=== PATIENT | female | born 1985 | race Caucasian/White ===

== ENCOUNTER 2018-01-05 14:43 | Emergency (ER) | payer MEDICAID, SELFPAY ==
[2018-01-05] VITALS (9 sets, daily range): BP systolic 106–142; BP diastolic 69–113; PULSE 79–106; RESP 16–21; TEMP 36.3; O2SAT 96–97; BMI 36.0
--- NOTE | 2018-01-05 15:02 | ED.RN ---
PT STATES IF YOU PUT AN IV IN ME I'M GOING TO RIP IT OUT. JUST LET ME . DOESN'T A SUICIDE NOTE MEAN ANYTHING TO ANYONE. WHEN ASSISTING TO REMOVE THE PT NECKLACE PT REACHED UP AND PULLED OFF HER NECKLACE OFF BREAKING THE NECKLACE
--- NOTE | 2018-01-05 15:10 | ED.RN ---
PT WRAPPED SPO2 MONITOR CORD AROUND NECK, STATES I'M GOING TO KILL MYSELF HOWEVER I CAN. PT CURSING AND SCREAMING OBSCENITIES AT POLICE AND STAFF.
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
[2018-01-05 15:22] LABS: Absolute Lymphocyte Count 3.69 X10^3/ul (0.83-4.51); Basophil# 0.05 X10^3/uL; Basophil% 0.5 % (0-1); Eosinophil# 0.11 X10^3/uL; Hematocrit 44.8 % (37-47); Hemoglobin 14.9 g/dl (12.0-15.0); Lymphocyte # 3.69 X10^3/ul (4.0); Lymphocyte % 34.2 % (19-41); Mean Corp Hgb Conc 33.3 g/gl (32-36); Mean Corpuscular Hgb 30.1 pg (27.0-32.0); Mean Corpuscular Volume 90.5 fL (81-99); Mean Platelet Vol. 10.6 fl (6.2-12.0); Monocyte# 0.91 X10^3/uL; Monocyte% 8.4 % (0-10); Neutrophil # 6.01 X10^3/uL (2.7-7.7); Neutrophil % 55.6 % (47-70); Platelet Count 279 K/mm3 (150-450); RBC Distribution Width CV 12.8 % (11.6-14.6); RBC Distribution Width SD 41.9 fl (35.1-43.9); Red Blood Count 4.95 M/mm3 (4.2-5.4); White Blood Count 10.8 K/mm3 (4.4-11.0)
[2018-01-05 15:24] LABS: Anion Gap 12 (5-15); BUN 9 mg/dL (7-18); BUN/Creat Ratio 12.1 RATIO (10-20); Chloride 105 mmol/L (98-107); Creatinine, Serum 0.74 mg/dL (0.55-1.02); EST Glomerular Filtration Rate 95 mL/min (>60); Est Glom Filt Rate - Afr Amer 115 mL/min (>60); Estimated Creatinine Clearance 84.72 ml/min; Glucose 116 mg/dL (74-106); Sodium Level 143 mmol/L (136-145)
[2018-01-05 15:27] LABS: POSITIVE COUNT NO; POSITIVE DIFFERENTIAL NO; POSITIVE MORPHOLOGY NO
[2018-01-05 15:29] LABS: Pregnancy, Serum, hCG Quali. NEGATIVE Negative (0-9 Nonpreg)
[2018-01-05] MEDS: Ziprasidone IM 20 MG/ML VIAL IM (15:38)
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
[2018-01-05 16:00] LABS: Alcohol, Blood (Medical)-Serum < 3.0 mg/dL
[2018-01-05 16:40] LABS: Amphetamine Urine VISTA POSITIVE (<1000 ng/mL); Barbiturate Urine VISTA NEGATIVE (< 200 ng/mL); Benzodiazepine Urine VISTA POSITIVE (< 200 ng/mL); Cocaine Urine VISTA NEGATIVE (< 300 ng/mL); Ecstacy Urine VISTA POSITIVE (< 500 ng/mL); Methadone Urine VISTA NEGATIVE (< 300 ng/mL); PCP Urine VISTA NEGATIVE (< 25 ng/mL); THC Urine VISTA POSITIVE (< 50 ng/mL); Vista UDS pH Range 5
--- NOTE | 2018-01-05 16:46 | ED.RN ---
THIS NURSE SPOKE WITH FROM [facility]. IF PT IS MEDICALLY CLEARED AND DOES NOT NEED TO BE HOSPITALIZED AT A PSYCHIATRIC FACILITY, THE CONTINUITY EDITOR DEPARTMENT WILL COME BACK TO ARREST THE PT.
--- NOTE | 2018-01-05 17:26 | ED.RN ---
CRISIS AWARE PT NEEDS EVAL, WILL RETURN WHEN PT LESS MEDICATED, PT NOT COOPERATIVE WITH EVAL AT THIS TIME.
--- NOTE | 2018-01-05 18:18 | CT_ITS ---
STUDY: CT BRAIN WITHOUT CONTRAST REASON FOR EXAM: Female, 32 years old. Trauma RADIATION DOSAGE (If Supplied By Facility): CTDIvol = ( 44.99 ) mGy, DLP = ( 745.49 ) mGycm TECHNIQUE: Transaxial CT imaging of the brain was performed without administration of intravenous contrast material. Individualized dose optimization techniques were used for this CT. COMPARISON: None. FINDINGS: Normal soft tissue structures. Normal calvarium. Normal size ventricles and extra-axial spaces for the patient's age. Normal white matter tracts of the cerebral hemispheres. Normal basal ganglia and thalami. Normal brainstem. Normal cerebellum. There is no intracranial hemorrhage. There are no findings of an acute ischemic infarction. Normal visualized paranasal sinuses. CT/Brain/Head without Contrast IMPRESSION: Normal unenhanced CT scan of the brain. Electronically Signed: Fidel Matamoros MD at 19:45 EST , Service support ,
--- NOTE | 2018-01-05 18:21 | ED.VISSUMM ---
- ER Visit Summary Date of Service: 01/05/18 Chief Complaint: [] Suicidal and homicidal ideation History of Present Illness: The patient is a 32 F [] Physical Examination: [] Test Results: [] CT head: Labs: CBC, BMP within normal limits. Urine tox is positive for methamphetamines, benzodiazepines, marijuana. EtOH negative. EKG: NSR, rate 75. No ectopy. Emergency Department Course and Treatment: [] Patient required immediate physical restraints as she was physically aggressive towards staff. She was placed in four-point leather restraints. She continued to be verbally abusive and aggressive in bed. She was provided 20 mg IM Geodon as a chemical restraint. She was on a threat monitoring analyst throughout her ED course. She did have her forehead laceration sutured. Area was cleaned and anesthetized with saline and Shur-Clens. As the patient was chemically sedated she did not require lidocaine. #3 6.0 nylon sutures were placed approximating the wound nicely. Patient was instructed to have sutures removed in 5 days. This was also explicitly stated in the discharge instructions. Psychiatric liaison was contacted for further evaluation and disposition to a psychiatric facility. She is medically cleared at this time. Treatment Plan: [] Transfer to a psychiatric facility. Disposition: [] Transfer to psychiatric facility. Impression: [] Suicidal ideation Homicidal ideation 2 cm forehead laceration Laceration repair by ED physician This note was generated with [employer] dictation software. It may contain incorrect words, spelling, and punctuation that were not noted in review of the chart prior to signing ED Disposition - Plan for ED Patient: Chief Complaint: Suicidal Referrals: García Mata DO [Primary Care Provider] -
--- NOTE | 2018-01-05 18:25 | ED.DCSUM_ITS ---
- ER Visit Summary Date of Service: 01/05/18 Chief Complaint: [] Suicidal and homicidal ideation History of Present Illness: The patient is a 32 F [] Physical Examination: [] Test Results: [] CT head: Labs: CBC, BMP within normal limits. Urine tox is positive for methamphetamines , benzodiazepines, marijuana. EtOH negative. EKG: NSR, rate 75. No ectopy. Emergency Department Course and Treatment: [] Patient required immediate physical restraints as she was physically aggressive towards staff. She was placed in four-point leather restraints. She continued to be verbally abusive and aggressive in bed. She was provided 20 mg IM Geodon as a chemical restraint. She was on a potline monitor throughout her ED course. She did have her forehead laceration sutured. Area was cleaned and anesthetized with saline and Shur-Clens. As the patient was chemically sedated she did not require lidocaine. #3 6.0 nylon sutures were placed approximating the wound nicely. Patient was instructed to have sutures removed in 5 days. This was also explicitly stated in the discharge instructions. Psychiatric liaison was contacted for further evaluation and disposition to a psychiatric facility. She is medically cleared at this time. Treatment Plan: [] Transfer to a psychiatric facility. Disposition: [] Transfer to psychiatric facility. Impression: [] Suicidal ideation Homicidal ideation 2 cm forehead laceration Laceration repair by ED physician This note was generated with [employer] dictation software. It may contain incorrect words, spelling, and punctuation that were not noted in review of the chart prior to signing ED Disposition - Plan for ED Patient: Chief Complaint: Suicidal Referrals: García Mata DO [Primary Care Provider] -
--- NOTE | 2018-01-05 22:20 | EKG12_ITS ---
Test Reason : PHYSCH Blood Pressure : / mmHG Vent. Rate : 075 BPM Atrial Rate : 075 BPM P-R Int : 156 ms QRS Dur : 080 ms QT Int : 406 ms P-R-T Axes : 038 052 031 degrees QTc Int : 453 ms Normal sinus rhythm Normal ECG Confirmed by TIMOTEO HAYWARD MD ([id number]), staff editor JOHN GURROLA ([id number]) on 01/11/2018 2:45:25 PM Referred By: NAINA Confirmed By:TIMOTEO HAYWARD MD
[2018-01-05 22:29] LABS: Bacteria 0 SEEN /hpf (None Seen); Mucous, Urine 0 SEEN /hpf (<or=2+); Red Blood Cells-Urine 0 SEEN /hpf (0-5); White Blood Cells 0 SEEN /hpf (0-5)
[2018-01-05 22:35] LABS: Color, Urine Yellow (Yellow); Glucose, Dipstick Normal (Normal); Ketone-Dipstick 5 mg/dl (Negative); Leukocyte Esterase-Dipstick 25 /ul (Negative); Nitrite-Dipstick Negative (Negative); Occult Blood-Urine Negative /ul (Negative); Protein-Dipstick 30 mg/dl (Negative); Specific Gravity, Urine 1.025 (1.002-1.030); Urine Bilirubin Dipstick 1 mg/dL (Negative); Urine Clarity Cloudy (Clear); Urine Urobilinogen 1 mg/dl (Normal)
[2018-01-05 22:45] LABS: Squamous Epithelial Cells - UA 0-5 SEEN /hpf (5-10)
[2018-01-05 22:46] LABS: Amorphous Sediment 4+
[2018-01-05 22:48] LABS: AST(SGOT) 32 U/L (15-37); Alanine Aminotransfer ALT/SGPT 63 U/L (13-56); Albumin, Serum 3.9 g/dL (3.2-5.0); Alkaline Phosphatase 74 U/L (45-117); Bilirubin, Direct 0.12 mg/dL (0.00-0.30); Globulin 3.7 g/dL (2.2-4.2); Protein, Total 7.6 g/dL (6.4-8.2)
[2018-01-06] VITALS (14 sets, daily range): BP systolic 111–158; BP diastolic 60–94; PULSE 72–90; RESP 14–22; O2SAT 97–100
[2018-01-06] MEDS: clonazePAM 0.5 MG Tablet PO (00:10)
--- NOTE | 2018-01-06 00:40 | ED.RN ---
BOYFRIEND AT BEDSIDE. BOYFRIEND INFORMED THAT IF ANY ARGUING STARTED OR PT BECAME UPSET THAT HE WOULD HAVE TO LEAVE.
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
[2018-01-06] MEDS: Acetaminophen 325 MG Tablet 650 MG PO (02:39)
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
--- NOTE | 2018-01-06 07:18 | ED.RN ---
MILAGRO WITH CRISIS; SPOKE WITH EMMANUEL AT [facility]; THE PTS CHART IS STILL UNDER REVIEW WITH SEVERAL OTHERS; [facility] WILL TOUCH BASE WITH US WHEN THEY HAVE ANY UPDATED INFORMATION; IT WILL BE A WHILE
--- NOTE | 2018-01-06 07:45 | ED.RN ---
PT VERY POLITE AND COOPERATIVE AT THIS TIME. BOYFRIEND AT THE BEDSIDE. PT APOLOGIZED FOR HER ACTIONS YESTERDAY
--- NOTE | 2018-01-06 08:07 | ED.RN ---
PHARMACY CONTACTED FOR MEDICATIONS
[2018-01-06] MEDS: carBAMazepine 200 MG Tablet PO (08:15)
[2018-01-06] MEDS: clonazePAM 1 MG Tablet PO ×2 (08:16→21:40)
[2018-01-06] MEDS: Pantoprazole Sodium 20 MG Tablet PO (08:16)
--- NOTE | 2018-01-06 08:58 | ED.RN ---
PT REQUESTING TO SMOKE. THIS NURSE IS NOT COMFORTABLE WITH PT LEAVING THE DEPARTMENT. BRANCH ACCOUNT EXECUTIVE IS NOT SAFE WITH THE PT LEAVING THE DEPARTMENT. PT INFORMED OF THE SAME. THIS NURSE OFFERED THE PT A NICOTINE PATCH. PT STATES I DON'T KNOW JUST DECIDE FOR ME. I'M STUCK HERE I CAN'T GO ANYWHERE. PT TEARFUL. PT STATES I JUST FOUND OUT I'M LOSING MY KIDS. THIS NURSE AND PT MET AGREEMENT TO LET KLONOPIN TAKE EFFECT A LITTLE LONGER AND RE-EVALUATE
[2018-01-06] MEDS: Ziprasidone IM 20 MG/ML VIAL IM (10:09)
--- NOTE | 2018-01-06 12:54 | ED.RN ---
LEFT MESSAGE WITH [facility] TO HAVE CRISIS CALL US
--- NOTE | 2018-01-06 15:43 | ED.RN ---
CALLED [facility]; REQUESTED TO HAVE CRISIS CALL US WITH AN UPDATE; TAYLOR IS [facility]ILDR[facility]'S TUT[facility] NURSERY FOR CRISIS
--- NOTE | 2018-01-06 15:52 | ED.RN ---
PER TAYLOR WITH CRISIS HE HAS ATTEMPTED SEVERAL TIMES TO CONTACT [facility]
--- NOTE | 2018-01-06 16:12 | NURSING ---
JAMAL VAZQUEZ WITH CRISIS DOCTOR AT [facility] IS REVIEWING PTS CHART AT THIS TIME
--- NOTE | 2018-01-06 16:52 | ED.RN ---
PT SENDING THE FOLLOWING PERSONAL BELONGINGS WITH MOTHER AND BOYFRIEND: RED SWEATSHIRT JACKET PURPLE SHIRT STRIPPED LOW CUT SOCKS BLACK SWEATS SILVER COLORED RING AND NECKLACE PURPLE UNDERWARE DUCKWORTH SPORTS BRA WHITE TENNIS SHOES BLACK WALLET OMEPRAZOLE 20 MG PILL BOTTLE, 18 PILLS TOTAL/INTACT CARBAMAXEPINE ER 200 MG PILL BOTTLE, 15 PILLS IN ONE BOTTLE, AND 14 PILLS IN OTHER BOTTLE PAROXETINE 20 MG PILL BOTTLE, 10 PILLS TOTAL/INTACT CLONAZEPAM 0.5 MG PILL BOTTLE, 5 PILLS TOTAL/INTACT ANTIDIARRHEAL MEDICATION X2 TABS, PACKAGING INTACT PT UPSET AT STAFF THAT SHE IS UNABLE TO GO OUTSIDE AND SMOKE. EXPLAINED TO PT THAT [facility] IS A NON SMOKING CAMPUS AND THAT WE COULD PROVIDE A NICOTINE PATCH IN LIEU OF SMOKING. PT ESCALATING STATING THAT SOMEONE EARLIER TOLD ME I COULD GO SMOKE. MOM AND BOYFRIEND AT BEDSIDE, ASSISTING IN ATTEMPTING TO CALM PT. PT CALMING AT THIS TIME.
--- NOTE | 2018-01-06 17:20 | ED.RN ---
PT REQUESTS TO SMOKE. THIS RN INFORMS THE PATIENT THAT THIS IS A NON SMOKING FACILITY. HRO OFFICER INFORMED OF PT REQUEST REINFORCES THAT IT IS AGAINST POLICY. PT VISIBLY UPSET STATING, THE OTHER NURSE SAID I COULD SMOKE. THIS RN APOLOGIZED FOR CONFUSION REGUARDING SMOKING, AND OFFERS TO GET PT A NICOTINE PATCH. PT STATES, I GUESS I WILL TAKE ONE, BUT IF IT MAKES ME SICK YOU ARE GOING TO HAVE TO CLEAN IT UP, AND MY SHIT STINKS. DR. MARCANO INFORMED OF PT REQUEST. NICOTINE PATCH PLACED ON LEFT SHOULDER WHERE PT INDICATED SHE WANTED IT PLACED. PT INFORMED THAT HER MEAL WAS PRESENT, BUT IS REFUSING TO EAT IT AT THIS TIME. THIS RN LABELED MEAL AND PLACED IT IN THE ER REFRIGERATOR. PT INFORMED THAT IT WOULD BE AVAILABLE TO HER IF SHE WANTED. PT VISIBLY UPSET. THIS RN ATTEMPTS TO COMFORT PT, APOLOGIZING FOR ANY CONFUSION. PT STATES, NO ONE HAS EVEN OFFERED TO CHANGE MY DRESSING. THIS RN ASKS PT PERMISSION TO CHANGE IT AND PT REFUSING AT THIS TIME. PT EDUCATED THAT THIS RN IS WILLING IF THE PT CHANGES HER MIND AND WOULD LIKE HER DRESSING CHANGED. PT REQUEST TO BE LEFT ALONE AND HAVE DOOR CLOSED. DOOR CLOSED AT PT REQUEST. CAMERA ON PT BOYFRIEND AT BEDSIDE.
--- NOTE | 2018-01-06 18:27 | ED.RN ---
PT CONTINUES TO REFUSE DINNER. PT REPORTS SHE DOES NOT WANT ANYTHING AT THIS TIME. PT IRRITATED BUT COOPERATIVE. PT REPORTS NICOTINE PATCH IS MAKING HER DIZZY, BUT DENIES WANTING INTERVENTION. PATCH STILL INTACT ON LEFT SHOULDER. PT BOYFRIEND AT BEDSIDE. PT IRRITABLE BUT COOPERATIVE.
--- NOTE | 2018-01-06 20:14 | NURSING ---
CALLED [facility] AND THEY SAID THE PHYSICIAN IS STILL REVIEWING THE CHART EVEN AFTER 2 HOURS
--- NOTE | 2018-01-06 21:45 | ED.RN ---
GAVE PT CAMILLE AND SHE STATED THAT SHE WAS VERY PARANOID AND WANTED TO SEE THE MEDICATION PRIOR TO TAKING IT.GAVE THE PT THE MED IN IT'S PACKAGING AND THEN SHE TOOK IT.PT STATED SHE DOES NOT TRUST ANYONE EXCEPT THIS NURSE.PT EARLIER HAD SAID THAT SHE HAS NOT VOIDED SINCE YESTERDAY,BUT THEN STATED SHE HAD GONE TO THE BATHROOM BECAUSE HER ABDOMEN HURT AND SHE WENT.PT DECLINED ANY MEDICATION FOR HER ABDOMINAL PAIN OR HER HEAD ACHE.SHE STATED THAT SHE WAS AFRAID TO FALL ASLEEP IN FEAR SOMEONE WOULD DO SOMETHING TO HER.RE-ASSURANCE GIVEN THAT SHE IS SAFE AND CAN SLEEP.
--- NOTE | 2018-01-06 22:30 | NURSING ---
BEEN CALLING [facility] EVERY 15 MINUTES SINCE 2129, HAVE LEFT VOICEMAIL AND STILL HAVE NO RESPONSE TO IF SHE IS ACCEPTED OR NOT.
--- NOTE | 2018-01-06 23:27 | NURSING ---
[facility] ALEX[facility]RE AND THEY SAID PATIENT MIGHT BE BETTER IN REHAB. ASKED THEM TO CALL CRISIS TO DISCUSS OPTIONS.
--- NOTE | 2018-01-06 23:45 | ED.RN ---
PT C/O NOT BEING ABLE TO VOID AND THAT NO BODY IS CHANGING HER DRSG ON FORE HEAD.ENCOURAGED PT TO TRY TO VOID.PT ARGUEMENTIVE AND THREATENING TO DIOR THE HOSPITAL. MADE AWARE.PT DID GO TO THE BATHROOM,BUT STATES SHE DID NOT GO.
[2018-01-07] VITALS (21 sets, daily range): BP systolic 124–156; BP diastolic 70–89; PULSE 75–118; RESP 14–20; O2SAT 97–99
--- NOTE | 2018-01-07 | ED.RN ---
MD DID SPEAK TO THE PT AND PT WAS BLADDER SCANNED FOR 115CC.MD AWARE OF AMOUNT SCANNED IN BLADDER.PT ASKING HER SHEETS CHANGED,SHEETS CHANGED.PT'S EX- AT BEDSIDE.
--- NOTE | 2018-01-07 00:01 | ED.RN ---
[facility] REACHED AFTER MULTIPLE ATTEMPTS, [facility] ASKS IF PATIENT IS STILL SUICIDAL/HOMICIDAL TO WHICH PATIENT DENIES. [facility] DECLINES PATIENT STATING THAT BECAUSE SHE IS NO LONGER SUICIDAL/HOMICIDAL SHE NEEDS DRUG REHAB AND NOT INPATIENT PSYCHIATRIC STABILIZATION. CRISIS MADE AWARE AND STATES SOMEONE WILL BE BACK TO EVALUATE HER IN THE MORNING.
[2018-01-07 00:08] LABS: Absolute Lymphocyte Count 4.12 X10^3/ul (0.83-4.51); Absolute Neutrophil Count 3.6 X10^3/uL (2.0-7.7); Basophil# 0.05 X10^3/uL; Basophil% 0.6 % (0-1); Eosinophil# 0.22 X10^3/uL; Eosinophils% 2.5 % (0-5); Hematocrit 42.9 % (37-47); Hemoglobin 14.7 g/dl (12.0-15.0); Lymphocyte # 4.12 X10^3/ul (4.0); Lymphocyte % 47.5 % (19-41); Mean Corp Hgb Conc 34.3 g/gl (32-36); Mean Corpuscular Hgb 30.4 pg (27.0-32.0); Mean Corpuscular Volume 88.8 fL (81-99); Mean Platelet Vol. 10.2 fl (6.2-12.0); Monocyte# 0.63 X10^3/uL; Monocyte% 7.3 % (0-10); Neutrophil # 3.64 X10^3/uL (2.7-7.7); Platelet Count 260 K/mm3 (150-450); RBC Distribution Width CV 12.8 % (11.6-14.6); RBC Distribution Width SD 41.7 fl (35.1-43.9); Red Blood Count 4.83 M/mm3 (4.2-5.4); White Blood Count 8.7 K/mm3 (4.4-11.0)
[2018-01-07 00:09] LABS: POSITIVE COUNT NO; POSITIVE DIFFERENTIAL NO; POSITIVE MORPHOLOGY NO
--- NOTE | 2018-01-07 00:14 | ED.RN ---
PT'S LACERATION OPEN TO AIR,NO SIGNS OF INFECTION.
[2018-01-07 00:17] LABS: Anion Gap 10 (5-15); BUN 7 mg/dL (7-18); BUN/Creat Ratio 10.7 RATIO (10-20); Calcium,Total 8.2 mg/dL (8.5-10.1); Chloride 104 mmol/L (98-107); Creatinine, Serum 0.66 mg/dL (0.55-1.02); EST Glomerular Filtration Rate 110 mL/min (>60); Est Glom Filt Rate - Afr Amer 133 mL/min (>60); Estimated Creatinine Clearance 94.99 ml/min; Glucose 90 mg/dL (74-106); Potassium 3.3 mmol/L (3.5-5.1); Sodium Level 140 mmol/L (136-145)
--- NOTE | 2018-01-07 00:30 | ED.RN ---
MD AWARE LABS ARE BACK AND STATED HE WOULD BE IN TO SEE THE PT AND GO OVER THE RESULTS.
--- NOTE | 2018-01-07 02:23 | ED.RN ---
PT ASKING FOR SOMETHING TO SLEEP, AWARE.
--- NOTE | 2018-01-07 02:24 | ED.RN ---
PT UP TO THE BATHROOM.
--- NOTE | 2018-01-07 02:35 | ED.RN ---
PT REFUSED THE AMBIEN,'I AM BIPOLAR AND I AM AFRAID OF THE SIDE EFFECTS,AND IF I FALL ASLEEP AND WAKE UP MANIAC,I'M ALREADY IN ENOUGH TROUBLE.EMPATHY GIVEN, AWARE.
--- NOTE | 2018-01-07 05:17 | ED.RN ---
PT VERBALIZED THAT SHE TRIED TO SEND HER EX-,BUT HE WOULD NOT GO HOME, BECAUSE HE IS HERE TO MAKE SURE I STAY SAFE.PT VOICED THAT SHE WAS NOT GOING TO SLEEP EVEN AFTER ADVISING HER SHE IS SAFE.OFFERRED PT SNACKS AND SHE DECLINED.
--- NOTE | 2018-01-07 05:33 | ED.RN ---
dr acuna checked on pt to see if she wanted something to help her sleep. pt has been awake all night. pt than came out talking on her phone and said tell my nurse thanks to that dr i am suicidal again. She went walking into the bathroom and slammed the door shut. Pt came out of the bathroom still talking on her phone and looked at Dr. Acuna and said thanks dr now i'm suicidal again. Thanks for not caring if I sleep or not Dr. Acuna asked her if she wanted something to sleep or not. she said No not now. pt also said that nurse was supposed to check up on her and never has. Xochilt RN was just in the room about 15-[address] Acuna going in. Dr. Acuna had ordered pt ambien to sleep which she refused.
--- NOTE | 2018-01-07 06:18 | ED.RN ---
Addendum entered by Esme Clark 01/07/18 06:25: PT'S MOTHER STATED SHE WAS ON THE PHONE WITH HER AND THAT THE PT HAD WANTED HER TO CALL SO THAT SHE CAN GET A SHOT.ALSO THE MOTHER WANTS TO MAKE SURE COUNSELOR IS PLACING HER. Original Note: PT'S MOTHER CALLED AND THE MOTHER STATED,SHE'LL TAKE THE SHOT THAT YOU GUYS OFFERRED HER.MADE PT'S MOTHER AWARE THAT NO SHOT WAS OFFERRED TO HER AND AWARE THAT CRISIS WILL BE IN TO EVALUATE PT.PT'S MOTHER STATED THAT SHE LIVES WITH THE PT AND SHE KNOWS HER THAT SHE IS NOT TRUTHFUL.
--- NOTE | 2018-01-07 06:27 | ED.RN ---
boyfriend came out to talk to dr acuna. asked about sleeping shot. dr acuna said that he offered her meds to sleep and pt refused. boyfriend was told that we will not tolerate her being manipulative. she is trying to get family and boyfriend upset and is trying to pit nurse against nurse.
--- NOTE | 2018-01-07 06:58 | ED.RN ---
0649 PT'S EX- CAME OUT AND INFORMED DR TODD THAT SHE WILL TAKE SOMETHING FOR SLEEP,VISTARIL WAS GIVEN.PT DID BEGIN TO C/O ABOUT THE VISTARIL,BUT THE EX- INTERVENED AND SHE TOLD HIM FINE I WILL JUST SHUT UP AND WAIT FOR MY RIDE.DON'T YOU SPEAK TO ME.I WILL JUST TAKE ANY PILL THEY GIVE ME.
--- NOTE | 2018-01-07 07:10 | ED.RN ---
OFFERED PT ICE FOR HER BOTTLED, PT REFUSED. PT EX IS AT BEDSIDE.
--- NOTE | 2018-01-07 07:46 | ED.RN ---
PT REFUSED BREAKFAST. OFFERED HER SOME CRACKERS, STATED SHE IS UNABLE TO EAT.
--- NOTE | 2018-01-07 07:47 | ED.RN ---
OFFERED THE PT EX THE BREAKFAST TRAY THAT THE PT REFUSED, HE REFUSED FOOD WELL.
--- NOTE | 2018-01-07 08:41 | ED.RN ---
PT RESTING IN BED, EX IN BED WITH PT.
[2018-01-07] MEDS: Acetaminophen 500 MG Tablet 1000 MG PO (09:14)
[2018-01-07] MEDS: carBAMazepine 200 MG Tablet PO (09:15)
[2018-01-07] MEDS: clonazePAM 1 MG Tablet PO ×2 (09:15→21:49)
[2018-01-07] MEDS: Pantoprazole Sodium 20 MG Tablet PO (09:16)
--- NOTE | 2018-01-07 09:17 | ED.RN ---
BROUGHT PT CUP OF ICE WATER IN FOR PT. OFFERED PT A SNACK TO HAVE WITH HER MEDICATIONS BUT SHE REFUSED. LOOKED AT WOUND ON FOREHEAD AND APPLIED NEW DRESSING.
--- NOTE | 2018-01-07 09:22 | ED.RN ---
PT CONTINUES TO COMPLAIN ABOUT STAFF AND HOW SHE HAS BEEN MISTREATED. STATES THAT KNOW ONE HAS OFFERED TO CHANGE HER BANDAGE. ANYTIME SHE ASKED FOR SOMETHING STATES THAT SHE IS YELLED AT.
--- NOTE | 2018-01-07 09:32 | ED.RN ---
GAVE MOUTH WASH SWABS.
--- NOTE | 2018-01-07 10:25 | ED.RN ---
SPOKE WITH AUTUMN AT CRISIS, NO BEDS AT [facility]. AUTUMN WANTS TO KNOW IF SHE GO TO [facility] THEN TO [facility]. AUTUMN FROM CRISIS SAYS NO NEED TO RE-EVALUATE. SHOULD BE A BED TOMORROW AT [facility].
--- NOTE | 2018-01-07 10:35 | NURSING ---
AUTUMN , CRISIS, CALLED AND TALKED TO RN
--- NOTE | 2018-01-07 10:40 | ED.RN ---
SPOKE WITH [facility] DEPUTY NANCE WHO THEN GAVE ME TO SERGEANT NANCE. EXPLAINED TO SERGEANT NANCE THAT SHE IS MEDICALLY CLEARED AND THAT WE ARE WAITING ON BEDS AT [facility], THAT AUTUMN AT CRISIS WOULD LIKE HER IN SNF UNTIL A BED OPENS UP. SERGEANT NANCE STATED HE IS LOOKING INTO IT AND WILL CALL BACK.
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
--- NOTE | 2018-01-07 14:15 | NURSING ---
CALLED CRISIS, TALKED TO AUTUMN. PATIENT WILL PROBABLY NOT GET A BED AT [facility] UNTIL TOMORROW.
[2018-01-07] MEDS: Ibuprofen 600 MG Tablet PO (14:46)
--- NOTE | 2018-01-07 16:32 | NURSING ---
POT ANNEALER IN ROOM
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
[2018-01-08] VITALS (9 sets, daily range): BP systolic 110–131; BP diastolic 59–86; PULSE 73–110; RESP 14–18; O2SAT 95–98
[2018-01-08] MEDS: Ziprasidone IM 20 MG/ML VIAL IM (00:25)
--- NOTE | 2018-01-08 01:00 | ED.RN ---
PATIENT WAS REQUESTING MEDICATION TO HER HELP HER SLEEP. PATIENT REQUESTING THE SHOT SHE RECEIVED THE OTHER DAY. PATIENT WAS GIVEN GEODON. PATIENT WAS GIVEN IM GEODON PER PATENT'S REQUEST. PATIENT DENIES ANY NEEDS OR COMPLAINTS AT THIS TIME
--- NOTE | 2018-01-08 07:18 | NURSING ---
ANDREA CALLED. ASKED IF PATIENT WAS STILL HERE WAITING A BED. REPLIED YES, THEY SAID SHE SHOULD HAVE A BED TODAY
[2018-01-08] MEDS: Pantoprazole Sodium 20 MG Tablet PO (09:17)
[2018-01-08] MEDS: clonazePAM 1 MG Tablet PO (09:17)
--- NOTE | 2018-01-08 09:57 | NURSING ---
ANDREA ON LINE WITH RN
--- NOTE | 2018-01-08 10:52 | ED.RN ---
TWO BAGS OF CLOTHES LEFT WITH PT INCLUDING PURSE, CELLPHONE AND HEAT TREAT SUPERVISOR.
== END 2018-01-08 10:52 | disposition home or self-care (01) ==
PROVIDERS: Emergency Medicine; Emergency Provider Emergency Medicine; Family Provider Preventive Medicine Occupational Medicine; PCP Preventive Medicine Occupational Medicine
DX: R45.851 Suicidal ideations (principal); R45.850 Homicidal ideations; S01.81XA Laceration without foreign body of other part of head, initial encounter; F31.9 Bipolar disorder, unspecified; E66.9 Obesity, unspecified; Z79.899 Other long term (current) drug therapy; X83.8XXA Intentional self-harm by other specified means, initial encounter; Y92.230 Patient room in hospital as the place of occurrence of the external cause
CPT/HCPCS: 12011; 36415; 70450; 80048; 80076; 80307; 80320; 81001; 84132; 84703; 85025; 93005; 96372; 99285; G0480; J3486

== ENCOUNTER 2018-01-15 19:47 | Emergency (ER) | payer MEDICAID, SELFPAY ==
[2018-01-15 19:48] VITALS: BP 159/110; PULSE 126; RESP 16; TEMP 36.9; O2SAT 99; BMI 31.8
--- NOTE | 2018-01-15 20:02 | ED.VISSUMM ---
- ER Visit Summary Date of Service: 01/15/18 Chief Complaint: Suture removal History of Present Illness: The patient is a 32 F presenting for suture removal. Patient had sutures placed on 01/05. She denies any complications with wound healing. Physical Examination: Well-healing wounds in the central portion of the patient's forehead without any evidence of infection or drainage. Mild amount of scab in the central area. Test Results: None indicated Emergency Department Course and Treatment: Wound was prepped with Betadine, and then forceps and scissors were used to remove 3 sutures fully intact. Patient tolerated this well. Disposition: Discharge Impression: 1. Visit for suture removal 2. Suture removal by ED physician This note was generated with MedRunner dictation software. It may contain incorrect words, spelling, and punctuation that were not noted in review of the chart prior to signing ED Disposition - Plan for ED Patient: Disposition: Home or Assisted Living Chief Complaint: Suture Remv Diagnosis: Visit for suture removal Instructions: ED Wound Check Sutr Remove No Infec Referrals: García Mata DO [Primary Care Provider] - As Needed
[2018-01-15 20:12] VITALS: BP 121/90; PULSE 101; RESP 17; O2SAT 96
== END 2018-01-15 20:16 | disposition home or self-care (01) ==
LOC: ED 20:14
PROVIDERS: Emergency Provider Emergency Medicine; Family Provider Preventive Medicine Occupational Medicine; PCP Preventive Medicine Occupational Medicine
DX: Z48.02 Encounter for removal of sutures (principal); Z79.899 Other long term (current) drug therapy
CPT/HCPCS: 99282

== ENCOUNTER 2018-12-18 07:15 | Emergency (ER) | payer MEDICAID, SELFPAY ==
[2018-12-18 07:16] VITALS: BP 123/74; PULSE 87; RESP 15; TEMP 36.3; O2SAT 100; BMI 38.2
--- NOTE | 2018-12-18 07:32 | EKG12_ITS ---
Test Reason : CP Blood Pressure : / mmHG Vent. Rate : 085 BPM Atrial Rate : 085 BPM P-R Int : 134 ms QRS Dur : 076 ms QT Int : 378 ms P-R-T Axes : 050 060 050 degrees QTc Int : 449 ms Normal sinus rhythm Normal ECG Confirmed by YESY HUDSON, TIMOTEO ([id number]), editorial specialist JOHN GURROLA ([id number]) on 12/24/2018 11:02:25 AM Referred By: HUYEN Confirmed By:TIMOTEO HAYWARD MD
--- NOTE | 2018-12-18 07:32 | RAD_ITS ---
STUDY: X-RAY CHEST REASON FOR EXAM: Female, 32 years old. Sudden onset of chest pain TECHNIQUE: Single AP portable view of the chest. COMPARISON: 03/17/2015 FINDINGS: The lungs are clear and expanded. There is no demonstrated pleural abnormality. Normal size heart. Normal mediastinum and jj. Normal visualized pulmonary arteries. Normal visualized aortic arch and descending thoracic aorta. Normal visualized thoracic spine. Normal visualized ribs, clavicles, and shoulders. There is no demonstrated abnormality of the visualized soft tissue structures of the upper abdomen. RAD/Chest 1 View (Portable) IMPRESSION: Normal x-ray examination of the chest. Electronically Signed: Daniel Bloom DO at 7:56 EST Tel , Service support ,
[2018-12-18 07:41] VITALS: O2SAT 100
--- NOTE | 2018-12-18 07:45 | ED.VISSUMM ---
- ER Visit Summary Date of Service: 12/18/18 Chief Complaint: Chest pain History of Present Illness: The patient is a 32 F presenting for evaluation secondary to chest pain. Patient has a underlying history of intermittent methamphetamine use. Patient reports that she relapsed this weekend. She typically snorts. Patient states that she was doing well throughout the course of this week, but then today she was woken from sleep at about 6:30 in the morning with a generalized heaviness in her chest. It is associated with some shortness of breath and worsening with exertion. Seems to have gotten better with taking aspirin and ibuprofen. Patient denies that she has had prior similar episodes in the past. She did report that she ate a corn dog last night that she feels may have contributed to this, but she states that this does feel somewhat different than her typical heartburn. Patient has a underlying history of smoking and premature family history of heart disease. She denies any PE risk factors. Review of systems otherwise negative. Physical Examination: Vital signs are within normal limits, patient is afebrile. General: Patient is well-nourished well-developed and in no acute distress. Head: Normocephalic, atraumatic Eyes: Pupils equal round and reactive bilaterally, extra occular motion intact bialterally ENT: Moist mucous membranes Neck: Supple, no lymphadenopathy, no JVD, no meningismus CVS: Heart regular rate and rhythm, no murmurs, rubs or gallops, radial pulses 2+ bilaterally Resp: Respirations nondistressed, lung sounds clear bilaterally Abdomen: Soft, nontender, nondistended, no palpable masses, normal bowel sounds Back: Nontender Extremities: Nontender, atraumatic, active full range of motion, no peripheral edema Skin: warm, no rashes, no petechia Neuro: Alert and oriented x 4, CN 2-12 intact, no lateralizing neurological defecits Psyc: Normal affect Test Results: EKG demonstrates sinus rhythm of [address] segments normal T waves normal intervals no evidence of acute ischemia or arrhythmia. CBC, chemistry, troponin all found to be unremarkable except for a mild leukocytosis. Chest x-ray was found to be negative per radiology. Emergency Department Course and Treatment: Patient presented secondary to chest pain. Workup was negative as noted above. Patient's heart score is 2. I had a discussion and shared decision-making with the patient about keeping her for a 3-hour rule out versus discharge home with outpatient follow-up. She did opt for outpatient follow-up and discharge. Patient is PE RC negative, I do not believe that there is any indication for workup for pulmonary embolism. Patient was discharged in stable condition. Disposition: DC Impression: 1. Chest Pain This note was generated with [employer] dictation software. It may contain incorrect words, spelling, and punctuation that were not noted in review of the chart prior to signing ED Disposition - Plan for ED Patient: Disposition: Home or Assisted Living Diagnosis: Chest pain Instructions: ED Chest Pain NonCardiac Referrals: García Mata DO [Primary Care Provider] - As Needed
[2018-12-18 07:50] LABS: Absolute Lymphocyte Count 2.26 X10^3/ul (0.83-4.51); Absolute Neutrophil Count 9.5 X10^3/uL (2.0-7.7); Basophil# 0.06 X10^3/uL; Basophil% 0.5 % (0-1); Eosinophil# 0.34 X10^3/uL; Eosinophils% 2.7 % (0-5); Hematocrit 44.2 % (37-47); Hemoglobin 14.4 g/dl (12.0-15.0); Lymphocyte # 2.26 X10^3/ul (4.0); Lymphocyte % 17.6 % (19-41); Mean Corp Hgb Conc 32.6 g/gl (32-36); Mean Corpuscular Hgb 29.9 pg (27.0-32.0); Mean Corpuscular Volume 91.7 fL (81-99); Mean Platelet Vol. 10.1 fl (6.2-12.0); Monocyte# 0.65 X10^3/uL; Monocyte% 5.1 % (0-10); Neutrophil # 9.48 X10^3/uL (2.7-7.7); Neutrophil % 73.9 % (47-70); Platelet Count 328 K/mm3 (150-450); RBC Distribution Width CV 12.8 % (11.6-14.6); RBC Distribution Width SD 42.9 fl (35.1-43.9); Red Blood Count 4.82 M/mm3 (4.2-5.4); White Blood Count 12.8 K/mm3 (4.4-11.0)
[2018-12-18] MEDS: Aspirin 81 MG TAB.CHEW 162 MG PO (07:54)
[2018-12-18 07:56] LABS: POSITIVE COUNT NO; POSITIVE DIFFERENTIAL NO; POSITIVE MORPHOLOGY NO
[2018-12-18 08:01] LABS: Anion Gap 12 (5-15); BUN 8 mg/dL (7-18); Calcium,Total 8.5 mg/dL (8.5-10.1); Chloride 106 mmol/L (98-107); EST Glomerular Filtration Rate 87 mL/min (>60); Est Glom Filt Rate - Afr Amer 105 mL/min (>60); Estimated Creatinine Clearance 81.97 ml/min; Glucose 122 mg/dL (74-106); Potassium 3.6 mmol/L (3.5-5.1); Sodium Level 142 mmol/L (136-145)
[2018-12-18 08:32] VITALS: BP 107/76; PULSE 81; RESP 16; RESP 18; O2SAT 99
== END 2018-12-18 08:35 | disposition home or self-care (01) ==
PROVIDERS: Emergency Provider Emergency Medicine; Family Provider Preventive Medicine Occupational Medicine; PCP Preventive Medicine Occupational Medicine
DX: R07.9 Chest pain, unspecified (principal); Z72.0 Tobacco use
CPT/HCPCS: 71045; 80048; 84484; 85025; 93005; 99285; A4216

== ENCOUNTER 2019-08-06 08:54 | Emergency (ER) | payer MEDICAID, SELFPAY ==
[2019-08-06 08:55] VITALS: BP 137/72; PULSE 84; RESP 18; TEMP 36.6; O2SAT 97; BMI 36.8
--- NOTE | 2019-08-06 09:19 | ED.DCSUM_ITS ---
- ER Visit Summary Date of Service: 08/06/19 Chief Complaint: Sore throat History of Present Illness: The patient is a 33 F who presents with a sore throat that began yesterday. Patient describes her pain as burning and scratching. Patient states it feels like strep throat. Patient states her pain is worse with swallowing. Patient states her pain improves with eating or drinking something cold. Patient states she did have an episode of vomiting after coughing. Patient denies any sputum production. Patient denies any fevers or chills. Patient does admit to a nonproductive cough. Physical Examination: Vital signs are stable. Patient is afebrile. Patient is in no acute distress. Oral mucosa is pink and moist. There is some postnasal drainage and mild erythema of the oropharynx. There are no exudates noted. Tympanic membranes are clear bilaterally. Neck is supple. Trachea is midline. Is no JVD or lymphadenopathy. Heart was regular rate and rhythm. Lungs are clear and equal bilaterally. Abdomen is soft and nontender. Cranial nerves II through XII are intact. There are no focal motor or sensory deficits noted. Test Results: Rapid strep test was obtained and was negative. Emergency Department Course and Treatment: Patient was advised of her strep results. Patient was advised that this most likely viral pharyngitis. Patient was instructed to drink plenty of fluids. Patient was instructed to take Tylenol or ibuprofen as needed for any aches or fevers. Patient was instructed to follow-up with her primary care physician in 5 to 7 days. Patient understood and was agreeable with the plan. All questions were answered. Disposition: Discharge home Impression: Viral pharyngitis This note was generated with [employer] dictation software. It may contain incorrect words, spelling, and punctuation that were not noted in review of the chart prior to signing ED Disposition - Plan for ED Patient: Disposition: Home or Assisted Living Diagnosis: Viral pharyngitis Instructions: PHARYNGITIS, Viral Referrals: García Mata DO [Primary Care Provider] - 5-7 Days
[2019-08-06 11:02] VITALS: BP 110/77; PULSE 77; RESP 16; O2SAT 100
== END 2019-08-06 11:06 | disposition home or self-care (01) ==
PROVIDERS: Emergency Provider Emergency Medicine; Family Provider Preventive Medicine Occupational Medicine; PCP Preventive Medicine Occupational Medicine
DX: J02.8 Acute pharyngitis due to other specified organisms (principal); B97.89 Other viral agents as the cause of diseases classified elsewhere; Z72.0 Tobacco use
CPT/HCPCS: 87880; 99282

== ENCOUNTER 2019-12-24 00:27 | Emergency (ER) | payer MEDICAID, SELFPAY ==
[2019-12-24 00:28] VITALS: BP 138/85; PULSE 100; RESP 18; TEMP 37.1; O2SAT 99; BMI 33.2
--- NOTE | 2019-12-24 01:13 | ED.RN ---
PT ARRIVES TO ED VIA POLICE AFTER GETTING INTO AN ALTERCATION WITH HER MOTHER. PT REPORTS THAT SHE THREATENED TO HARM HER MOTHER AND HERSELF BECAUSE SHE IS UNABLE TO SEE HER KIDS AT THIS TIME. REPORTS THAT HER MOTHER HAS BEEN SELLING HER DRUGS, AND LYING TO KEEP HER KIDS AWAY FROM HER. PT AGITATED BUT COOPERATIVE AT TIME. REPORTS UPCOMING APPT WITH THE [facility]ING [facility] ON SUNDAY. PT STATES, YES, IN THE HEAT OF THE MOMENT I SAID IT WAS EASIER NOT TO BE ALIVE, AND THAT I WANTED TO SEE MY MOTHER . IT WAS MY BIRTHDAY, AND ALL I WANTED WAS TO SEE OR HEAR FROM MY KIDS. I REGRET SAYING THOSE THINGS, I AM NOT HOMICIDAL OR SUICIDAL. THIS RN OFFERS EMOTIONAL SUPPORT TO PT. SITS NEXT TO PT AND TALKS FOR AWHILE. PT INFORMED OF BEING PINK SLIPPED. REPORTS UNDERSTANDING OF THE PINK SLIP PROCESS.
--- NOTE | 2019-12-24 01:24 | ED.RN ---
s/o at bedside. he is the only person pt wants to know that she is here.
--- NOTE | 2019-12-24 01:50 | ED.RN ---
PT ATTEMPTED URINE SPECIMEN, UNABLE TO URINATE AT THIS TIME. PT HAS GATORADE AND IS DRINKING. DR. GARCIA AT BEDSIDE.
[2019-12-24 01:53] LABS: Absolute Neutrophil Count 6.2 X10^3/uL (2.0-7.7); Basophil# 0.06 X10^3/uL; Basophil% 0.5 % (0-1); Eosinophil# 0.71 X10^3/uL; Hematocrit 47.2 % (37-47); Hemoglobin 15.8 g/dL (12.0-15.0); Lymphocyte % 36.9 % (19-41); Mean Corp Hgb Conc 33.5 g/dL (32-36); Mean Corpuscular Hgb 30.2 pg (27.0-32.0); Mean Corpuscular Volume 90.1 fL (81-99); Mean Platelet Vol. 9.9 fl (6.2-12.0); Monocyte# 0.53 X10^3/uL; Monocyte% 4.4 % (0-10); NRBC Flagged by Analyzer 0 % (0-5); Neutrophil % 51.9 % (47-70); Platelet Count 328 K/mm3 (150-450); RBC Distribution Width CV 12.3 % (11.6-14.6); RBC Distribution Width SD 40.7 fl (35.1-43.9); Red Blood Count 5.24 M/mm3 (4.2-5.4); White Blood Count 11.9 K/mm3 (4.4-11.0)
--- NOTE | 2019-12-24 02:12 | ED.RN ---
CHART MINUS LABS GIVEN TO CRISIS
[2019-12-24 02:15] VITALS: RESP 18
[2019-12-24 02:16] LABS: Anion Gap 6 (5-15); BUN 7 mg/dL (7-18); BUN/Creat Ratio 8.7 RATIO (10-20); Calcium,Total 9.6 mg/dL (8.5-10.1); Chloride 107 mmol/L (98-107); EST Glomerular Filtration Rate 86 mL/min (>60); Est Glom Filt Rate - Afr Amer 104 mL/min (>60); Estimated Creatinine Clearance 80.42 ml/min; Glucose 82 mg/dL (74-106); Potassium 3.3 mmol/L (3.5-5.1); Sodium Level 139 mmol/L (136-145)
[2019-12-24 02:19] LABS: Internal QC Validated? YES +Cl - CLEAR BKGD; Pregnancy, Serum, hCG Quali. NEGATIVE Negative
[2019-12-24 02:20] LABS: Alcohol, Blood (Medical)-Serum < 3.0 mg/dL
[2019-12-24 03:18] VITALS: RESP 20
[2019-12-24 04:04] VITALS: RESP 16
--- NOTE | 2019-12-24 04:04 | ED.RN ---
PT tried to provide urine sample for the 4th time. PT is asking for straight cath for urine sample. This RN asked Etelvina from counseling center if she needed a urine sample. Etelvina reported that PT will be going home and is very truthful with her street drug use and no urine is needed.
--- NOTE | 2019-12-24 04:18 | ED.DCSUM_ITS ---
History of Present Illness Chief Complaint: Mental Health Informant: Patient Onset: Today Context: Sudden Onset Conflict: Family Worsened by: Situational factors, - - Drug abuse Associated Symptoms: Depressed, Suicidal Thoughts, Agitated, Angry, Threatening - Towards mother. Negative for: Visual Hallucinations, Auditory Hallucinations Specific plan (suicidal thought): No specific plan Narrative: Patient is a 34-year-old female with history of depression, anxiety and PTSD presenting for psychiatric evaluation. Patient was in a argument with her mother and became very upset. Patient states that while she was very upset she said things along the lines of how living is not worth it and how she wanted to choke the life out of you in reference to her mother. Patient states she did not mean and she was just very upset. She states that her mother has custody of her children and holds it over her. Patient has an appointment on , the day after tomorrow, to be evaluated at [facility] to restart her psychiatric medications. She is currently in counseling with crisis. Patient states she follows up regularly. She does admit to polysubstance abuse. She denies any current intoxication. She denies any physical complaints at this time. She does not live with her mother. Past Medical History - Allergies and Home Meds Allergies/Adverse Reactions: Allergies No Known Allergies Allergy (Verified 08/06/19 08:57) Primary Care Physician: [facility] [Primary Care Provider] - Past Medical History: - - TSD, anxiety, depression, polysubstance drug abuse Lives: Spouse/ Significant Other Smoking Status: Current every day smoker Review of Systems General: Denies: Chills, Fever, Sweats Eyes: Denies: Visual changes - bilaterally, Diplopia ENT: Denies: Rhinorrhea, Sore throat Cardiovascular: Denies: Chest pain, Palpitations Respiratory: Denies: Dyspnea, Cough, Dyspnea on exertion Gastrointestinal: Denies: Abdominal pain, Nausea, Vomiting, Diarrhea, Melena, Hematochezia Genitourinary: Denies: Dysuria, Hematuria, Frequency Musculoskeletal: Denies: Back pain, Extremity Pain Skin: Denies: Rash, Wounds Neurological: Denies: Headache, Weakness, Numbness Psych: Reports: Depression, Anxiety, Suicidal ideations. Denies: Suicidal thoughts Physical Exam Vital Signs/Narrative: Vital Signs Temp Pulse Resp BP Pulse Ox 12/24/19 04:04 16 12/24/19 03:18 20 H 12/24/19 02:15 18 12/24/19 00:28 98.8 F 100 18 138/85 H 99 Inital Vital Signs reviewed: Yes General: Well nourished, Well developed Head: Normocephalic, Atraumatic Eyes: Perrl, EOMI ENT: Moist mucous membranes, No rhinorrhea Neck: Supple, Nontender Cardiovascular: Regular rate, Regular rhythm, No murmurs Respiratory: No distress, CTA bilaterally, Chest nontender Abdomen: Soft, Nontender, Nondistended, Normal bowel sounds Extremities: Nontender, No Edema Skin: Normal color, No rash Neurological: Alert, Oriented x3, Cranial nerves II-XII grossly intact, Normal Strength, Normal Sensation Psych: Normal Speech Pattern, No suicidal or homicidal ideation, Good Insight - She displays agitation with her situation with her mother however does display good insight into the situation and has goal-directed thoughts. She is hopeful for the future. She denies any homicidal suicidal ideations at this point. She did not make any physical threats to herself or to others. She is cooperative in the emergency room., Irritable, -. Negative for: Suicidal thoughts, Homicidal thoughts, Hallucinations, Delusions Diagnostic/Tx/Re-eval Laboratory Data 12/24/19 12/24/19 12/24/19 01:45 01:45 01:45 WBC 11.9 H RBC 5.24 Hgb 15.8 H Hct 47.2 H MCV 90.1 MCH 30.2 MCHC 33.5 RDW Std Deviation 40.7 RDW Coeff of Scarlet 12.3 Plt Count 328 MPV 9.9 Immature Gran % (Auto) 0.300 Neut % (Auto) 51.9 Lymph % (Auto) 36.9 [place] % (Auto) 4.4 Eos % (Auto) 6.0 H Baso % (Auto) 0.5 Absolute Neuts (auto) 6.2 Absolute Lymphs (auto) 4.40 Nucleated RBC % 0 Sodium 139 Potassium 3.3 L Chloride 107 Carbon Dioxide 26.0 Anion Gap 6 BUN 7 Creatinine 0.80 Estim Creat Clear Calc 80.42 Est GFR (MDRD) Af Amer 104 Est GFR (MDRD) Non-Af 86 BUN/Creatinine Ratio 8.7 L Glucose 82 Calcium 9.6 Serum , Qual Ethyl Alcohol < 3.0 12/24/19 01:45 WBC RBC Hgb Hct MCV MCH MCHC RDW Std Deviation RDW Coeff of Scarlet Plt Count MPV Immature Gran % (Auto) Neut % (Auto) Lymph % (Auto) [place] % (Auto) Eos % (Auto) Baso % (Auto) Absolute Neuts (auto) Absolute Lymphs (auto) Nucleated RBC % Sodium Potassium Chloride Carbon Dioxide Anion Gap BUN Creatinine Estim Creat Clear Calc Est GFR (MDRD) Af Amer Est GFR (MDRD) Non-Af BUN/Creatinine Ratio Glucose Calcium Serum , Qual NEGATIVE Ethyl Alcohol Patient is evaluated after an outburst where she had homicidal and suicidal ideations. She states it was because she was acutely upset and did not mean it. Patient is slightly agitated when she talks about her mother but is behaving appropriately in the emergency room. She is cooperative. [facility] is very familiar with her and does evaluate her in the emergency room. They agree that she is safe for outpatient follow-up. She has been following up regularly with crisis and has an appointment with [facility] the day after tomorrow. Patient states she wants to be back on medications and wants to keep the appointment. Psychiatric screening is ordered per protocol and is grossly normal. Patient is unable to provide a urine sample in the emergency room but is not having any complain of abdominal pain or urinary retention. After discussing with crisis they do not need urine sample as patient is forthcoming about her use. Patient discharged home. Patient is counseled on signs and symptoms requiring return to the emergency room. Patient verbalizes agreement and understand this plan. Patient discharged home in stable and improved condition. ED Disposition - Plan for ED Patient: Disposition: Home or Assisted Living Diagnosis: Polysubstance abuse, Depression Instructions: Depression, Drug Abuse Referrals: Adilson Richard,[facility] [Primary Care Provider] - Additional Instructions: These continue to follow-up with crisis as well as [facility]. Please return the emergency room if you feel that you are having worsening depression or need further help.
[2019-12-24 04:40] VITALS: PULSE 82; RESP 18
== END 2019-12-24 04:42 | disposition home or self-care (01) ==
PROVIDERS: Emergency Provider Emergency Medicine; Referring Provider Nurse Practitioner Family
DX: F32.9 Major depressive disorder, single episode, unspecified (principal); F19.10 Other psychoactive substance abuse, uncomplicated; F17.200 Nicotine dependence, unspecified, uncomplicated
CPT/HCPCS: 36415; 80048; 80320; 84703; 85025; 99282; G0480

== ENCOUNTER 2019-12-25 19:44 | Emergency (ER) | payer MEDICAID, SELFPAY ==
[2019-12-24 00:28] VITALS: BMI 33.2
[2019-12-25 19:46] VITALS: BP 157/87; PULSE 136; RESP 18; TEMP 36.2; O2SAT 96; BMI 33.3
[2019-12-25] MEDS: hydrOXYzine PAM 25 MG Capsule 75 MG PO (20:08)
[2019-12-25] MEDS: LORazepam 1 MG Tablet 2 MG PO (20:08)
--- NOTE | 2019-12-25 20:18 | ED.DCSUM_ITS ---
History of Present Illness Chief Complaint: Anxiety Informant: Patient, Significant Other Onset: Days - 4 Context: Gradual Onset Conflict: - - being cut off from my psych meds Timing: Continuous Current Severity: Severe Maximum Severity: Severe Worsened by: Situational factors Relieved by: nothing. taken no medications/drugs today. Associated Symptoms: Change in sleeping, Pressured Speech. Negative for: Depressed, Change in Eating, Hopelessness, Suicidal Thoughts, Visual Hallucinations, Auditory Hallucinations Narrative: Patient states she wants to be back on her chronic anxiety medicines, she does not know what they are but 1 of them is Paxil, and she has not been on them for over a year and a half. In the meantime, she states that her mom has been feeding her pills for her anxiety daily such as Ativan, Valium, Xanax, and stopped 4 days ago, cutting me off. She states that she is detoxing from them as a result. She has flight of ideas and needs to be redirected multiple times. After doing so, it seems that the patient is here wanting something, anything, for her anxiety tonight. She is not suicidal. Her significant other accompanies her. - Past Medical History (1) Anxiety Status: Chronic (2) PTSD (post-traumatic stress disorder) Status: Chronic Past Medical History - Allergies and Home Meds Allergies/Adverse Reactions: Allergies No Known Allergies Allergy (Verified 12/25/19 19:48) Primary Care Physician: [facility] [Primary Care Provider] - As soon as possible Lives: Spouse/ Significant Other Smoking Status: Current every day smoker Review of Systems General: Denies: Chills, Fever, Sweats Eyes: Denies: Visual changes - bilaterally, Diplopia ENT: Denies: Rhinorrhea, Sore throat Cardiovascular: Denies: Chest pain, Palpitations Respiratory: Denies: Dyspnea, Cough, Dyspnea on exertion Gastrointestinal: Denies: Abdominal pain, Nausea, Vomiting, Diarrhea, Melena, Hematochezia Genitourinary: Denies: Dysuria, Hematuria, Frequency Musculoskeletal: Denies: Neck pain, Swelling Skin: Denies: Rash, Wounds Neurological: Denies: Headache, Weakness, Numbness Psych: Reports: Anxiety. Denies: Suicidal thoughts Physical Exam Vital Signs/Narrative: Vital Signs Temp Pulse Resp BP Pulse Ox 12/25/19 19:46 97.2 F L 136 H 18 157/87 H 96 Inital Vital Signs reviewed: Yes General: Well nourished, Well developed, - - NAD Head: Normocephalic, Atraumatic ENT: Moist mucous membranes, No rhinorrhea Neurological: Alert, Oriented x3, Cranial nerves II-XII grossly intact, Normal Strength, Normal Sensation, Normal Gait Psych: Logical sequential goal directed thoughts, No suicidal or homicidal ideation, Normal Appearance, Irritable, Pressured Speech, - - anxious Diagnostic/Tx/Re-eval Patient was given a dose of Ativan and Vistaril as well as a prescription for Vistaril. I talked with her for a little while. Social work saw and talked with the patient for awhile. The patient wants to go home, they agree that she is safe to do so and follow-up. ED Disposition - Plan for ED Patient: Disposition: Home or Assisted Living Diagnosis: Anxiety Instructions: Panic Attack Prescriptions: hydrOXYzine pamoate capsule [Vistaril pamoate capsule] 50 mg PO 4X/DAY PRN PRN #20 cap PRN Reason: Anxiety Transmission Status: Received by [id number] Referrals: [facility] Garrett,[facility] [Primary Care Provider] - As soon as possible
[2019-12-25 21:32] VITALS: BP 125/105; PULSE 101; RESP 16; O2SAT 100
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
== END 2019-12-25 21:36 | disposition home or self-care (01) ==
PROVIDERS: Emergency Provider Emergency Medicine
DX: F41.9 Anxiety disorder, unspecified (principal); F17.200 Nicotine dependence, unspecified, uncomplicated
CPT/HCPCS: 99285

== ENCOUNTER 2020-03-15 07:41 | Emergency (ER) | payer MEDICAID, SELFPAY ==
[2020-03-15 07:43] VITALS: BP 144/74; PULSE 113; RESP 17; TEMP 36.8; O2SAT 99; BMI 35.6
--- NOTE | 2020-03-15 07:54 | ED.VIS.GEN ---
History of Present Illness Chief Complaint: Other, Pain/Inj Informant: Patient Narrative: Patient states that she recently moved to a new place. She states that used to be a meth house. She states she believes that there are bedbugs present. She states that she had dug some out of her index finger and that they have eaten a callus on her foot and she has been cleaning them out of her foot. She states she has some bite dong on her chest. She states that she needs documentation that she has bedbugs so she can get my money back. She states she called an ambulance today. But they declined transportation to the emergency department. Past Medical History - Allergies and Home Meds Allergies/Adverse Reactions: Allergies No Known Allergies Allergy (Verified 03/15/20 07:42) Primary Care Physician: Andrea Trent MD [Primary Care Provider] - Smoking Status: Current every day smoker Review of Systems General: Denies: Chills, Fever, Sweats Eyes: Denies: Visual changes - bilaterally, Diplopia ENT: Denies: Rhinorrhea, Sore throat Cardiovascular: Denies: Chest pain, Palpitations Respiratory: Denies: Dyspnea, Cough, Dyspnea on exertion Gastrointestinal: Denies: Abdominal pain, Nausea, Vomiting, Diarrhea, Melena, Hematochezia Genitourinary: Denies: Dysuria, Hematuria, Frequency Musculoskeletal: Denies: Back pain, Extremity Pain Skin: Reports: Rash, Wounds Neurological: Denies: Headache, Weakness, Numbness Physical Exam Vital Signs/Narrative: Vital Signs Temp Pulse Resp BP Pulse Ox 03/15/20 07:43 98.3 F 113 H 17 144/74 H 99 Inital Vital Signs reviewed: Yes General: Well nourished, Well developed, No Acute Distress Head: Normocephalic, Atraumatic Eyes: Perrl, EOMI ENT: Moist mucous membranes, No rhinorrhea Neck: Supple, Nontender Cardiovascular: Regular rate, Regular rhythm, No murmurs Respiratory: No distress, CTA bilaterally, Chest nontender Abdomen: Soft, Nontender, Nondistended, Normal bowel sounds Back: Nontender, Normal Inspection Extremities: Nontender, No edema Skin: Normal color, - - On the right index finger there is a superficial abrasion. I do not see any evidence of secondary infection. On the left foot there is some skin on the ball the foot that has peeled away. She points to several black objects but that appears to be lint. She does have several excoriated red discrete 2 mm lesions on her anterior chest. No evidence of secondary infection Neurological: Alert, Oriented x3, Cranial nerves II-XII grossly intact, Normal Strength, Normal Sensation Psychological: Normal affect, Normal Mood Diagnostic/Tx/Re-eval - Medical Decision Making At this point I do not see bedbugs on her. I see some wounds that can be caused from a variety of sources. I advised her she needs an home care and home health aides teacher if she is seeing them at her house. I advised her that I am not a legal merchandiser retail representative and I can only document what I see in what I am told. ED Disposition - Plan for ED Patient: Disposition: Home or Assisted Living Diagnosis: Visit for wound check Instructions: ED Wound Care Referrals: Andrea Trent MD [Primary Care Provider] - As Needed
[2020-03-15 08:15] VITALS: PULSE 81; RESP 18
--- NOTE | 2020-03-15 08:15 | ED.RN ---
THIS NURSE REVIEWED D/C INSTRUCTIONS WITH PT. PT VERBALIZED UNDERSTANDING OF INSTRUCTIONS. PT ATTEMPTING TO PICK BUGS OUT OF HER FINGERS. PT INSTRUCTED TO STOP ATTEMPTING TO PICK AT THE BUGS. THIS IS INCREASING HER CHANCE OF INFECTED WOUNDS. PT AMBULATES FROM ROOM ON OWN WITHOUT ASSISTANCE FROM STAFF
--- OUTSIDE RECORDS SUMMARY | 2020-08-17 08:16 | XMS RPT_ITS | CCD ---
:1985 External Reference #:[id number] Author Organization [facility] Care Team Providers Name Role Phone Moody Harrington Unavailable Unavailable Alyssa Harrington Unavailable Unavailable Esperanza, F Unavailable Unavailable Palm, W Unavailable Unavailable Palm, W Unavailable Unavailable Esperanza, F Unavailable Unavailable Anum, A Unavailable Unavailable Anum, Horacio Unavailable Unavailable Emmanuel Trent () Primary Care Provider Allergies Reported Allergen Reaction(s) Severity Date of Onset Location egg extract Hives 01-12-2020 - [facility] c ([id number]) predniSONE Other: See Comments 01-12-2020 - Vianney suarez [facility] ([id number]) Medications Medication Name Sig Date Prescriber Location busPIRone busPIRone (BUSPAR) 10 06-23-2020 - [facility] Provider [facility] mg tablet Take 10 mg 07-15-2020 Provider ([id number]) by mouth three times daily. 0 06/23/2020 07/15/2020 Discontinued (Course of therapy completed) Comment: Take 10 mg by mouth three ti mes daily. Escitalopram escitalopram oxalate 04-05-2020 Randee De León) [facility] (LEXAPRO) 10 mg tablet Miley Burt ([id number]) Take 1 tablet by mouth () Miley once daily. 0 04/05/2020 Active Comment: Take 1 tablet by mouth once daily. hydrOXYzine hydrOXYzine pamoate 06-28-2020 [facility] [place] [facility] (VISTARIL) 50 mg capsule ([id number]) Take 1 capsule by mouth once daily as needed for Anxiety. 0 06/28/2020 Active hydrOXYzine pamoate 01-12-2020 - Landy (Joe) Bhupendra [facility] (VISTARIL) 25 mg capsule 07-15-2020 ([id number]) Indications: Rash Take 1 capsule by mouth three times daily as needed for Itching/Rash. 15 capsule 0 07/15/2020 Active Comment: Take 1 capsule by mouth thre e times daily as needed for Itching/Rash. Take 1 capsule by mouth once daily as needed for Anxiety. Take 1 capsule by mouth thre e times daily as needed for Anxiety. Ibuprofen IBUPROFEN ORAL Take by [facility] Provider [facility] ([id number]) mouth. 0 Active Provider Comment: Take by mouth. lamoTRIgine lamoTRIgine (LAMICTAL) 100 06-28-2020 [facility] Provider C [facility] mg tablet Take 1 tablet by ( [id number]) mouth twice daily. 0 06/28/2020 Active lamoTRIgine (LAMICTAL) 04-05-2020 - Randee De León) [facility] 25 mg tablet Take 1 07-15-2020 Miley ([id number]) tablet by mouth once daily. 0 04/05/2020 07/15/2020 Discontinued (Dosage adjustment) Comment: Take 1 tablet by mouth twice daily. Take 1 tablet by mouth once daily. Loratadine loratadine (CLARITIN) 01-12-2020 Randee De León) [facility] 10 mg tablet Miley Burt ([id number] ) Indications: Dermatitis () Miley Take 1 tablet by mouth once daily. 30 tablet 11 01/12/2020 Active Comment: Take 1 tablet by mouth once daily. Permethrin permethrin (ELIMITE) 5 07-15-2020 - Landy (Joe) [facility] % cream Indications: 07-15-2020 Bhupendra ([id number]) Rash Apply 1 application to affected area one time only for 1 dose. massage into skin from neck to feet, leave on 8-12hrs, wash off; Info: repeat 2wks if live mites persist. Itching may persist after effective treatment. 60 g 1 07/15/2020 07/15/2020 Active Comment: Apply 1 application to affec rohan area one time only for 1 dose. massage into skin from neck to feet, leav e on 8-12hrs, wash off; Info: repeat 2wks if live mites persist. Itching may persist after effective treatment. COLE'S WORT ORAL COLE'S WORT ORAL Ccf Provider Ccf [facility] Take by mouth. 0 Provider ([id number]) Active Comment: Take by mouth. traZODone traZODone (DESYREL) 50 06-28-2020 [facility] Provider [facility] mg tablet Take 1 tablet Provider ([id number]) by mouth daily at bedtime. 0 06/28/2020 Active Comment: Take 1 tablet by mouth daily at bedtime. Problems Category Problem Name Status Date Location Mood disorders Depressive disorder Active [facility] ([id number]) Other nutritional; Obese class I Active [facility] ([id number]) endocrine; and metabolic disorders Other skin disorders Eruption Active [facility] ([id number]) Screening and history of Tobacco use and exposure Active [facility] ([id number]) mental health and - finding substance abuse codes Results Result Name Value Range Unit Interpretation Flag Date Location progress on 2020-07 PROGRESS HNO ID: [id number] Normal 07-15-2020 [facility] Author: Landy GonzalezDoor To Door Salesperson) Bhupendra Grace ([id number]) Service: ? Author Type: Nurse Practitioner Type: Progress Notes Filed: 07/15/2020 3:37 PM Note Text: This note was created using [employer]. Subjective Linda Nacne is a 34 year old female. Pt reports ongoing rash since March but much worse in the last 2 weeks. No new exposures. States she sees little black things in her bed, currently living in a hotel. Lives with henrry, he does not have a rash, but pt states she sees him scratching his jones. Concern for possible scabies, has never had these before. Has used vistaril in e past for itching, only has a couple pills left. Pt reports increased anxiety in the last couple weeks due to new diagnosis of early dementia in her fiance. The history is provided by the patient. Rash This is a recurrent problem. Episode onset: 4 months ago. Th e problem has been rapidly worsening (worse in last 2 weeks) since onset. The affected locations include the scalp, abdomen, chest, neck, right upp er leg, left upper leg, right arm and left arm. The rash is characterized by redness and itchiness. It is unknown if there was an exposure to a p recipitant. Pertinent negatives include no fever. Past treatments includ e antihistamine (preventative lice shampoo). The treatment pro vided no relief. Review of Systems Constitutional: Negative for fever. Skin: Positive for rash. Allergic/Immunologic: Negative for immunocompromised state. PAST MEDICAL HISTORY Diagnosis Date - Anxiety - Depression bipolar - History of gestational diabetes - Obesity (BMI 30.0-34.9) - Polysubstance abuse (HCC) Percocet, Valium, Klonopin, methamphetamines, marijuana - Tobacco use PAST SURGICAL HISTORY Procedure Laterality Date - LAPAROSCOPIC CHOLEYCYSTECTOMY - LIGATE FALLOPIAN TUBE - PAST SURGICAL HISTORY OF TM tubes ALLERGIES Eggs [Egg] and Prednisone MEDICATIONS traZODone (DESYREL) 50 mg tablet Take 1 tablet by mouth carie y at bedtime. hydrOXYzine pamoate (VISTARIL) 50 mg capsule Take 1 capsule by mouth once daily as needed for Anxiety. lamoTRIgine (LAMICTAL) 100 mg tablet Take 1 tablet by mouth twice daily. escitalopram oxalate (LEXAPRO) 10 mg tablet Take 1 tablet by mouth once daily. loratadine (CLARITIN) 10 mg tablet Take 1 tablet by mouth on ce daily. COLE'S WORT ORAL Take by mouth. IBUPROFEN ORAL Take by mouth. hydrOXYzine pamoate (VISTARIL) 25 mg capsule Take 1 capsule by mouth three times daily as needed for Itching/Rash. permethrin (ELIMITE) 5 % cream Apply 1 application to affect ed area one time only for 1 dose. massage into skin from neck to feet, l eave on 8-12hrs, wash off; Info: repeat 2wks if live mites persist. Itching may persist after effective treatment. FAMILY HISTORY Problem Relation Age of Onset - COPD Mother - Diabetes Maternal Grandfather - Diabetes Maternal Aunt - Drug abuse Sister - Cancer Maternal Grandmother cervical, uterine, breast - Drug abuse Sister Social History Tobacco Use - Smoking status: Current Every Day Smoker Packs/day: 1.00 Years: 25.00 Pack years: 25.00 Types: Cigarettes - Smokeless tobacco: Never Used Substance Use Topics - Alcohol use: Yes Frequency: Monthly or less Drinks per session: 1 or 2 Binge frequency: Less than monthly - Drug use: Not Currently Types: Opiates, Amphetamines, Crystal Meth Comment: last use date 12/22/2019 Objective BP 118/82 Pulse 114 Temp 37.1 ?C (98.7 ?F) (Left Tympani c) Resp 16 Wt 96.4 kg (212 lb 9.6 oz) LMP 11/11/2019 (Exact Date ) BMI 37.36 kg/m? Physical Exam Vitals signs and nursing note reviewed. Constitutional: Appearance: She is well-developed. Pulmonary: Effort: Pulmonary effort is normal. Skin: General: Skin is warm and dry. Comments: Multiple scabbed lesion to bilateral arms, chest, breasts, abdomen, scalp (did not view upper thighs or back); pt scrat jadiel throughout visit Neurological: Mental Status: She is alert and oriented to person, place, a nd time. Assessment and Plan 1. Rash Unclear etiology. Possible scabies, but less likely since fi ance is asymptomatic. Recommend to treat with permethrin, may repeat in 2 weeks if symptoms persist. Also treat bedding/clothes/linens etc a nd fiance should be treated as well. Vistaril PRN, discussed drug inte raction with Lexapro causing QT prolongation, pt has tolerated this combi nation before. Encouraged to not pick/scratch the lesions. Recommend to [facility] f/u with PCP in 1-2 weeks for further evaluation if no improvement/worsening/new symptoms. Pt in agreement, verbali zed understanding, all questions answered. - hydrOXYzine pamoate (VISTARIL) 25 mg capsule; Take 1 capsu le by mouth three times daily as needed for Itching/Rash. Dispense: 15 c apsule; Refill: 0 - permethrin (ELIMITE) 5 % cream; Apply 1 application to aff ected area one time only for 1 dose. massage into skin from neck to feet, l eave on 8-12hrs, wash off; Info: repeat 2wks if live mites persist. Itching may persist after effective treatment. Dispense: 60 g; Refill: 1 cnov on 2020-07-15 CNOV Office Visit ([facility]) Normal 07-15-20 20 [facility] LINDA Espitia ([id number]) 1985 [facility] Date Time Provider Department ([id number]) 07/15/20 3:00 PM LANDY HUIZAR (JOE) [facility] During your visit today, we recorded the following informati on about you: Temperature Pulse Respiration Blood pressure 98.7 degrees 114/minute 16/minute 118/82 Weight 96.4 kg Landy Huizar APRN.CNP 07/15/2020 3:23 PM Signed UNDERSTANDING AND TREATING SCABIES WHAT IS SCABIES? 1. Scabies is a highly contagious skin disease caused by a m ite too small to see with the naked eye. 2. The most common symptom is a rash that itches intensely a t night. The rash can be anywhere on the body but is usually on the h ands, breast, armpits, genital area and waistline. 3. Scabies can affect men, women and children of all ages. I t is easily spread from person to person by c lose physical contact, such as between family members, sexual partners and children playing at [employer]. HOW DO I GET RID OF SCABIES? 1. Your doctor has prescribed a safe and effective treatment called Elimite (permethrin) 5% Cream that will eliminat e the scabies and relieve the itching. 2. To apply, thoroughly and gently massage Elimite Cream int o all skin surfaces from your head to the bottom of yo ur feet. Be sure that infants and elderly patients are treated for scabies on the neck, scalp, restorationist and forehead. The cream should be left on overnight for 8 to 14 hours and removed the next morning by bathing or shampooing. 3. IT IS EXTREMELY IMPORTANT TO PUT ELIMITE CREAM ON EVERY S QUARE INCH OF YOUR BODY: not just where the ra sh is. That includes applying it under your fingernails and toenails, around the nail b eds, between your fingers and toes, and in the cleft of your buttocks and genital area. If you wash your hands or any other area during the treatment period, new cre am must be reapplied immediately. 4. Itching, mild burning and / or stinging may occur after application of Elimite Cream. 5. Everyone affected should be treated at the same time, as directed by your physician. 6. Be sure to change your clothes and bed lines, and have al l the affected articles washed at the same time on hot cycle or professionally dry cleaned. It is not usually necessary to clean jackets, emma nkets, furniture, drapes or rugs. 7. You will not usually be contagious after one treatment if these instructions and your physician directions have been f ollowed carefully. The scabies mites will be gone in a matter of days; keturah r the rash and itching may persist up to 4 weeks after treatment. This is rarely a sign of treatment failure and is not necessarily an indication for retreatme nt. If itching is excessive or if irritation persists, consult your physician. 8. Avoid contact with your eyes. If Elimite Cream accidental ly gets in your eyes, flush with water immediately. 9. Be sure to see your physician for your follow up examinat ions. Landy Huizar APRN.JOE 07/15/2020 3:37 PM Signed This note was created using [employer]. Subjective Linda Nance is a 34 year old female. Pt reports ongoing rash since March but much worse in e last 2 weeks. No new exposures. States she sees little black things in her bed, currently living in a hotel. Lives with henryr, he does n ot have a rash, but pt states she sees him scratching his jones. Concern for possible scabies, casper s never had these before. Has used vistaril in the past for itching, only has a couple pills left. Pt reports increased anxiety in the last couple weeks due to new diagnosis of early dementia in her fiance. The history is provided by the patient. Rash This is a recurrent problem. Episode ons et: 4 months ago. The problem has been rapidly worsening (worse in last 2 weeks) since onset. The affected locations include the scalp, abdomen, chest, neck, right upper leg, left upper leg, right arm and left arm. The rash is characterized by redness and itchiness. It is unknown if there was an exposure to a pr ecipitant. Pertinent negatives include no fever. Past treatments include antihistamine (preve ntative lice shampoo). The treatment provided no relief. Review of Systems Constitutional: Negative for fever. Skin: Positive for rash. Allergic/Immunologic: Negative for immunocompromised state. PAST MEDICAL HISTORY Diagnosis Date - Anxiety - Depression bipolar - History of gestational diabetes - Obesity (BMI 30.0-34.9) - Polysubstance abuse (HCC) Percocet, Valium, Klonopin, methamphetamines, marijuana - Tobacco use PAST SURGICAL HISTORY Procedure Laterality Date - LAPAROSCOPIC CHOLEYCYSTECTOMY - LIGATE FALLOPIAN TUBE - PAST SURGICAL HISTORY OF TM tubes ALLERGIES Eggs [Egg] and Prednisone MEDICATIONS traZODone (DESYREL) 50 mg tablet Take 1 tablet by mouth carie y at bedtime. hydrOXYzine pamoate (VISTARI L) 50 mg capsule Take 1 capsule by mouth once daily as needed for Anxiety. lamoTRIgine (LAMICTAL) 100 mg tablet Take 1 tablet by mouth twice daily. escitalopram oxalate (LEXAPRO) 10 mg tab let Take 1 tablet by mouth once daily. loratadine (CLARITIN) 10 mg tablet Take 1 tablet by mouth on ce daily. COLE'S WORT ORAL Take by mouth. IBUPROFEN ORAL Take by mouth. hydrOXYzine pamoate (VISTARIL) 25 mg capsule Take 1 capsule by mouth three times daily as needed for Itching/Rash. permethrin (ELIMITE) 5 % cream Apply 1 application to affected area one time only for 1 dose. massage into skin from neck to feet, leave on 8-12hrs, wash off; Info: repeat 2wks if live mites persist. Itching may pe rsist after effective treatment. FAMILY HISTORY Problem Relation Age of Onset - COPD Mother - Diabetes Maternal Grandfather - Diabetes Maternal Aunt - Drug abuse Sister - Cancer Maternal Grandmother cervical, uterine, breast - Drug abuse Sister Social History Tobacco Use - Smoking status: Current Every Day Smoker Packs/day: 1.00 Years: 25.00 Pack years: 25.00 Types: Cigarettes - Smokeless tobacco: Never Used Substance Use Topics - Alcohol use: Yes Frequency: Monthly or less Drinks per session: 1 or 2 Binge frequency: Less than monthly - Drug use: Not Currently Types: Opiates, Amphetamines, Crystal Meth Comment: last use date 12/22/2019 Objective BP 118/82 Pulse 114 Temp 37.1 ?C (98.7 ?F) (Left Tympani c) Resp 16 Wt 96.4 kg (212 lb 9.6 oz) LMP 11/11/2019 (Exact Date) B MD 37.36 kg/m? Physical Exam Vitals signs and nursing note reviewed. Constitutional: Appearance: She is well-developed. Pulmonary: Effort: Pulmonary effort is normal. Skin: General: Skin is warm and dry. Comments: Multiple scabbed lesion to bilateral arms, chest, breasts, abdomen, scalp (did not view upper thighs or back); pt scratching throughout visit Neurological: Mental Status: She is alert and oriented to person, place, a nd time. Assessment and Plan 1. Rash Unclear etiology. Possible scabies, but less likely since fi ance is asymptomatic. Recommend to treat with permethrin, may repeat in 2 weeks if symptoms persist. Also treat bedding/clothes/linens et c and fiance should be treated as well. Vistaril PRN, discussed drug interaction with Lexapro causing QT prolongation, pt has tolerated this combination bef ore. Encouraged to not pick/scratch the lesions. Recommend to schedule f/u with PCP in 1-2 weeks for further evaluation if no improvement/worsening/n ew symptoms. Pt in agreement, verbalized understanding, all questions answered. - hydrOXYzine pamoate (VISTARIL) 25 mg capsule; Take 1 capsule by mouth three times daily as needed for Itching/Rash. Dispense: 15 capsule ; Refill: 0 - permethrin (ELIMITE) 5 % c ream; Apply 1 application to affected area one time only for 1 dose. massage into skin from neck to feet, leave on 8-12hrs, wash off; Info: repeat 2wks if live mites persist. Itching may pe rsist after effective treatment. Dispense: 60 g; Refill: 1 Referring Provider: SELF [[id number]] Allergies As of Date: 07/15/2020 Noted Allergy Reaction EGGS (EGG) 01/12/2020 4 - Hives PREDNISONE 01/12/2020 14 - Other: See Comments Comments: Patient has relapsed when taking before Date Reviewed: 07/15/2020 Reviewed by: Petra Arnett Ma - Fully Assessed Reason for Visit: Rash [[id number]] Cmt: all over body x ongoing Primary Visit Diagnosis:Rash [R21] Order(s):hydrOXYzine pamoate (VISTARIL) 25 mg capsuleT sohan 1 capsule by mouth three times daily as needed for Itching/Rash.Disp: 15 capsul eRfl: 0 permethrin (ELIMITE) 5 % creamApply 1 application to affecte d area one time only for 1 dose. massage into skin from neck to fee t, leave on 8-12hrs, wash off; Info: repeat 2wks if live mites persis t. Itching may persist after effective treatment.Disp: 60 gRfl: 1 Prescriptions as of 07/15/2020 Sig: TRAZODONE 50 MG TABLET Take 1 tablet by mouth daily * HYDROXYZINE PAMOATE 50 MG CAP* Take 1 capsule by mouth once * LAMOTRIGINE 100 MG TABLET Take 1 tablet by mouth twice * ESCITALOPRAM 10 MG TABLET Take 1 tablet by mouth once d* LORATADINE 10 MG TABLET Take 1 tablet by mouth once d* COLE'S WORT ORAL Take by mouth. IBUPROFEN ORAL Take by mouth. HYDROXYZINE PAMOATE 25 MG CAP* Take 1 capsule by mouth three * PERMETHRIN 5 % TOPICAL CREAM Apply 1 application to affect* Problem List As Of Date 07/15/2020 Noted Resolved Tobacco use [Z72.0] Obesity (BMI 30.0-34.9) [E66.9] Depression [F32.9] More... Other instructions from your clinician: UNDERSTANDING AND TREATING SCABIES WHAT IS SCABIES? 1. Scabies is a highly contagious skin disease caused by a m ite too small to see with the naked eye. 2. The most common symptom is a rash that itches intensely a t night. The rash can be anywhere on the body but is usually o n the hands, breast, armpits, genital area and waistline. 3. Scabies can affect men, women and children of all ages. I t is easily spread from person to person by close physical con tact, such as between family members, sexual partners and children playing at school. HOW DO I GET RID OF SCABIES? 1. Your doctor has prescribed a safe and effective treatment called Elimite (permethrin) 5% Cream that will eliminate the scabies and relieve the itching. 2. To apply, thoroughly and gently massage Elimite Cream int o all skin surfaces from your head to the bottom of your feet. Be sure that infants and elderly patients are treated for scabies on the neck, scalp, restorationist and forehead. The cream should be left on overnight f or 8 to 14 hours and removed the next morning by bathing or shampooing. 3. IT IS EXTREMELY IMPORTANT TO PUT ELIMITE CREAM ON EVERY SQUARE INCH OF YOUR BODY: not just where the rash is. That i ncludes applying it under your fingernails and toenails, around the nail beds, between your fingers and toes, and in the cleft of your butt ocks and genital area. If you wash your hands or any other area durin g the treatment period, new cream must be reapplied immediately. 4. Itching, mild burning and / or stinging may occur after application of Elimite Cream. 5. Everyone affected should be treated at the same time, as directed by your physician. 6. Be sure to change your clothes and bed lines, and have al l the affected articles washed at the same time on hot cycle o r professionally dry cleaned. It is not usually necessary to c lean jackets, blankets, furniture, drapes or rugs. 7. You will not usually be contagious after one treatment if these instructions and your physician directions have been f ollowed carefully. The scabies mites will be gone in a matter of day s; however the rash and itching may persist up to 4 weeks after treatment. This is rarely a sign of treatment failure and is not necessarily an indica tion for retreatment. If itching is excessive or if irritation persis ts, consult your physician. 8. Avoid contact with your eyes. If Elimite Cream accidental ly gets in your eyes, flush with water immediately. 9. Be sure to see your physician for your follow up examinations. Prescriptions ordered this encounter Disp Refills Start End PERMETHRIN 5 % TOPICAL CREAM 60 g 1 07/15/2020 07/15/2020 Class: Print RX Route: TOPICAL Sig: Apply 1 application to affected area one time only fo r 1 dose. massage into skin from neck to feet, leave on 8-12hrs, wash off; Inf o: repeat 2wks if live mites persist. Itching may persist after effect rebekah treatment. Disc: Other HYDROXYZINE PAMOATE 25 MG CAPSULE 15 c* 0 07/15/2020 Route: ORAL Sig: Take 1 capsule by mouth three times daily as needed for Itching/Rash. PERMETHRIN 5 % TOPICAL CREAM 60 g 1 07/15/2020 07/15/2020 Route: TOPICAL Sig: Apply 1 application to affected area one time only fo r 1 dose. massage into skin from neck to feet, leave on 8-12hrs, wash off; Inf o: repeat 2wks if live mites persist. Itching may persist after effect rebekah treatment. Medications Discontinued During This Encounter Prescriptions - hydrOXYzine pamoate (VISTARIL) 25 mg capsule (Discontinued ) Reported on 07/15/2020 - lamoTRIgine (LAMICTAL) 25 mg tablet (Discontinued) Reported on 07/15/2020 - busPIRone (BUSPAR) 10 mg tablet (Discontinued) Take 10 mg by mouth three times daily. - permethrin (ELIMITE) 5 % cream (Discontinued) Apply 1 application to affected area one time only for 1 d ose. massage into skin from neck to feet, leave on 8-12hrs, wash o ff; Info: repeat 2wks if live mites persist. Itching may persist after effective treatment . Encounter Status:Closed by BHUPENDRA SMITH.LANDY SANCHEZ on 07/15/20 joen on 2020-04-23 JOEN Telephone (ALDAWS) Normal 04-23-[address] [facility] LINDA NANCE ([id number]) 1985 [facility] Date Time Provider Department ([id number]) 04/23/20 RANDEE TRENT) [facility] During your visit today, we recorded the following informati on about you: Dunia Schreiber VIVI 04/23/2020 10:09 AM Signed Patient calling, states that she went to [facility] twice and was turned away and told that she is crazy. She went to [facility] and they did not really give her any different treatment. States that she has ticks embedde d in her skin and when she starts bleeding she is able to see other bugs crawling to those areas as well. She states that she is not able to get anyone to gi ve her the treatment she needs because she is flagged in [facility] from being an addict and having mental health issues.. Patient is asking w hat PCP would recommend at this point olayinka use she knows she has bugs all over her body and no one is taking her seriously. Please advise. Randee Trent MD 04/23/2020 12:48 PM Signed I do not have any more in office visits today. Can see her n ext week as available. If she feels she needs seen emergently woul d recommend [facility]. Carey Kauffman LPN, VIVI 04/23/2020 4:21 PM Signed Looks as though has appointment scheduled with you on the . Allergies As of Date: 04/23/2020 Noted Allergy Reaction EGGS (EGG) 01/12/2020 4 - Hives PREDNISONE 01/12/2020 14 - Other: See Comments Comments: Patient has relapsed when taking before Date Reviewed: 04/22/2020 Reviewed by: Petra Arnett Ma - Fully Assessed Reason for Visit: Question [1277] Prescriptions as of 04/23/2020 Sig: SULFAMETHOXAZOLE 800 MG-TRIME* Take 1 tablet by mouth twice * METHYLPREDNISOLONE 4 MG TABLE* Follow dosing instructions, t * ESCITALOPRAM 10 MG TABLET Take 1 tablet by mouth once d* LAMOTRIGINE 25 MG TABLET Take 1 tablet by mouth once d* HYDROXYZINE PAMOATE 25 MG CAP* Take 1 capsule by mouth three * Patient not taking: Reported on 04/22/2020 LORATADINE 10 MG TABLET Take 1 tablet by mouth once d* COLE'S WORT ORAL Take by mouth. IBUPROFEN ORAL Take by mouth. Problem List As Of Date 04/23/2020 Noted Resolved Tobacco use [Z72.0] Obesity (BMI 30.0-34.9) [E66.9] Depression [F32.9] More... Encounter Status:Closed by CAREY KAUFFMAN LPN on 04/23/20 progress on 2020-04 PROGRESS HNO ID: [id number] Normal 04-22-2020 [facility] Author: Sophia (Joe) [facility] ([id number]) Service: ? Author Type: Nurse Practitioner Type: Progress Notes Filed: 04/22/2020 1:41 PM Note Text: Subjective HPI HPI Linda Nance is a 34 year old female who presents tod ay for CC of itchy rash, now painful in some areas. This started 1 month ago. Has tried multiple otc creams. Risk factors moved into no home, patient states has multiple types of bugs to include bed bugs and fl eas. Denies possibility of being . .Patient presents with: Rash: all over body x 1 month PAST MEDICAL HISTORY Diagnosis Date - Anxiety - Depression bipolar - History of gestational diabetes - Obesity (BMI 30.0-34.9) - Polysubstance abuse (HCC) Percocet, Valium, Klonopin, methamphetamines, marijuana - Tobacco use PAST SURGICAL HISTORY Procedure Laterality Date - LAPAROSCOPIC CHOLEYCYSTECTOMY - LIGATE FALLOPIAN TUBE - PAST SURGICAL HISTORY OF TM tubes ALLERGIES Eggs [Egg]; Prednisone -This section reviewed with patient, no changes MEDICATIONS escitalopram oxalate (LEXAPRO) 10 mg tablet Take 1 tablet by mouth once daily. lamoTRIgine (LAMICTAL) 25 mg tablet Take 1 tablet by mouth o nce daily. loratadine (CLARITIN) 10 mg tablet Take 1 tablet by mouth on ce daily. IBUPROFEN ORAL Take by mouth. sulfamethoxazole-trimethoprim (BACTRIM DS) 800-160 mg per ta blet Take 1 tablet by mouth twice daily for 10 days. methylPREDNISolone (MEDROL, ANNA,) 4 mg Dose-Pack Follow dosi ng instructions, take with food. hydrOXYzine pamoate (VISTARIL) 25 mg capsule Take 1 capsule by mouth three times daily as needed for Anxiety. COLE'S WORT ORAL Take by mouth. FAMILY HISTORY Problem Relation Age of Onset - COPD Mother - Diabetes Maternal Grandfather - Diabetes Maternal Aunt - Drug abuse Sister - Cancer Maternal Grandmother cervical, uterine, breast - Drug abuse Sister Social History Tobacco Use - Smoking status: Current Every Day Smoker Packs/day: 1.00 Years: 25.00 Pack years: 25.00 Types: Cigarettes - Smokeless tobacco: Never Used Substance Use Topics - Alcohol use: Yes Frequency: Monthly or less Drinks per session: 1 or 2 Binge frequency: Less than monthly - Drug use: Not Currently Types: Opiates, Amphetamines, Crystal Meth Comment: last use date 12/22/2019 Review of Systems Constitutional: Negative for fever. Skin: Positive for itching and rash. Objective Blood pressure 146/94, pulse (!) 130, temperature 37.3 ?C (9 9.1 ?F), temperature source Left Tympanic, resp. rate 16, weight 98.8 kg (217 lb 12.8 oz), last menstrual period 11/11/2019. Physical Exam Constitutional: She is oriented to person, place, and time a nd well-developed, well-nourished, and in no distress. Non-toxi c appearance. She does not have a sickly appearance. No distress. HENT: Head: Normocephalic and atraumatic. Pulmonary/Chest: Effort normal. No accessory muscle usage. N o respiratory distress. Neurological: She is alert and oriented to person, place, an d time. Skin: She is not diaphoretic. ASSESSMENT/PLAN: 1. Insect bite of scalp, initial encounter - ICD9: 910.4, E9 06.4, ICD10: S00.06XA, W57.XXXA (primary diagnosis) Steroid ordered Discussed home care and hygiene - METHYLPREDNISOLONE 4 MG TABLETS IN A DOSE PACK 2. Secondary infection of skin - ICD9: 686.8, ICD10: L08.89 -use medication as prescribed -follow up if symptoms persist, worsen, change - SULFAMETHOXAZOLE 800 MG-TRIMETHOPRIM 160 MG TABLET Is going to f/u with pcp Agrees to plan Sophia Connelly APRN.HAULAGE ENGINE OPERATOR [facility] on 2020-04-22 CNPN Telephone (FAMPWS) Normal 04-22-[address] [facility] LINDA NANCE ([id number]) 1985 [facility] Date Time Provider Department ([id number]) 04/22/20 RANDEE TRENT) [facility] During your visit today, we recorded the following informati on about you: Abdulkadir Villagomez RN 04/22/2020 2:35 PM Signed Patient reports she was just seen in and prescribed AB an d prednisone, because she has wounds all over her whol e body- reports she had ticks all over her whole body- has about 10 ticks right now. Re ports they are eating away at her flesh, under her finger nails- they look like brown spec ks of dirt. Reports some of the wounds have a white spot in the center with a ring around them. advised her to see pcp for a referral to ID. Reports her trailer if full of bugs, and a tree came down last week, that was full of ticks. Last night her foot turned black when she was getting in the ower, but it went away, and color became normal. Reports she is a recovering addict and doesn't want to take the prednisone. She thinks she will go to [facility]- she thinks they will admit her- and was going to go after she got a few things done. Advised she would not notice an improvement from the AB or prednisone for about 24 hrs. Patient is unsure what she wants to do. She will call back to let pcp know. Randee Trent MD 04/22/2020 3:30 PM Signed Agree it will take 24 hours at least for medicat ion to start working. No sign of infection or bugs on the report from . Sche dule OV next week if she does not go to the ER. To call with spreading redness , streaking, pus drainage, or fever. Mike Ignacio Ma 04/22/2020 4:01 PM Signed Patient notified, verbalized understanding. Patient asking for an appointment. Will call office wi th an update tomorrow. Allergies As of Date: 04/22/2020 Noted Allergy Reaction EGGS (EGG) 01/12/2020 4 - Hives PREDNISONE 01/12/2020 14 - Other: See Comments Comments: Patient has relapsed when taking before Date Reviewed: 04/22/2020 Reviewed by: Petra Arnett Ma - Fully Assessed Reason for Visit: Ticks [Other] Prescriptions as of 04/22/2020 Sig: SULFAMETHOXAZOLE 800 MG-TRIME* Take 1 tablet by mouth twice * METHYLPREDNISOLONE 4 MG TABLE* Follow dosing instructions, t * ESCITALOPRAM 10 MG TABLET Take 1 tablet by mouth once d* LAMOTRIGINE 25 MG TABLET Take 1 tablet by mouth once d* HYDROXYZINE PAMOATE 25 MG CAP* Take 1 capsule by mouth three * Patient not taking: Reported on 04/22/2020 LORATADINE 10 MG TABLET Take 1 tablet by mouth once d* COEL'S WORT ORAL Take by mouth. IBUPROFEN ORAL Take by mouth. Problem List As Of Date 04/22/2020 Noted Resolved Tobacco use [Z72.0] Obesity (BMI 30.0-34.9) [E66.9] Depression [F32.9] More... Encounter Status:Closed by MIKE IGNACIO MA on 04/22/20 cnov on 2020-04-22 CNOV Office Visit (UCWSTR) Normal 04-22-20 [facility] LINDA NANCE ([id number]) 1985 [facility] Date Time Provider Department ([id number]) 04/22/20 1:00 PM SOPHIA CONNELLY (JOE) [facility] During your visit today, we recorded the following informati on about you: Temperature Pulse Respiration Blood pressure 99.1 degrees 130/minute 16/minute 146/94 Weight 98.8 kg Sophia Connelly APRN.CNP 04/22/2020 1:41 PM Signed Subjective HPI HPI Linda Shah Randell is a 34 year old fem ani who presents today for CC of itchy rash, now painful in some areas. This started 1 month ago. Has tried multiple otc creams. Risk factors moved into no home, patient states has multiple types of bugs to include bed bugs and fleas. Denies possibil ity of being . .Patient presents with: Rash: all over body x 1 month PAST MEDICAL HISTORY Diagnosis Date - Anxiety - Depression bipolar - History of gestational diabetes - Obesity (BMI 30.0-34.9) - Polysubstance abuse (HCC) Percocet, Valium, Klonopin, methamphetamines, marijuana - Tobacco use PAST SURGICAL HISTORY Procedure Laterality Date - LAPAROSCOPIC CHOLEYCYSTECTOMY - LIGATE FALLOPIAN TUBE - PAST SURGICAL HISTORY OF TM tubes ALLERGIES Eggs [Egg]; Prednisone -This section reviewed with patient, no changes MEDICATIONS escitalopram oxalate (LEXAPRO) 10 mg tab let Take 1 tablet by mouth once daily. lamoTRIgine (LAMICTAL) 25 mg tablet Take 1 tablet by mouth o nce daily. loratadine (CLARITIN) 10 mg tablet Take 1 tablet by mouth on ce daily. IBUPROFEN ORAL Take by mouth. sulfamethoxazole-trimethoprim (BACTRIM D S) 800-160 mg per tablet Take 1 tablet by mouth twice daily for 10 days. methylPREDNISolone (MEDROL, ANNA,) 4 mg Dose-Pack Follo w dosing instructions, take with food. hydrOXYzine pamoate (VISTARIL) 25 mg capsule Take 1 capsule by mouth three times daily as needed for Anxiety. COLE'S WORT ORAL Take by mouth. FAMILY HISTORY Problem Relation Age of Onset - COPD Mother - Diabetes Maternal Grandfather - Diabetes Maternal Aunt - Drug abuse Sister - Cancer Maternal Grandmother cervical, uterine, breast - Drug abuse Sister Social History Tobacco Use - Smoking status: Current Every Day Smoker Packs/day: 1.00 Years: 25.00 Pack years: 25.00 Types: Cigarettes - Smokeless tobacco: Never Used Substance Use Topics - Alcohol use: Yes Frequency: Monthly or less Drinks per session: 1 or 2 Binge frequency: Less than monthly - Drug use: Not Currently Types: Opiates, Amphetamines, Crystal Meth Comment: last use date 12/22/2019 Review of Systems Constitutional: Negative for fever. Skin: Positive for itching and rash. Objective Blood pressure 146/94, pulse (!) 130, temperature 37.3 ?C (9 9.1 ?F), temperature source Left Tympanic, resp. rate 16, weigh t 98.8 kg (217 lb 12.8 oz), last menstrual period 11/11/2019. Physical Exam Constitutional: She is oriented to perso n, place, and time and well-developed, well-nourished, and in no distress. Non-toxic ap pearance. She does not have a sickly appearance. No distress. HENT: Head: Normocephalic and atraumatic. Pulmonary/Chest: Effort normal. No accessory muscle usage. N o respiratory distress. Neurological: She is alert and oriented to person, place, an d time. Skin: She is not diaphoretic. ASSESSMENT/PLAN: 1. Insect bite of scalp, initial encounter - ICD9: 910.4, E9 06.4, ICD10: S00.06XA, W57.XXXA (primary diagnosis) Steroid ordered Discussed home care and hygiene - METHYLPREDNISOLONE 4 MG TABLETS IN A DOSE PACK 2. Secondary infection of skin - ICD9: 686.8, ICD10: L08.89 -use medication as prescribed -follow up if symptoms persist, worsen, change - SULFAMETHOXAZOLE 800 MG-TRIMETHOPRIM 160 MG TABLET Is going to f/u with pcp Agrees to plan Sophia Connelly APRN.HAULAGE ENGINE OPERATOR Referring Provider: SELF [[id number]] Allergies As of Date: 04/22/2020 Noted Allergy Reaction EGGS (EGG) 01/12/2020 4 - Hives PREDNISONE 01/12/2020 14 - Other: See Comments Comments: Patient has relapsed when taking before Date Reviewed: 04/22/2020 Reviewed by: Petra Arnett Ma - Fully Assessed Reason for Visit: Rash [1087] Cmt: all over body x 1 month Primary Visit Diagnosis:Insect bite of scalp, initial encoun ter [S00.06XA, W57.XXXA] Other Visit Diagnosis:Secondary infection of skin [L08.89] Order(s):sulfamethoxazole-trimethoprim (BACTRIM DS) 800-160 mg per tabletTake 1 tablet by mouth twice daily for 10 days.Disp: 20 tabletRfl : 0 methylPREDNISolone (MEDROL, ANNA,) 4 mg Dose-PackFollow dosin g instructions, take with food.Disp: 1 PackageRfl: 0 Prescriptions as of 04/22/2020 Sig: ESCITALOPRAM 10 MG TABLET Take 1 tablet by mouth once d* LAMOTRIGINE 25 MG TABLET Take 1 tablet by mouth once d* LORATADINE 10 MG TABLET Take 1 tablet by mouth once d* IBUPROFEN ORAL Take by mouth. SULFAMETHOXAZOLE 800 MG-TRIME* Take 1 tablet by mouth twice * METHYLPREDNISOLONE 4 MG TABLE* Follow dosing instructions, t * HYDROXYZINE PAMOATE 25 MG CAP* Take 1 capsule by mouth three * Patient not taking: Reported on 04/22/2020 COLE'S WORT ORAL Take by mouth. Problem List As Of Date 04/22/2020 Noted Resolved Tobacco use [Z72.0] Obesity (BMI 30.0-34.9) [E66.9] Depression [F32.9] More... Prescriptions ordered this encounter Disp Refills Start End SULFAMETHOXAZOLE 800 MG-TRIMETHOPRIM* 20 t* 0 04/22/2020 Cmt: Ok to give generic equivalent Route: ORAL Sig: Take 1 tablet by mouth twice daily for 10 days. METHYLPREDNISOLONE 4 MG TABLETS IN A* 1 Pa* 0 04/22/2020 Sig: Follow dosing instructions, take with food. Encounter Status:Closed by SOPHIA CONNELLY CNP on 04/22/20 progress on 2020-04 PROGRESS HNO ID: [id number] Normal 04-05-2020 [facility] Author: Randee De León) Miley Grace ([id number]) Service: ? Author Type: Physician Type: Progress Notes Filed: 04/05/2020 11:29 AM Note Text: Attempted to call x2. Did not leave VM. Will need to call in to reschedule appointment. joen on 2020-04-05 CNPN Telephone (FAMPWS) Normal 04-05-[address] [facility] LINDA NANCE ([id number]) 1985 [facility] Date Time Provider Department ([id number]) 04/05/20 [facility] During your visit today, we recorded the following informati on about you: Ligia Galicia, RN, RN 04/05/2020 11:39 AM Signed Pt calls to report that she has started on 2 new medications prescribed [facility]. Lexapro 10 mg and Lamictal 25 mg both once daily. Randee Trent MD 04/05/2020 11:43 AM Signed OK, she didn't answer when I called x2. Does she was to resc hedule her appointment to this afternoon? Mike Ignacio Ma 04/05/2020 12:46 PM Signed Spoke with patient , states that she did want to reschedule - advised pt that disability forms may need to be discussed with p sych since she was requesting for having a breakdown and now on medications. Patient then states that she wont need the appointment but will call back if needs anything else. Randee Trent MD 04/05/2020 1:00 PM Signed Med list updated. Allergies As of Date: 04/05/2020 Noted Allergy Reaction EGGS (EGG) 01/12/2020 4 - Hives PREDNISONE 01/12/2020 14 - Other: See Comments Comments: Patient has relapsed when taking before Date Reviewed: 01/12/2020 Reviewed by: Mike Ignacio Ma - Fully Assessed Reason for Visit: FYI - New Medications [Other] Order(s):escitalopram oxalate (LEXAPRO) 10 mg tabletTake 1 t ablet by mouth once daily.Disp: Rfl: lamoTRIgine (LAMICTAL) 25 mg tabletTake 1 tablet by mouth on ce daily.Disp: Rfl: Prescriptions as of 04/05/2020 Sig: ESCITALOPRAM 10 MG TABLET Take 1 tablet by mouth once d* LAMOTRIGINE 25 MG TABLET Take 1 tablet by mouth once d* HYDROXYZINE PAMOATE 25 MG CAP* Take 1 capsule by mouth three * LORATADINE 10 MG TABLET Take 1 tablet by mouth once d* COLE'S WORT ORAL Take by mouth. IBUPROFEN ORAL Take by mouth. Problem List As Of Date 04/05/2020 Noted Resolved Tobacco use [Z72.0] Obesity (BMI 30.0-34.9) [E66.9] Depression [F32.9] More... Prescriptions ordered this encounter Disp Refills Start End ESCITALOPRAM 10 MG TABLET 04/05/2020 Class: Med Update Route: ORAL Sig: Take 1 tablet by mouth once daily. LAMOTRIGINE 25 MG TABLET 04/05/2020 Class: Med Update Route: ORAL Sig: Take 1 tablet by mouth once daily. Encounter Status:Closed by MIKE IGNACIO MA on 04/05/20 cnpn on 2020-01-13 CNPN Telephone (FAMPWS) Normal 01-13-2020 [facility] ([id number]) 1985 [facility] Date Time Provider Department ([id number]) 01/13/20 RANDEE TRENT) [facility] During your visit today, we recorded the following informati on about you: Carey Kauffman LPN, LPN 01/13/2020 3:35 PM Signed ----- Message from Randee De León) Miley sent at 01/12 3:29 PM EDT ----- Normal labs aside from mild elevation in WBC and RBC. Abnormalities likely due to rash and smoking. Recommend cessation of tobacco use and claritin for rash. Call if not improving in 2-3 days or if she develops other symptoms concerning for infection such as fever, cough, SOB, urinary symptoms. Carey Kauffman LPN, LPN 01/13/2020 3:37 PM Signed Spoke with pt gave information provided. Pt voices understan radha . Allergies As of Date: 01/13/2020 Noted Allergy Reaction EGGS (EGG) 01/12/2020 4 - Hives PREDNISONE 01/12/2020 14 - Other: See Comments Comments: Patient has relapsed when taking before Date Reviewed: 01/12/2020 Reviewed by: Mike Ignacio Ma - Fully Assessed Reason for Visit: Results [95] Prescriptions as of 01/13/2020 Sig: HYDROXYZINE PAMOATE 25 MG CAP* Take 1 capsule by mouth three * LORATADINE 10 MG TABLET Take 1 tablet by mouth once d* COLE'S WORT ORAL Take by mouth. IBUPROFEN ORAL Take by mouth. Problem List As Of Date 01/13/2020 Noted Resolved Tobacco use [Z72.0] Obesity (BMI 30.0-34.9) [E66.9] Depression [F32.9] More... Encounter Status:Closed by CAREY KAUFFMAN LPN on 01/13/20 progress on 2020-01 PROGRESS HNO ID: [id number] Normal 01-12-2020 [facility] Author: Randee De León) [facility] Service: ? [facility] Author Type: Physician ([id number]) Type: Progress Notes Filed: 01/12/2020 4:03 PM Note Text: Chief Complaint Patient presents with: Physical: see nursing note Establish Care HPI Linda Nance is a 34 year old female who presents here to day for Above Complaints. Accompanied today by henrry José. Previously see ing Dr. Causey in [place] with last OV 3 years ago. Complaining today of itching rash on chest and stomach which has been present for months, but worsening over the last couple weeks . Has been under more stress in the last couple weeks. Treating with OT C benadryl ever 4-6 hours which helps temporarily. Denies sick contacts , fever, chills. No change to medications, bedding, detergents, cream s. History of polysubstance abuse with Percocet, Valium, Klonop in, methamphetamines, marijuana. Starts Melodie Zao tomorrow and fol lowing up with counseling [facility]. On waiting list for psychiatry. Denies illicit drug use in months. No history of IV drug use as she is afraid of needles. History of anxiety and depression, possibly bipolar. Symptom s have been well controlled recently. Awaiting appointment with psychiat rafat for further evaluation. Does not feel she needs medication at this time. Weight in obesity range. Admits to drinking pop and other baig shravan drinks several times per day. Does not exercise regularly. 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 Has not had pap smear in more than 9 years. Had abnormal paps more than a decade ago without colposcopy. Smoking 1 pack of cigarettes per day and using e-cigarettes. Not interested in cessation at this time while she is trying to stay sober from other illicit drugs. one thing at a time Due for pneumovax and tdap today. Has been screened for HIV in the past and been negative. Past medical history, appointments, medications, allergies r andradeweerick. Previous Medical History PAST MEDICAL HISTORY Diagnosis Date - Anxiety - Depression bipolar - History of gestational diabetes - Obesity (BMI 30.0-34.9) - Polysubstance abuse (HCC) Percocet, Valium, Klonopin, methamphetamines, marijuana - Tobacco use Previous Surgical History PAST SURGICAL HISTORY Procedure Laterality Date - LAPAROSCOPIC CHOLEYCYSTECTOMY - LIGATE FALLOPIAN TUBE - PAST SURGICAL HISTORY OF TM tubes Family History FAMILY HISTORY Problem Relation Age of Onset - COPD Mother - Diabetes Maternal Grandfather - Diabetes Maternal Aunt - Drug abuse Sister - Cancer Maternal Grandmother cervical, uterine, breast - Drug abuse Sister Patient Allergies ALLERGIES Allergen Reactions - Eggs [Egg] Hives - Prednisone Other: See Comments Patient has relapsed when taking before Current Medications Current Outpatient Medications on File Prior to Visit Medication Sig - COLE'S WORT ORAL Take by mouth. - ljxlmgko-kzebftsav-sdgalbskxwmvbk (CORTISPORIN) 3.5-10,000 -1 mg/mL-unit/mL-% otic suspension Use 4 Drops in the right ear four times daily for 7 days. - cetirizine (ZYRTEC) 10 mg tablet - IBUPROFEN ORAL Take by mouth. - naproxen (NAPROSYN) 500 mg tablet Take 1 tablet by mouth t wice daily as needed (for pain/inflammation). Take with food. (Patient not taking: Reported on 06/24/2019 ) - omeprazole (PRILOSEC) 10 mg capsule Take 10 mg by mouth on ce daily. - clonazePAM (KLONOPIN) 1 mg tablet Take 1 mg by mouth twice daily as needed. - PARoxetine (PAXIL) 40 mg tablet Take 40 mg by mouth once d aily. - carBAMazepine XR (TEGRETOL XR) 100 mg 12 hr tablet Take 10 0 mg by mouth twice daily. No current facility-administered medications on file prior t o visit. Social History Social History Tobacco Use - Smoking status: Current Every Day Smoker Packs/day: 1.00 Years: 25.00 Pack years: 25.00 Types: Cigarettes - Smokeless tobacco: Never Used Substance Use Topics - Alcohol use: Yes Frequency: Monthly or less Drinks per session: 1 or 2 Binge frequency: Less than monthly - Drug use: Not Currently Types: Opiates, Amphetamines, Crystal Meth Comment: last use date 12/22/2019 Review of Symptoms REVIEW OF SYSTEMS GENERAL: No weight loss, malaise or fevers RESPIRATORY: Negative for cough, hemoptysis, wheezing, COPD, dyspnea or shortness of breath CARDIOVASCULAR: Negative for chest pain, leg swelling, hyper tension, CHF or palpitations GI: No nausea, vomiting, or diarrhea SKIN: Negative for lesions, rash, and itching EXAM: BP 136/86 Pulse 108 Temp 36.8 ?C (98.2 ?F) (Tympanic) Resp 18 Ht 160.7 cm (5' 3.25) Wt 87.1 kg (192 lb) SpO2 96% BM I 33.74 kg/m? General Appearance: Well appearing, alert, in no acute distr ess, well-hydrated, well nourished. and Obese. Skin: scattered rash on chest and abdomen with excoriations. Punctate erythematous lesions with scabbing. Lungs: lungs clear to auscultation. No wheezing, rhonchi, ra les. Heart: RRR without murmur, gallop, or rubs. No ectopy. Abdomen: Normal abdominal exam, Abdomen soft, non-tender. Christ wel sounds normal. No masses, organomegaly. Extremities: No deformities, edema, skin discoloration, club gee or cyanosis. Good capillary refill. . Health Maintenance List DTAP,TDAP,TD(1 - Tdap) due on 1994 HIV SCREENING due on 2001 ONE PNEUMOVAX PRIOR TO AGE 65 due on 2002 PAP TESTING due on 2004 HPV TESTING due on 2013 INFLUENZA(1) due on 01/06/2021 ASSESSMENT/PLAN: 1. Dermatitis - ICD9: 692.9, ICD10: L30.9 (primary diagnosis ) - Start Claritin for symptoms and may use OTC anti itch crea m. - discussed skin care of rash - follow up if symptoms persist or worsen. - LORATADINE 10 MG TABLET 2. Obesity (BMI 30.0-34.9) - ICD9: 278.00, ICD10: E66.9 Newly diagnosed - Behavioral intervention - CBC - COMP METABOLIC PANEL - LIPID PANEL, NONFASTING 3. Depression, unspecified depression type - ICD9: 311, ICD1 0: F32.9 Symptoms in remission. F/u with psychology and psychiatry. 4. OLAF (generalized anxiety disorder) - ICD9: 300.02, ICD10: F41.1 Symptoms in remission. F/u with psychology and psychiatry. 5. Tobacco use - ICD9: 305.1, ICD10: Z72.0 - Cessation encouraged. - Physiologic and physical aspects of tobacco addiction as w ell as strategies for quitting were discussed. - Counseling was given focusing on the harmful effects of th is addiction especially given the patient's medical condition(s) which wi ll be worsened because of the chemicals in tobacco. 6. Screening for cervical cancer - ICD9: V76.2, ICD10: Z12.4 - CONSULT TO GYNECOLOGY 7. Need for vaccination - ICD9: V05.9, ICD10: Z23 - PNEUMOCOCCAL IMMUNIZATION PPSV 23 - TDAP VACCINE AGE 7+ IM Randee Trent MD lipid panel, nonfast on 2020-01-12 Cholesterol [Mass/Vol] 168 <200 mg/dL Normal 020 [facility] ([id number]) Comment: Result Comment: <200 mg/dL, Desirable 200-239 mg/dL, Borderline hi gh >239 mg/dL, High Performed By: #### CBC, CMP, LIPNF ####[place] [id number] [place] [id number] [phone] Cholesterol in 1.92 <2.54 mg/dL Normal 01-12-2020 [facility] LDL/Cholesterol in HDL [[facility] ([id number]) ratio] Comment: Result Comment: Reference: 1. National Cholesterol Educ ation Program ATP III Guideline At-A-Glance Quick Desk Reference: National Heart, Lung, and Blood [place]. National Institutes of Health. 2001: NIH Publication No. 01-3305. 2. An International Atherosc lerosis Society position paper: global recommendations for the management of dyslipidemia: executive summary, Atherosclerosis. 2014: 232(2):410-413. Performed By: #### CBC, CMP, LIPNF ####[place] [address] [place] [address] [phone] Cholesterol.total/Cholesterol in 3.50 <5.10 mg/dL Normal 01-12-2020 [facility] HDL [Mass ratio] Cli [facility] ([id number]) Comment: Performed By: #### CBC, CMP, LIPNF ####[place] [address] [place] [address] [phone] HDL Cholesterol, NF 48 >39 mg/dL Normal 01-12-2020 [facility] (81716) Comment: Result Comment: 40-59 mg/dL, Acceptable >59 mg/dL, High: Negative ri sk factor for coronary heart disease <40 mg/dL, Low: Positive ris k factor for coronary heart disease Performed By: #### CBC, CMP, LIPNF ####[facility] [place] [address] [phone] LDL Cholesterol, NF 92 <100 mg/dL Normal 01-12-2020 [facility] ([id number]) Comment: Result Comment: <100 mg/dL, Optimal 100-129 mg/dL, Near optimal/ above optimal 130-159 mg/dL, Borderline hi gh 160-189 mg/dL, High >189 mg/dL, Very high Secondary prevention optimal LDL Cholesterol levels are recommended to be < 70 mg/dL Performed By: #### CBC, CMP, LIPNF ####[place] [address] [place] [address] [phone] Non HDL Chol, NF 120 <130 mg/dL Normal 01-12-2020 Cl [facility] ([id number]) Comment: Result Comment: <130 mg/dL, Optimal 130-159 mg/dL, Near optimal/ above optimal 160-189 mg/dL, Borderline hi gh 190-219 mg/dL, High >219 mg/dL, Very high Secondary prevention optimal non HDL Cholesterol levels are recommended to be < 100 mg/dL Performed By: #### CBC, CMP, LIPNF ####[place] [address] [phone] Triglycerides, NF 139 <150 mg/dL Normal 01-12-2020 C [facility] (63731) Comment: Result Comment: <150 mg/dL, Normal 150-199 mg/dL, Borderline hi gh 200-499 mg/dL, High >499 mg/dL, Very high Performed By: #### CBC, CMP, LIPNF ####[place] [address] [phone] VLDL Cholesterol, NF 28 <30 mg/dL Normal 0 [facility] (59644) Comment: Performed By: #### CBC, CMP, LIPNF ####[place] [address] [place] [address] [phone] comp metabolic panel on 2020-01-12 Albumin [Mass/Vol] 4.2 3.9-4.9 g/dL Normal 01-12-2020 [facility] ([id number]) Comment: Performed By: #### CBC, CMP, LIPNF #### [facility] [address] [place], [place] [address] ALP [Catalytic activity/Vol] 68 34-123 U/L Normal 0 01-12-2020 [facility] ([id number]) Comment: Performed By: #### CBC, CMP, LIPNF #### [facility] [address] [place], [place] [address] ALT [Catalytic activity/Vol] 17 7-38 U/L Normal 0 01-12-2020 [facility] ([id number]) Comment: Performed By: #### CBC, CMP, LIPNF #### [facility] [address] [place], [place] [address] Anion gap [Moles/Vol] 12 9-18 mmol/L Normal 01-12-20 [facility] (51945) Comment: Performed By: #### CBC, CMP, LIPNF #### [address] [address] AST [Catalytic activity/Vol] 15 13-35 U/L Normal 0 01-12-2020 [facility] ([id number]) Comment: Performed By: #### CBC, CMP, LIPNF #### [facility] [address] [place], [place] [address] Bilirubin [Mass/Vol] <0.2 0.2-1.3 mg/dL Low 0 [facility] (33604) Comment: Performed By: #### CBC, CMP, LIPNF #### [facility] [address] [place], [place] [address] Calcium [Mass/Vol] 9.3 8.5-10.2 mg/dL Normal 01-12-2020 [facility] ([id number]) Comment: Performed By: #### CBC, CMP, LIPNF #### [facility] [address] [place], [place] [address] Chloride [Moles/Vol] 103 97-105 mmol/L Normal 0 [facility] (75151) Comment: Performed By: #### CBC, CMP, LIPNF #### [facility] [address] [place] [address] CO2 [Moles/Vol] 26 22-30 mmol/L Normal 01-12-2020 [facility] (73125) Comment: Performed By: #### CBC, CMP, LIPNF #### [facility] [address] [place] [address] Creatinine [Mass/Vol] 0.68 0.58-0.96 mg/dL Normal 01-12-20 20 [facility] ([id number]) Comment: Performed By: #### CBC, CMP, LIPNF #### [facility] [address] [place] [address] eGFR- Amer. >60 Normal 01-12-2020 [facility] (88776) Comment: Performed By: #### CBC, CMP, LIPNF #### [facility] [address] [place] [address] GFR/1.73 sq M predicted >60 mL/min/{1.73_m2} Normal 01-12-2020 [facility] among non-blacks [facility] ([id number]) (S/P/Bld) [Vol rate/Area] Comment: Result Comment: eGFR (Estima rohan GFR) Units of measure: mL/min/1.73 meters squared eGFR is derived from the ree xpressed MDRD Study equation using the following parameters: serum creatinine, age, gender and race. The creatinine assay has been calibrated to be traceable to IDMS. An eGFR <60 mL/min/1.73m2 fo r >3 months is consistent with chronic kidney disease. Refer to KDOQI guidelines for clinical interpretation. In patients with unstable re nal function, e.g. those with acute kidney injury, the eGFR may not accurately reflect actual GFR. Performed By: #### CBC, CMP, LIPNF #### [facility] [address] [place] [address] Glucose [Mass/Vol] 58 74-99 mg/dL Low 01-12-2020 [facility] (55136) Comment: Result Comment: The [place] Diabetes Association (ADA) provides guidance for cutoff values for fasting glucose and random glucose. The ADA defines fasting as no caloric intake for at least 8 hours. Fas ting plasma glucose results between 100 to 125 mg/dL indicate increased risk for diabetes (prediabetes). Fasting plasma glucose resul ts greater than or equal to 126 mg/dL meet the criteria for diagnosis of diabetes. In the absence of unequivocal hyperglycemia, results should be confirmed by repeat testing. In a patient with classic s ymptoms of hyperglycemia or hyperglycemic crisis, random plasma glucose results greater than or equal to 200 mg/dL meet the criteria for diagnosis of diabetes. Reference: Standards of [facility] Care in Diabetes 2016, [place] Diabetes Association. Diabetes Care. 2016.39(Suppl 1). Performed By: #### CBC, CMP, LIPNF #### [facility] [address] [place] [address] Potassium [Moles/Vol] 4.1 3.7-5.1 mmol/L Normal 01-12-20 [facility] (01779) Comment: Performed By: #### CBC, CMP, LIPNF #### [place] [address] [place], [place] [address] Protein [Mass/Vol] 6.7 6.3-8.0 g/dL Normal 01-12-2020 [facility] (09183) Comment: Performed By: #### CBC, CMP, LIPNF #### [facility] [address] [place], [place] [address] Sodium [Moles/Vol] 141 136-144 mmol/L Normal 01-12-2020 [facility] (71158) Comment: Performed By: #### CBC, CMP, LIPNF #### [facility] [address] [place], [place] [address] Urea nitrogen [Mass/Vol] 7 7-21 mg/dL Normal 01-11 [facility] (11160) Comment: Performed By: #### CBC, CMP, LIPNF #### [facility] [address] [place] [id number] cnov on 2020-01-12 CNOV Office Visit (FAMPWS) Normal 01-12-[address] [facility] LINDA NANCE ([id number]) 1985 [facility] Date Time Provider Department ([id number]) 01/12/20 3:00 PM RANDEE TRENT) FAMPWS During your visit today, we recorded the following informati on about you: Temperature Pulse Respiration Blood pressure 98.2 degrees 90/minute 18/minute 136/86 Weight Height 87.1 kg 1.607 m Mike Ignacio Ma 01/12/2020 2:47 PM Signed OTC allergy medicine for sores on abdomen and chest. States can not use steroids make me relapse Randee Trent MD 01/12/2020 4:03 PM Signed Chief Complaint Patient presents with: Physical: see nursing note Establish Care HPI Lindarubina Nance is a 34 year old female who presents here to day for Above Complaints. Accompanied today by henrry José. Previously seeing Dr. Causey in [place] with last OV 3 years ago. Complaining today of itching rash on chest and s tomach which has been present for months, but worsening over the last couple weeks. Has be en under more stress in the last couple weeks. Treating with OTC benadryl ever 4-6 hours which helps temporarily. Denies sick contacts, fever, chills . No change to medications, bedding, detergents, creams. History of polysubstance abuse with Percocet, Valium, Klonop in, methamphetamines, marijuana. Starts Melodie Zao tomorrow and fol lowing up with counseling [facility] for psychology. On waiting list for psychiatry. Denies illicit d rug use in months. No history of IV drug use as she is afraid of needles. History of anxiety and depression, possibly bipolar. S ymptoms have been well controlled recently. Awaiting appointment with psychiatry fo r further evaluation. Does not feel she needs medication at this time. Weight in obesity range. Adm its to drinking pop and other sugary drinks several times per day. Does not exercise regularly. 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 Has n ot had pap smear in more than 9 years. Had abnormal paps more than a decade ago without colposcopy. Smoking 1 pack of cigarettes per day and using e-cigarettes. Not interested in cessation at this time while she is trying to stay sober f rom other illicit drugs. one thing at a time Due for pneumovax and tdap today. Has been screened for HI V in the past and been negative. Past medical history, appointments, medications, allergies r eviewed. Previous Medical History PAST MEDICAL HISTORY Diagnosis Date - Anxiety - Depression bipolar - History of gestational diabetes - Obesity (BMI 30.0-34.9) - Polysubstance abuse (HCC) Percocet, Valium, Klonopin, methamphetamines, marijuana - Tobacco use Previous Surgical History PAST SURGICAL HISTORY Procedure Laterality Date - LAPAROSCOPIC CHOLEYCYSTECTOMY - LIGATE FALLOPIAN TUBE - PAST SURGICAL HISTORY OF TM tubes Family History FAMILY HISTORY Problem Relation Age of Onset - COPD Mother - Diabetes Maternal Grandfather - Diabetes Maternal Aunt - Drug abuse Sister - Cancer Maternal Grandmother cervical, uterine, breast - Drug abuse Sister Patient Allergies ALLERGIES Allergen Reactions - Eggs [Egg] Hives - Prednisone Other: See Comments Patient has relapsed when taking before Current Medications Current Outpatient Medications on File Prior to Visit Medication Sig - COLE'S WORT ORAL Take by mouth. - fycpnrtf-jsodzegba-ttakzuqpxcjotq (COR TISPORIN) 3.5-10,000-1 mg/mL-unit/mL-% otic suspension Use 4 Drops in the right ear four times carie y for 7 days. - cetirizine (ZYRTEC) 10 mg tablet - IBUPROFEN ORAL Take by mouth. - naproxen (NAPROSYN) 500 mg tablet Take 1 tablet by mouth t wice daily as needed (for pain/inflammation). Take with food. (Patient not taking: Reported on 06/24/2019 ) - omeprazole (PRILOSEC) 10 mg capsule Take 10 mg by mouth on ce daily. - clonazePAM (KLONOPIN) 1 mg tablet Take 1 mg by mouth twice daily as needed. - PARoxetine (PAXIL) 40 mg tablet Take 40 mg by mouth once d aily. - carBAMazepine XR (TEGRETOL XR) 100 mg 12 hr tablet Take 100 mg by mouth twice daily. No current facility-administered medications on file prior t o visit. Social History Social History Tobacco Use - Smoking status: Current Every Day Smoker Packs/day: 1.00 Years: 25.00 Pack years: 25.00 Types: Cigarettes - Smokeless tobacco: Never Used Substance Use Topics - Alcohol use: Yes Frequency: Monthly or less Drinks per session: 1 or 2 Binge frequency: Less than monthly - Drug use: Not Currently Types: Opiates, Amphetamines, Crystal Meth Comment: last use date 12/22/2019 Review of Symptoms REVIEW OF SYSTEMS GENERAL: No weight loss, malaise or fevers RESPIRATORY: Negative for cough, hemoptysis, wheezing, COPD, dyspnea or shortness of breath CARDIOVASCULAR: Negative for chest pain, leg swelling, hyp ertension, CHF or palpitations GI: No nausea, vomiting, or diarrhea SKIN: Negative for lesions, rash, and itching EXAM: BP 136/86 Pulse 108 Temp 36.8 ?C (98.2 ?F) (Tympanic) Resp 18 Ht 160.7 cm (5' 3.25) Wt 87.1 kg (192 lb) SpO2 96% BMI 3 3.74 kg/m? General Appearance: Well marilyn earing, alert, in no acute distress, well-hydrated, well nourished. and Obese. Skin: scattered rash on chest and abdomen with excoriations. Punctate erythematous lesions with scabbing. Lungs: lungs clear to auscultation. No wheezing, rhonchi, ra les. Heart: RRR without murmur, gallop, or rubs. No ectopy. Abdomen: Normal abdominal exam, Abdomen soft, non-tender. Bowel sounds normal. No masses, organomegaly. Extremities: No deformities, edema, skin discolo ration, clubbing or cyanosis. Good capillary refill. . Health Maintenance List DTAP,TDAP,TD(1 - Tdap) due on 1994 HIV SCREENING due on 2001 ONE PNEUMOVAX PRIOR TO AGE 65 due on 2002 PAP TESTING due on 2004 HPV TESTING due on 2013 INFLUENZA(1) due on 01/06/2021 ASSESSMENT/PLAN: 1. Dermatitis - ICD9: 692.9, ICD10: L30.9 (primary diagnosis ) - Start Claritin for symptoms and may use OTC anti itch crea m. - discussed skin care of rash - follow up if symptoms persist or worsen. - LORATADINE 10 MG TABLET 2. Obesity (BMI 30.0-34.9) - ICD9: 278.00, ICD10: E66.9 Newly diagnosed - Behavioral intervention - CBC - COMP METABOLIC PANEL - LIPID PANEL, NONFASTING 3. Depression, unspecified depression type - ICD9: 311, ICD1 0: F32.9 Symptoms in remission. F/u with psychology and psychiatry. 4. OLAF (generalized anxiety disorder) - ICD9: 300.02, ICD10: F41.1 Symptoms in remission. F/u with psychology and psychiatry. 5. Tobacco use - ICD9: 305.1, ICD10: Z72.0 - Cessation encouraged. - Physiologic and physical aspects of tobacco ad diction as well as strategies for quitting were discussed. - Counseling was given focusing on the harmful effects of th is addiction especially given the patient's medical condition(s) which wi ll be worsened because of the chemicals in tobacco. 6. Screening for cervical cancer - ICD9: V76.2, ICD10: Z12.4 - CONSULT TO GYNECOLOGY 7. Need for vaccination - ICD9: V05.9, ICD10: Z23 - PNEUMOCOCCAL IMMUNIZATION PPSV 23 - TDAP VACCINE AGE 7+ IM Randee Trent MD Referring Provider: SELF [200] Allergies As of Date: 01/12/2020 Noted Allergy Reaction EGGS (EGG) 01/12/2020 4 - Hives PREDNISONE 01/12/2020 14 - Other: See Comments Comments: Patient has relapsed when taking before Date Reviewed: 01/12/2020 Reviewed by: Mike Ignacio Ma - Fully Assessed Reason for Visit: Physical [83] Cmt: see nursing note Establish Care [42] Reason For Visit History Recorded Primary Visit Diagnosis:Dermatitis [L30.9] Other Visit Diagnoses:Obesity (BMI 30.0-34.9) [E66.9] Depression, unspecified depression type [F32.9] OLAF (generalized anxiety disorder) [F41.1] Tobacco use [Z72.0] Screening for cervical cancer [Z12.4] Need for vaccination [Z23] Order(s):CONSULT TO GYNECOLOGY [9013] Order #: [id number] : 1 FUTURE PNEUMOCOCCAL IMMUNIZATION PPSV 23 [00916CWR] Order #: [id number] TDAP VACCINE AGE 7+ IM [04564VCI] Order #: [id number] CBC [SQCBC] Order #: [id number] FUTURE COMP METABOLIC PANEL [SQCMP] Order #: [id number] FUTURE hydrOXYzine pamoate (VISTARIL) 25 mg capsuleTake 1 capsule b y mouth three times daily as needed for Anxiety.Disp: Rfl: loratadine (CLARITIN) 10 mg tabletTake 1 tablet by mouth onc e daily.Disp: 30 tabletRfl: 11 LIPID PANEL, NONFASTING [SQLIPNF] Order #: [id number] FUTURE Prescriptions as of 01/12/2020 Sig: HYDROXYZINE PAMOATE 25 MG CAP* Take 1 capsule by mouth three * LORATADINE 10 MG TABLET Take 1 tablet by mouth once d* COLE'S WORT ORAL Take by mouth. IBUPROFEN ORAL Take by mouth. Problem List As Of Date 01/12/2020 Noted Resolved Tobacco use [Z72.0] Obesity (BMI 30.0-34.9) [E66.9] Depression [F32.9] More... Visit Notes: >> Mike Ignacio Ma Mon Jan 12, 2020 2:42 PM Status: Signed OTC allergy medicine for sores on abdomen and chest. States can not use steroids make me relapse Prescriptions ordered this encounter Disp Refills Start End HYDROXYZINE PAMOATE 25 MG CAPSULE 01/12/2020 Class: Med Update Route: ORAL Sig: Take 1 capsule by mouth three times daily as needed for Anxiety. LORATADINE 10 MG TABLET 30 t* 11 01/12/2020 Route: ORAL Sig: Take 1 tablet by mouth once daily. Medications Discontinued During This Encounter carBAMazepine XR (TEGRETOL XR) 100 m* 01/12/2020 Class: Historical Med Route: ORAL Sig: Take 100 mg by mouth twice daily. Disc: Reason for discontinue is not on file. cetirizine (ZYRTEC) 10 mg tablet 09/26/2016 01/12/2020 Class: Historical Med Sig: Disc: Reason for discontinue is not on file. clonazePAM (KLONOPIN) 1 mg tablet 01/12/2020 Class: Historical Med Route: ORAL Sig: Take 1 mg by mouth twice daily as needed. Disc: Reason for discontinue is not on file. naproxen (NAPROSYN) 500 mg tablet 30 t* 0 11/24/2015 01/12/2020 Route: ORAL Sig: Take 1 tablet by mouth twice daily as needed (for pain/inflammation). Take with food. Patient not taking: Reported on 06/24/2019 Disc: Reason for discontinue is not on file. ahbzqmyv-sjxybnvmk-vpkrnjifpmpdhh (C* 1 Christ* 0 01/07/2020 020 Route: RIGHT EAR Sig: Use 4 Drops in the right ear four times daily for 7 day s. Disc: Reason for discontinue is not on file. omeprazole (PRILOSEC) 10 mg capsule 01/12/2020 Class: Historical Med Route: ORAL Sig: Take 10 mg by mouth once daily. Disc: Reason for discontinue is not on file. PARoxetine (PAXIL) 40 mg tablet 01/12/2020 Class: Historical Med Route: ORAL Sig: Take 40 mg by mouth once daily. Disc: Reason for discontinue is not on file. Disposition: Return in about 6 months (around 07/14/2020) for routine. Follow-up and Disposition History Recorded Encounter Status:Closed by RANDEE TRENT MD on 01/12/20 cbc on 2020-01-12 Absolute nRBC <0.01 <0.01 Normal 01-12-2020 [facility] ([id number]) Comment: Performed By: #### CBC, CMP, LIPNF #### [facility] [address] [place], [place] [address] Erythrocyte distribution 13.2 11.5-15.0 % Normal 01-11 [facility] width (RBC) [Ratio] [facility] (32360) Comment: Performed By: #### CBC, CMP, LIPNF #### [facility] [address] [place], [place] [id number] Hematocrit (Bld) [Volume 48.7 36.0-46.0 % High 01-11 [facility] fraction] [facility] (08202) Comment: Performed By: #### CBC, CMP, LIPNF #### [facility] [address] [place], [place] [address] Hemoglobin (Bld) 15.4 11.5-15.5 g/dL Normal 01-12-[address] [facility] [Mass/Vol] [facility] (70227) Comment: Performed By: #### CBC, CMP, LIPNF #### [facility] [address] [place] [address] MCH (RBC) [Entitic mass] 29.2 26.0-34.0 pG Normal 01-11 [facility] (06652) Comment: Performed By: #### CBC, CMP, LIPNF #### [facility] [address] [place] [address] MCHC (RBC) [Mass/Vol] 31.6 30.5-36.0 g/dL Normal 01-12-20 20 [facility] (15262) Comment: Performed By: #### CBC, CMP, LIPNF #### [facility] [address] [place] [address] MCV (RBC) [Entitic vol] 92.2 80.0-100.0 fL Normal 01-11 [facility] (83290) Comment: Performed By: #### CBC, CMP, LIPNF #### [facility] [address] [place] [address] Platelet mean volume 10.6 9.0-12.[address] [facility] (Bld) [Entitic vol] [facility] (51473) Comment: Performed By: #### CBC, CMP, LIPNF #### [facility] [place], [place] [address] Platelets (Bld) [#/Vol] 393 150-400 k/uL Normal 2019 [facility] (00179) Comment: Performed By: #### CBC, CMP, LIPNF #### [facility] [address] [place], [place] [id number] RBC (Bld) [#/Vol] 5.28 3.90-5.20 m/uL High 01-12-2020 [facility] (71444) Comment: Performed By: #### CBC, CMP, LIPNF #### [facility] [address] [place], [place] [address] WBC (Bld) [#/Vol] 13.17 3.70-11.00 k/uL High 01-12-2020 [facility] (59571) Comment: Performed By: #### CBC, CMP, LIPNF #### [facility] [address] [place], [place] [id number] progress on 2020-01 PROGRESS HNO ID: [id number] Normal 01-07-2020 [facility] Author: Sophia (Joe) [facility] ([id number]) Service: ? Author Type: Nurse Practitioner Type: Progress Notes Filed: 01/07/2020 2:48 PM Note Text: Subjective HPI HPI Linda Nance is a 34 year old female who presents tod ay for CC of bilat ear pain, right worse than left. This started 1 day ag o. Has tried otc medication. Symptoms are worsened by nothing. Risk facto rs uses finger nails to scratch inside ear. Denies possibility of be ing . .Patient presents with: Ear Pain: bilateral ear pain x 1 day PAST MEDICAL HISTORY Diagnosis Date - Depression bipolar - History of gestational diabetes PAST SURGICAL HISTORY Procedure Laterality Date - LAPAROSCOPIC CHOLEYCYSTECTOMY - LIGATE FALLOPIAN TUBE - PAST SURGICAL HISTORY OF TM tubes ALLERGIES Patient has no known allergies. -This section reviewed with patient, no changes MEDICATIONS COLE'S WORT ORAL Take by mouth. IBUPROFEN ORAL Take by mouth. cetirizine (ZYRTEC) 10 mg tablet naproxen (NAPROSYN) 500 mg tablet Take 1 tablet by mouth twi ce daily as needed (for pain/inflammation). Take with food. omeprazole (PRILOSEC) 10 mg capsule Take 10 mg by mouth once daily. clonazePAM (KLONOPIN) 1 mg tablet Take 1 mg by mouth twice d aily as needed. PARoxetine (PAXIL) 40 mg tablet Take 40 mg by mouth once malini ly. carBAMazepine XR (TEGRETOL XR) 100 mg 12 hr tablet Take 100 mg by mouth twice daily. FAMILY HISTORY Problem Relation Age of Onset - COPD Mother - Cancer Unknown cervical, uterine, breast - Diabetes Maternal Grandfather - Diabetes Maternal Aunt Social History Tobacco Use - Smoking status: Current Every Day Smoker - Smokeless tobacco: Never Used Substance Use Topics - Alcohol use: Yes Frequency: 2-4 times a month Drinks per session: 1 or 2 Binge frequency: Less than monthly - Drug use: Never Review of Systems Constitutional: Negative for fever. HENT: Positive for ear discharge and ear pain. Negative for congestion, nosebleeds and sore throat. Respiratory: Negative for cough, shortness of breath and whe ezing. Musculoskeletal: Negative for neck pain. Skin: Negative for itching and rash. Objective Blood pressure 112/70, pulse 92, temperature 36.8 ?C (98.3 ? F), temperature source Tympanic, resp. rate 16, weight 87.1 kg ( 192 lb), SpO2 98 %. Physical Exam Constitutional: She is oriented to person, place, and time a nd well-developed, well-nourished, and in no distress. Non-toxi c appearance. She does not have a sickly appearance. No distress. HENT: Head: Normocephalic and atraumatic. Right Ear: Hearing normal. There is tenderness (erythema). Left Ear: Hearing, tympanic membrane, external ear and ear c anal normal. Nose: Nose normal. Mouth/Throat: Uvula is midline, oropharynx is clear and mois t and mucous membranes are normal. Initially unable to see right tm d/t cerumen impaction. After provider/curette right canal clear/tender and tm juan carlos l Eyes: Pupils are equal, round, and reactive to light. Conjun ctivae and lids are normal. Right eye exhibits no discharge. Left eye e xhibits no discharge. No scleral icterus. Neck: Trachea normal and normal range of motion. Neck supple . Cardiovascular: Normal rate, regular rhythm and normal heart sounds. Pulmonary/Chest: Effort normal and breath sounds normal. Lymphadenopathy: She has no cervical adenopathy. Neurological: She is alert and oriented to person, place, an d time. Skin: No rash noted. She is not diaphoretic. ASSESSMENT/PLAN: 1. Irritation of external ear canal, right - ICD9: 380.89, I CD10: H61.891 (primary diagnosis) -use medication as prescribed -follow up if symptoms persist, worsen, change Discussed proper ear hygiene - [id number]-GAYFDXCXU-MMOOTVGOU 3.5 MG-10,000 UNIT/ML-1 % EAR DROPS,SUSP 2. Impacted cerumen of right ear - ICD9: 380.4, ICD10: H61.2 1 After provider/curette right canal clear/tender and tm juan carlos l Prescription instructions reviewed with patient as applicabl e. Patient advised if symptoms do not improve or if symptoms worsen isaac ner, to contact the office for further evaluation by their primary c are physician. Potential red flag symptoms discussed with the patient. Revi ewed appropriate action plan to take if red flag symptoms occur. Patient agreeable to treatment plan. Sophia Connelly APRN.CNP cnov on 2020-01-07 CNOV Office Visit ([facility]) Normal 01-07-[address] [place] [address] [facility] LINDA NANCE Alyssa ([id number]) 1985 [facility] Date Time Provider Department ([id number]) 01/07/20 2:15 PM SOPHIA CONNELLY (JOE) WSTR During your visit today, we recorded the following informati on about you: Temperature Pulse Respiration Blood pressure 98.3 degrees 92/minute 16/minute 112/70 Weight 87.1 kg Sophia Connelly APRN.CNP 01/07/2020 2:48 PM Signed Subjective HPI HPI Linda Shah Randell is a 34 year old fem ani who presents today for CC of bilat ear pain, right worse than left. This started 1 day ago. Has tried otc medication. Symptoms are worsened by nothing. Risk fac tors uses finger nails to scratch inside ear. Denies possibility of being . .Patient presents with: Ear Pain: bilateral ear pain x 1 day PAST MEDICAL HISTORY Diagnosis Date - Depression bipolar - History of gestational diabetes PAST SURGICAL HISTORY Procedure Laterality Date - LAPAROSCOPIC CHOLEYCYSTECTOMY - LIGATE FALLOPIAN TUBE - PAST SURGICAL HISTORY OF TM tubes ALLERGIES Patient has no known allergies. -This section reviewed with patient, no changes MEDICATIONS COLE'S WORT ORAL Take by mouth. IBUPROFEN ORAL Take by mouth. cetirizine (ZYRTEC) 10 mg tablet naproxen (NAPROSYN) 500 mg tablet Take 1 tablet by mouth twice daily as needed (for pain/inflammation). Take with food. omeprazole (PRILOSEC) 10 mg capsule Take 10 mg by mouth once daily. clonazePAM (KLONOPIN) 1 mg tablet Take 1 mg by mouth twice daily as needed. PARoxetine (PAXIL) 40 mg tablet Take 40 mg by mouth once malini ly. carBAMazepine XR (TEGRETOL XR) 100 mg 12 hr tabl et Take 100 mg by mouth twice daily. FAMILY HISTORY Problem Relation Age of Onset - COPD Mother - Cancer Unknown cervical, uterine, breast - Diabetes Maternal Grandfather - Diabetes Maternal Aunt Social History Tobacco Use - Smoking status: Current Every Day Smoker - Smokeless tobacco: Never Used Substance Use Topics - Alcohol use: Yes Frequency: 2-4 times a month Drinks per session: 1 or 2 Binge frequency: Less than monthly - Drug use: Never Review of Systems Constitutional: Negative for fever. HENT: Positive for ear discharge and ear pain. Negative for congestion, nosebleeds and sore throat. Respiratory: Negative for cough, shortness of breath and whe ezing. Musculoskeletal: Negative for neck pain. Skin: Negative for itching and rash. Objective Blood pressure 112/70, pulse 92, temperature 36.8 ?C (98.3 ?F), temperature source Tympanic, resp. rate 16, weight 87.1 kg (192 lb), SpO 2 98 %. Physical Exam Constitutional: She is oriented to perso n, place, and time and well-developed, well-nourished, and in no distress. Non-toxic ap pearance. She does not have a sickly appearance. No distress. HENT: Head: Normocephalic and atraumatic. Right Ear: Hearing normal. There is tenderness (erythema). Left Ear: Hearing, tympanic membrane, external ear and ear c anal normal. Nose: Nose normal. Mouth/Throat: Uvula is midline, oropharynx is clear and mois t and mucous membranes are normal. Initially unable to see right tm d/t cerumen impaction. After provider/curette right canal clear/tender and tm juan carlos l Eyes: Pupils are equal, roun d, and reactive to light. Conjunctivae and lids are normal. Right eye exhibits no discharge. Left eye exhibits no discharge. No scleral icterus. Neck: Trachea normal and normal range of motion. Neck supple . Cardiovascular: Normal rate, regular rhythm and normal heart sounds. Pulmonary/Chest: Effort normal and breath sounds normal. Lymphadenopathy: She has no cervical adenopathy. Neurological: She is alert and oriented to person, place, an d time. Skin: No rash noted. She is not diaphoretic. ASSESSMENT/PLAN: 1. Irritation of external ear canal, right - ICD9: 380.89, I CD10: H61.891 (primary diagnosis) -use medication as prescribed -follow up if symptoms persist, worsen, change Discussed proper ear hygiene - [id number]-VEFFAXHLE-QXTLFEASO 3.5 MG-10,000 UNIT/ML-1 % EAR DROPS,SUSP 2. Impacted cerumen of right ear - ICD9: 380.4, ICD10: H61.2 1 After provider/curette right canal clear/tender and tm juan carlos l Prescription instructions reviewed with patient as applicable. Patient advised if symptoms do not improve or if symptom s worsen sooner, to contact the office for further evaluation by their primary care physician. Curly vargas red flag symptoms discussed with the patient. Reviewed ap propriate action plan to take if red flag symptoms occur. Patient agreeable to treatment carolyn chauhan. Sophia Connelly APRN.HAULAGE ENGINE OPERATOR Referring Provider: SELF [200] Allergies As of Date: 01/07/2020 (No Known Allergies) Date Reviewed: 01/07/2020 Reviewed by: Asuncion Dalal Ma - Fully Assessed Reason for Visit: Ear Pain [817] Cmt: bilateral ear pain x 1 day Primary Visit Diagnosis:Irritation of external ear canal, ri ght [H61.891] Other Visit Diagnosis:Impacted cerumen of right ear [H61.21] Order(s):xyzspycs-rgsqclbtt-adjhjgcqocngps (CORTISPORIN) 3.5 -10,000-1 mg/mL-unit/mL-% otic suspensionUse 4 Drops in the right ear four times daily for 7 days.Disp: 1 BottleRfl: 0 Prescriptions as of 01/07/2020 Sig: COLE'S WORT ORAL Take by mouth. IBUPROFEN ORAL Take by mouth. IRPMROTY-OTGWNNAYN-ZVRVYOKHW * Use 4 Drops in the right ear * CETIRIZINE 10 MG TABLET NAPROXEN 500 MG TABLET Take 1 tablet by mouth twice * Patient not taking: Reported on 06/24/2019 OMEPRAZOLE 10 MG CAPSULE,ADEEL* Take 10 mg by mouth once carie * CLONAZEPAM 1 MG TABLET Take 1 mg by mouth twice carie* PAROXETINE 40 MG TABLET Take 40 mg by mouth once carie* CARBAMAZEPINE ER 100 MG TABLE* Take 100 mg by mouth twice da * Problem List As Of Date: 01/07/2020 (None) Prescriptions ordered this encounter Disp Refills Start End RVPEQQMF-TMPIZYVNJ-ZMRPLNDOU 3.5 MG-* 1 Christ* 0 01/07/202009/2020 Route: RIGHT EAR Sig: Use 4 Drops in the right ear four times daily for 7 day s. Encounter Status:Closed by SOPHIA CONNELLY CNP on 01/07/20 progress on 2019-11 PROGRESS HNO ID: [id number] Normal 11-15-2019 [facility] Author: Nichelle Smith (Earnestine) [place] ([id number]) Service: ? Author Type: Physician Associate Data Scientist Type: Progress Notes Filed: 11/15/2019 11:02 AM Note Text: Subjective HPI Patient presents with a rash on her chest for 2 weeks. She s tates it comes and goes. It is very itchy. She's been using antihista mines qvvn-xid-jziywsu which do help some. She had started a new j ob at the [employer] and this started happening. She states she fee ls congested when she is there. No other new soaps or detergents. No new medications. No new lotions. Review of Systems Skin: Positive for itching and rash. All other systems reviewed and are negative. PAST MEDICAL HISTORY Diagnosis Date - Depression bipolar - History of gestational diabetes Current Outpatient Medications Medication Sig Dispense Refill - predniSONE (DELTASONE) 10 mg tablet Take 4 tabs daily for 3 days, then 2 tabs daily for 3 days, then 1 tab daily for 3 days with food . 21 tablet 0 - cetirizine (ZYRTEC) 10 mg tablet - IBUPROFEN ORAL Take by mouth. - naproxen (NAPROSYN) 500 mg tablet Take 1 tablet by mouth t wice daily as needed (for pain/inflammation). Take with food. (Patient not taking: Reported on 06/24/2019 ) 30 tablet 0 - omeprazole (PRILOSEC) 10 mg capsule Take 10 mg by mouth on ce daily. - clonazePAM (KLONOPIN) 1 mg tablet Take 1 mg by mouth twice daily as needed. - PARoxetine (PAXIL) 40 mg tablet Take 40 mg by mouth once d aily. - carBAMazepine XR (TEGRETOL XR) 100 mg 12 hr tablet Take 10 0 mg by mouth twice daily. No current facility-administered medications for this visit. PAST SURGICAL HISTORY Procedure Laterality Date - LAPAROSCOPIC CHOLEYCYSTECTOMY - LIGATE FALLOPIAN TUBE - PAST SURGICAL HISTORY OF TM tubes FAMILY HISTORY Problem Relation Age of Onset - COPD Mother - Cancer Unknown cervical, uterine, breast - Diabetes Maternal Grandfather - Diabetes Maternal Aunt Social History Tobacco Use - Smoking status: Current Every Day Smoker - Smokeless tobacco: Never Used Substance Use Topics - Alcohol use: Yes Frequency: 2-4 times a month Drinks per session: 1 or 2 Binge frequency: Less than monthly - Drug use: Never BP 122/78 Pulse 118 Temp 36.5 ?C (97.7 ?F) Resp 18 W t 88.9 kg (196 lb) LMP 11/11/2019 (Exact Date) SpO2 97% Objective Physical Exam Constitutional: She is well-developed, well-nourished, and i n no distress. HENT: Head: Normocephalic and atraumatic. Cardiovascular: Normal rate, regular rhythm and normal heart sounds. Pulmonary/Chest: Effort normal and breath sounds normal. Neurological: She is alert. Skin: Skin is warm and dry. Pt has diffuse maculopapular rash on her chest and under the breast sparingling. Red and raised. Does not appear fungal Nursing note and vitals reviewed. ASSESSMENT/PLAN: 1. Irritant dermatitis - ICD9: 692.9, ICD10: L24.9 Will rx prednisone and have continue otc antihistamine. Foll ow up with pcp if not improving over the next week . Nichelle Ruiz PA-C cnov on 2019-11-15 CNOV Office Visit ([facility]) Normal 11-15-[address] [facility] LINDA NANCE ([id number]) 1985 [facility] Date Time Provider Department ([id number]) 11/15/19 10:00 AM NICHELLE RUIZ (EARNESTINE) WSTR During your visit today, we recorded the following informati on about you: Temperature Pulse Respiration Blood pressure 97.7 degrees 118/minute 18/minute 122/78 Weight Last Period 88.9 kg 11/11/19 Nichelle Ruiz PA-C 11/15/2019 11:02 AM Signed Subjective HPI Patient presents with a rash on her ches t for 2 weeks. She states it comes and goes. It is very itchy. She's been using antihistamines over -the-counter which do help some. She had started a new job at the [employer] and this started happening. She states she feels congeste d when she is there. No other new soaps or detergents. No new medications. No new lotions. Review of Systems Skin: Positive for itching and rash. All other systems reviewed and are negative. PAST MEDICAL HISTORY Diagnosis Date - Depression bipolar - History of gestational diabetes Current Outpatient Medications Medication Sig Dispense Refill - predniSONE (DELTASONE) 10 mg tablet Take 4 tabs daily for 3 days, then 2 tabs daily for 3 days, then 1 tab daily for 3 days with food. 21 tablet 0 - cetirizine (ZYRTEC) 10 mg tablet - IBUPROFEN ORAL Take by mouth. - naproxen (NAPROSYN) 500 mg tablet Take 1 tablet by mouth t wice daily as needed (for pain/inflammation). Take with food. (Patient not taking: Reported on 06/24/2019 ) 30 tablet 0 - omeprazole (PRILOSEC) 10 mg capsule Take 10 mg by mouth on ce daily. - clonazePAM (KLONOPIN) 1 mg tablet Take 1 mg by mouth twice daily as needed. - PARoxetine (PAXIL) 40 mg tablet Take 40 mg by mouth once d aily. - carBAMazepine XR (TEGRETOL XR) 100 mg 12 hr tablet Take 100 mg by mouth twice daily. No current facility-administered medications for this visit. PAST SURGICAL HISTORY Procedure Laterality Date - LAPAROSCOPIC CHOLEYCYSTECTOMY - LIGATE FALLOPIAN TUBE - PAST SURGICAL HISTORY OF TM tubes FAMILY HISTORY Problem Relation Age of Onset - COPD Mother - Cancer Unknown cervical, uterine, breast - Diabetes Maternal Grandfather - Diabetes Maternal Aunt Social History Tobacco Use - Smoking status: Current Every Day Smoker - Smokeless tobacco: Never Used Substance Use Topics - Alcohol use: Yes Frequency: 2-4 times a month Drinks per session: 1 or 2 Binge frequency: Less than monthly - Drug use: Never BP 122/78 Pulse 118 Temp 36.5 ?C (97.7 ?F) Resp 18 W t 88.9 kg (196 lb) LMP 11/11/2019 (Exact Date) SpO2 97% Objective Physical Exam Constitutional: She is well-developed, well-nourished, and i n no distress. HENT: Head: Normocephalic and atraumatic. Cardiovascular: Normal rate, regular rhythm and normal heart sounds. Pulmonary/Chest: Effort normal and breath sounds normal. Neurological: She is alert. Skin: Skin is warm and dry. Pt has diffuse maculopapular rash on her chest and under the breast sparingling. Red and raised. Does not appear fungal Nursing note and vitals reviewed. ASSESSMENT/PLAN: 1. Irritant dermatitis - ICD9: 692.9, ICD10: L24.9 Will rx prednisone and have continue otc antihis tamine. Follow up with pcp if not improving over the next week . Nichelle Ruiz PA-C Referring Provider: SELF [200] Allergies As of Date: 11/15/2019 (No Known Allergies) Date Reviewed: 11/15/2019 Reviewed by: Eun Ramirez LPN - Fully Assessed Reason for Visit: Rash [1087] Cmt: x 2 weeks rash on chest and under breasts Primary Visit Diagnosis:Irritant dermatitis [L24.9] Order(s):predniSONE (DELTASONE) 10 mg ta bletTake 4 tabs daily for 3 days, then 2 tabs daily for 3 days, then 1 tab daily for 3 days with fo od.Disp: 21 tabletRfl: 0 Prescriptions as of 11/15/2019 Sig: PREDNISONE 10 MG TABLET Take 4 tabs daily for 3 days,* CETIRIZINE 10 MG TABLET IBUPROFEN ORAL Take by mouth. NAPROXEN 500 MG TABLET Take 1 tablet by mouth twice * Patient not taking: Reported on 06/24/2019 OMEPRAZOLE 10 MG CAPSULE,ADEEL* Take 10 mg by mouth once carie * CLONAZEPAM 1 MG TABLET Take 1 mg by mouth twice carie* PAROXETINE 40 MG TABLET Take 40 mg by mouth once carie* CARBAMAZEPINE ER 100 MG TABLE* Take 100 mg by mouth twice da * Problem List As Of Date: 11/15/2019 (None) Prescriptions ordered this encounter Disp Refills Start End PREDNISONE 10 MG TABLET 21 t* 0 11/15/2019 11/24/2019 Sig: Take 4 tabs daily for 3 days, then 2 tabs daily for 3 days, then 1 tab daily for 3 days with food. Letter Text Encounter Status:Closed by NICHELLE RUIZ PA-C on 11/15/19 progress on 2019-08 PROGRESS HNO ID: [id number] Normal 08-12-2019 [facility] Author: Sophia Duffy) [facility] ([id number]) Service: ? Author Type: Nurse Practitioner Type: Progress Notes Filed: 08/12/2019 7:21 PM Note Text: Subjective HPI HPI Linda Nance is a 33 year old female who presents tod ay for CC of cough, congestion. This started over 1 week. Has tried otc m edication. Symptoms are worsened by nothing. Risk factors everyday smok er. Denies possibility of being . .Patient presents with: Cough: cough, chest congestion and sinus x 1 week PAST MEDICAL HISTORY Diagnosis Date - Depression bipolar - History of gestational diabetes PAST SURGICAL HISTORY Procedure Laterality Date - LAPAROSCOPIC CHOLEYCYSTECTOMY - LIGATE FALLOPIAN TUBE - PAST SURGICAL HISTORY OF TM tubes ALLERGIES Patient has no known allergies. -This section reviewed with patient, no changes MEDICATIONS cetirizine (ZYRTEC) 10 mg tablet IBUPROFEN ORAL Take by mouth. naproxen (NAPROSYN) 500 mg tablet Take 1 tablet by mouth twi ce daily as needed (for pain/inflammation). Take with food. omeprazole (PRILOSEC) 10 mg capsule Take 10 mg by mouth once daily. clonazePAM (KLONOPIN) 1 mg tablet Take 1 mg by mouth twice d aily as needed. PARoxetine (PAXIL) 40 mg tablet Take 40 mg by mouth once malini ly. carBAMazepine XR (TEGRETOL XR) 100 mg 12 hr tablet Take 100 mg by mouth twice daily. FAMILY HISTORY Problem Relation Age of Onset - COPD Mother - Cancer Unknown cervical, uterine, breast - Diabetes Maternal Grandfather - Diabetes Maternal Aunt Social History Tobacco Use - Smoking status: Current Every Day Smoker - Smokeless tobacco: Never Used Substance Use Topics - Alcohol use: Not on file - Drug use: Not on file Review of Systems Constitutional: Negative for fever. HENT: Positive for congestion and sore throat. Negative for ear pain and nosebleeds. Respiratory: Positive for cough. Negative for shortness of b reath and wheezing. Musculoskeletal: Negative for neck pain. Objective Blood pressure 120/78, pulse 100, temperature 37 ?C (98.6 ?F ), temperature source Tympanic, resp. rate 16, weight 90.7 kg (200 lb), SpO 2 97 %. Physical Exam Constitutional: She is oriented to person, place, and time a nd well-developed, well-nourished, and in no distress. Non-toxi c appearance. She does not have a sickly appearance. No distress. HENT: Head: Normocephalic and atraumatic. Right Ear: Hearing, tympanic membrane, external ear and ear canal normal. Left Ear: Hearing, tympanic membrane, external ear and ear c anal normal. Nose: Nose normal. Mouth/Throat: Uvula is midline, oropharynx is clear and mois t and mucous membranes are normal. Eyes: Pupils are equal, round, and reactive to light. Conjun ctivae and lids are normal. Right eye exhibits no discharge. Left eye e xhibits no discharge. No scleral icterus. Neck: Trachea normal and normal range of motion. Neck supple . Cardiovascular: Normal rate, regular rhythm and normal heart sounds. Pulmonary/Chest: Effort normal and breath sounds normal. Lymphadenopathy: She has no cervical adenopathy. Neurological: She is alert and oriented to person, place, an d time. Skin: No rash noted. She is not diaphoretic. ASSESSMENT/PLAN: 1. Sinobronchitis - ICD9: 473.9, 490, ICD10: J32.9, J40 -take prednisone and mucinex for next 3-4 days, if no better fill/take antibiotic prescription - Supportive care with plenty of fluids, rest, and analgesia prn. - Follow up in one week if symptoms persist or worsen. -If you experience chest pain/shortness of breath go to ER - DOXYCYCLINE MONOHYDRATE 100 MG TABLET - GUAIFENESIN ER 600 MG TABLET, EXTENDED RELEASE 12 HR - PREDNISONE 20 MG TABLET Prescription instructions reviewed with patient as applicabl e. Patient advised if symptoms do not improve or if symptoms worsen isaac ner, to contact the office for further evaluation by their primary c are physician. Potential red flag symptoms discussed with the patient. Revi shahlaed appropriate action plan to take if red flag symptoms occur. Patient agreeable to treatment plan. DANK Arriaza on 2019-08-12 CNOV Office Visit ([facility]STR) Normal 08-12-[address] [facility] RANDELLLINDA L ([id number]) 1985 [facility] Date Time Provider Department ([id number]) 08/12/19 6:45 PM SOPHIA CONNELLY (JOE) WSTR During your visit today, we recorded the following informati on about you: Temperature Pulse Respiration Blood pressure 98.6 degrees 100/minute 16/minute 120/78 Weight 90.7 kg Sophia Connelly APRN.CNP 08/12/2019 7:21 PM Signed Subjective HPI HPI Linda Shah Randell is a 33 year old female who presents today for CC of cough, congestion. This started over 1 week. Has tried otc me dication. Symptoms are worsened by nothing. Risk factors everyday smoker. Denies po ssibility of being . .Patient presents with: Cough: cough, chest congestion and sinus x 1 week PAST MEDICAL HISTORY Diagnosis Date - Depression bipolar - History of gestational diabetes PAST SURGICAL HISTORY Procedure Laterality Date - LAPAROSCOPIC CHOLEYCYSTECTOMY - LIGATE FALLOPIAN TUBE - PAST SURGICAL HISTORY OF TM tubes ALLERGIES Patient has no known allergies. -This section reviewed with patient, no changes MEDICATIONS cetirizine (ZYRTEC) 10 mg tablet IBUPROFEN ORAL Take by mouth. naproxen (NAPROSYN) 500 mg tablet Take 1 tablet by mouth twice daily as needed (for pain/inflammation). Take with food. omeprazole (PRILOSEC) 10 mg capsule Take 10 mg by mouth once daily. clonazePAM (KLONOPIN) 1 mg tablet Take 1 mg by mouth twice daily as needed. PARoxetine (PAXIL) 40 mg tablet Take 40 mg by mouth once malini ly. carBAMazepine XR (TEGRETOL XR) 100 mg 12 hr tabl et Take 100 mg by mouth twice daily. FAMILY HISTORY Problem Relation Age of Onset - COPD Mother - Cancer Unknown cervical, uterine, breast - Diabetes Maternal Grandfather - Diabetes Maternal Aunt Social History Tobacco Use - Smoking status: Current Every Day Smoker - Smokeless tobacco: Never Used Substance Use Topics - Alcohol use: Not on file - Drug use: Not on file Review of Systems Constitutional: Negative for fever. HENT: Positive for congestion and sore throat. Negative for ear pain and nosebleeds. Respiratory: Positive for co ugh. Negative for shortness of breath and wheezing. Musculoskeletal: Negative for neck pain. Objective Blood pressure 120/78, pulse 100, temperature 37 ?C (98.6 ?F ), temperature source Tympanic, resp. rate 16, weight 90.7 kg (200 lb), SpO 2 97 %. Physical Exam Constitutional: She is oriented to perso n, place, and time and well-developed, well-nourished, and in no distress. Non-toxic ap pearance. She does not have a sickly appearance. No distress. HENT: Head: Normocephalic and atraumatic. Right Ear: Hearing, tympanic membrane, external ear and ear canal normal. Left Ear: Hearing, tympanic membrane, external ear and ear c anal normal. Nose: Nose normal. Mouth/Throat: Uvula is midline, oropharynx is clear and mois t and mucous membranes are normal. Eyes: Pupils are equal, roun d, and reactive to light. Conjunctivae and lids are normal. Right eye exhibits no discharge. Left eye exhibits no discharge. No scleral icterus. Neck: Trachea normal and normal range of motion. Neck supple . Cardiovascular: Normal rate, regular rhythm and normal heart sounds. Pulmonary/Chest: Effort normal and breath sounds normal. Lymphadenopathy: She has no cervical adenopathy. Neurological: She is alert and oriented to person, place, an d time. Skin: No rash noted. She is not diaphoretic. ASSESSMENT/PLAN: 1. Sinobronchitis - ICD9: 473.9, 490, ICD10: J32.9, J40 -take prednisone and mucinex for next 3-4 days, if no better fill/take antibiotic prescription - Supportive care with plenty of fluids, rest, and analgesia prn. - Follow up in one week if symptoms persist or worsen. -If you experience chest pain/shortness of breath go to ER - DOXYCYCLINE MONOHYDRATE 100 MG TABLET - GUAIFENESIN ER 600 MG TABLET, EXTENDED RELEASE 12 HR - PREDNISONE 20 MG TABLET Prescription instructions reviewed with patient as applicable. Patient advised if symptoms do not improve or if symptom s worsen sooner, to contact the office for further evaluation by their primary care physician. Curly vargas red flag symptoms discussed with the patient. Reviewed ap propriate action plan to take if red flag symptoms occur. Patient agreeable to treatment carolyn chauhan. Sophia Connelly APRN.JOE Connelly APRN.JOE 08/12/2019 6:53 PM Signed ASSESSMENT/PLAN: 1. Sinobronchitis - ICD9: 473.9, 490, ICD10: J32.9, J40 -take prednisone and mucinex for next 3-4 days, if no better fill/take antibiotic prescription - Supportive care with plenty of fluids, rest, and analgesia prn. - Follow up in one week if symptoms persist or worsen. -If you experience chest pain/shortness of breath go to ER - DOXYCYCLINE MONOHYDRATE 100 MG TABLET - GUAIFENESIN ER 600 MG TABLET, EXTENDED RELEASE 12 HR - PREDNISONE 20 MG TABLET Referring Provider: SELF [200] Allergies As of Date: 08/12/2019 (No Known Allergies) Date Reviewed: 08/12/2019 Reviewed by: Amaya Vora LPN - Fully Assessed Reason for Visit: Cough [28] Cmt: cough, chest congestion and sinus x 1 week Primary Visit Diagnosis:Sinobronchitis [J32.9, J40] Order(s):doxycycline monohydrate 100 mg tabletTake 1 tablet by mouth twice daily for 10 days.Disp: 20 tabletRfl: 0 guaiFENesin (MUCINEX) 600 mg 12 hr tabletTake 1 tablet by mo uth twice daily for 10 days.Disp: 20 tabletRfl: 0 predniSONE (DELTASONE) 20 mg tabletTake 2 tablets by mouth o nce daily for 5 days.Disp: 10 tabletRfl: 0 Prescriptions as of 08/12/2019 Sig: DOXYCYCLINE MONOHYDRATE 100 M* Take 1 tablet by mouth twice * GUAIFENESIN ER 600 MG TABLET,* Take 1 tablet by mouth twice * PREDNISONE 20 MG TABLET Take 2 tablets by mouth once * CETIRIZINE 10 MG TABLET IBUPROFEN ORAL Take by mouth. NAPROXEN 500 MG TABLET Take 1 tablet by mouth twice * Patient not taking: Reported on 06/24/2019 OMEPRAZOLE 10 MG CAPSULE,ADEEL* Take 10 mg by mouth once carie * CLONAZEPAM 1 MG TABLET Take 1 mg by mouth twice carie* PAROXETINE 40 MG TABLET Take 40 mg by mouth once carie* CARBAMAZEPINE ER 100 MG TABLE* Take 100 mg by mouth twice da * Problem List As Of Date: 08/12/2019 (None) Other instructions from your clinician: ASSESSMENT/PLAN: 1. Sinobronchitis - ICD9: 473.9, 490, ICD10: J32.9, J40 -take prednisone and mucinex for next 3-4 days, if no better fill/take antibiotic prescription - Supportive care with plenty of fluids, rest, and analgesia prn. - Follow up in one week if symptoms persist or worsen. -If you experience chest pain/shortness of breath go to ER - DOXYCYCLINE MONOHYDRATE 100 MG TABLET - GUAIFENESIN ER 600 MG TABLET, EXTENDED RELEASE 12 HR - PREDNISONE 20 MG TABLET Prescriptions ordered this encounter Disp Refills Start End DOXYCYCLINE MONOHYDRATE 100 MG TABLET 20 t* 0 08/12/2019 Class: Print RX Cmt: May transfer to [facility] if less expensive. Route: ORAL Sig: Take 1 tablet by mouth twice daily for 10 days. GUAIFENESIN ER 600 MG TABLET, EXTEND* 20 t* 0 08/12/2019 Route: ORAL Sig: Take 1 tablet by mouth twice daily for 10 days. PREDNISONE 20 MG TABLET 10 t* 0 08/12/2019 08/17/2019 Route: ORAL Sig: Take 2 tablets by mouth once daily for 5 days. Letter Text Encounter Status:Closed by SOPHIA CONNELLY CNP on 08/12/19 hep [facility] panel on 2 Albumin mass conc 3.9 3.2-5.0 G/DL Normal 04-07-2018 [facility] (09234) Comment: Performed By: #### [id number] # ###GLENYS [address] [place] [address] Albumin/Globulin mass ratio 1.3 1.1-1.9 ratio Normal [facility] (83268) Comment: Performed By: #### [id number] # ###GLENYS [address] [place] [address] Alk Phos 64 42-121 Int._Unit/L Normal 04-07-2018 [facility] (28125) Comment: Performed By: #### [id number] # ###GLENYS FierroTidDugz2085 [place] [address] ALT enzyme act/vol 19 10-40 Int._Unit/L Normal 8 [facility] (00 000) Comment: Performed By: #### [id number] # ###GLENYS [address] [place] [address] AST enzyme act/vol 17 10-42 Int._Unit/L Normal 8 [facility] (00 000) Comment: Performed By: #### [id number] # ###GLENYS [address] [place] [address] Bili Direct <.10 .00-.20 Normal 04-07-2018 [facility] (40165) Comment: Performed By: #### [id number] # ###GLENYSHoracio HensonZnuQepx3260 [place] [address] Bili Indirect >0.3 Normal 04-07-2018 [facility] (37272) Comment: Result Comment: No establish ed ranges available for the Indirect Biliruben. Performed By: #### [id number] # ###GLENYS FierroDsaTapb7990 [place] [address] Bili Total 0.4 0.2-1.0 mg/dL Normal 04-07-2018 [facility] (06944) Comment: Performed By: #### [id number] # ###GLENYS BqwWtwi5767 [place] [address] Globulin Calculated mass 3.1 2.0-4.0 G/DL Normal 04-07 [facility] ([facility] (64031) Comment: Performed By: #### [id number] # ###GLENYSHoracio FierroJxeDjca7673 [place] [address] Protein mass conc 7.0 6.4-8.3 G/DL Normal 04-07-2018 [facility] (67363) Comment: Performed By: #### [id number] # ###GLENYSHoracio FierroEdwPbzx3[address] [place] [address] ua complete on 2017 Color Nom (U) Straw Yellow Normal 04-06-2018 [facility] (05161) Comment: Performed By: #### [id number] ####GLENYS Urinalysis Automated Qxsrayeylo1084 [place] [address] 05 Glucose mass conc (U) Negative Negative mg/dL Normal 04-06-20 [facility] (16488) Comment: Performed By: #### [id number] ####GLENYS Urinalysis Automated Ibxcjjsnle7568 [place] [address] 05 Ketones Ql (U) Negative Negative Normal 04-06-2018 [facility] (80640) Comment: Performed By: #### [id number] ####GLENYS Urinalysis Automated Cygjissfkr2968 [place], [place] [address] RBC Test strip #/vol (U) 0-3 0-3 Normal 04-06 [facility] (56044) Comment: Performed By: #### [id number] ####GLENYS Urinalysis Automated Craqkcmzjy6[address] [place] [address] 05 UA Blood Negative Negative Normal 04-06-2018 [facility] (40558) Comment: Performed By: #### [id number] ####GLENYS Urinalysis Automated Calqlgkcpe4481 [place] [address] 05 UA Clarity Clear Clear Normal 04-06-2018 [facility] (50469) Comment: Performed By: #### [id number] ####GLENYS Urinalysis Automated Jendwnomkx0676 [place] [address] 05 UA Leuk Est Negative Negative Normal 04-06-2018 [facility] (58159) Comment: Performed By: #### [id number] ####GLENYS Urinalysis Automated Ymnuvpnoul7814 [place] [address] 05 UA Mucous Trace Trace Abnormal 04-06-2018 [facility] (05335) Comment: Performed By: #### [id number] ####GLENYS Urinalysis Automated [address] [place] [address] 05 UA Nitrite Negative Negative Normal 04-06-2018 [facility] (71713) Comment: Performed By: #### [id number] ####GLENYS Urinalysis Automated Zyxgrielhi[address] [place] [address] 05 UA pH 6.0 4.6-8.0 Normal 04-06-2018 [facility] (42816) Comment: Performed By: #### [id number] ####GLENYS Urinalysis Automated [address]irxqw[address] [place] [address] 05 UA Protein Negative Negative Normal 04-06-2018 [facility] (38063) Comment: Performed By: #### [id number] ####GLENYS Urinalysis Automated Piygvxurcb[address] [place] [address] 05 UA Spec Grav 1.005 1.003-1.030 Normal 04-06-2018 [facility] (95896) Comment: Performed By: #### [id number] ####GLENYS Urinalysis Automated Lpvlitdphn[address] [place] [address] 05 UA Squam Epithelial 0-5 0-5 Normal 04-06-2018 [facility] (45269) Comment: Performed By: #### [id number] ####GLENYS Urinalysis Automated Uvcvkoyibp[address] [place] [address] 05 UA Urobilinogen Negative Normal 04-06-2018 [facility] (36125) Comment: Performed By: #### [id number] ####GLENYS Urinalysis Automated Mncrwqfasy8661 [place], [place] [address] UA WBC 0-5 0-5 Normal 04-06-2018 [facility] (67928) Comment: Performed By: #### [id number] ####GLENYS Urinalysis Automated Pkkiofgtuw3229 [place], [place] [address] Urobilinogen Test Negative Negative {Jamie'U}/dL Normal 018 [facility] Qn (U) [facility] (00 000) Comment: Performed By: #### [id number] ####GLENYS Urinalysis Automated Obsquvftmm7098 [place] [address] 05 u drug screen on 22-04-02 U Amph Scr Negative Normal 04-06-2018 [facility] (29912) Comment: Result Comment: Results for medical use only. Confirmation of positive results will be done when re quested. Specimens are kept for one week. Performed By: #### [id number] # ###GLENYS IimJwpe0351 [place] [address] U Yoanna Scr Negative Normal 04-06-2018 [facility] (06421) Comment: Performed By: #### [id number] # ###GLENYS LloNwvn1324 [place] [address] U Benzodia Scr Positive >200 Normal 04-06-2018 [facility] (87683) Comment: Performed By: #### [id number] # ###GLENYS DkkThck7453 [place] [address] U Cannab Scr Positive >50 Normal 04-06-2018 [facility] (29344) Comment: Performed By: #### [id number] # ###GLENYS QffPjwz9391 [place] [address] U Cocaine Scr Negative Normal 04-06-2018 [facility] (30629) Comment: Performed By: #### [id number] # ###GLENYS XgdHwtg7964 [place] [address] U Opiate Scr Negative Normal 04-06-2018 [facility] (62934) Comment: Performed By: #### [id number] # ###GLENYS YaoTaqm4252 [place] [address] U PCP Scr Negative Normal 04-06-2018 [facility] (52534) Comment: Performed By: #### [id number] # ###GLENYS VgkTdcj2806 [place] [address] u bhcg qlt on 04-06 HCG.beta subunit Qn Neg Neg m[IU]/mL Normal 04-06-2018 [facility] (00 000) Comment: Performed By: #### [id number] # ###GLENYS Urinalysis Manual Imrbpcohig2527 [place] [address] salicylate on 04-06 Salicylate Lvl <4 15-30 Low 04-06-2018 [facility] (01775) Comment: Performed By: #### [id number] # ###GLENYS WhaMydl5558 [place] [address] glucose poc on 2017 Glucose mass conc 76 70-99 mg/dL Normal 04-06-2018 [facility] (21597) Comment: Performed By: #### [id number] ####GLENYS POC Dsbbjadwxx1483 [place] [address] ethanol on Ethanol Lvl <5 0-15 Normal 04-06-2018 [facility] (62126) Comment: Result Comment: SAMPLES WITH CONCENTRATIONS <15 MG/DL SHOULD BEINTERPRETED NEGATIVE. FOR MEDICAL USE ONLY Performed By: #### [id number] # ###GLENYS ApnVlph1069 [place] [address] egfr on 2018-04-06 eGFR AA >60 Normal 04-06-2018 [facility] (60795) Comment: Order Comment: Order added b y Discern Expert. Performed By: #### [id number] ####GLENYS FierroNcsJrfj8346 [place] [address] GFR/1.73 sq M predicted >60 mL/min/{1.73_m2} Normal 04-06-2018 [facility] among non-blacks [facility] (83062) vol rate/area (S/P/Bld) Comment: Order Comment: Order added b y Discern Expert. Performed By: #### [id number] ####GLENYS HspQega8563 [place] [address] cbc w/ auto diff on 2018-04-06 Erythrocyte distribution 14.5 11.5-14.5 % Normal 04-06 [facility] width Auto Ratio (RBC) [facility] (77307) Comment: Performed By: #### [id number] # ###GLENYS JzcYyxy4243 [place] [address] Hematocrit Auto Volume 45.1 36.0-48.0 % Normal 018 [facility] (d[facility] (40383) Comment: Performed By: #### [id number] # ###GLENYSHoracio FierroJkyKrnq1105 [place] [address] Hemoglobin mass conc 15.3 12.0-16.0 G/DL Normal 8 [facility] ([facility] (97032) Comment: Performed By: #### [id number] # ###GLENYSHoracio FierroWepSqzd2205 [place] [address] MCH Auto Entitic mass 30.9 27.0-31.0 pg Normal 04-06-20 18 [facility] (RBC) System (00 000) Comment: Performed By: #### [id number] # ###GLENYS EluLdfk4961 [place] [address] MCHC Auto mass conc 33.9 33.0-37.0 G/DL Normal 04-06-2018 [facility] (RBC) System (00 000) Comment: Performed By: #### [id number] # ###GLENYS QlaLzob1001 [place] [address] MCV Auto Entitic volume 91.1 78.0-100.0 fL Normal 04-06 [facility] (RBC) System (00 000) Comment: Performed By: #### [id number] # ###GLENYS CmgSxuo7203 [place] [address] Platelet mean volume Auto 8.8 7.4-11.0 fL Normal [facility] Entitic volume (Bld) System (25080) Comment: Performed By: #### [id number] # ###GLENYSHoracio HensonPfzScik7613 [place] [address] Platelets Auto #/vol 303 130-400 E3/mcL Normal 8 [facility] tem (64745) Comment: Performed By: #### [id number] # ###GLENYS [address] [place] [address] RBC Auto #/vol (Bld) 4.95 3.90-5.40 E6/mcL Normal [facility] (88637[facility] Comment: Performed By: #### [id number] # ###GLENYS YteAhor5882 [place] [address] WBC Auto #/vol (Bld) 12.8 3.6-11.0 E3/mcL High 8 [facility] (00 000) Comment: Performed By: #### [id number] # ###GLENYS ErsXhky0570 [place] [address] bmp on 2018-04-06 Creatinine mass conc 0.7 0.6-1.3 mg/dL Normal 8 [facility] (00 000) Comment: Performed By: #### [id number] # ###GLENYSHoracio FierroKjuBzgl8874 [place] [address] Urea nitrogen mass conc <5 7-18 mg/dL Low 2017 [facility] (06417) Comment: Performed By: #### [id number] # ###GLENYSHoracio FierroNpyZewr0509 [place] [address] Urea nitrogen/Creatinine mass <7.1 5.4-30.0 mg/mg Normal 04-06-2018 [facility] (21278) Comment: Performed By: #### [id number] # ###GLENYSHoracio FierroApeKupa2549 [place] [address] Calcium mass conc 9.1 8.4-10.2 mg/dL Normal 04-06-2018 [facility] (00 000) Comment: Performed By: #### [id number] # ###GLENYSHoracio FierroIiwFbkv5173 [place] [address] Chloride molar conc 102 98-107 mEq/L Normal 04-06-2018 [facility] (00 000) Comment: Performed By: #### [id number] # ###GLENYS FierroNggRwgz9559 [place] [address] CO2 molar conc 27.5 24.0-30.0 mEq/L Normal 04-06-2018 [facility] (00 000) Comment: Performed By: #### [id number] # ###GLENYS FierroMxmXxmk4429 [place] [address] Glucose mass conc 96 70-99 mg/dL Normal 04-06-2018 [facility] (19438) Comment: Performed By: #### [id number] # ###GLENYS [address]roDpsOsun0100 [place] [address] Potassium molar conc 3.7 3.5-5.1 mEq/L Normal 8 [facility] (00 000) Comment: Performed By: #### [id number] # ###GLENYS FierroXcsMgog6195 [place] [address] Sodium molar conc 136 136-145 mEq/L Normal 04-06-2018 [facility] (00 000) Comment: Performed By: #### [id number] # ###GLENYS FierroKugYgtd2664 [place] [address] auto diff on 2017-0 04-06 Basophils Auto #/vol 0.2 0.0-0.2 E3/mcL Normal 8 [facility] (67563) Comment: Order Comment: Order Added b y Discern Expert. Performed By: #### [id number] # ###GLENYSHoracio HensonRhuOgwr6144 [place] [address] Basophils/100 WBC Auto (d) 1.3 0.0-2.0 % Normal 0 04-06-2018 [facility] tem (52606) Comment: Order Comment: Order Added b y Discern Expert. Performed By: #### [id number] # ###GLENYSHoracio FierroJtbHxrl5869 [place] [address] Eos Absolute 0.3 0.0-0.7 E3/mcL Normal 04-06-2018 [facility] (50942) Comment: Order Comment: Order Added b y Discern Expert. Performed By: #### [id number] # ###GLENYS [address] [place] [address] Eosinophils/100 WBC Auto 2.3 0.0-11.0 % Normal 04-06 [facility] (90295) Comment: Order Comment: Order Added b y Discern Expert. Performed By: #### [id number] # ###GLENYS [address] [place] [address] Lymphocytes Auto #/vol 4.8 1.2-3.4 E3/mcL High 018 [facility] (95630) Comment: Order Comment: Order Added b y Discern Expert. Performed By: #### [id number] # ###GLENYS [address] [place] [address] Lymphocytes/100 WBC Auto 37.8 20.0-55.0 % Normal 04-06 [facility] (36057) Comment: Order Comment: Order Added b y Discern Expert. Performed By: #### [id number] # ###GLENYSHoracio HensonZbmUixb0390 [place] [address] Chase Absolute 0.5 0.0-0.7 E3/mcL Normal 04-06-2018 [facility] (48296) Comment: Order Comment: Order Added b y Discern Expert. Performed By: #### [id number] # ###GLENYSoHracio HensonJntYqpk9668 [place] [address] Monocytes/100 WBC Auto (d) 3.9 0.0-10.0 % Normal 0 04-06-2018 [facility] (73715) Comment: Order Comment: Order Added b y Discern Expert. Performed By: #### [id number] # ###GLENYSHoracio FierroWiqXdjc4455 [place] [address] Neutro Absolute 7.0 1.4-6.5 E3/mcL High 04-06-2018 [facility] (38288) Comment: Order Comment: Order Added b y Discern Expert. Performed By: #### [id number] # ###GLENYSHoracio FierroGdbAgul3305 [place] [address] Neutro Auto 54.7 37.0-75.0 % Normal 04-06-2018 [facility] (61202) Comment: Order Comment: Order Added emmanuel Wong Expert. Performed By: #### [id number] # ###GLENYS IfmDkgg5628 [place] [address] acetamnphn lvl on 2 Acetaminophen mass conc <10 0-[address] [facility] (05628) Comment: Result Comment: Tylenol - Th erapeutic 10-30 ug/ml Toxic 4 hr. Post ingestion >150 ug/ml Toxic 8hr Post in gestion >75 ug/ml Toxic 12hr. Post ingestion >40 ug/ml Performed By: #### [id number] # ###GLENYS AipIyjk8136 [place] [address] Vital Signs Vital Sign Description Value / Unit Date Location The following section is limited to 5 en tries per type and includes entries from the following time range: 20200715 - 20200706 0. Body Temperature 98.71 [degF] 07-15-2020 [facility] (36212) Body weight 96.44 kg 07-15-2020 [facility] (48731) BP Diastolic 82 mm[Hg] 07-15-2020 [facility] (26524) BP Systolic 118 mm[Hg] 07-15-2020 [facility] (99841) Pulse (Heart Rate) 114 /min 07-15-2020 [facility] (16548) Respiratory Rate 16 /min 07-15-2020 [facility] (51551) Encounters Date Type Reason Provider Location 04-06-2018 - Emergency department García [place] ility:[facility] 04-07-2018 patient visit [facility] 03-22-2018 - Emergency department Moody Shah Juany Moody Facility:[facility] 03-22-2018 patient visit Alyssa Harrington 03-07-2018 - Emergency department García [place] ility:[facility] 03-07-2018 patient visit Yvan Plata 04-06-2018 Patient encounter Facility:[facility] 07-15-2020 - Patient encounter Eruption Landy (Door To Door Salesperson) [facility] 07-[facility]-2020 procedure Comment: Rash (Primary Dx) Plan of Treatment Plan Description Date Location DTAP,TDAP,TD (2 - Td) DTAP,TDAP,TD (2 - Td) 01-11-2030 [facility] (52054) INFLUENZA (#1) INFLUENZA (#1) 2020 [facility] (08862) HPV TESTING HPV TESTING 2013 [facility] (75356) PAP TESTING PAP TESTING 2004 [facility] (99252) HEPATITIS C SCREENING HEPATITIS C SCREENING 2001 [facility] (19736) Immunizations Vaccine Notes Status Date Location Pneumovax pneumococcal polysaccharide (completed) 01-12-2020 [facility] vaccine, 23 valent (03434) Tdap (Age 7+) tetanus toxoid, reduced (completed) 01-12-2020 [facility] diphtheria toxoid, and (4419 5) acellular pertussis vaccine, adsorbed Payers Payer Name Policy Number Location Self Pay [facility] ([id number]) [facility] MEDICAID [id number] [facility] (44 195) [facility] [phone] [id number] [facility] ([id number]) [facility] ealt System ([id number]) The following information is from the original human readable contentNo Payer Records Found Social History Type Social History Date Location Description Tobacco smoking status Current every day smoker 07-15-2020 [facility] (89525) History of tobacco use Cigarette Smoker [facility] (35703) Cigarettes smoked 07-15-2020 - [facility] current (pack per day) 07-15-2020 (81659) - Reported Tobacco use and Never used 07-15-2020 [facility] exposure (89995) Alcohol intake Current drinker of 07-15-2020 [facility] alcohol (finding) (24972) History SDOH Alcohol 2 11-15-2019 - [facility] linic Frequency 01-12-2020 (30082) History SDOH Alcohol 1 11-15-2019 [facility]inic Std Drinks (85259) Sex Assigned At Not on file [facility] (37020) Exposure to SARS-CoV-[address] 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 1. Scabies is a highly contagious skin disease caused by a mite too small to see with the naked eye. 2. The most common symptom is a rash that itches intensely at night. The rash can be anywhere on the body but is usually on the hands, breast, armpits, genital area and waistline. 3. Scabies can affect men, women and children of all ages. It is easily spread from person to person by close physical contact, such as between family members, sexual partners and children playing at school. HOW DO I GET RID OF SCABIES? 1. Your doctor has prescribed a safe and effective treatment called Elimite (permethrin) 5% Cream that will eliminate the scabies and relieve the itching. 2. To apply, thoroughly and gently massage Elimite Cream into all skin surfaces from your head to the bottom of your feet. Be sure that infants and elderly patients are treated for scabies on the neck, scalp, restorationist and forehead. The cream should be left on overnight for 8 to 14 hours and removed thenext morning by bathing or shampooing. 3. IT IS EXTREMELY IMPORTANT TO PUT ELIMITE CREAM ON EVERY SQUARE INCH OF YOUR BODY: not just wherethe rash is. That includes applying it under your fingernails and toenails, around the nail beds, between your fingers and toes, and in the cleft of your buttocks and genital area. If you wash your hands or any other area during the treatment period, new cream must be reapplied immediately. 4. Itching, mild burning and / or stinging may occur after application of Elimite Cream. 5. Everyone affected should be treated at the same time, as directed by your physician. 6. Be sure to change your clothes and bed lines, and have all the affected articles washed at the same time on hot cycle or professionally dry cleaned. It is not usually necessary to clean jackets, blankets, furniture, drapes or rugs. 7. You will not usually be contagious after one treatment if these instructions and your physician directions have been followed carefully. The scabies mites will be gone in a matter of days; however the rash and itching may persist up to 4 weeks after treatment. This is rarely a sign of treatment failure and is not necessarily an indication for retreatment. If itching is excessive or if irritation persists, consult your physician. 8. Avoid contact with your eyes. If Elimite Cream accidentally gets in your eyes, flush with water immediately. 9. Be sure to see your physician for your follow up examinations. documented in this encounter History of Present Illness Landy Huizar (Joe) - 07/15/2020 3:27 PM EDT This note was created using [employer]Campus[employer]. Subjective Linda Nance is a 34 year old female. Pt reports ongoing rash since March but much worse in the last 2 weeks. No new exposures. States she sees little black things in her bed, currently living in a hotel. Lives with henrry, he does not have a rash, but pt states she sees him scratching his jones. Concern for possible scabies, has never had these before. Has used vistaril in the past for itching, only has a couple pills left. Pt reports increased anxiety in the last couple weeks due to new diagnosis of early dementia in her fiance. The history is provided by the patient. Rash This is a recurrent problem. Episode onset: 4 months ago. The problem has been rapidly worsening (worse in last 2 weeks) since onset. The affected locations include the scalp, abdomen, chest, neck, right upper leg, left upper leg, right arm and left arm. The rash is characterized by redness and itchiness. It is unknown if there was an exposure to a precipitant. Pertinent negatives include no fever. Past treatments include antihistamine (preventative lice shampoo). The treatment provided no relief. Review of Systems Constitutional: Negative for fever. Skin: Positive for rash. Allergic/Immunologic: Negative for immunocompromised state. PAST MEDICAL HISTORY Diagnosis Date ? Anxiety ? Depression bipolar ? History of gestational diabetes ? Obesity (BMI 30.0-34.9) ? Polysubstance abuse (HCC) Percocet, Valium, Klonopin, methamphetamines, marijuana ? Tobacco use PAST SURGICAL HISTORY Procedure Laterality Date ? LAPAROSCOPIC CHOLEYCYSTECTOMY ? LIGATE FALLOPIAN TUBE ? PAST SURGICAL HISTORY OF TM tubes ALLERGIES Eggs [Egg] and Prednisone MEDICATIONS traZODone (DESYREL) 50 mg tablet Take 1 tablet by mouth daily at bedtime. hydrOXYzine pamoate (VISTARIL) 50 mg capsule Take 1 capsule by mouth once daily as needed for Anxiety. lamoTRIgine (LAMICTAL) 100 mg tablet Take 1 tablet by mouth twice daily. escitalopram oxalate (LEXAPRO) 10 mg tablet Take 1 tablet by mouth once daily. loratadine (CLARITIN) 10 mg tablet Take 1 tablet by mouth once daily. COLE'S WORT ORAL Take by mouth. IBUPROFEN ORAL Take by mouth. hydrOXYzine pamoate (VISTARIL) 25 mg capsule Take 1 capsule by mouth three times daily as needed forItching/Rash. permethrin (ELIMITE) 5 % cream Apply 1 application to affected area one time only for 1 dose. massage into skin from neck to feet, leave on 8-12hrs, wash off; Info: repeat 2wks if live mites persist. Itching may persist after effective treatment. FAMILY HISTORY Problem Relation Age of Onset ? COPD Mother ? Diabetes Maternal Grandfather ? Diabetes Maternal Aunt ? Drug abuse Sister ? Cancer Maternal Grandmother cervical, uterine, breast ? Drug abuse Sister Social History Tobacco Use ? Smoking status: Current Every Day Smoker Packs/day: 1.00 Years: 25.00 Pack years: 25.00 Types: Cigarettes ? Smokeless tobacco: Never Used Substance Use Topics ? Alcohol use: Yes Frequency: Monthly or less Drinks per session: 1 or 2 Binge frequency: Less than monthly ? Drug use: Not Currently Types: Opiates, Amphetamines, Crystal Meth Comment: last use date 12/22/2019 Objective BP 118/82 Pulse 114 Temp 37.1 ?C (98.7 ?F) (Left Tympanic) Resp 16 Wt 96.4 kg (212 lb 9.6 oz) LMP 11/11/2019 (Exact Date) BMI 37.36 kg/m? Physical Exam Vitals signs and nursing note reviewed. Constitutional: Appearance: She is well-developed. Pulmonary: Effort: Pulmonary effort is normal. Skin: General: Skin is warm and dry. Comments: Multiple scabbed lesion to bilateral arms, chest, breasts, abdomen, scalp (did not view upper thighs or back); pt scratching throughout visit Neurological: Mental Status: She is alert and oriented to person, place, and time. Assessment and Plan 1. Rash Unclear etiology. Possible scabies, but less likely since fiance is asymptomatic. Recommend to treatwith permethrin, may repeat in 2 weeks if symptoms persist. Also treat bedding/clothes/linens etc and fiance should be treated as well. Vistaril PRN, discussed drug interaction with Lexapro causing QT prolongation, pt has tolerated this combination before. Encouraged to not pick/scratch the lesions. Recommend to schedule f/u with PCP in 1-2 weeks for further evaluation if no improvement/worsening/newsymptoms. Pt in agreement, verbalized understanding, all questions answered. - hydrOXYzine pamoate (VISTARIL) 25 mg capsule; Take 1 capsule by mouth three times daily as needed for Itching/Rash. Dispense: 15 capsule; Refill: 0 - permethrin (ELIMITE) 5 % cream; Apply 1 application to affected area one time only for 1 dose. massage into skin from neck to feet, leave on 8-12hrs, wash off; Info: repeat 2wks if live mites persist. Itching may persist after effective treatment. Dispense: 60 g; Refill: 1 documented in this encounter Assessments Diagnosis Rash - Primary Rash and other nonspecific skin eruption Additional Source Comments FOR RECORDS PERTAINING TO PATIENTS WHO ARE OR HAVE BEEN ENROLLED IN A CHEMICAL DEPENDENCY/SUBSTANCE ABUSE PROGRAM, SOME INFORMATION MAY BE OMITTED. This clinical summary was aggregated from multiple sources. Caution should be exercised in using it in the provision of clinical care. This summary normalizes information from multiple sources, and as a consequence, information in this document may materially changethe coding, format and clinical context of patient data. In addition, data may be omittedin some cases. CLINICAL DECISIONS SHOULD BE BASED ON THE PRIMARY CLINICAL RECORDS. [facility] provides no warranty or guarantee of the accuracy or completeness of information in this document. UNRECOGNIZED CONTENT PROVIDED BELOW FOR UNRECOGNIZED SECTION INFORMATION SOURCE DATE CREATED AUTHOR AUTHOR'S ORGANIZATIO N 04/24/2018 [facility] DATE CREATED AUTHOR AUTHOR'S ORGANIZATIO N 06/26/2018 [facility] DATE CREATED AUTHOR AUTHOR'S ORGANIZATIO N 07/05/2018 [facility] DATE CREATED AUTHOR AUTHOR'S ORGANIZATIO N 07/16/2020 [facility] UNRECOGNIZED CONTENT PROVIDED BELOW FOR UNRECOGNIZED SECTION Source Comments In the event this information is protected by the Federal Confidentiality of Alcohol and Drug Abuse Patient Records regulations: The Federal rules restrict any use of the information to criminally investigate or prosecute any alcohol or drug abuse patient.[facility] UNRECOGNIZED CONTENT PROVIDED BELOW FOR UNRECOGNIZED SECTION Reason for Visit Reason Comments Rash all over body x ongoing
--- OUTSIDE RECORDS SUMMARY | 2020-08-17 08:17 | XMS RPT_ITS | CCD ---
:1985 External Reference #:[id number] Author Organization [facility] Care Team Providers Name Role Phone Moody Harrington Unavailable Unavailable Alyssa Harrington Unavailable Unavailable Esperanza, F Unavailable Unavailable [place], W Unavailable Unavailable [place], W Unavailable Unavailable Esperanza, F Unavailable Unavailable Anum, A Unavailable Unavailable Anum, Horacio Unavailable Unavailable Emmanuel Trent () Primary Care Provider Allergies Reported Allergen Reaction(s) Severity Date of Onset Location egg extract Hives 01-12-2020 - [facility] c (93311) predniSONE Other: See Comments 01-12-2020 - Vianney suarez [facility] (52166) Medications Medication Name Sig Date Prescriber Location busPIRone busPIRone (BUSPAR) 10 06-23-2020 - [facility] Provider [facility] mg tablet Take 10 mg 07-15-2020 Provider ([id number]) by mouth three times daily. 0 06/23/2020 07/15/2020 Discontinued (Course of therapy completed) Comment: Take 10 mg by mouth three ti mes daily. Escitalopram escitalopram oxalate 04-05-2020 Randee De León) [facility] (LEXAPRO) 10 mg tablet Miley Burt (17894) Take 1 tablet by mouth () Miley once daily. 0 04/05/2020 Active Comment: Take 1 tablet by mouth once daily. hydrOXYzine hydrOXYzine pamoate 06-28-2020 [facility] (VISTARIL) 50 mg capsule (44 195) Take 1 capsule by mouth once daily as needed for Anxiety. 0 06/28/2020 Active hydrOXYzine pamoate 01-12-2020 - Landy (Joe) Bhupendra [facility] [place] (VISTARIL) 25 mg capsule 07-15-2020 (72487) Indications: Rash Take 1 capsule by mouth [...] ORAL Take by Ccf Provider [facility] (49774) mouth. 0 Active Provider Comment: Take by mouth. lamoTRIgine lamoTRIgine (LAMICTAL) 100 06-28-2020 Ccf Provider C [facility] mg tablet Take 1 tablet by ( 10633) mouth twice daily. 0 06/28/2020 Active lamoTRIgine (LAMICTAL) 04-05-2020 - Randee De León) [facility] 25 mg tablet Take 1 07-15-2020 Miley (16807) tablet by mouth once daily. 0 04/05/2020 07/15/2020 Discontinued (Dosage adjustment) Comment: Take 1 tablet by mouth twice daily. Take 1 tablet by mouth once daily. Loratadine loratadine (CLARITIN) 01-12-2020 Randee De León) [facility] 10 mg tablet Miley Burt (58403 ) Indications: Dermatitis () Miley Take 1 tablet by mouth once daily. 30 tablet 11 01/12/2020 Active Comment: Take 1 tablet by mouth once daily. Permethrin permethrin (ELIMITE) 5 07-15-2020 - Landy (Joe) [facility] % cream Indications: 07-15-2020 Bhupendra (57461) Rash Apply 1 application to affected area [...] ORAL COLE'S WORT ORAL Ccf Provider Ccf [facility] Take by mouth. 0 Provider (48772) Active Comment: Take by mouth. traZODone traZODone (DESYREL) 50 06-28-2020 C[facility] Provider [facility] mg tablet Take 1 tablet Provider (525 36) by mouth daily at bedtime. 0 06/28/2020 Active Comment: Take 1 tablet by mouth daily at bedtime. Problems Category Problem Name Status Date Location Mood disorders Depressive disorder Active [facility] (42769) Other nutritional; Obese class I Active [facility] (60671) endocrine; and metabolic disorders Other skin disorders Eruption Active [facility] (06505) Screening and history of Tobacco use and exposure Active [facility] [place] (42273) mental health and - finding substance abuse codes Results Result Name Value Range Unit Interpretation Flag Date Location progress on 2020-07 PROGRESS HNO ID: [id number] Normal 07-15-2020 [facility] Author: Landy GonzalezCo Teacher) Bhupendra Grace (48178) Service: ? Author Type: Nurse Practitioner Type: Progress Notes Filed: 07/15/2020 3:37 PM Note Text: This note was created using Netragonter. Subjective Linda Nance is a 34 year [...] to not pick/scratch the lesions. Recommend to [facility] f/u with PCP in 1-2 weeks [...] 1 cnov on 2020-07-15 CNOV Office Visit ([facility]) Normal 07-15-20 20 [place] LINDA Espitia ([id number]) 1985 [facility] Date Time Provider Department (77240) 07/15/20 3:00 PM LANDY HUIZAR (JOE) [facility] [...] members, sexual partners and children playing at [employer]. HOW DO I GET RID OF SCABIES? [...] treated for scabies on the neck, scalp, anabaptism and forehead. The cream should be left [...] PM Signed This note was created using Habetriter. Subjective Linda Nance is a 34 year old female. Pt reports ongoing rash since March but much worse in e last 2 weeks. No new exposures. States she sees little black things in her bed, currently living in a hotel. Lives with henrry, he does n ot have a rash, [...] 9.6 oz) LMP 11/11/2019 (Exact Date) B [place] 37.36 kg/m? Physical Exam Vitals signs and [...] treated for scabies on the neck, scalp, anabaptism and forehead. The cream should be left [...] on 2020-04-23 JOEN Telephone (ALDAWS) Normal 04-23-2020 [facility] LINDA NANCE ([id number]) 1985 [facility] Date Time Provider Department (55674) 04/23/20 RANDEE TRENT) [facility] During your visit today, we recorded the following informati on about you: Dunia Schreiber VIVI 04/23/2020 10:09 AM Signed Patient calling, states that she went to [facility] twice and was turned away and told that she is crazy. She went to [facility] and they did not really give her any different treatment. States that she has ticks embedde d in her skin and when she starts bleeding she is able to see other bugs crawling to those areas as well. She states that she is not able to get anyone to gi ve her the treatment she needs because she is flagged in [facility] from being an addict and having mental [...] - Fully Assessed Reason for Visit: Question [2657] Prescriptions as of 04/23/2020 Sig: SULFAMETHOXAZOLE 800 [...] 04/23/20 progress on 2020-04 PROGRESS HNO ID: [id number] Normal 04-22-2020 [facility] Author: Sophia (Joe) [facility] (70292) Service: ? Author Type: Nurse Practitioner Type: [...] with pcp Agrees to plan Sophia Connelly APRN.GRAVITY PROSPECTING OPERATOR [facility] on 2020-04-22 CNPN Telephone (FAMPWS) Normal 04-22-2020 [facility] LINDA NANCE ([id number]) 1985 F [facility] Date Time Provider Department (09607) 04/22/20 RANDEE TRENT) ULICESWS During your visit [...] prednisone. She thinks she will go to [facility] instead- she thinks they will admit her- [...] 2020-04-22 CNOV Office Visit ([facility]) Normal 04-22-20 [place] Garrett LINDA NANCE ([id number]) 1985 [facility] Date Time Provider Department (41643) 04/22/20 1:00 PM SOPHIA CONNELLY (JOE) [facility] During your visit today, we recorded the [...] with pcp Agrees to plan Sophia Connelly APRN.GRAVITY PROSPECTING OPERATOR Referring Provider: SELF [200] Allergies As [...] 04/22/20 progress on 2020-04 PROGRESS HNO ID: [id number] Normal 04-05-2020 [facility] Author: Randee De León) Miley Grace (46642) Service: ? Author Type: Physician Type: Progress Notes Filed: 04/05/2020 11:29 AM Note Text: Attempted to call x2. Did not leave VM. Will need to call in to reschedule appointment. joen on 2020-04-05 CNPN Telephone (FAMPWS) Normal 04-05-2020 [place] LINDA NANCE ([id number]) 1985 [facility] Date Time Provider Department (73083) 04/05/20 RANDEE TRENT) [facility] During your visit today, we recorded the [...] on 2020-01-13 CNPN Telephone (FAMPWS) Normal 01-13-2020 [place] LINDA Espitia ([id number]) 1985 F [place] Date Time Provider Department (63600) 01/13/20 RANDEE TRENT) FAMPWS During your visit [...] 01/13/20 progress on 2020-01 PROGRESS HNO ID: [id number] Normal 01-12-2020 [place] Author: Randee De León) Miley [facility] Service: ? [place] Author Type: Physician ([id number]) Type: Progress Notes Filed: 01/12/2020 4:03 PM Note Text: Chief Complaint Patient presents with: Physical: see nursing note Establish Care HPI Linda Nance is a 34 year old female who presents here to day for Above Complaints. Accompanied today by henrry José. Previously see ing Dr. Causey in [place] with last OV 3 years ago. Complaining [...] Does not exercise regularly. Needs referral to [facility]. Has not had pap smear in more [...] COLE'S WORT ORAL Take by mouth. - gvyznomx-pywuxyqks-orwtnafdyatems (CORTISPORIN) 3.5-10,000 -1 mg/mL-unit/mL-% otic suspension Use [...] Cholesterol [Mass/Vol] 168 <200 mg/dL Normal 020 [facility] (29606) Comment: Result Comment: <200 mg/dL, Desirable 200-239 mg/dL, Borderline hi gh >239 mg/dL, High Performed By: #### CBC, CMP, LIPNF ####[place] [id number] [place] [address] [phone] Cholesterol in 1.92 <2.54 mg/dL Normal 01-12-2020 [facility] LDL/Cholesterol in HDL [Mass [place] (18304) ratio] Comment: Result Comment: Reference: 1. National Cholesterol Educ ation Program ATP III Guideline At-A-Glance Quick Desk Reference: National Heart, Lung, and Blood [place]. National Institutes of Health. 2001: NIH Publication No. 01-3305. 2. An International Atherosc lerosis Society position paper: global recommendations for the management of dyslipidemia: executive summary, Atherosclerosis. 2014: 232(2):410-413. Performed By: #### CBC, CMP, LIPNF ####[place] [address] [place] [address] [phone] Cholesterol.total/Cholesterol in 3.50 <5.10 mg/dL Normal 01-12-2020 [place] HDL [Mass ratio] Cli [facility] (78309) Comment: Performed By: #### CBC, CMP, LIPNF ####[place] [address] [place] [address] [phone] HDL Cholesterol, NF 48 >39 mg/dL Normal 01-12-2020 [facility] (74193) Comment: Result Comment: 40-59 mg/dL, Acceptable >59 mg/dL, High: Negative ri sk factor for coronary heart disease <40 mg/dL, Low: Positive ris k factor for coronary heart disease Performed By: #### CBC, CMP, LIPNF ####[facility] [place] [address] [phone] LDL Cholesterol, NF 92 <100 mg/dL Normal 01-12-2020 [facility] (23066) Comment: Result Comment: <100 mg/dL, Optimal 100-129 mg/dL, Near optimal/ above optimal 130-159 mg/dL, Borderline hi gh 160-189 mg/dL, High >189 mg/dL, Very high Secondary prevention optimal LDL Cholesterol levels are recommended to be < 70 mg/dL Performed By: #### CBC, CMP, LIPNF ####[place] [address] [place] [address] [phone] Non HDL Chol, NF 120 <130 mg/dL Normal 01-12-2020 Cl [facility] (34840) Comment: Result Comment: <130 mg/dL, Optimal 130-159 mg/dL, Near optimal/ above optimal 160-189 mg/dL, Borderline hi gh 190-219 mg/dL, High >219 mg/dL, Very high Secondary prevention optimal non HDL Cholesterol levels are recommended to be < 100 mg/dL Performed By: #### CBC, CMP, LIPNF ####[place] [address] [phone] Triglycerides, NF 139 <150 mg/dL Normal 01-12-2020 C [facility] (16438) Comment: Result Comment: <150 mg/dL, Normal 150-199 mg/dL, Borderline hi gh 200-499 mg/dL, High >499 mg/dL, Very high Performed By: #### CBC, CMP, LIPNF ####[place] [address] [phone] VLDL Cholesterol, NF 28 <30 mg/dL Normal 0 [facility] (62756) Comment: Performed By: #### CBC, CMP, LIPNF ####[place] [address] [place] [address] [phone] comp metabolic panel on 2020-01-12 Albumin [Mass/Vol] 4.2 3.9-4.9 g/dL Normal 01-12-2020 [facility] (45961) Comment: Performed By: #### CBC, CMP, LIPNF #### [facility] [address] [place], [place] [address] ALP [Catalytic activity/Vol] 68 34-123 U/L Normal 0 01-12-2020 [facility] (07243) Comment: Performed By: #### CBC, CMP, LIPNF #### [facility] [address] [place], [place] [address] ALT [Catalytic activity/Vol] 17 7-38 U/L Normal 0 01-12-2020 [facility] (48926) Comment: Performed By: #### CBC, CMP, LIPNF #### [facility] [address] [place], [place] [address] Anion gap [Moles/Vol] 12 9-18 mmol/L Normal 01-12-20 [facility] (67906) Comment: Performed By: #### CBC, CMP, LIPNF #### [address] [address] AST [Catalytic activity/Vol] 15 13-35 U/L Normal 0 01-12-2020 [facility] (07797) Comment: Performed By: #### CBC, CMP, LIPNF #### [facility] [address] [place], [place] [address] Bilirubin [Mass/Vol] <0.2 0.2-1.3 mg/dL Low 0 [facility] (49933) Comment: Performed By: #### CBC, CMP, LIPNF #### [facility] [address] [place], [place] [address] Calcium [Mass/Vol] 9.3 8.5-10.2 mg/dL Normal 01-12-2020 [facility] (32628) Comment: Performed By: #### CBC, CMP, LIPNF #### [facility] [address] [place], [place] [address] Chloride [Moles/Vol] 103 97-105 mmol/L Normal 0 [facility] (39905) Comment: Performed By: #### CBC, CMP, LIPNF #### [facility] [place] [facility] [address] [place] [address] CO2 [Moles/Vol] 26 22-30 mmol/L Normal 01-12-2020 [facility] (12369) Comment: Performed By: #### CBC, CMP, LIPNF #### [facility] [address] [place] [address] Creatinine [Mass/Vol] 0.68 0.58-0.96 mg/dL Normal 01-12-20 20 [facility] (97534) Comment: Performed By: #### CBC, CMP, LIPNF #### [facility] [address] [place] [address] eGFR- Amer. >60 Normal 01-12-2020 [facility] (17257) Comment: Performed By: #### CBC, CMP, LIPNF #### [facility] [address] [place] [address] GFR/1.73 sq M predicted >60 mL/min/{1.73_m2} Normal 01-12-2020 [facility] among non-blacks [facility] (27355) (S/P/Bld) [Vol rate/Area] Comment: Result Comment: eGFR [...] Performed By: #### CBC, CMP, LIPNF #### [facility] [place] [facility] [address] [place] [address] Glucose [Mass/Vol] 58 74-99 mg/dL Low 01-12-2020 [facility] (23871) Comment: Result Comment: The [place] Diabetes Association (ADA) provides guidance for cutoff [...] for diagnosis of diabetes. Reference: Standards of [facility] Care in Diabetes 2016, [place] Diabetes Association. Diabetes Care. 2016.39(Suppl 1). Performed By: #### CBC, CMP, LIPNF #### [facility] [address] [place] [address] Potassium [Moles/Vol] 4.1 3.7-5.1 mmol/L Normal 01-12-20 [facility] (66267) Comment: Performed By: #### CBC, CMP, LIPNF #### [place] [address] [place], [place] [address] Protein [Mass/Vol] 6.7 6.3-8.0 g/dL Normal 01-12-2020 [facility] (87294) Comment: Performed By: #### CBC, CMP, LIPNF #### [facility] [address] [place], [place] [address] Sodium [Moles/Vol] 141 136-144 mmol/L Normal 01-12-2020 [facility] (91292) Comment: Performed By: #### CBC, CMP, LIPNF #### [facility] [address] [place], [place] [address] Urea nitrogen [Mass/Vol] 7 7-21 mg/dL Normal 01-11 [facility] (76332) Comment: Performed By: #### CBC, CMP, LIPNF #### [facility] [place] [facility] [address] [place] [id number] cnov on 2020-01-12 CNOV Office Visit (FAMPWS) Normal 01-12-20 [place] [facility] LINDA NANCE ([id number]) 1985 [facility] Date Time Provider Department (43750) 01/12/20 3:00 PM RANDEE TRENT) FAMPWS During [...] henrry José. Previously seeing Dr. Causey in [place] with last OV 3 years ago. Complaining [...] Does not exercise regularly. Needs referral to [facility]. Has n ot had pap smear in [...] COLE'S WORT ORAL Take by mouth. - juxinepv-fracudpkp-qzqjrzwevfttxf (COR TISPORIN) 3.5-10,000-1 mg/mL-unit/mL-% otic suspension Use [...] [Z23] Order(s):CONSULT TO GYNECOLOGY [9013] Order #: [id number] : 1 FUTURE PNEUMOCOCCAL IMMUNIZATION PPSV 23 [48422ZUD] Order #: [id number] TDAP VACCINE AGE 7+ IM [22249KVN] Order #: [id number] CBC [SQCBC] Order #: [id number] FUTURE COMP METABOLIC PANEL [SQCMP] Order #: [id number] FUTURE hydrOXYzine pamoate (VISTARIL) 25 mg capsuleTake 1 capsule b y mouth three times daily as needed for Anxiety.Disp: Rfl: loratadine (CLARITIN) 10 mg tabletTake 1 tablet by mouth onc e daily.Disp: 30 tabletRfl: 11 LIPID PANEL, NONFASTING [SQLIPNF] Order #: [id number] FUTURE Prescriptions as of 01/12/2020 Sig: HYDROXYZINE [...] Reason for discontinue is not on file. kerntbss-uweehgfih-imxodbilfrajju (C* 1 Christ* 0 01/07/2020 020 Route: [...] 2020-01-12 Absolute nRBC <0.01 <0.01 Normal 01-12-2020 [facility] (35230) Comment: Performed By: #### CBC, CMP, LIPNF #### [facility] [place] [facility] [address] [place], [place] [address] Erythrocyte distribution 13.2 11.5-15.0 % Normal 01-11 [facility] width (RBC) [Ratio] [facility] (10938) Comment: Performed By: #### CBC, CMP, LIPNF #### [facility] [place] [facility] [address] [place], [place] [address] Hematocrit (Bld) [Volume 48.7 36.0-46.0 % High 01-11 [facility] fraction] [facility] (01200) Comment: Performed By: #### CBC, CMP, LIPNF #### [facility] [place] [facility] [address] [place], [place] [address] Hemoglobin (Bld) 15.4 11.5-15.5 g/dL Normal 01-12-2020 Cl [facility] [Mass/Vol] [place] (08112) Comment: Performed By: #### CBC, CMP, LIPNF #### [facility] [place] [facility] [address] [place] [address] MCH (RBC) [Entitic mass] 29.2 26.0-34.0 pG Normal 01-11 [facility] (01178) Comment: Performed By: #### CBC, CMP, LIPNF #### [facility] [address] [place] [address] MCHC (RBC) [Mass/Vol] 31.6 30.5-36.0 g/dL Normal 01-12-20 20 [facility] (60909) Comment: Performed By: #### CBC, CMP, LIPNF #### [facility] [address] [place] [address] MCV (RBC) [Entitic vol] 92.2 80.0-100.0 fL Normal 01-11 [facility] (53278) Comment: Performed By: #### CBC, CMP, LIPNF #### [facility] [address] [place] [address] Platelet mean volume 10.6 9.0-12.7 fL Normal 0 [facility] [place] (Bld) [Entitic vol] [place] (10883) Comment: Performed By: #### CBC, CMP, LIPNF #### [facility] [place] [facility] [place], [place] [address] Platelets (Bld) [#/Vol] 393 150-400 k/uL Normal 2019 [facility] (92751) Comment: Performed By: #### CBC, CMP, LIPNF #### [facility] [place] [facility] [address] [place], [place] [address] RBC (Bld) [#/Vol] 5.28 3.90-5.20 m/uL High 01-12-2020 [facility] (38770) Comment: Performed By: #### CBC, CMP, LIPNF #### [facility] [place] [facility] [address] [place], [place] [address] WBC (Bld) [#/Vol] 13.17 3.70-11.00 k/uL High 01-12-2020 [facility] (84792) Comment: Performed By: #### CBC, CMP, LIPNF #### [facility] [place] [facility] [address] [place], [place] [address] progress on 2020-01 PROGRESS HNO ID: [id number] Normal 01-07-2020 [facility] [place] Author: Sophia (Joe) [facility] (46756) Service: ? Author Type: Nurse Practitioner Type: [...] worsen, change Discussed proper ear hygiene - UAQPCVRG-NTUPWDSYO-FBYIOHKTI 3.5 MG-10,000 UNIT/ML-1 % EAR DROPS,SUSP 2. [...] 2020-01-07 CNOV Office Visit (UCWSTR) Normal 01-07-[address] [place] [address] [facility] LINDA NANCE Alyssa ([id number]) 1985 [facility] Date Time Provider Department (48521) 01/07/20 2:15 PM SOPHIA CONNELLY (JOE) WSTR [...] worsen, change Discussed proper ear hygiene - SOAWZYJG-CAFCLXBMN-SVDJSULFS 3.5 MG-10,000 UNIT/ML-1 % EAR DROPS,SUSP 2. [...] agreeable to treatment carolyn chauhan. Sophia Connelly APRN.GRAVITY PROSPECTING OPERATOR Referring Provider: SELF [200] Allergies As of Date: 01/07/2020 (No Known Allergies) Date Reviewed: 01/07/2020 Reviewed by: Asuncion Dalal Ma - Fully Assessed Reason for Visit: Ear Pain [817] Cmt: bilateral ear pain x 1 day Primary Visit Diagnosis:Irritation of external ear canal, ri ght [H61.891] Other Visit Diagnosis:Impacted cerumen of right ear [H61.21] Order(s):lfmbdbyy-czwoiazth-ipcsgpmvgoinkq (CORTISPORIN) 3.5 -10,000-1 mg/mL-unit/mL-% otic suspensionUse 4 Drops in the right ear four times daily for 7 days.Disp: 1 BottleRfl: 0 Prescriptions as of 01/07/2020 Sig: COLE'S WORT ORAL Take by mouth. IBUPROFEN ORAL Take by mouth. XOTXWUBS-PSQZESRTU-UJTCPSZOM * Use 4 Drops in the right [...] ordered this encounter Disp Refills Start End WJXGONZP-FNVNANWHA-OJDAAGWIN 3.5 MG-* 1 Christ* 0 01/07/202009/2020 Route: RIGHT EAR Sig: Use 4 Drops in the right ear four times daily for 7 day s. Encounter Status:Closed by SOPHIA CONNELLY CNP on 01/07/20 progress on 2019-11 PROGRESS HNO ID: [id number] Normal 11-15-2019 [facility] Author: Nichelle Smith (Earnestine) [place] [facility] (33408) Service: ? Author Type: Physician Dice Dealer Type: Progress Notes Filed: 11/15/2019 11:02 AM Note Text: Subjective HPI Patient presents with a rash on her chest for 2 weeks. She s tates it comes and goes. It is very itchy. She's been using antihista mines dtum-ore-kztxajd which do help some. She had started a new j ob at the [employer] and this started happening. She states she [...] 2019-11-15 CNOV Office Visit (UCWSTR) Normal 11-15-19 [place] [facility] LINDA NANCE ([id number]) 1985 [facility] Date Time Provider Department (00604) 11/15/19 10:00 AM NICHELLE RUIZ (EARNESTINE) WSTR [...] had started a new job at the [employer] and this started happening. She states she [...] 11/15/19 progress on 2019-08 PROGRESS HNO ID: [id number] Normal 08-12-2019 [facility] Author: Sophia Duffy) [facility] (15834) Service: ? Author Type: Nurse Practitioner Type: [...] CNOV Office Visit (UCWSTR) Normal 08-12-20 19 [place] [facility] RANDELLLINDA L ([id number]) 1985 [facility] Date Time Provider Department (13755) 08/12/19 6:45 PM SOPIHA CONNELLY (JOE) WSTR During your visit today, [...] evaluation by their primary care physician. Curly vagras red flag symptoms discussed with the patient. [...] Class: Print RX Cmt: May transfer to [facility] if less expensive. Route: ORAL Sig: [...] CONNELLY CNP on 08/12/19 hep [facility] panel on 2 Albumin mass conc 3.9 3.2-5.0 G/DL Normal 04-07-2018 [facility] (58297) Comment: Performed By: #### [id number] # ###GLENYS [address] [place] [address] Albumin/Globulin mass ratio 1.3 1.1-1.9 ratio Normal [facility] (49358) Comment: Performed By: #### [id number] # ###GLENYS [address] [place] [address] Alk Phos 64 42-121 Int._Unit/L Normal 04-07-2018 [facility] (05103) Comment: Performed By: #### [id number] # ###GLENYS [address] [place] [address] ALT enzyme act/vol 19 10-40 Int._Unit/L Normal 8 [facility] (00 000) Comment: Performed By: #### [id number] # ###GLENYS [address] [place] [address] AST enzyme act/vol 17 10-42 Int._Unit/L Normal 8 [facility] (00 000) Comment: Performed By: #### [id number] # ###GLENYS [address] [place] [address] Bili Direct <.10 .00-.20 Normal 04-07-2018 [facility] (91684) Comment: Performed By: #### [id number] # ###GLENYSHoracio [address] [place] [address] Bili Indirect >0.3 Normal 04-07-2018 [facility] (19472) Comment: Result Comment: No establish ed ranges available for the Indirect Biliruben. Performed By: #### [id number] # ###GLENYS [address] [place] [address] Bili Total 0.4 0.2-1.0 mg/dL Normal 04-07-2018 [facility] (68694) Comment: Performed By: #### [id number] # ###GLENYS QxsWrpa4808 [place] [address] Globulin Calculated mass 3.1 2.0-4.0 G/DL Normal 04-07 [facility] ([facility] tem (98771) Comment: Performed By: #### [id number] # ###GLENYSHoracio FierroFcbGucq9532 [place] [address] Protein mass conc 7.0 6.4-8.3 G/DL Normal 04-07-2018 [facility] (39888) Comment: Performed By: #### [id number] # ###GLENYSHoracio FierroQjwNufa1129 [place] [id number] ua complete on 2017 Color Nom (U) Straw Yellow Normal 04-06-2018 [facility] (46027) Comment: Performed By: #### [id number] ####GLENYS Urinalysis Automated Vlmiancfvj6365 [place] [address] 05 Glucose mass conc (U) Negative Negative mg/dL Normal 04-06-20 [facility] tem (66303) Comment: Performed By: #### [id number] ####GLENYS Urinalysis Automated Woffursnyl3165 [place] [address] 05 Ketones Ql (U) Negative Negative Normal 04-06-2018 [facility] (06315) Comment: Performed By: #### [id number] ####GLENYS Urinalysis Automated Qgizzsvkji0466 [place], [place] [address] RBC Test strip #/vol (U) 0-3 0-3 Normal 04-06 [facility] (65554) Comment: Performed By: #### [id number] ####GLENYS Urinalysis Automated Vrsvxmmxjx7898 [place] [address] 05 UA Blood Negative Negative Normal 04-06-2018 [facility] (95145) Comment: Performed By: #### [id number] ####GLENYS Urinalysis Automated Vazlhsreig3706 [place] [address] 05 UA Clarity Clear Clear Normal 04-06-2018 [facility] (45554) Comment: Performed By: #### [id number] ####GLENYS Urinalysis Automated Qpfpliurdv1231 [place] [address] 05 UA Leuk Est Negative Negative Normal 04-06-2018 [facility] (66430) Comment: Performed By: #### [id number] ####GLENYS Urinalysis Automated Ztmpvrpgps9044 [place] [address] 05 UA Mucous Trace Trace Abnormal 04-06-2018 [facility] (76991) Comment: Performed By: #### [id number] ####GLENYS Urinalysis Automated Tmp[address]mcwj[address] [place] [address] 05 UA Nitrite Negative Negative Normal 04-06-2018 [facility] (04597) Comment: Performed By: #### [id number] ####GLENYS Urinalysis Automated Biap[address]zglv[address] [place] [address] 05 UA pH 6.0 4.6-8.0 Normal 04-06-2018 [facility] (60413) Comment: Performed By: #### [id number] ####GLENYS Urinalysis Automated Ghfjigqoaw[address] [place] [address] 05 UA Protein Negative Negative Normal 04-06-2018 [facility] (29194) Comment: Performed By: #### [id number] ####GLENYS Urinalysis Automated Guqmgikdas27[address] [place] [address] 05 UA Spec Grav 1.005 1.003-1.030 Normal 04-06-2018 [facility] (75493) Comment: Performed By: #### [id number] ####GLENYS Urinalysis Automated Tfzuzrxkoi[address] [place] [address] 05 UA Squam Epithelial 0-5 0-5 Normal 04-06-2018 [facility] (27441) Comment: Performed By: #### [id number] ####GLENYS Urinalysis Automated Qgpxauvdtc9864[address] [place] [address] 05 UA Urobilinogen Negative Normal 04-06-2018 [facility] (27478) Comment: Performed By: #### [id number] ####GLENYS Urinalysis Automated Scsvshfaal2658 [place], [place] [address] UA WBC 0-5 0-5 Normal 04-06-2018 [facility] (22647) Comment: Performed By: #### [id number] ####GLENYS Urinalysis Automated Wghqckpmlu1579 [place], [place] [address] Urobilinogen Test Negative Negative {Jamie'U}/dL Normal 018 [facility] Qn (U) [facility] (00 000) Comment: Performed By: #### [id number] ####GLENYS Urinalysis Automated Pkrtxuppcj2681 [place] [address] 05 u drug screen on 22-04-02 U Amph Scr Negative Normal 04-06-2018 [facility] (01386) Comment: Result Comment: Results for medical use only. Confirmation of positive results will be done when re quested. Specimens are kept for one week. Performed By: #### [id number] # ###GLENYS ImrKtwe6155 [place] [address] U Yoanna Scr Negative Normal 04-06-2018 [facility] (05364) Comment: Performed By: #### [id number] # ###GLENYS NraQiat6625 [place] [address] U Benzodia Scr Positive >200 Normal 04-06-2018 [facility] (73610) Comment: Performed By: #### [id number] # ###GLENYS GwoOzyk3437 [place] [address] U Cannab Scr Positive >50 Normal 04-06-2018 [facility] (43122) Comment: Performed By: #### [id number] # ###GLENYS EqxLrzg0670 [place] [address] U Cocaine Scr Negative Normal 04-06-2018 [facility] (43485) Comment: Performed By: #### [id number] # ###GLENYS QijFleb4421 [place] [address] U Opiate Scr Negative Normal 04-06-2018 [facility] (20121) Comment: Performed By: #### [id number] # ###GLENYS WkmAfef4138 [place] [address] U PCP Scr Negative Normal 04-06-2018 [facility] (77825) Comment: Performed By: #### [id number] # ###GLENYS ZjfPjsu5685 [place] [address] u bhcg qlt on 04-06 HCG.beta subunit Qn Neg Neg m[IU]/mL Normal 04-06-2018 [facility] (00 000) Comment: Performed By: #### [id number] # ###GLENYS Urinalysis Manual Wfqimrghlz7891 [place] [address] salicylate on 04-06 Salicylate Lvl <4 15-30 Low 04-06-2018 [facility] (95616) Comment: Performed By: #### [id number] # ###GLENYS BhbNuda6250 [place] [address] glucose poc on 2017 Glucose mass conc 76 70-99 mg/dL Normal 04-06-2018 [facility] (93204) Comment: Performed By: #### [id number] ####GLENYS POC Vbhdbsvtic6854 [place] [address] ethanol on Ethanol Lvl <5 0-15 Normal 04-06-2018 [facility] (92341) Comment: Result Comment: SAMPLES WITH CONCENTRATIONS <15 MG/DL SHOULD BEINTERPRETED NEGATIVE. FOR MEDICAL USE ONLY Performed By: #### [id number] # ###GLENYS RnsYwdg2311 [place] [address] egfr on 2018-04-06 eGFR AA >60 Normal 04-06-2018 [facility] (25378) Comment: Order Comment: Order added b y Discern Expert. Performed By: #### [id number] ####GLENYS FierroEenAlqg4256 [place] [address] GFR/1.73 sq M predicted >60 mL/min/{1.73_m2} Normal 04-06-2018 [facility] among non-blacks [facility] (54039) vol rate/area (S/P/Bld) Comment: Order Comment: Order added b y Discern Expert. Performed By: #### [id number] ####GLENYS OzlXknz7469 [place] [address] cbc w/ auto diff on 2018-04-06 Erythrocyte distribution 14.5 11.5-14.5 % Normal 04-06 [facility] width Auto Ratio (RBC) [facility] (41203) Comment: Performed By: #### [id number] # ###GLENYS YozCatx7998 [place] [address] Hematocrit Auto Volume 45.1 36.0-48.0 % Normal 018 [facility] (d[facility] (17137) Comment: Performed By: #### [id number] # ###GLENYSHoracio FierroJdkZlom8350 [place] [address] Hemoglobin mass conc 15.3 12.0-16.0 G/DL Normal 8 [facility] ([facility] tem (38690) Comment: Performed By: #### [id number] # ###GLENYSHoracio FierroRxaHfxw3352 [place] [address] MCH Auto Entitic mass 30.9 27.0-31.0 pg Normal 04-06-20 18 [facility] (RBC) System (00 000) Comment: Performed By: #### [id number] # ###GLENYS HheSats6679 [place] [address] MCHC Auto mass conc 33.9 33.0-37.0 G/DL Normal 04-06-2018 [facility] (RBC) System (00 000) Comment: Performed By: #### [id number] # ###GLENYS YykZioq0246 [place] [address] MCV Auto Entitic volume 91.1 78.0-100.0 fL Normal 04-06 [facility] (RBC) System (00 000) Comment: Performed By: #### [id number] # ###GLENYS NgfCpcc7218 [place] [address] Platelet mean volume Auto 8.8 7.4-11.0 fL Normal [facility] Entitic volume (Bld) System (42394) Comment: Performed By: #### [id number] # ###GLENYSHoracio HensonYzgIyty8214 [place] [address] Platelets Auto #/vol 303 130-400 E3/mcL Normal 8 [facility] tem (42602) Comment: Performed By: #### [id number] # ###GLENYS Hensono1025 [place] [address] RBC Auto #/vol (Bld) 4.95 3.90-5.40 E6/mcL Normal 8 [facility] tem (57154) Comment: Performed By: #### [id number] # ###GLENYS AvaVpgr6644 [place] [address] WBC Auto #/vol (Bld) 12.8 3.6-11.0 E3/mcL High 8 [facility] (00 000) Comment: Performed By: #### [id number] # ###GLENYS EhxYxwb4607 [place] [address] bmp on 2018-04-06 Creatinine mass conc 0.7 0.6-1.3 mg/dL Normal 8 [facility] (00 000) Comment: Performed By: #### [id number] # ###GLENYSHoracio FierroCbkJntv3162 [place] [address] Urea nitrogen mass conc <5 7-18 mg/dL Low 2017 [facility] (37627) Comment: Performed By: #### [id number] # ###GLENYSHoracio FierroIdlZqyx0200 [place] [address] Urea nitrogen/Creatinine mass <7.1 5.4-30.0 mg/mg Normal 04-06-2018 [facility] tem (50500) Comment: Performed By: #### [id number] # ###GLENYSHoracio FierroEbxMpup9566 [place] [address] Calcium mass conc 9.1 8.4-10.2 mg/dL Normal 04-06-2018 [facility] (00 000) Comment: Performed By: #### [id number] # ###GLENYSHoracio FierroPpzSmwv8081 [place] [address] Chloride molar conc 102 98-107 mEq/L Normal 04-06-2018 [facility] (00 000) Comment: Performed By: #### [id number] # ###GLENYS FierroAfbDkpe9576 [place] [address] CO2 molar conc 27.5 24.0-30.0 mEq/L Normal 04-06-2018 [facility] (00 000) Comment: Performed By: #### [id number] # ###GLENYS FierroVxhMpjv8094 [place] [address] Glucose mass conc 96 70-99 mg/dL Normal 04-06-2018 [facility] (49833) Comment: Performed By: #### [id number] # ###GLENYS FierroYwvWhne8867 [place] [address] Potassium molar conc 3.7 3.5-5.1 mEq/L Normal 8 [facility] (00 000) Comment: Performed By: #### [id number] # ###GLENYS FierroMhmPpcm6556 [place] [address] Sodium molar conc 136 136-145 mEq/L Normal 04-06-2018 [facility] (00 000) Comment: Performed By: #### [id number] # ###GLENYS FierroTenKxqp2838 [place] [address] auto diff on 2017-0 04-06 Basophils Auto #/vol 0.2 0.0-0.2 E3/mcL Normal 8 [facility] tem (82063) Comment: Order Comment: Order Added b y Discern Expert. Performed By: #### [id number] # ###GLENYSHoracio HensonZbsVdrf6394 [place] [address] Basophils/100 WBC Auto (d) 1.3 0.0-2.0 % Normal 0 04-06-2018 [facility] tem (05534) Comment: Order Comment: Order Added b y Discern Expert. Performed By: #### [id number] # ###GLENYSHoracio FierroVmrJivg6484 [place] [address] Eos Absolute 0.3 0.0-0.7 E3/mcL Normal 04-06-2018 [facility] (59144) Comment: Order Comment: Order Added b y Discern Expert. Performed By: #### [id number] # ###GLENYS Hensono1025 [place] [address] Eosinophils/100 WBC Auto 2.3 0.0-11.0 % Normal 04-06 [facility] (43044) Comment: Order Comment: Order Added b y Discern Expert. Performed By: #### [id number] # ###GLENYS Hensono1025 [place] [address] Lymphocytes Auto #/vol 4.8 1.2-3.4 E3/mcL High 018 [facility] (89177) Comment: Order Comment: Order Added b y Discern Expert. Performed By: #### [id number] # ###GLENYS Hensono1025 [place] [address] Lymphocytes/100 WBC Auto 37.8 20.0-55.0 % Normal 04-06 [facility] (91848) Comment: Order Comment: Order Added b y Discern Expert. Performed By: #### [id number] # ###GLENYSHoracio HensonWzvRwit7768 [place] [address] [place] Absolute 0.5 0.0-0.7 E3/mcL Normal 04-06-2018 [facility] (70823) Comment: Order Comment: Order Added b y Discern Expert. Performed By: #### [id number] # ###GLENYSHoracio HensonLfsDkvh6888 [place] [address] Monocytes/100 WBC Auto (d) 3.9 0.0-10.0 % Normal 0 04-06-2018 [facility] (01199) Comment: Order Comment: Order Added b y Discern Expert. Performed By: #### [id number] # ###GLENYSHoracio FierroHzqFxtm4694 [place] [address] Neutro Absolute 7.0 1.4-6.5 E3/mcL High 04-06-2018 [facility] (82454) Comment: Order Comment: Order Added b y Discern Expert. Performed By: #### [id number] # ###GLENYSHoracio FierroRpdRzpa5517 [place] [address] Neutro Auto 54.7 37.0-75.0 % Normal 04-06-2018 [facility] (40974) Comment: Order Comment: Order Added emmanuel Wong Expert. Performed By: #### [id number] # ###GLENYS QavUnzl6871 [place] [id number] acetamnphn lvl on 2 Acetaminophen mass conc <10 0-15 Normal 2017 [facility] (21177) Comment: Result Comment: Tylenol - Th erapeutic 10-30 ug/ml Toxic 4 hr. Post ingestion >150 ug/ml Toxic 8hr Post in gestion >75 ug/ml Toxic 12hr. Post ingestion >40 ug/ml Performed By: #### [id number] # ###GLENYS OojLpum4249 [place] [id number] Vital Signs Vital Sign Description Value / Unit Date Location The following section is limited to 5 en tries per type and includes entries from the following time range: 20200715 - 20200706 0. Body Temperature 98.71 [degF] 07-15-2020 [facility] (86562) Body weight 96.44 kg 07-15-2020 [facility] (53508) BP Diastolic 82 mm[Hg] 07-15-2020 [facility] (96769) BP Systolic 118 mm[Hg] 07-15-2020 [facility] (90472) Pulse (Heart Rate) 114 /min 07-15-2020 [facility] (59328) Respiratory Rate 16 /min 07-15-2020 [facility] (84519) Encounters Date Type Reason Provider Location 04-06-2018 - Emergency department García [place] ility:[facility] 04-07-2018 patient visit [facility] 03-22-2018 - Emergency department Moody Shah Juany Moody Facility:[facility] 03-22-2018 patient visit Alyssa Harrington 03-07-2018 - Emergency department García [place] ility:[facility] 03-07-2018 patient visit Yvan Plata 04-06-2018 Patient encounter Facility:[facility] 07-15-2020 - Patient encounter Eruption 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 (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) [facility]-2020 procedure Comment: Rash (Primary Dx) Plan of Treatment Plan Description Date Location DTAP,TDAP,TD (2 - Td) DTAP,TDAP,TD (2 - Td) 01-11-2030 [facility] (37143) INFLUENZA (#1) INFLUENZA (#1) 2020 [facility] (87036) HPV TESTING HPV TESTING 2013 [facility] (53143) PAP TESTING PAP TESTING 2004 [facility] (69352) HEPATITIS C SCREENING HEPATITIS C SCREENING 2001 [facility] (76407) Immunizations Vaccine Notes Status Date Location Pneumovax pneumococcal polysaccharide (completed) 01-12-2020 [facility] vaccine, 23 valent (86231) Tdap (Age 7+) tetanus toxoid, reduced (completed) 01-12-2020 [facility] diphtheria toxoid, and (4419 5) acellular pertussis vaccine, adsorbed Payers Payer Name Policy Number Location Self Pay [facility] ([id number]) [facility] MEDICAID [id number] [facility] (44 195) [facility] [phone] [id number] [facility] ([id number]) [facility] (36789) The following information is from the original human readable contentNo Payer Records Found Social History Type Social History Date Location Description Tobacco smoking status Current every day smoker 07-15-2020 [facility] (15708) History of tobacco use Cigarette Smoker [facility] (46576) Cigarettes smoked 07-15-2020 - [facility] current (pack per day) 07-15-2020 (72591) - Reported Tobacco use and Never used 07-15-2020 [facility] exposure (52597) Alcohol intake Current drinker of 07-15-2020 [facility] alcohol (finding) (87334) History SDOH Alcohol 2 11-15-2019 - [facility] linic Frequency 01-12-2020 (72359) History SDOH Alcohol 1 11-15-2019 [facility] linic Std Drinks (99070) Sex Assigned At Not on file [facility] (03737) Exposure to SARS-CoV-2 Not sure [facility] (event) (30414) The following information is from the original [...] Documents on File Type Date 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 The cream should be left [...] PM EDT This note was created using [employer]. Subjective Linda Nance is a 34 year [...] BE BASED ON THE PRIMARY CLINICAL RECORDS. [facility] provides no warranty or guarantee of the accuracy or completeness of information in this document. UNRECOGNIZED CONTENT PROVIDED BELOW FOR UNRECOGNIZED SECTION INFORMATION SOURCE DATE CREATED AUTHOR AUTHOR'S ORGANIZATIO N 04/24/2018 [facility] DATE CREATED AUTHOR AUTHOR'S ORGANIZATIO N 06/26/2018 [facility] DATE CREATED AUTHOR AUTHOR'S ORGANIZATIO N 07/05/2018 [facility] DATE CREATED AUTHOR AUTHOR'S ORGANIZATIO N 07/16/2020 [facility] UNRECOGNIZED CONTENT PROVIDED BELOW FOR UNRECOGNIZED SECTION Source Comments In the event this information is protected by the Federal Confidentiality of Alcohol and Drug Abuse Patient Records regulations: The Federal rules restrict any use of the information to criminally investigate or prosecute any alcohol or drug abuse patient.[facility] UNRECOGNIZED CONTENT PROVIDED BELOW FOR UNRECOGNIZED SECTION Reason for Visit Reason Comments Rash all over body x ongoing
== END 2020-03-15 08:17 | disposition home or self-care (01) ==
LOC: ED 08:12
PROVIDERS: Emergency Provider Emergency Medicine; PCP Family Medicine
DX: S60.410A Abrasion of right index finger, initial encounter (principal); L98.9 Disorder of the skin and subcutaneous tissue, unspecified; X58.XXXA Exposure to other specified factors, initial encounter; Y93.89 Activity, other specified; Y92.89 Other specified places as the place of occurrence of the external cause; Y99.8 Other external cause status
CPT/HCPCS: 99282

== ENCOUNTER 2020-03-15 21:51 | Emergency (ER) | payer MEDICAID, SELFPAY ==
[2020-03-15 07:43] VITALS: BMI 35.6
[2020-03-15 21:55] VITALS: BP 160/97; PULSE 117; RESP 18; TEMP 36.1; O2SAT 98; BMI 36.1
--- NOTE | 2020-03-15 22:32 | ED.RN ---
Dr Norwood sees patient in traige 2. This RN in the room as well. Dr Cano does full assessment, tells patient that we do not see any bugs on her. Pt starts yelling that everyone thinks shes crazy. Pt saying the bugs are falling off her all over the aggarwal and floor. States we need to call an operations support professionals. Pt is demanding we test her for what the bugs are and how to get rid of them. Dr moulton states we do not have a test for bugs and that if she truly has these bugs she needs to move out of her house and call an operations support professionals. Pt yelling that we wont help her, stomps out of triage room 2 and exits the [address]. Eun [address] then notified because patient remained on property telling visitors outside that there are bugs everywhere.
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
--- OUTSIDE RECORDS SUMMARY | 2020-08-17 08:53 | XMS RPT_ITS | CCD ---
:1985 External Reference #:[id number] Author Organization [facility] Care Team Providers Name Role Phone Moody Harrington Unavailable Unavailable Alyssa Harrington Unavailable Unavailable Esperanza, F Unavailable Unavailable Shawnee, W Unavailable Unavailable Shawnee, W Unavailable Unavailable Esperanza, F Unavailable Unavailable Anum, A Unavailable Unavailable Anum, Horacio Unavailable Unavailable Emmanuel Trent () Primary Care Provider Allergies Reported Allergen Reaction(s) Severity Date of Onset Location egg extract Hives 01-12-2020 - [facility] c ([id number]) predniSONE Other: See Comments 01-12-2020 - Vianney suarez [facility] (08381) Medications Medication Name Sig Date Prescriber Location busPIRone busPIRone (BUSPAR) 10 06-23-2020 - [facility] Provider [facility] mg tablet Take 10 mg 07-15-2020 Provider ([id number]) by mouth three times daily. 0 06/23/2020 07/15/2020 Discontinued (Course of therapy completed) Comment: Take 10 mg by mouth three ti mes daily. Escitalopram escitalopram oxalate 04-05-2020 Randee De León) [facility] (LEXAPRO) 10 mg tablet Miley Burt (18087) Take 1 tablet by mouth () Miley once daily. 0 04/05/2020 Active Comment: Take 1 tablet by mouth once daily. hydrOXYzine hydrOXYzine pamoate 06-28-2020 [facility] Provider [facility] (VISTARIL) 50 mg capsule (44 195) Take 1 capsule by mouth once daily as needed for Anxiety. 0 06/28/2020 Active hydrOXYzine pamoate 01-12-2020 - Landy (Joe) Bhupendra [facility] (VISTARIL) 25 mg capsule 07-15-2020 (41063) Indications: Rash Take 1 capsule by mouth [...] ORAL Take by Ccf Provider Ccf C [facility] (95174) mouth. 0 Active Provider Comment: Take by mouth. lamoTRIgine lamoTRIgine (LAMICTAL) 100 06-28-2020 Ccf Provider C [facility] mg tablet Take 1 tablet by ( 08156) mouth twice daily. 0 06/28/2020 Active lamoTRIgine (LAMICTAL) 04-05-2020 - Randee De León) [facility] 25 mg tablet Take 1 07-15-2020 Miley (53877) tablet by mouth once daily. 0 04/05/2020 07/15/2020 Discontinued (Dosage adjustment) Comment: Take 1 tablet by mouth twice daily. Take 1 tablet by mouth once daily. Loratadine loratadine (CLARITIN) 01-12-2020 Randee De León) [facility] 10 mg tablet Miley Burt (55859 ) Indications: Dermatitis () Mliey Take 1 tablet by mouth once daily. 30 tablet 11 01/12/2020 Active Comment: Take 1 tablet by mouth once daily. Permethrin permethrin (ELIMITE) 5 07-15-2020 - Landy (Joe) [facility] % cream Indications: 07-15-2020 Bhupendra (71027) Rash Apply 1 application to affected area [...] ORAL COLE'S WORT ORAL Ccf Provider Ccf [facility] Take by mouth. 0 Provider (67554) Active Comment: Take by mouth. traZODone traZODone (DESYREL) 50 06-28-2020 Ccf Provider Ccf [facility] mg tablet Take 1 tablet Provider (183 92) by mouth daily at bedtime. 0 06/28/2020 Active Comment: Take 1 tablet by mouth daily at bedtime. Problems Category Problem Name Status Date Location Mood disorders Depressive disorder Active [facility] (89809) Other nutritional; Obese class I Active [facility] (87336) endocrine; and metabolic disorders Other skin disorders Eruption Active [facility] (74589) Screening and history of Tobacco use and exposure Active [facility] (14248) mental health and - finding substance abuse codes Results Result Name Value Range Unit Interpretation Flag Date Location progress on 2020-07 PROGRESS HNO ID: [id number] Normal 07-15-2020 [facility] Author: Landy GonzalezPiercing Artist) Bhupendra Grace ([id number]) Service: ? Author Type: Nurse Practitioner Type: Progress Notes Filed: 07/15/2020 3:37 PM Note Text: This note was created using [employer]. Subjective Linda Nance is a 34 year [...] to not pick/scratch the lesions. Recommend to [facility] kelly f/u with PCP in 1-2 weeks [...] 1 cnov on 2020-07-15 CNOV Office Visit ([facility]) Normal 07-15-20 20 [place] LINDA Espitia ([id number]) 1985 [facility] Date Time Provider Department (00586) 07/15/20 3:00 PM LANDY HUIZAR (JOE) [facility] [...] members, sexual partners and children playing at [employer]. HOW DO I GET RID OF SCABIES? [...] treated for scabies on the neck, scalp, christian and forehead. The cream should be left [...] PM Signed This note was created using [employer]. Subjective Linda Nance is a 34 year [...] 9.6 oz) LMP 11/11/2019 (Exact Date) B NC 37.36 kg/m? Physical Exam Vitals signs and [...] [R21] Order(s):hydrOXYzine pamoate (VISTARIL) 25 mg capsuleT oshan 1 capsule by mouth three times daily [...] treated for scabies on the neck, scalp, christian and forehead. The cream should be left [...] on 2020-04-23 JOEN Telephone (ALDAWS) Normal 04-23-2020 [place] [facility] LINDA NANCE ([id number]) 1985 [facility] Date Time Provider Department (30032) 04/23/20 [facility] visit today, we recorded the following informati on about you: Dunia Schreiber VIVI 04/23/2020 10:09 AM Signed Patient calling, states that she went to [facility] twice and was turned away and told that she is crazy. She went to [facility] and they did not really give her any different treatment. States that she has ticks embedde d in her skin and when she starts bleeding she is able to see other bugs crawling to those areas as well. She states that she is not able to get anyone to gi ve her the treatment she needs because she is flagged in [facility] from being an addict and having [...] - Fully Assessed Reason for Visit: Question [8157] Prescriptions as of 04/23/2020 Sig: SULFAMETHOXAZOLE 800 [...] 04/23/20 progress on 2020-04 PROGRESS HNO ID: [id number] Normal 04-22-2020 [facility] Author: Sophia (Joe) [facility] ([id number]) Service: ? Author Type: Nurse Practitioner Type: [...] with pcp Agrees to plan Sophia Connelly APRN.HEALTH CENTER MANAGER [facility] on 2020-04-22 CNPN Telephone (FAMPWS) Normal 04-22-2020 [place] [facility] LINDA NANCE ([id number]) 1985 [place] Date Time Provider Department (67709) 04/22/20 RANDEE TRENT) ULICESWS During your visit [...] prednisone. She thinks she will go to [facility] instead- she thinks they will admit [...] 2020-04-22 CNOV Office Visit (UCWSTR) Normal 04-22-20 [place] LINDA NANCE ([id number]) 1985 [facility] Date Time Provider Department ([id number]) 04/22/20 1:00 PM SOPHIA CONNELLY (JOE) [facility] During your visit today, we recorded the [...] with pcp Agrees to plan Sophia Connelly APRN.HEALTH CENTER MANAGER Referring Provider: SELF [200] Allergies As of [...] 04/22/20 progress on 2020-04 PROGRESS HNO ID: [id number] Normal 04-05-2020 [facility] Author: Randee De León) Miley Grace ([id number]) Service: ? Author Type: Physician Type: Progress Notes Filed: 04/05/2020 11:29 AM Note Text: Attempted to call x2. Did not leave VM. Will need to call in to reschedule appointment. joen on 2020-04-05 CNPN Telephone (FAMPWS) Normal 04-05-2020 [place] [facility] LINDA NANCE ([id number]) 1985 [facility] Date Time Provider Department (34208) 04/05/20 [facility] During your visit today, we recorded the [...] on 2020-01-13 CNPN Telephone (FAMPWS) Normal 01-13-2020 [place] LINDA Espitia ([id number]) 1985 [place] Date Time Provider Department (39896) 01/13/20 RANDEE TRENT) FAMPWS During your visit [...] 01/13/20 progress on 2020-01 PROGRESS HNO ID: [id number] Normal 01-12-2020 [place] Author: Randee De León) Miley [facility] Service: ? [place] Author Type: Physician ([id number]) Type: Progress Notes Filed: 01/12/2020 4:03 PM Note Text: Chief Complaint Patient presents with: Physical: see nursing note Establish Care HPI Linda Nance is a 34 year old female who presents here to day for Above Complaints. Accompanied today by henrry José. Previously see ing Dr. Causey in [place] with last OV 3 years ago. Complaining [...] Does not exercise regularly. Needs referral to [employer]. Has not had pap smear in more [...] COLE'S WORT ORAL Take by mouth. - xvwikxrl-plkpsrtdl-fagkwlylxhkldl (CORTISPORIN) 3.5-10,000 -1 mg/mL-unit/mL-% otic suspension Use [...] Cholesterol [Mass/Vol] 168 <200 mg/dL Normal 020 [facility] (75933) Comment: Result Comment: <200 mg/dL, Desirable 200-239 mg/dL, Borderline hi gh >239 mg/dL, High Performed By: #### CBC, CMP, LIPNF ####[place] [id number] [place] [address] [phone] Cholesterol in 1.92 <2.54 mg/dL Normal 01-12-2020 [facility] LDL/Cholesterol in HDL [Mass [place] (45375) ratio] Comment: Result Comment: Reference: 1. National Cholesterol Educ ation Program ATP III Guideline At-A-Glance Quick Desk Reference: National Heart, Lung, and Blood [place]. National Institutes of Health. 2001: NIH Publication No. 01-3305. 2. An International Atherosc lerosis Society position paper: global recommendations for the management of dyslipidemia: executive summary, Atherosclerosis. 2014: 232(2):410-413. Performed By: #### CBC, CMP, LIPNF ####[place] [address] [place] [address] [phone] Cholesterol.total/Cholesterol in 3.50 <5.10 mg/dL Normal 01-12-2020 [place] HDL [Mass ratio] Cli [facility] (19862) Comment: Performed By: #### CBC, CMP, LIPNF ####[place] [address] [place] [address] [phone] HDL Cholesterol, NF 48 >39 mg/dL Normal 01-12-2020 [facility] (76178) Comment: Result Comment: 40-59 mg/dL, Acceptable >59 mg/dL, High: Negative ri sk factor for coronary heart disease <40 mg/dL, Low: Positive ris k factor for coronary heart disease Performed By: #### CBC, CMP, LIPNF ####[facility] [place] [address] [phone] LDL Cholesterol, NF 92 <100 mg/dL Normal 01-12-2020 [facility] (81794) Comment: Result Comment: <100 mg/dL, Optimal 100-129 mg/dL, Near optimal/ above optimal 130-159 mg/dL, Borderline hi gh 160-189 mg/dL, High >189 mg/dL, Very high Secondary prevention optimal LDL Cholesterol levels are recommended to be < 70 mg/dL Performed By: #### CBC, CMP, LIPNF ####[place] [address] [place] [address] [phone] Non HDL Chol, NF 120 <130 mg/dL Normal 01-12-2020 Cl [facility] (61217) Comment: Result Comment: <130 mg/dL, Optimal 130-159 mg/dL, Near optimal/ above optimal 160-189 mg/dL, Borderline hi gh 190-219 mg/dL, High >219 mg/dL, Very high Secondary prevention optimal non HDL Cholesterol levels are recommended to be < 100 mg/dL Performed By: #### CBC, CMP, LIPNF ####[place] [address] [phone] Triglycerides, NF 139 <150 mg/dL Normal 01-12-2020 C [facility] (52435) Comment: Result Comment: <150 mg/dL, Normal 150-199 mg/dL, Borderline hi gh 200-499 mg/dL, High >499 mg/dL, Very high Performed By: #### CBC, CMP, LIPNF ####[place] [address] [phone] VLDL Cholesterol, NF 28 <30 mg/dL Normal 0 [facility] (86886) Comment: Performed By: #### CBC, CMP, LIPNF ####[place] [id number] [place] [address] [phone] comp metabolic panel on 2020-01-12 Albumin [Mass/Vol] 4.2 3.9-4.9 g/dL Normal 01-12-2020 [facility] (78232) Comment: Performed By: #### CBC, CMP, LIPNF #### [facility] [address] [place], [place] [address] ALP [Catalytic activity/Vol] 68 34-123 U/L Normal 0 01-12-2020 [facility] (48533) Comment: Performed By: #### CBC, CMP, LIPNF #### [facility] [address] [place], [place] [address] ALT [Catalytic activity/Vol] 17 7-38 U/L Normal 0 01-12-2020 [facility] (06693) Comment: Performed By: #### CBC, CMP, LIPNF #### [facility] [address] [place], [place] [address] Anion gap [Moles/Vol] 12 9-18 mmol/L Normal 01-12-20 [facility] (00152) Comment: Performed By: #### CBC, CMP, LIPNF #### [address] [address] AST [Catalytic activity/Vol] 15 13-35 U/L Normal 0 01-12-2020 [facility] (71876) Comment: Performed By: #### CBC, CMP, LIPNF #### [facility] [address] [place], [place] [address] Bilirubin [Mass/Vol] <0.2 0.2-1.3 mg/dL Low 0 [facility] (02644) Comment: Performed By: #### CBC, CMP, LIPNF #### [facility] [address] [place], [place] [address] Calcium [Mass/Vol] 9.3 8.5-10.2 mg/dL Normal 01-12-2020 [facility] (70216) Comment: Performed By: #### CBC, CMP, LIPNF #### [facility] [address] [place], [place] [address] Chloride [Moles/Vol] 103 97-105 mmol/L Normal 0 [facility] (89622) Comment: Performed By: #### CBC, CMP, LIPNF #### [facility] [address] [place] [address] CO2 [Moles/Vol] 26 22-30 mmol/L Normal 01-12-[address] [facility] (03918) Comment: Performed By: #### CBC, CMP, LIPNF #### [facility] [address] [place] [address] Creatinine [Mass/Vol] 0.68 0.58-0.96 mg/dL Normal 01-12-20 20 [facility] (38026) Comment: Performed By: #### CBC, CMP, LIPNF #### [facility] [address] [place] [place] [address] eGFR- Amer. >60 Normal 01-12-2020 [facility] (57148) Comment: Performed By: #### CBC, CMP, LIPNF #### [facility] [address] [address] GFR/1.73 sq M predicted >60 mL/min/{1.73_m2} Normal 01-12-2020 [facility] among non-blacks [facility] (17006) (S/P/Bld) [Vol rate/Area] Comment: Result Comment: eGFR [...] Performed By: #### CBC, CMP, LIPNF #### [facility] [address] [place] [address] Glucose [Mass/Vol] 58 74-99 mg/dL Low 01-12-2020 [facility] (85263) Comment: Result Comment: The [place] Diabetes Association (ADA) provides guidance for cutoff [...] for diagnosis of diabetes. Reference: Standards of [facility] Care in Diabetes 2016, [place] Diabetes Association. Diabetes Care. 2016.39(Suppl 1). Performed By: #### CBC, CMP, LIPNF #### [facility] [address] [place] [address] Potassium [Moles/Vol] 4.1 3.7-5.1 mmol/L Normal 01-12-20 [facility] (39837) Comment: Performed By: #### CBC, CMP, LIPNF #### [place] [address] [place], [place] [address] Protein [Mass/Vol] 6.7 6.3-8.0 g/dL Normal 01-12-2020 [facility] (24112) Comment: Performed By: #### CBC, CMP, LIPNF #### [facility] [address] [place], [place] [address] Sodium [Moles/Vol] 141 136-144 mmol/L Normal 01-12-2020 [facility] (40708) Comment: Performed By: #### CBC, CMP, LIPNF #### [facility] [address] [place], [place] [address] Urea nitrogen [Mass/Vol] 7 7-21 mg/dL Normal 01-11 [facility] (20504) Comment: Performed By: #### CBC, CMP, LIPNF #### [facility] [address] [place] [id number] cnov on 2020-01-12 CNOV Office Visit (FAMPWS) Normal 01-12-20 [place] [facility] LINDA NANCE ([id number]) 1985 [facility] Date Time Provider Department (85298) 01/12/20 3:00 PM RANDEE TRENT) FAMPWS During [...] henrry José. Previously seeing Dr. Causey in [place] with last OV 3 years ago. Complaining [...] Does not exercise regularly. Needs referral to [employer]. Has n ot had pap smear in [...] COLE'S WORT ORAL Take by mouth. - owqqguoi-niaujlzco-xplgvfearszhkl (COR TISPORIN) 3.5-10,000-1 mg/mL-unit/mL-% otic suspension Use [...] [Z23] Order(s):CONSULT TO GYNECOLOGY [9013] Order #: [id number] : 1 FUTURE PNEUMOCOCCAL IMMUNIZATION PPSV 23 [56155XYD] Order #: [id number] TDAP VACCINE AGE 7+ IM [03324UWT] Order #: [id number] CBC [SQCBC] Order #: [id number] FUTURE COMP METABOLIC PANEL [SQCMP] Order #: [id number] FUTURE hydrOXYzine pamoate (VISTARIL) 25 mg capsuleTake 1 capsule b y mouth three times daily as needed for Anxiety.Disp: Rfl: loratadine (CLARITIN) 10 mg tabletTake 1 tablet by mouth onc e daily.Disp: 30 tabletRfl: 11 LIPID PANEL, NONFASTING [SQLIPNF] Order #: [id number] FUTURE Prescriptions as of 01/12/2020 Sig: HYDROXYZINE [...] Reason for discontinue is not on file. rdbqccba-bmctpxfgp-lhlamtxaxsvvih (C* 1 Christ* 0 01/07/2020 020 Route: [...] 2020-01-12 Absolute nRBC <0.01 <0.01 Normal 01-12-2020 [facility] (82863) Comment: Performed By: #### CBC, CMP, LIPNF #### [facility] [address] [place], [place] [address] Erythrocyte distribution 13.2 11.5-15.0 % Normal 01-11 [facility] width (RBC) [Ratio] [place] (75293) Comment: Performed By: #### CBC, CMP, LIPNF #### [facility] [address] [place] [place], [place] [id number] Hematocrit (Bld) [Volume 48.7 36.0-46.0 % High 01-11 [facility] fraction] [place] (42549) Comment: Performed By: #### CBC, CMP, LIPNF #### [facility] [address] [place], [place] [address] Hemoglobin (Bld) 15.4 11.5-15.5 g/dL Normal 01-12-2020 Cl [facility] [Mass/Vol] [place] (78464) Comment: Performed By: #### CBC, CMP, LIPNF #### [facility] [address] [place] [address] MCH (RBC) [Entitic mass] 29.2 26.0-34.0 pG Normal 01-11 [facility] (39277) Comment: Performed By: #### CBC, CMP, LIPNF #### [facility] s [address] [place] [address] MCHC (RBC) [Mass/Vol] 31.6 30.5-36.0 g/dL Normal 01-12-20 20 [facility] (09537) Comment: Performed By: #### CBC, CMP, LIPNF #### [facility] s [address] [place] [address] MCV (RBC) [Entitic vol] 92.2 80.0-100.0 fL Normal 01-11 [facility] (31932) Comment: Performed By: #### CBC, CMP, LIPNF #### [facility] [address] [place] [address] Platelet mean volume 10.6 9.0-12.7 fL Normal 0 [facility] (Bld) [Entitic vol] [place] (18145) Comment: Performed By: #### CBC, CMP, LIPNF #### [facility] [place], [place] [address] Platelets (Bld) [#/Vol] 393 150-400 k/uL Normal 2019 [facility] (64890) Comment: Performed By: #### CBC, CMP, LIPNF #### [facility] [address] [place], [place] [address] RBC (Bld) [#/Vol] 5.28 3.90-5.20 m/uL High 01-12-2020 [facility] (31814) Comment: Performed By: #### CBC, CMP, LIPNF #### [facility] [address] [place] [place], [place] [address] WBC (Bld) [#/Vol] 13.17 3.70-11.00 k/uL High 01-12-2020 [facility] (63909) Comment: Performed By: #### CBC, CMP, LIPNF #### [facility] [address] [place], [place] [address] progress on 2020-01 PROGRESS HNO ID: [id number] Normal 01-07-2020 [facility] Author: Sophia (Joe) [facility] (02624) Service: ? Author Type: Nurse Practitioner Type: [...] worsen, change Discussed proper ear hygiene - HUONEASK-VFUPYTQTH-ZTEULBIPX 3.5 MG-10,000 UNIT/ML-1 % EAR DROPS,SUSP 2. [...] 2020-01-07 CNOV Office Visit (UCWSTR) Normal 01-07-[address] [place] [address] [facility] LINDA NANCE Alyssa ([id number]) 1985 [facility] Date Time Provider Department (34833) 01/07/20 2:15 PM SOPHIA CONNELLY (JOE) WSTR [...] worsen, change Discussed proper ear hygiene - BQFNRKSB-SGRKQJRPJ-IJPZJMKOJ 3.5 MG-10,000 UNIT/ML-1 % EAR DROPS,SUSP 2. [...] agreeable to treatment carolyn chauhan. Sophia Connelly APRN.HEALTH CENTER MANAGER Referring Provider: SELF [200] Allergies As of Date: 01/07/2020 (No Known Allergies) Date Reviewed: 01/07/2020 Reviewed by: Asuncion Dalal Ma - Fully Assessed Reason for Visit: Ear Pain [817] Cmt: bilateral ear pain x 1 day Primary Visit Diagnosis:Irritation of external ear canal, ri ght [H61.891] Other Visit Diagnosis:Impacted cerumen of right ear [H61.21] Order(s):lilxljrd-jbqewibzk-jzittpfbexbuwh (CORTISPORIN) 3.5 -10,000-1 mg/mL-unit/mL-% otic suspensionUse 4 Drops in the right ear four times daily for 7 days.Disp: 1 BottleRfl: 0 Prescriptions as of 01/07/2020 Sig: COLE'S WORT ORAL Take by mouth. IBUPROFEN ORAL Take by mouth. IHEHGDRV-VRHFKZDOZ-IWLXDYYEP * Use 4 Drops in the right [...] ordered this encounter Disp Refills Start End ZTOMNSSF-QITSDCSDH-CRVPUYTMK 3.5 MG-* 1 Christ* 0 01/07/202009/2020 Route: RIGHT EAR Sig: Use 4 Drops in the right ear four times daily for 7 day s. Encounter Status:Closed by SOPHIA CONNELLY CNP on 01/07/20 progress on 2019-11 PROGRESS HNO ID: [id number] Normal 11-15-2019 [facility] Author: Nichelle Smith (Earnestine) [place] [facility] ([id number]) Service: ? Author Type: Physician Order Dispatcher Chief Type: Progress Notes Filed: 11/15/2019 11:02 AM Note Text: Subjective HPI Patient presents with a rash on her chest for 2 weeks. She s tates it comes and goes. It is very itchy. She's been using antihista mines nznt-fnn-jyngwyu which do help some. She had started a new j ob at the [employer] and this started happening. She states [...] 2019-11-15 CNOV Office Visit (UCWSTR) Normal 11-15-19 [place] [facility] LINDA NANCE ([id number]) 1985 [facility] Date Time Provider Department (36111) 11/15/19 10:00 AM NICHELLE RUIZ (EARNESTINE) WSTR During your visit today, we recorded the following informati on about you: Temperature Pulse Respiration Blood pressure 97.7 degrees 118/minute 18/minute 122/78 Weight Last Period 88.9 kg 11/11/19 iNchelle Ruiz PA-C 11/15/2019 11:02 AM Signed Subjective HPI Patient presents with a rash on her ches t for 2 weeks. She states it comes and goes. It is very itchy. She's been using antihistamines over -the-counter which do help some. She had started a new job at the [employer] and this started happening. She states she [...] 11/15/19 progress on 2019-08 PROGRESS HNO ID: [id number] Normal 08-12-2019 [facility] Author: Sophia Duffy) [facility] ([id number]) Service: ? Author Type: Nurse Practitioner Type: [...] tablet Take 40 mg by mouth once maliin ly. carBAMazepine XR (TEGRETOL XR) 100 mg [...] CNOV Office Visit (UCWSTR) Normal 08-12-20 19 [place] [facility] RANDELLLINDA L ([id number]) 1985 [facility] Date Time Provider Department (81355) 08/12/19 6:45 PM SOPHIA CONNELLY (JOE) WSTR [...] Class: Print RX Cmt: May transfer to [facility] if less expensive. Route: ORAL Sig: Take [...] by SOPHIA CONNELLY CNP on 08/12/19 hep [facility] panel on 2 Albumin mass conc 3.9 3.2-5.0 G/DL Normal 04-07-2018 [facility] (83339) Comment: Performed By: #### [id number] # ###[address] [place] [address] Albumin/Globulin mass ratio 1.3 1.1-1.9 ratio Normal [facility] (59359) Comment: Performed By: #### [id number] # ###[address] [place] [address] Alk Phos 64 42-121 Int._Unit/L Normal 04-07-2018 [facility] (51143) Comment: Performed By: #### [id number] # ###GLENYS FierroXjsOfvw1481 [place] [address] ALT enzyme act/vol 19 10-40 Int._Unit/L Normal 8 [facility] (00 000) Comment: Performed By: #### [id number] # ###GLENYS Hensono1025 [place] [address] AST enzyme act/vol 17 10-42 Int._Unit/L Normal 8 [facility] (00 000) Comment: Performed By: #### [id number] # ###GLENYS [address]ensono10[address] [place] [address] Bili Direct <.10 .00-.20 Normal 04-07-2018 [facility] (82588) Comment: Performed By: #### [id number] # ###GLENYSHoracio HensonRsnHyph2965 [place] [address] Bili Indirect >0.3 Normal 04-07-2018 [facility] (41209) Comment: Result Comment: No establish ed ranges available for the Indirect Biliruben. Performed By: #### [id number] # ###GLENYS FierroRwjAcgd8453 [place] [address] Bili Total 0.4 0.2-1.0 mg/dL Normal 04-07-2018 [facility] (74583) Comment: Performed By: #### [id number] # ###GLENYS QgpOlxs1537 [place] [address] Globulin Calculated mass 3.1 2.0-4.0 G/DL Normal 04-07 [facility] tem (31282) Comment: Performed By: #### [id number] # ###GLENYSHoracio FierroPccWfrn4832 [place] [address] Protein mass conc 7.0 6.4-8.3 G/DL Normal 04-07-2018 [facility] (45464) Comment: Performed By: #### [id number] # ###GLENYSHoracio FierroVivKzgz9565 [place] [id number] ua complete on 2017 Color Nom (U) Straw Yellow Normal 04-06-2018 [facility] (04895) Comment: Performed By: #### [id number] ####GLENYS Urinalysis Automated Omfefvhzmo3302 [place] [address] 05 Glucose mass conc (U) Negative Negative mg/dL Normal 04-06-20 [facility] tem (70259) Comment: Performed By: #### [id number] ####GLENYS Urinalysis Automated Obmvliasqy1089 [place] [address] 05 Ketones Ql (U) Negative Negative Normal 04-06-2018 [facility] (44371) Comment: Performed By: #### [id number] ####GLENYS Urinalysis Automated Xvdsuvtyeh5331 [place], [place] [address] RBC Test strip #/vol (U) 0-3 0-3 Normal 04-06 [facility] (02372) Comment: Performed By: #### [id number] ####GLENYS Urinalysis Automated Qbsnsksbri4097 [place] [address] 05 UA Blood Negative Negative Normal 04-06-2018 [facility] (11108) Comment: Performed By: #### [id number] ####GLENYS Urinalysis Automated Kafpeabdft9635 [place] [address] 05 UA Clarity Clear Clear Normal 04-06-2018 [facility] (96783) Comment: Performed By: #### [id number] ####GLENYS Urinalysis Automated Sxujjniinz1070 [place] [address] 05 UA Leuk Est Negative Negative Normal 04-06-2018 [facility] (00382) Comment: Performed By: #### [id number] ####GLENYS Urinalysis Automated Gzdmkrvhhu3812 [place] [address] 05 UA Mucous Trace Trace Abnormal 04-06-2018 [facility] (71082) Comment: Performed By: #### [id number] ####GLENYS Urinalysis Automated [address] [place] [address] 05 UA Nitrite Negative Negative Normal 04-06-2018 [facility] (70434) Comment: Performed By: #### [id number] ####GLENYS Urinalysis Automated Myfocwemrw[address] [place] [address] 05 UA pH 6.0 4.6-8.0 Normal 04-06-2018 [facility] (25734) Comment: Performed By: #### [id number] ####GLENYS Urinalysis Automated Ncqgz[address]sci[address] [place] [address] 05 UA Protein Negative Negative Normal 04-06-2018 [facility] (53003) Comment: Performed By: #### [id number] ####GLENYS Urinalysis Automated Ygwnukqofz[address] [place] [address] 05 UA Spec Grav 1.005 1.003-1.030 Normal 04-06-2018 [facility] (40342) Comment: Performed By: #### [id number] ####GLENYS Urinalysis Automated Jsu[address]avt[address] [place] [address] 05 UA Squam Epithelial 0-5 0-5 Normal 04-06-2018 [facility] (68111) Comment: Performed By: #### [id number] ####GLENYS Urinalysis Automated Xl[address]ql[address] [place] [address] 05 UA Urobilinogen Negative Normal 04-06-[address] [facility] (73745) Comment: Performed By: #### [id number] ####GLENYS Urinalysis Automated Ddgkmbkgah8281 [place], [place] [address] UA WBC 0-5 0-5 Normal 04-06-2018 [facility] (53621) Comment: Performed By: #### [id number] ####GLENYS Urinalysis Automated Opxpofpqlg3387 [place], [place] [address] Urobilinogen Test Negative Negative {Jamie'U}/dL Normal 018 [facility] Qn (U) [facility] (00 000) Comment: Performed By: #### [id number] ####GLENYS Urinalysis Automated Qrdqyhcddt5610 [place] [address] 05 u drug screen on 22-04-02 U Amph Scr Negative Normal 04-06-2018 [facility] (09744) Comment: Result Comment: Results for medical use only. Confirmation of positive results will be done when re quested. Specimens are kept for one week. Performed By: #### [id number] # ###GLENYS GyiDkai0809 [place] [address] U Yoanna Scr Negative Normal 04-06-2018 [facility] (63818) Comment: Performed By: #### [id number] # ###GLENYS RvfJmax6213 [place] [address] U Benzodia Scr Positive >200 Normal 04-06-2018 [facility] (38254) Comment: Performed By: #### [id number] # ###GLENYS EbaNqsq9273 [place] [address] U Cannab Scr Positive >50 Normal 04-06-[address] [facility] (73516) Comment: Performed By: #### [id number] # ###GLENYS HylUvrc3272 [place] [address] U Cocaine Scr Negative Normal 04-06-2018 [facility] (98889) Comment: Performed By: #### [id number] # ###GLENYS OntWspo9919 [place] [address] U Opiate Scr Negative Normal 04-06-2018 [facility] (80132) Comment: Performed By: #### [id number] # ###GLENYS OghYxnu1794 [place] [address] U PCP Scr Negative Normal 04-06-2018 [facility] (08196) Comment: Performed By: #### [id number] # ###GLENYS DtdZkye1025 [place] [address] u bhcg qlt on 04-06 HCG.beta subunit Qn Neg Neg m[IU]/mL Normal 04-06-2018 [facility] (00 000) Comment: Performed By: #### [id number] # ###GLENYS Urinalysis Manual Zpxqmpufgp3228 [place] [address] salicylate on 04-06 Salicylate Lvl <4 15-30 Low 04-06-2018 [facility] (34950) Comment: Performed By: #### [id number] # ###GLENYS AicPnvh7012 [place] [address] glucose poc on 2017 Glucose mass conc 76 70-99 mg/dL Normal 04-06-2018 [facility] (70615) Comment: Performed By: #### [id number] ####GLENYS POC Trevpamlyp0048 [place] [address] ethanol on Ethanol Lvl <5 0-15 Normal 04-06-2018 [facility] (18680) Comment: Result Comment: SAMPLES WITH CONCENTRATIONS <15 MG/DL SHOULD BEINTERPRETED NEGATIVE. FOR MEDICAL USE ONLY Performed By: #### [id number] # ###GLENYS AyuPqpl4337 [place] [address] egfr on 2018-04-06 eGFR AA >60 Normal 04-06-2018 [facility] (67262) Comment: Order Comment: Order added b y Discern Expert. Performed By: #### [id number] ####GLENYS FierroXmvRqnx0188 [place] [address] GFR/1.73 sq M predicted >60 mL/min/{1.73_m2} Normal 04-06-2018 [facility] among non-blacks [facility] (94438) vol rate/area (S/P/Bld) Comment: Order Comment: Order added b y Discern Expert. Performed By: #### [id number] ####GLENYS WsbYteh0088 [place] [address] cbc w/ auto diff on 2018-04-06 Erythrocyte distribution 14.5 11.5-14.5 % Normal 04-06 [facility] width Auto Ratio (RBC) [facility] (10141) Comment: Performed By: #### [id number] # ###GLENYS XmtLvor2399 [place] [address] Hematocrit Auto Volume 45.1 36.0-48.0 % Normal 018 [facility] (d[facility] (79827) Comment: Performed By: #### [id number] # ###GLENYSHoracio FierroEipKptf2692 [place] [address] Hemoglobin mass conc 15.3 12.0-16.0 G/DL Normal 8 [facility] ([facility] tem (66313) Comment: Performed By: #### [id number] # ###GLENYSHoracio FierroJxtXkjd2587 [place] [address] MCH Auto Entitic mass 30.9 27.0-31.0 pg Normal 04-06-20 18 [facility] (RBC) System (00 000) Comment: Performed By: #### [id number] # ###GLENYS RikOcgl1242 [place] [address] MCHC Auto mass conc 33.9 33.0-37.0 G/DL Normal 04-06-2018 [facility] (RBC) [facility] (00 000) Comment: Performed By: #### [id number] # ###GLENYS SfbQchd0392 [place] [address] MCV Auto Entitic volume 91.1 78.0-100.0 fL Normal 04-06 [facility] (RBC) [facility] (00 000) Comment: Performed By: #### [id number] # ###GLENYS RutYavg1598 [place] [address] Platelet mean volume Auto 8.8 7.4-11.0 fL Normal [facility] Entitic volume (Bld) System (15253) Comment: Performed By: #### [id number] # ###GLENYSHoracio HensonQhfYzua8786 [place] [address] Platelets Auto #/vol 303 130-400 E3/mcL Normal 8 [facility] tem (26994) Comment: Performed By: #### [id number] # ###GLENYS [address]ono[address] [place] [address] RBC Auto #/vol (Bld) 4.95 3.90-5.40 E6/mcL Normal 8 [facility] tem (13901) Comment: Performed By: #### [id number] # ###GLENYS OtoTzai3443 [place] [address] WBC Auto #/vol (Bld) 12.8 3.6-11.0 E3/mcL High 8 [facility] (00 000) Comment: Performed By: #### [id number] # ###GLENYS RmjBgwe5840 [place] [address] bmp on 2018-04-06 Creatinine mass conc 0.7 0.6-1.3 mg/dL Normal 8 [facility] (00 000) Comment: Performed By: #### [id number] # ###GLENYSHoracio FierroBurSfqi0156 [place] [address] Urea nitrogen mass conc <5 7-18 mg/dL Low 2017 [facility] (38222) Comment: Performed By: #### [id number] # ###GLENYSHoracio FierroLqmMvba5274 [place] [address] Urea nitrogen/Creatinine mass <7.1 5.4-30.0 mg/mg Normal 04-06-2018 [facility] tem (37069) Comment: Performed By: #### [id number] # ###GLENYSHoracio FierroQdhXnxy4233 [place] [address] Calcium mass conc 9.1 8.4-10.2 mg/dL Normal 04-06-2018 [facility] (00 000) Comment: Performed By: #### [id number] # ###GLENYSHoracio FierroUzjXejn6404 [place] [address] Chloride molar conc 102 98-107 mEq/L Normal 04-06-2018 [facility] (00 000) Comment: Performed By: #### [id number] # ###GLENYS FierroNbhYpfy6407 [place] [address] CO2 molar conc 27.5 24.0-30.0 mEq/L Normal 04-06-2018 [facility] (00 000) Comment: Performed By: #### [id number] # ###GLENYS FierroQdsPbpk5610 [place] [address] Glucose mass conc 96 70-99 mg/dL Normal 04-06-2018 [facility] (65797) Comment: Performed By: #### [id number] # ###GLENYS FierroQaiWvgd3371 [place] [address] Potassium molar conc 3.7 3.5-5.1 mEq/L Normal 8 [facility] (00 000) Comment: Performed By: #### [id number] # ###GLENYS FierroWjwCjbz0240 [place] [address] Sodium molar conc 136 136-145 mEq/L Normal 04-06-2018 [facility] (00 000) Comment: Performed By: #### [id number] # ###GLENYS FierroKnqDxss2705 [place] [address] auto diff on 2017-0 04-06 Basophils Auto #/vol 0.2 0.0-0.2 E3/mcL Normal 8 [facility] tem (51323) Comment: Order Comment: Order Added b y Discern Expert. Performed By: #### [id number] # ###GLENYSHoracio HensonQyaOyqp9713 [place] [address] Basophils/100 WBC Auto (d) 1.3 0.0-2.0 % Normal 0 04-06-2018 [facility] tem (30754) Comment: Order Comment: Order Added b y Discern Expert. Performed By: #### [id number] # ###GLENYSHoracio FierroNtrEufn9870 [place] [address] Eos Absolute 0.3 0.0-0.7 E3/mcL Normal 04-06-2018 [facility] (89830) Comment: Order Comment: Order Added b y Discern Expert. Performed By: #### [id number] # ###GLENYS [address]ono[address] [place] [address] Eosinophils/100 WBC Auto 2.3 0.0-11.0 % Normal 04-06 [facility] (24546) Comment: Order Comment: Order Added b y Discern Expert. Performed By: #### [id number] # ###GLENYS [address]ono[address] [place] [address] Lymphocytes Auto #/vol 4.8 1.2-3.4 E3/mcL High 018 [facility] (00545) Comment: Order Comment: Order Added b y Discern Expert. Performed By: #### [id number] # ###GLENYS [address] [place] [address] Lymphocytes/100 WBC Auto 37.8 20.0-55.0 % Normal 04-06 [facility] (16041) Comment: Order Comment: Order Added b y Discern Expert. Performed By: #### [id number] # ###GLENYSHoracio HensonMmbKczc2919 [place] [address] Fallon Absolute 0.5 0.0-0.7 E3/mcL Normal 04-06-2018 [facility] (10073) Comment: Order Comment: Order Added b y Discern Expert. Performed By: #### [id number] # ###GLENYSHoracio HensonZhfZzmw8774 [place] [address] Monocytes/100 WBC Auto (d) 3.9 0.0-10.0 % Normal 0 04-06-2018 [facility] (05299) Comment: Order Comment: Order Added b y Discern Expert. Performed By: #### [id number] # ###GLENYSHoracio FierroBsiRdou4458 [place] [address] Neutro Absolute 7.0 1.4-6.5 E3/mcL High 04-06-[address] [facility] (81881) Comment: Order Comment: Order Added b y Discern Expert. Performed By: #### [id number] # ###GLENYSHoracio FierroUmsJssa3074 [place] [address] Neutro Auto 54.7 37.0-75.0 % Normal 04-06-2018 [facility] (94191) Comment: Order Comment: Order Added emmanuel Wong Expert. Performed By: #### [id number] # ###GLENYS FvnZwat8327 [place] [id number] acetamnphn lvl on 2 Acetaminophen mass conc <10 0-15 Normal 2017 [facility] (30211) Comment: Result Comment: Tylenol - Th erapeutic 10-30 ug/ml Toxic 4 hr. Post ingestion >150 ug/ml Toxic 8hr Post in gestion >75 ug/ml Toxic 12hr. Post ingestion >40 ug/ml Performed By: #### [id number] # ###GLENYS TsrCpsd2398 [place] [id number] Vital Signs Vital Sign Description Value / Unit Date Location The following section is limited to 5 en tries per type and includes entries from the following time range: 20200715 - 20200706 0. Body Temperature 98.71 [degF] 07-15-2020 [facility] (59474) Body weight 96.44 kg 07-15-2020 [facility] (36666) BP Diastolic 82 mm[Hg] 07-15-2020 [facility] (95073) BP Systolic 118 mm[Hg] 07-15-2020 [facility] (51641) Pulse (Heart Rate) 114 /min 07-15-2020 [facility] (64929) Respiratory Rate 16 /min 07-15-2020 [facility] (35612) Encounters Date Type Reason Provider Location 04-06-2018 - Emergency department [place] ility:[facility] 04-07-[address] [facility] 03-22-2018 - Emergency department Moody Shah Juany Moody Facility:[facility] 03-22-2018 patient visit Alyssa Harrington 03-07-2018 - Emergency department [place] ility:[facility] 03-07-2018 patient visit [facility] 04-06-2018 Patient encounter Facility:[facility] 07-15-2020 - Patient encounter Eruption Landy (Piercing Artist) [facility]2020 procedure Comment: Rash (Primary Dx) Plan of Treatment Plan Description Date Location DTAP,TDAP,TD (2 - Td) DTAP,TDAP,TD (2 - Td) 01-11-2030 [facility] (13734) INFLUENZA (#1) INFLUENZA (#1) 2020 [facility] (03899) HPV TESTING HPV TESTING 2013 [facility] (24023) PAP TESTING PAP TESTING 2004 [facility] (73542) HEPATITIS C SCREENING HEPATITIS C SCREENING 2001 [facility] (35748) Immunizations Vaccine Notes Status Date Location Pneumovax pneumococcal polysaccharide (completed) 01-12-2020 [facility] vaccine, 23 valent (87483) Tdap (Age 7+) tetanus toxoid, reduced (completed) 01-12-2020 [facility] diphtheria toxoid, and (4419 5) acellular pertussis vaccine, adsorbed Payers Payer Name Policy Number Location Self Pay [facility] ([id number]) [employer] [id number] [facility] (44 195) [employer] [phone] [id number] [facility] ([id number]) [facility]alt [facility] (12392) The following information is from the original human readable contentNo Payer Records Found Social History Type Social History Date Location Description Tobacco smoking status Current every day smoker 07-15-2020 [facility] (40843) History of tobacco use Cigarette Smoker [facility] (35631) Cigarettes smoked 07-15-2020 - [facility] current (pack per day) 07-15-2020 (97573) - Reported Tobacco use and Never used 07-15-2020 [facility] exposure (55454) Alcohol intake Current drinker of 07-15-2020 [facility] alcohol (finding) (44762) History SDOH Alcohol 2 11-15-2019 - [facility]inic Frequency 01-12-2020 (87287) History SDOH Alcohol 1 11-15-2019 [facility] Std Drinks (12360) Sex Assigned At Not on file [facility] (32093) Exposure to SARS-CoV-2 Not sure [facility] (event) (46177) The following information is from the original [...] Documents on File Type Date Recorded 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 The cream should be left [...] PM EDT This note was created using Ace[employer]er[employer]. Subjective Linda Nance is a 34 year [...] BE BASED ON THE PRIMARY CLINICAL RECORDS. [facility] provides no warranty or guarantee of the accuracy or completeness of information in this document. UNRECOGNIZED CONTENT PROVIDED BELOW FOR UNRECOGNIZED SECTION INFORMATION SOURCE DATE CREATED AUTHOR AUTHOR'S ORGANIZATIO N 04/24/[address] [facility] DATE CREATED AUTHOR AUTHOR'S ORGANIZATIO N 06/26/2018 [facility] DATE CREATED AUTHOR AUTHOR'S ORGANIZATIO N 07/05/2018 [facility] DATE CREATED AUTHOR AUTHOR'S ORGANIZATIO N 07/16/2020 [facility] UNRECOGNIZED CONTENT PROVIDED BELOW FOR UNRECOGNIZED SECTION Source Comments In the event this information is protected by the Federal Confidentiality of Alcohol and Drug Abuse Patient Records regulations: The Federal rules restrict any use of the information to criminally investigate or prosecute any alcohol or drug abuse patient.[facility] UNRECOGNIZED CONTENT PROVIDED BELOW FOR UNRECOGNIZED SECTION Reason for Visit Reason Comments Rash all over body x ongoing
--- OUTSIDE RECORDS SUMMARY | 2020-08-17 08:54 | XMS RPT_ITS | CCD ---
:1985 External Reference #:[id number] Author Organization [facility] Care Team Providers Name Role Phone Moody Harrington Unavailable Unavailable Alyssa Harrington Unavailable Unavailable Esperanza, F Unavailable Unavailable [place], W Unavailable Unavailable [place], W Unavailable Unavailable Esperanza, F Unavailable Unavailable Anum, A Unavailable Unavailable Anum, Horacio Unavailable Unavailable Emmanuel Trent () Primary Care Provider Allergies Reported Allergen Reaction(s) Severity Date of Onset Location egg extract Hives 01-12-2020 - [facility] ([id number]) predniSONE Other: See Comments 01-12-2020 - Vianney suarez [facility] (11882) Medications Medication Name Sig Date Prescriber Location busPIRone busPIRone (BUSPAR) 10 06-23-2020 - Ccf Provider Ccf [facility] mg tablet Take 10 mg 07-15-2020 Provider ([id number]) by mouth three times daily. 0 06/23/2020 07/15/2020 Discontinued (Course of therapy completed) Comment: Take 10 mg by mouth three ti mes daily. Escitalopram escitalopram oxalate 04-05-2020 Randee De León) [facility] (LEXAPRO) 10 mg tablet Miley Burt (89012) Take 1 tablet by mouth () Miley once daily. 0 04/05/2020 Active Comment: Take 1 tablet by mouth once daily. hydrOXYzine hydrOXYzine pamoate 06-28-[address] [facility] (VISTARIL) 50 mg capsule (44 195) Take 1 capsule by mouth once daily as needed for Anxiety. 0 06/28/2020 Active hydrOXYzine pamoate 01-12-2020 - Landy (Joe) Bhupendra [facility] (VISTARIL) 25 mg capsule 07-15-2020 (64456) Indications: Rash Take 1 capsule by mouth [...] ORAL Take by Ccf Provider Ccf C [facility] (36743) mouth. 0 Active Provider Comment: Take by mouth. lamoTRIgine lamoTRIgine (LAMICTAL) 100 06-28-2020 Ccf Provider C [facility] mg tablet Take 1 tablet by ( 14435) mouth twice daily. 0 06/28/2020 Active lamoTRIgine (LAMICTAL) 04-05-2020 - Randee De León) [facility] 25 mg tablet Take 1 07-15-2020 Miley (43453) tablet by mouth once daily. 0 04/05/2020 07/15/2020 Discontinued (Dosage adjustment) Comment: Take 1 tablet by mouth twice daily. Take 1 tablet by mouth once daily. Loratadine loratadine (CLARITIN) 01-12-2020 Randee De León) [facility] 10 mg tablet Miley Burt (51724 ) Indications: Dermatitis () Miley Take 1 tablet by mouth once daily. 30 tablet 11 01/12/2020 Active Comment: Take 1 tablet by mouth once daily. Permethrin permethrin (ELIMITE) 5 07-15-2020 - Landy (Joe) [facility] % cream Indications: 07-15-2020 Bhupendra (35124) Rash Apply 1 application to affected area [...] ORAL COLE'S WORT ORAL Ccf Provider Ccf [facility] Take by mouth. 0 Provider (29404) Active Comment: Take by mouth. traZODone traZODone (DESYREL) 50 06-28-2020 Ccf Provider Ccf [facility] mg tablet Take 1 tablet Provider (627 90) by mouth daily at bedtime. 0 06/28/2020 Active Comment: Take 1 tablet by mouth daily at bedtime. Problems Category Problem Name Status Date Location Mood disorders Depressive disorder Active [facility] (18649) Other nutritional; Obese class I Active [facility] (32306) endocrine; and metabolic disorders Other skin disorders Eruption Active [facility] (04987) Screening and history of Tobacco use and exposure Active [facility] (69595) mental health and - finding substance abuse codes Results Result Name Value Range Unit Interpretation Flag Date Location progress on 2020-07 PROGRESS HNO ID: [id number] Normal 07-15-2020 [facility] Author: Landy GonzalezSafety Teacher) Bhupendra Grace ([id number]) Service: ? Author Type: Nurse Practitioner Type: Progress Notes Filed: 07/15/2020 3:37 PM Note Text: This note was created using [employer]. Subjective Linda Nance is a 34 [...] to not pick/scratch the lesions. Recommend to [facility] kelly f/u with PCP in 1-2 weeks [...] cnov on 2020-07-15 CNOV Office Visit ([facility]) Normal 07-15-20 [address] [place] LINDA Espitia ([id number]) 1985 [facility] Date Time Provider Department (22078) 07/15/20 3:00 PM LANDY HUIZAR (JOE) [facility] [...] members, sexual partners and children playing at [employer]. HOW DO I GET RID OF SCABIES? [...] treated for scabies on the neck, scalp, mormonism and forehead. The cream should be left [...] PM Signed This note was created using [employer]CH[employer]. Subjective Linda Nance is a 34 year [...] 9.6 oz) LMP 11/11/2019 (Exact Date) B NM 37.36 kg/m? Physical Exam Vitals signs and [...] treated for scabies on the neck, scalp, mormonism and forehead. The cream should be left [...] on 2020-04-23 JOEN Telephone (ALDAWS) Normal 04-23-2020 [place] [facility] LINDA NANCE ([id number]) 1985 [facility] Date Time Provider Department (16461) 04/23/20 [facility] today, we recorded the following informati on about you: Dunia Schreiber VIVI 04/23/2020 10:09 AM Signed Patient calling, states that she went to [facility] twice and was turned away and told that she is crazy. She went to [facility] and they did not really give her any different treatment. States that she has ticks embedde d in her skin and when she starts bleeding she is able to see other bugs crawling to those areas as well. She states that she is not able to get anyone to gi ve her the treatment she needs because she is flagged in [facility] from being an addict and having [...] - Fully Assessed Reason for Visit: Question [2437] Prescriptions as of 04/23/2020 Sig: SULFAMETHOXAZOLE 800 [...] 04/23/20 progress on 2020-04 PROGRESS HNO ID: [id number] Normal 04-22-2020 [facility] Author: Sophia (Joe) [facility] ([id number]) Service: ? Author Type: Nurse Practitioner Type: [...] with pcp Agrees to plan Sophia Connelly APRN.DIRECTOR GEOTHERMAL OPERATIONS [facility] 2020-04-22 CNPN Telephone (FAMPWS) Normal 04-22-2020 [place] [facility] LINDA NANCE ([id number]) 1985 [place] Date Time Provider Department (63641) 04/22/20 RANDEE TRENT) ULICESWS During your visit [...] prednisone. She thinks she will go to [facility] instead- she thinks they will admit [...] redness , streaking, pus drainage, or fever. iMke Ignacio Ma 04/22/2020 4:01 PM Signed Patient [...] 2020-04-22 CNOV Office Visit ([facility]) Normal 04-22-20 [place] Garrett LINDA NACNE ([id number]) 1985 [facility] Date Time Provider Department (70001) 04/22/20 1:00 PM SOPHIA CONNELLY (JOE) [facility] During your visit today, we recorded [...] with pcp Agrees to plan Sophia Connelly APRN.DIRECTOR GEOTHERMAL OPERATIONS Referring Provider: SELF [200] Allergies As of [...] 04/22/20 progress on 2020-04 PROGRESS HNO ID: [id number] Normal 04-05-2020 [facility] Author: Randee De León) Miley Grace ([id number]) Service: ? Author Type: Physician Type: Progress Notes Filed: 04/05/2020 11:29 AM Note Text: Attempted to call x2. Did not leave VM. Will need to call in to reschedule appointment. joen on 2020-04-05 CNPN Telephone (FAMPWS) Normal 04-05-2020 [place] [facility] LINDA NANCE ([id number]) 1985 [facility] Date Time Provider Department (43268) 04/05/20 [facility] During your visit today, we recorded [...] on 2020-01-13 CNPN Telephone (FAMPWS) Normal 01-13-2020 [place] LINDA Espitia ([id number]) 1985 [place] Date Time Provider Department (94173) 01/13/20 RANDEE TRENT) FAMPWS During your visit [...] 01/13/20 progress on 2020-01 PROGRESS HNO ID: [id number] Normal 01-12-2020 [place] Author: Randee De León) Miley [facility] Service: ? [place] Author Type: Physician ([id number]) Type: Progress Notes Filed: 01/12/2020 4:03 PM Note Text: Chief Complaint Patient presents with: Physical: see nursing note Establish Care HPI Linda Nance is a 34 year old female who presents here to day for Above Complaints. Accompanied today by henrry José. Previously see ing Dr. Causey in [place] with last OV 3 years ago. Complaining [...] Does not exercise regularly. Needs referral to TEST ANALYST. Has not had pap smear in more [...] COLE'S WORT ORAL Take by mouth. - timrwgta-ppxnckxcj-svzdtgqdvcwuwy (CORTISPORIN) 3.5-10,000 -1 mg/mL-unit/mL-% otic suspension Use [...] Cholesterol [Mass/Vol] 168 <200 mg/dL Normal 020 [facility] (48397) Comment: Result Comment: <200 mg/dL, Desirable 200-239 mg/dL, Borderline hi gh >239 mg/dL, High Performed By: #### CBC, CMP, LIPNF ####[place] [id number] [place] [address] [phone] Cholesterol in 1.92 <2.54 mg/dL Normal 01-12-2020 [facility] LDL/Cholesterol in HDL [Mass [place] (85230) ratio] Comment: Result Comment: Reference: 1. National Cholesterol Educ ation Program ATP III Guideline At-A-Glance Quick Desk Reference: National Heart, Lung, and Blood [place]. National Institutes of Health. 2001: NIH Publication No. 01-3305. 2. An International Atherosc lerosis Society position paper: global recommendations for the management of dyslipidemia: executive summary, Atherosclerosis. 2014: 232(2):410-413. Performed By: #### CBC, CMP, LIPNF ####[place] [id number] [place] [address] [phone] Cholesterol.total/Cholesterol in 3.50 <5.10 mg/dL Normal 01-12-2020 [place] HDL [Mass ratio] Cli [facility] (21453) Comment: Performed By: #### CBC, CMP, LIPNF ####[place] [id number] [place] [address] [phone] HDL Cholesterol, NF 48 >39 mg/dL Normal 01-12-2020 [facility] (81455) Comment: Result Comment: 40-59 mg/dL, Acceptable >59 mg/dL, High: Negative ri sk factor for coronary heart disease <40 mg/dL, Low: Positive ris k factor for coronary heart disease Performed By: #### CBC, CMP, LIPNF ####[facility] [place] [address] [phone] LDL Cholesterol, NF 92 <100 mg/dL Normal 01-12-2020 [facility] (60950) Comment: Result Comment: <100 mg/dL, Optimal 100-129 mg/dL, Near optimal/ above optimal 130-159 mg/dL, Borderline hi gh 160-189 mg/dL, High >189 mg/dL, Very high Secondary prevention optimal LDL Cholesterol levels are recommended to be < 70 mg/dL Performed By: #### CBC, CMP, LIPNF ####[place] [id number] [place] [address] [phone] Non HDL Chol, NF 120 <130 mg/dL Normal 01-12-2020 Cl [facility] (73075) Comment: Result Comment: <130 mg/dL, Optimal 130-159 mg/dL, Near optimal/ above optimal 160-189 mg/dL, Borderline hi gh 190-219 mg/dL, High >219 mg/dL, Very high Secondary prevention optimal non HDL Cholesterol levels are recommended to be < 100 mg/dL Performed By: #### CBC, CMP, LIPNF ####[place] [address] [phone] Triglycerides, NF 139 <150 mg/dL Normal 01-12-2020 C [facility] (52475) Comment: Result Comment: <150 mg/dL, Normal 150-199 mg/dL, Borderline hi gh 200-499 mg/dL, High >499 mg/dL, Very high Performed By: #### CBC, CMP, LIPNF ####[place] [address] [phone] VLDL Cholesterol, NF 28 <30 mg/dL Normal 0 [facility] (62729) Comment: Performed By: #### CBC, CMP, LIPNF ####[place] [id number] [place] [address] [phone] comp metabolic panel on 2020-01-12 Albumin [Mass/Vol] 4.2 3.9-4.9 g/dL Normal 01-12-2020 [facility] (81653) Comment: Performed By: #### CBC, CMP, LIPNF #### [facility] [address] [place], [place] [address] ALP [Catalytic activity/Vol] 68 34-123 U/L Normal 0 01-12-2020 [facility] (71012) Comment: Performed By: #### CBC, CMP, LIPNF #### [facility] [address] [place], [place] [address] ALT [Catalytic activity/Vol] 17 7-38 U/L Normal 0 01-12-2020 [facility] (60318) Comment: Performed By: #### CBC, CMP, LIPNF #### [facility] [address] [place], [place] [address] Anion gap [Moles/Vol] 12 9-18 mmol/L Normal 01-12-20 [facility] (58589) Comment: Performed By: #### CBC, CMP, LIPNF #### [address] [address] AST [Catalytic activity/Vol] 15 13-35 U/L Normal 0 01-12-2020 [facility] (65094) Comment: Performed By: #### CBC, CMP, LIPNF #### [facility] [address] [place], [place] [address] Bilirubin [Mass/Vol] <0.2 0.2-1.3 mg/dL Low 0 [facility] (50156) Comment: Performed By: #### CBC, CMP, LIPNF #### [facility] [address] [place], [place] [address] Calcium [Mass/Vol] 9.3 8.5-10.2 mg/dL Normal 01-12-2020 [facility] (93187) Comment: Performed By: #### CBC, CMP, LIPNF #### [facility] [address] [place], [place] [address] Chloride [Moles/Vol] 103 97-105 mmol/L Normal 0 [facility] (72389) Comment: Performed By: #### CBC, CMP, LIPNF #### [facility] [address] [place] [address] CO2 [Moles/Vol] 26 22-30 mmol/L Normal 01-12-2020 [facility] (22015) Comment: Performed By: #### CBC, CMP, LIPNF #### [facility] [address] [place] [address] Creatinine [Mass/Vol] 0.68 0.58-0.96 mg/dL Normal 01-12-20 20 [facility] (57369) Comment: Performed By: #### CBC, CMP, LIPNF #### [facility] [address] [place] [address] eGFR- Amer. >60 Normal 01-12-2020 [facility] (31412) Comment: Performed By: #### CBC, CMP, LIPNF #### [facility] [address] [place] [address] GFR/1.73 sq M predicted >60 mL/min/{1.73_m2} Normal 01-12-2020 [facility] among non-blacks [facility] (22149) (S/P/Bld) [Vol rate/Area] Comment: Result Comment: eGFR [...] Performed By: #### CBC, CMP, LIPNF #### [facility] [address] [place] [address] Glucose [Mass/Vol] 58 74-99 mg/dL Low 01-12-2020 [facility] (72384) Comment: Result Comment: The [place] Diabetes Association (ADA) provides guidance for cutoff [...] for diagnosis of diabetes. Reference: Standards of [facility] Care in Diabetes 2016, [place] Diabetes Association. Diabetes Care. 2016.39(Suppl 1). Performed By: #### CBC, CMP, LIPNF #### [facility] [address] [place] [address] Potassium [Moles/Vol] 4.1 3.7-5.1 mmol/L Normal 01-12-20 [facility] (62377) Comment: Performed By: #### CBC, CMP, LIPNF #### [place] [address] [place], [place] [address] Protein [Mass/Vol] 6.7 6.3-8.0 g/dL Normal 01-12-2020 [facility] (93674) Comment: Performed By: #### CBC, CMP, LIPNF #### [facility] [address] [place], [place] [address] Sodium [Moles/Vol] 141 136-144 mmol/L Normal 01-12-2020 [facility] (61609) Comment: Performed By: #### CBC, CMP, LIPNF #### [facility] [address] [place], [place] [address] Urea nitrogen [Mass/Vol] 7 7-21 mg/dL Normal 01-11 [facility] (09282) Comment: Performed By: #### CBC, CMP, LIPNF #### [facility] [address] [place] [id number] cnov on 2020-01-12 CNOV Office Visit (FAMPWS) Normal 01-12-20 [place] [facility] LINDA NANCE ([id number]) 1985 [facility] Date Time Provider Department (07214) 01/12/20 3:00 PM RANDEE TRENT) FAMPWS During [...] henrry José. Previously seeing Dr. Causey in [place] with last OV 3 years ago. Complaining [...] Does not exercise regularly. Needs referral to TEST ANALYST. Has n ot had pap smear in [...] COLE'S WORT ORAL Take by mouth. - omdajxzg-ekimyhrzi-lsvppxadhvtihv (COR TISPORIN) 3.5-10,000-1 mg/mL-unit/mL-% otic suspension Use [...] [Z23] Order(s):CONSULT TO GYNECOLOGY [9013] Order #: [id number] : 1 FUTURE PNEUMOCOCCAL IMMUNIZATION PPSV 23 [[id number]] Order #: [id number] TDAP VACCINE AGE 7+ IM [[id number]] Order #: [id number] CBC [SQCBC] Order #: [id number] FUTURE COMP METABOLIC PANEL [SQCMP] Order #: [id number] FUTURE hydrOXYzine pamoate (VISTARIL) 25 mg capsuleTake 1 capsule b y mouth three times daily as needed for Anxiety.Disp: Rfl: loratadine (CLARITIN) 10 mg tabletTake 1 tablet by mouth onc e daily.Disp: 30 tabletRfl: 11 LIPID PANEL, NONFASTING [SQLIPNF] Order #: [id number] FUTURE Prescriptions as of 01/12/2020 Sig: HYDROXYZINE [...] Reason for discontinue is not on file. hgvzaxum-ddyrounub-onzcadnrzedbsy (C* 1 Christ* 0 01/07/2020 020 Route: [...] 2020-01-12 Absolute nRBC <0.01 <0.01 Normal 01-12-2020 [facility] (26907) Comment: Performed By: #### CBC, CMP, LIPNF #### [facility] [address] [place], [place] [address] Erythrocyte distribution 13.2 11.5-15.0 % Normal 01-11 [facility] width (RBC) [Ratio] [place] (39753) Comment: Performed By: #### CBC, CMP, LIPNF #### [facility] [address] [place], [place] [address] Hematocrit (Bld) [Volume 48.7 36.0-46.0 % High 01-11 [facility] fraction] [place] (09107) Comment: Performed By: #### CBC, CMP, LIPNF #### [facility] [address] [place], [place] [address] Hemoglobin (Bld) 15.4 11.5-15.5 g/dL Normal 01-12-2020 Cl [facility] [Mass/Vol] [place] ([address]17) Comment: Performed By: #### CBC, CMP, LIPNF #### [facility] [address] [place] [address] MCH (RBC) [Entitic mass] 29.2 26.0-34.0 pG Normal 01-11 [facility] (69051) Comment: Performed By: #### CBC, CMP, LIPNF #### [facility] [address] [place] [address] MCHC (RBC) [Mass/Vol] 31.6 30.5-36.0 g/dL Normal 01-12-20 20 [facility] (39398) Comment: Performed By: #### CBC, CMP, LIPNF #### [facility] [address] [place] [address] MCV (RBC) [Entitic vol] 92.2 80.0-100.0 fL Normal 01-11 [facility] (08481) Comment: Performed By: #### CBC, CMP, LIPNF #### [facility] [address] [place] [address] Platelet mean volume 10.6 9.0-12.7 fL Normal 0 [facility] (Bld) [Entitic vol] [place] (11389) Comment: Performed By: #### CBC, CMP, LIPNF #### [facility] [place], [place] [address] Platelets (Bld) [#/Vol] 393 150-400 k/uL Normal 2019 [facility] (67499) Comment: Performed By: #### CBC, CMP, LIPNF #### [facility] [address] [place], [place] [address] RBC (Bld) [#/Vol] 5.28 3.90-5.20 m/uL High 01-12-2020 [facility] (49165) Comment: Performed By: #### CBC, CMP, LIPNF #### [facility] [address] [place], [place] [address] WBC (Bld) [#/Vol] 13.17 3.70-11.00 k/uL High 01-12-2020 [facility] (07537) Comment: Performed By: #### CBC, CMP, LIPNF #### [facility] [address] [place], [place] [address] progress on 2020-01 PROGRESS HNO ID: [id number] Normal 01-07-2020 [facility] Author: Sophia (Joe) [facility] ([id number]) Service: ? Author Type: Nurse Practitioner Type: [...] worsen, change Discussed proper ear hygiene - NRXSDUJJ-WWFCHHKII-LCXQQUOOX 3.5 MG-10,000 UNIT/ML-1 % EAR DROPS,SUSP 2. [...] 2020-01-07 CNOV Office Visit ([facility]WSTR) Normal 01-07-[address] [place] [address] [facility] LINDA NANCE Alyssa ([id number]) 1985 [facility] Date Time Provider Department (41584) 01/07/20 2:15 PM SOPHIA CONNELLY (JOE) WSTR [...] worsen, change Discussed proper ear hygiene - QCPHYIFK-CAKQCJVRX-CVPXEEBTJ 3.5 MG-10,000 UNIT/ML-1 % EAR DROPS,SUSP 2. [...] agreeable to treatment carolyn chauhan. Sophia Connelly APRN.DIRECTOR GEOTHERMAL OPERATIONS Referring Provider: SELF [200] Allergies As of Date: 01/07/2020 (No Known Allergies) Date Reviewed: 01/07/2020 Reviewed by: Asuncion Dalal Ma - Fully Assessed Reason for Visit: Ear Pain [817] Cmt: bilateral ear pain x 1 day Primary Visit Diagnosis:Irritation of external ear canal, ri ght [H61.891] Other Visit Diagnosis:Impacted cerumen of right ear [H61.21] Order(s):gwahhjpm-navmnhguo-lovzyrngjgldua (CORTISPORIN) 3.5 -10,000-1 mg/mL-unit/mL-% otic suspensionUse 4 Drops in the right ear four times daily for 7 days.Disp: 1 BottleRfl: 0 Prescriptions as of 01/07/2020 Sig: COLE'S WORT ORAL Take by mouth. IBUPROFEN ORAL Take by mouth. GAWBLIDM-SSKFCLIKF-KOVNKKQBD * Use 4 Drops in the right [...] ordered this encounter Disp Refills Start End UPVLYIDS-VRZDXEMYH-MJIZGMEXM 3.5 MG-* 1 Christ* 0 01/07/202009/2020 Route: RIGHT EAR Sig: Use 4 Drops in the right ear four times daily for 7 day s. Encounter Status:Closed by SOPHIA CONNELLY CNP on 01/07/20 progress on 2019-11 PROGRESS HNO ID: [id number] Normal 11-15-2019 [facility] Author: Nichelle Smith (Earnestine) [place] [facility] ([id number]) Service: ? Author Type: Physician Zipper Trimmer Type: Progress Notes Filed: 11/15/2019 11:02 AM Note Text: Subjective HPI Patient presents with a rash on her chest for 2 weeks. She s tates it comes and goes. It is very itchy. She's been using antihista mines wjhz-wfi-cfaflnr which do help some. She had started [...] 2019-11-15 CNOV Office Visit (UCWSTR) Normal 11-15-19 [place] [facility] LINDA NANCE ([id number]) 1985 [facility] Date Time Provider Department (65835) 11/15/19 10:00 AM NICHELLE RUIZ (EARNESTINE) WSTR [...] had started a new job at the [employer] and this started happening. She states she [...] 11/15/19 progress on 2019-08 PROGRESS HNO ID: [id number] Normal 08-12-2019 [facility] Author: Sophia Duffy) [facility] ([id number]) Service: ? Author Type: Nurse Practitioner Type: [...] CNOV Office Visit (UCWSTR) Normal 08-12-20 [address] [place] [facility] RANDELLLINDA L ([id number]) 1985 [facility] Date Time Provider Department (76735) 08/12/19 6:45 PM SOPHIA CONNELLY (JOE) WSTR [...] Class: Print RX Cmt: May transfer to [facility] if less expensive. Route: ORAL Sig: Take [...] by SOPHIA CONNELLY CNP on 08/12/19 hep [facility] panel on 2 Albumin mass conc 3.9 3.2-5.0 G/DL Normal 04-07-2018 [facility] (50933) Comment: Performed By: #### [id number] # ###GLENYS [address] [place] [address] Albumin/Globulin mass ratio 1.3 1.1-1.9 ratio Normal [facility] (21121) Comment: Performed By: #### [id number] # ###GLENYS [address] [place] [address] Alk Phos 64 42-121 Int._Unit/L Normal 04-07-2018 [facility] (81038) Comment: Performed By: #### [id number] # ###GLENYS [address] [place] [address] ALT enzyme act/vol 19 10-40 Int._Unit/L Normal 8 [facility] (00 000) Comment: Performed By: #### [id number] # ###GLENYS [address] [place] [address] AST enzyme act/vol 17 10-42 Int._Unit/L Normal 8 [facility] (00 000) Comment: Performed By: #### [id number] # ###GLENYS [address] [place] [address] Bili Direct <.10 .00-.20 Normal 04-07-2018 [facility] (71424) Comment: Performed By: #### [id number] # ###GLENYSHoracio [address] [place] [address] Bili Indirect >0.3 Normal 04-07-2018 [facility] (36789) Comment: Result Comment: No establish ed ranges available for the Indirect Biliruben. Performed By: #### [id number] # ###GLENYS FierroXxaIltc1793 [place] [address] Bili Total 0.4 0.2-1.0 mg/dL Normal 04-07-2018 [facility] (85804) Comment: Performed By: #### [id number] # ###GLENYS HrqJdkk2964 [place] [address] Globulin Calculated mass 3.1 2.0-4.0 G/DL Normal 04-07 [facility] ([facility] tem (97109) Comment: Performed By: #### [id number] # ###GLENYSHoracio FierroZnlUsso9138 [place] [address] Protein mass conc 7.0 6.4-8.3 G/DL Normal 04-07-2018 [facility] (45530) Comment: Performed By: #### [id number] # ###GLENYSHoracio FierroYlbNlgg1750 [place] [id number] ua complete on 2017 Color Nom (U) Straw Yellow Normal 04-06-2018 [facility] (83761) Comment: Performed By: #### [id number] ####GLENYS Urinalysis Automated Bqtvngexbe2954 [place] [address] 05 Glucose mass conc (U) Negative Negative mg/dL Normal 04-06-20 [facility] tem (47970) Comment: Performed By: #### [id number] ####GLENYS Urinalysis Automated Lbkuuvvhzm0539 [place] [address] 05 Ketones Ql (U) Negative Negative Normal 04-06-2018 [facility] (38782) Comment: Performed By: #### [id number] ####GLENYS Urinalysis Automated Ftbnnonfzw2582 [place], [place] [address] RBC Test strip #/vol (U) 0-3 0-3 Normal 04-06 [facility] (09777) Comment: Performed By: #### [id number] ####GLENYS Urinalysis Automated Kpxujahirf4604 [place] [address] 05 UA Blood Negative Negative Normal 04-06-2018 [facility] (01001) Comment: Performed By: #### [id number] ####GLENYS Urinalysis Automated Bzatuuqrwv2454 [place] [address] 05 UA Clarity Clear Clear Normal 04-06-2018 [facility] (47998) Comment: Performed By: #### [id number] ####GLENYS Urinalysis Automated Wjzwccrnst3445 [place] [address] 05 UA Leuk Est Negative Negative Normal 04-06-2018 [facility] (25570) Comment: Performed By: #### [id number] ####GLENYS Urinalysis Automated Bjafbbvxtm8183 [place] [address] 05 UA Mucous Trace Trace Abnormal 04-06-2018 [facility] (48091) Comment: Performed By: #### [id number] ####GLENYS Urinalysis Automated [address] [place] [address] 05 UA Nitrite Negative Negative Normal 04-06-2018 [facility] (62571) Comment: Performed By: #### [id number] ####GLENYS Urinalysis Automated [address]jtnqawqx[address] [place] [address] 05 UA pH 6.0 4.6-8.0 Normal 04-06-2018 [facility] (83785) Comment: Performed By: #### [id number] ####GLENYS Urinalysis Automated [address]smerjfcc[address] [place] [address] 05 UA Protein Negative Negative Normal 04-06-2018 [facility] (29210) Comment: Performed By: #### [id number] ####GLENYS Urinalysis Automated [address] [place] [address] 05 UA Spec Grav 1.005 1.003-1.030 Normal 04-06-2018 [facility] (30019) Comment: Performed By: #### [id number] ####GLENYS Urinalysis Automated Ekydayptmt[address] [place] [address] 05 UA Squam Epithelial 0-5 0-5 Normal 04-06-2018 [facility] (23094) Comment: Performed By: #### [id number] ####GLENYS Urinalysis Automated [address]es[address] [place] [address] 05 UA Urobilinogen Negative Normal 04-06-2018 [facility] (14358) Comment: Performed By: #### [id number] ####GLENYS Urinalysis Automated Gtuzhpyjtw7227 [place], [place] [address] UA WBC 0-5 0-5 Normal 04-06-2018 [facility] (84927) Comment: Performed By: #### [id number] ####GLENYS Urinalysis Automated Ognrcunrng2682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
== END 2020-03-15 22:50 | disposition home or self-care (01) ==
LOC: ED 22:48
PROVIDERS: Emergency Provider Emergency Medicine; PCP Family Medicine
DX: R44.2 Other hallucinations (principal); Z72.0 Tobacco use; S60.410A Abrasion of right index finger, initial encounter; L98.9 Disorder of the skin and subcutaneous tissue, unspecified; X58.XXXA Exposure to other specified factors, initial encounter; Y93.89 Activity, other specified; Y92.89 Other specified places as the place of occurrence of the external cause; Y99.8 Other external cause status
CPT/HCPCS: 99282; 99284

== ENCOUNTER 2020-06-24 10:03 | Emergency (ER) | payer MEDICAID, SELFPAY ==
[2020-06-24] VITALS (8 sets, daily range): BP systolic 138–149; BP diastolic 88–115; PULSE 87–109; RESP 15–17; TEMP 36.8; O2SAT 98; BMI 37.1
[2020-06-24 11:21] LABS: Absolute Lymphocyte Count 1.84 X10^3/uL (0.83-4.51); Absolute Neutrophil Count 8.9 X10^3/uL (2.0-7.7); Basophil# 0.07 X10^3/uL; Basophil% 0.6 % (0-1); Eosinophil# 0.11 X10^3/uL; Hematocrit 49.3 % (37-47); Hemoglobin 16.1 g/dL (12.0-15.0); Lymphocyte # 1.84 X10^3/ul (4.0); Lymphocyte % 16.2 % (19-41); Mean Corp Hgb Conc 32.7 g/dL (32-36); Mean Corpuscular Hgb 29.3 pg (27.0-32.0); Mean Corpuscular Volume 89.6 fL (81-99); Mean Platelet Vol. 9.9 fl (6.2-12.0); Monocyte# 0.43 X10^3/uL; Monocyte% 3.8 % (0-10); NRBC Flagged by Analyzer 0 % (0-5); Neutrophil # 8.86 X10^3/uL (2.7-7.7); Platelet Count 387 K/mm3 (150-450); RBC Distribution Width CV 13.6 % (11.6-14.6); RBC Distribution Width SD 44.4 fl (35.1-43.9); White Blood Count 11.4 K/mm3 (4.4-11.0)
[2020-06-24 11:37] LABS: Anion Gap 5 (5-15); BUN 8 mg/dL (7-18); BUN/Creat Ratio 8.5 RATIO (10-20); Calcium,Total 9.6 mg/dL (8.5-10.1); Chloride 106 mmol/L (98-107); Creatinine, Serum 0.94 mg/dL (0.55-1.02); EST Glomerular Filtration Rate 71 mL/min (>60); Est Glom Filt Rate - Afr Amer 86 mL/min (>60); Estimated Creatinine Clearance 68.44 ml/min; Glucose 83 mg/dL (74-106); Potassium 3.2 mmol/L (3.5-5.1); Sodium Level 140 mmol/L (136-145)
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
[2020-06-24] MEDS: Amox/Clavulanate 875 MG Tablet PO (11:44)
[2020-06-24 11:47] LABS: Internal QC Validated? YES +Cl - CLEAR BKGD; Pregnancy, Serum, hCG Quali. NEGATIVE Negative
[2020-06-24 11:51] LABS: Alcohol, Blood (Medical)-Serum < 3.0 mg/dL
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
--- NOTE | 2020-06-24 12:30 | CM.ED ---
SOCIAL WORK Call to [facility] to discuss referral. Per [facility] intake, does have female bed available. Informed still awaiting UA-tox screen. Referral faxed. Will fax UA results once received. Gary Franks MSW, BRICKLAYER SEWER
[2020-06-24 13:37] LABS: Amphetamine Urine VISTA POSITIVE (<1000 ng/mL); Barbiturate Urine VISTA NEGATIVE (< 200 ng/mL); Benzodiazepine Urine VISTA NEGATIVE (< 200 ng/mL); Cocaine Urine VISTA NEGATIVE (< 300 ng/mL); Ecstacy Urine VISTA POSITIVE (< 500 ng/mL); Methadone Urine VISTA NEGATIVE (< 300 ng/mL); PCP Urine VISTA NEGATIVE (< 25 ng/mL); THC Urine VISTA POSITIVE (< 50 ng/mL); Vista UDS pH Range 6
--- NOTE | 2020-06-24 13:46 | CM.ED ---
SOCIAL WORK Tox screen results faxed to [facility]. Awaiting acceptance at this time. Gary Franks, SCIENTIFIC INFORMATICS PROJECT LEADER, WREATH INSPECTOR
--- NOTE | 2020-06-24 14:30 | CM.ED ---
SOCIAL WORK Spoke with Leticia at [facility]. Patient accepted to the Dual Diagnosis Unit by Dr. Ugalde. Nurse to call report to option 1. [facility] to set up transport. Copy of [place] [facility] faxed per request. Gary Franks, PARACHUTE FOLDER, HOTEL FRONT OFFICE MANAGER
--- NOTE | 2020-06-24 14:40 | ED.DEP ---
ED Disposition - Plan for ED Patient: Prescriptions: Amox/Clavulanate Tablet [Augmentin Tablet] 875 mg PO Q12H #14 tab Prescription Printed Referrals: Andrea Trent MD [Primary Care Provider] -
--- NOTE | 2020-06-24 14:47 | NURSING ---
CALLED [facility] FOR [facility]. ETA IS ABOUT 90 MIN
[2020-06-24] MEDS: LORazepam 1 MG Tablet PO (16:00)
== END 2020-06-24 16:57 ==
LOC: ED 11:49
PROVIDERS: Emergency Provider Emergency Medicine; PCP Family Medicine
DX: S51.812A Laceration without foreign body of left forearm, initial encounter (principal); S61.451A Open bite of right hand, initial encounter; R45.851 Suicidal ideations; F32.9 Major depressive disorder, single episode, unspecified; F41.9 Anxiety disorder, unspecified; Z79.899 Other long term (current) drug therapy; Z72.0 Tobacco use; Y04.1XXA Assault by human bite, initial encounter; Y93.89 Activity, other specified; Y92.89 Other specified places as the place of occurrence of the external cause; Y99.8 Other external cause status
CPT/HCPCS: 36415; 80048; 80307; 80320; 84703; 85025; 99285; G0480

== ENCOUNTER 2020-11-07 08:00 | Emergency (ER) | payer MEDICAID, SELFPAY ==
[2020-06-24 10:04] VITALS: BMI 37.1
[2020-11-07 08:05] VITALS: BP 158/105; PULSE 112; RESP 17; TEMP 36.5; O2SAT 97; BMI 36.3
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
--- NOTE | 2020-11-07 08:29 | ED.RN ---
zay pd at bedside.
[2020-11-07] MEDS: Doxycycline 100 MG CAPSULE PO (08:34)
[2020-11-07] MEDS: HYDROcodone Bitartrate/Apap 5/325 Tablet PO (08:34)
[2020-11-07] MEDS: Naproxen 500 MG Tablet PO (08:35)
[2020-11-07] MEDS: Lidocaine 1% (20 ml mdv) 20 ML Vial INFILT (08:35)
[2020-11-07 09:00] LABS: Bedside Glucose 92 mg/dL (70-110)
== END 2020-11-07 09:26 ==
LOC: ED 09:12
PROVIDERS: Emergency Provider Emergency Medicine; PCP Family Medicine
DX: L02.416 Cutaneous abscess of left lower limb (principal); F41.9 Anxiety disorder, unspecified; F43.10 Post-traumatic stress disorder, unspecified; Z79.899 Other long term (current) drug therapy; Z87.891 Personal history of nicotine dependence
CPT/HCPCS: 10060; 82962; 99283

== ENCOUNTER 2021-02-13 01:52 | Emergency (ER) | payer MEDICAID, SELFPAY ==
[2021-02-13 01:53] VITALS: BP 147/104; PULSE 92; RESP 18; TEMP 36.2; O2SAT 97; BMI 37.3
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
[2021-02-13] MEDS: Ibuprofen 400 MG Tablet 800 MG PO (02:10)
--- NOTE | 2021-02-13 02:42 | ED.DEP ---
ED Disposition - Plan for ED Patient: Disposition: Home or Assisted Living Instructions: ED Back Contusion Referrals: Andrea Trent MD [Primary Care Provider] - 1 Week if not improving Additional Instructions: Ice to your back and all sore areas. Heat to help relax the muscles. Motrin and Tylenol for pain. This should progressively improve. Follow-up with your doctor if not getting better.
[2021-02-13 02:47] VITALS: BP 142/60; PULSE 79; RESP 18; O2SAT 97
== END 2021-02-13 02:48 | disposition home or self-care (01) ==
PROVIDERS: Emergency Provider Emergency Medicine; PCP Family Medicine
DX: S30.0XXA Contusion of lower back and pelvis, initial encounter (principal); S40.022A Contusion of left upper arm, initial encounter; S40.021A Contusion of right upper arm, initial encounter; Z72.0 Tobacco use; Y04.2XXA Assault by strike against or bumped into by another person, initial encounter; Y93.89 Activity, other specified; Y92.89 Other specified places as the place of occurrence of the external cause; Y99.8 Other external cause status
CPT/HCPCS: 72100; 99283

== ENCOUNTER 2021-03-17 19:53 | Emergency (ER) | payer MEDICAID, SELFPAY ==
[2021-03-17 19:54] VITALS: BP 164/91; PULSE 99; RESP 18; TEMP 36.6; O2SAT 96; BMI 31.8
--- NOTE | 2021-03-17 20:57 | RAD_ITS ---
STUDY: X-RAY - RIGHT KNEE REASON FOR EXAM: Female, 35 years old. Injury/Pain TECHNIQUE: For view(s) of the knee. COMPARISON: None. FINDINGS: Normal visualized distal femur. Normal visualized proximal tibia and fibula. Normal proximal tibiofibular articulation. There is no demonstrated fracture. Normal medial femorotibial compartment. Normal lateral femorotibial compartment. Normal patellofemoral articulation. There is no demonstrated joint effusion. The soft tissue structures are unremarkable. RAD/Knee 4 or More Views IMPRESSION: Normal x-ray examination of the knee. Electronically Signed: Tristan Simental MD at 21:55 EDT , Service support ,
[2021-03-17] MEDS: hydrOXYzine PAM 25 MG Capsule PO (21:10)
--- NOTE | 2021-03-17 22:50 | EDS_ITS ---
HPI History of Present Illness Chief Complaint: Lower Extremity Injury Informant: patient Occured/Mechanism Mechanism/Context: Yes fall Onset/Context/Timing Onset: Today Context: Sudden Onset Timing: Continuous Quality of Pain: Burning Worsened by: Movement Relieved by: Nothing Associated Symptoms Associated Symptoms: Positive for Parasthesia; Negative for Weakness Narrative Narrative: Patient presents with right knee pain that began after a fall. Patient states she felt earlier today. Patient states she tripped and fell. Patient landed on the anterior aspect of her right knee. Patient describes her pain as burning. Patient states pain is worse with movement. Patient admits to some tingling around the abrasion. Patient denies any weakness. Patient denies any head injury or loss of consciousness. Patient denies any other injuries. [facility] Medical History Anxiety Depression Diabetes Hypertension PTSD (post-traumatic stress disorder) Smoker Substance abuse Home Medications escitalopram oxalate [Lexapro] 10 mg PO DAILY 03/17/21 [History Last Taken Unknown] hydroxyzine pamoate [Vistaril] 25 mg PO TID 03/17/21 [History Last Taken Unknown] lamotrigine [Lamictal] 100 mg PO BID 03/17/21 [History Last Taken Unknown] trazodone 50 mg PO QHS 03/17/21 [History Last Taken Unknown] Allergy/AdvReac Type Severity Reaction Status Date / Time egg Allergy Rash Verified 02/13/21 01:56 Surgical History (Updated 03/18/21 @ 01:[address] Arnav Winslow DO) History of bilateral tubal ligation History of cholecystectomy Social History Smoking Status: Current every day smoker ROS ROS ED Constitutional Constitutional ED: Denies chills or fever(s) Eyes Eyes: Denies blurry vision or change in vision ENT ENT ED: Denies rhinorrhea or sore throat Cardiovascular Cardiovascular: Denies chest pain or palpitations Respiratory/Chest Respiratory/Chest: Denies cough or dyspnea Gastrointestinal Gastrointestinal: Denies nausea or vomiting Genitourinary Genitourinary ED: Denies dysuria or hematuria Musculoskeletal Musculoskeletal: Denies back pain or neck pain Integumentary Reports Abrasions and rash Neurologic Neurologic: Reports headache(s) Allergic/Immunologic Allergic/Immunologic ED: Denies mouth swelling or urticaria EXAM Physical Exam Const Vital Signs: 03/17/21 19:54 03/17/21 23:12 Temperature 97.9 F Temperature Source Temporal Pulse Rate 99 92 Respiratory Rate 18 16 Blood Pressure 164/91 H 142/81 H Blood Pressure Mean 115 Pulse Ox 96 98 Oxygen Delivery Method Room Air Positive well nourished and well developed General Appearance ED: well developed HEENT Reports moist mucous membranes Neck full ROM and supple Extremity Extremity Narrative: There is tenderness and a superficial abrasion of the anterior aspect of the right knee. There is no bony crepitance or step-off. There is some mild tenderness over the patella. There is no effusion. Range of motion was limited in all motions of the right knee secondary to pain. Sensation was intact to light touch bilaterally in the lower extremities. Strength is 5/5 bilaterally lower extremities. Patient was able to ambulate without difficulty. Neuro oriented x3, CN's II-XII intact bilaterally, moves all extremities and no sensory deficits noted Sensorium / Orientation: alert Motor Exam: strength 5/5 throughout Skin Trauma: abrasion MDM MDM MDM Narrative Medical decision making narrative: X-rays of the right knee were obtained. There are 4 views. On my interpretation, there is no acute fracture. There is no dislocation. There is no soft tissue swelling. Radiologist also interpreted the x-rays and agrees. Bacitracin dressing was applied to the patient's abrasion. Patient was instructed to keep the area clean. Patient was instructed to follow-up with her primary care physician in 5 to 7 days. Patient was given a dose of Vistaril here for her anxiety. Patient was feeling better after this. Patient was instructed to return if worse in any way. Patient understood and was agreeable with the plan. All questions were answered. Radiography Diagnostic Testing: Radiology Impression Knee X-Ray 03/17/21 20:57 IMPRESSION: Normal x-ray examination of the knee. Electronically Signed: Tristan Simental MD at 21:55 EDT , Service support , Discharge Plan Triage Chief Complaint: Lower Extremity Injury ED Provider: Arnav Winslow Dx/Rx/DC Orders Clinical Impression: Contusion of right knee, initial encounter, Abrasion, right knee, initial encounter Instructions: ED Abrasion, ED Contusion, Lower Extremity Prescriptions: No Action trazodone 50 mg tablet 50 mg PO QHS RF: 0 lamotrigine [Lamictal] 100 mg tablet 100 mg PO BID RF: 0 hydroxyzine pamoate [Vistaril] 25 mg capsule 25 mg PO TID RF: 0 escitalopram oxalate [Lexapro] 10 mg Tablet 10 mg PO DAILY RF: 0 Primary Care Provider: Andrea Trent Referrals: Andrea Trent MD [Primary Care Provider] - 5-7 Days Disposition Disposition: Home, self care Discharge Date/Time: 03/17/21 23:14
[2021-03-17 23:12] VITALS: BP 142/81; PULSE 92; RESP 16; O2SAT 98
== END 2021-03-17 23:14 | disposition home or self-care (01) ==
PROVIDERS: Emergency Provider Emergency Medicine; PCP Family Medicine
DX: S80.211A Abrasion, right knee, initial encounter (principal); F32.9 Major depressive disorder, single episode, unspecified; E11.9 Type 2 diabetes mellitus without complications; I10 Essential (primary) hypertension; F43.10 Post-traumatic stress disorder, unspecified; F17.200 Nicotine dependence, unspecified, uncomplicated; Z79.899 Other long term (current) drug therapy; W01.0XXA Fall on same level from slipping, tripping and stumbling without subsequent striking against object, initial encounter; Y93.89 Activity, other specified; Y92.89 Other specified places as the place of occurrence of the external cause; Y99.8 Other external cause status
CPT/HCPCS: 73564; 99284; A4216

== ENCOUNTER 2021-03-18 03:19 | Emergency (ER) | payer MEDICAID, SELFPAY ==
[2021-03-17 19:54] VITALS: BMI 31.8
[2021-03-18 03:20] VITALS: BP 178/111; PULSE 96; RESP 14; TEMP 36.4; O2SAT 97; BMI 37.2
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
[2021-03-18 05:33] LABS: Absolute Lymphocyte Count 1.83 X10^3/uL (0.83-4.51); Absolute Neutrophil Count 2.5 X10^3/uL (2.0-7.7); Basophil# 0.05 X10^3/uL; Differential Indicated SCAN CRITERIA MET; Eosinophil# 0.27 X10^3/uL; Eosinophils% 5.2 % (0-5); Hematocrit 43.9 % (37-47); Hemoglobin 14.2 g/dL (12.0-15.0); Lymphocyte # 1.83 X10^3/ul (0.83-4.51); Lymphocyte % 35.3 % (19-41); Mean Corp Hgb Conc 32.3 g/dL (32-36); Mean Corpuscular Hgb 27.7 pg (27.0-32.0); Mean Corpuscular Volume 85.7 fL (81-99); Mean Platelet Vol. 9.4 fl (6.2-12.0); Monocyte# 0.49 X10^3/uL; Monocyte% 9.5 % (0-10); NRBC Flagged by Analyzer 0 % (0-5); Neutrophil # 2.53 X10^3/uL (2.7-7.7); Neutrophil % 48.8 % (47-70); POSITIVE MORPHOLOGY YES; Platelet Count 252 K/mm3 (150-450); RBC Distribution Width CV 13.8 % (11.6-14.6); RBC Distribution Width SD 43.3 fl (35.1-43.9); Red Blood Count 5.12 M/mm3 (4.2-5.4); White Blood Count 5.2 K/mm3 (4.4-11.0)
[2021-03-18 05:45] LABS: Alcohol, Blood (Medical)-Serum < 3.0 mg/dL
[2021-03-18 05:47] LABS: Internal QC Validated? YES +Cl - CLEAR BKGD; Pregnancy, Serum, hCG Quali. NEGATIVE Negative
[2021-03-18 05:49] LABS: ALB/GLOB Ratio 0.8 RATIO (0.9-2.4); AST(SGOT) 21 U/L (15-37); Alanine Aminotransfer ALT/SGPT 43 U/L (13-56); Albumin, Serum 3.2 g/dL (3.2-5.0); Alkaline Phosphatase 99 U/L (45-117); Anion Gap 6 (5-15); BUN 7 mg/dL (7-18); BUN/Creat Ratio 9.8 RATIO (10-20); Calcium,Total 8.8 mg/dL (8.5-10.1); Chloride 102 mmol/L (98-107); Creatinine, Serum 0.72 mg/dL (0.55-1.02); EST Glomerular Filtration Rate 98 mL/min (>60); Est Glom Filt Rate - Afr Amer 118 mL/min (>60); Globulin 3.8 g/dL (2.2-4.2); Glucose 102 mg/dL (74-106); Potassium 3.1 mmol/L (3.5-5.1); Sodium Level 139 mmol/L (136-145)
[2021-03-18 05:57] LABS: Amphetamine Urine VISTA POSITIVE (<1000 ng/mL); Barbiturate Urine VISTA NEGATIVE (< 200 ng/mL); Benzodiazepine Urine VISTA NEGATIVE (< 200 ng/mL); Cocaine Urine VISTA NEGATIVE (< 300 ng/mL); Ecstacy Urine VISTA POSITIVE (< 500 ng/mL); Methadone Urine VISTA NEGATIVE (< 300 ng/mL); PCP Urine VISTA NEGATIVE (< 25 ng/mL); THC Urine VISTA NEGATIVE (< 50 ng/mL); Vista UDS pH Range 6
--- NOTE | 2021-03-18 06:13 | ED.RN ---
CALLED CRISIS AND TOLD THEM THAT THE PATIENTS LABS WAS BACK AND THAT SHE WAS READY TO BE SEEN BY CRISIS
[2021-03-18 06:17] LABS: Differential Comment SCANNED
[2021-03-18 06:18] LABS: Atypical Lymphocyte 1+ %
[2021-03-18 08:08] VITALS: BP 139/57; PULSE 67; RESP 15; O2SAT 98
[2021-03-18] MEDS: Potassium Chloride Oral Tablet 20 MEQ 40 MEQ PO (08:08)
--- NOTE | 2021-03-18 09:22 | ED.RN ---
PT AMBULATED FROM ED USING THE BACK DOOR AND AMBULATED OUT THE FRONT ENTRANCE BY THE MAINSPRING REVERSE WINDER. CRISIS AND PHYSICIAN NOTIFIED.
== END 2021-03-18 11:25 | disposition left against medical advice (07) ==
PROVIDERS: Emergency Provider Emergency Medicine; PCP Family Medicine
DX: F32.9 Major depressive disorder, single episode, unspecified (principal); R45.851 Suicidal ideations; Z59.0 Homelessness; F17.210 Nicotine dependence, cigarettes, uncomplicated; E11.9 Type 2 diabetes mellitus without complications; I10 Essential (primary) hypertension; Z79.899 Other long term (current) drug therapy
CPT/HCPCS: 80053; 80307; 82077; 84703; 85025; 99285; J7030; A4216

== ENCOUNTER 2021-05-05 08:20 | Emergency (ER) | payer MEDICAID, SELFPAY ==
[2021-05-05] VITALS (7 sets, daily range): BP systolic 122–150; BP diastolic 87–89; PULSE 74–98; RESP 16–18; TEMP 36.6; O2SAT 98–100; BMI 34.7
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
--- NOTE | 2021-05-05 08:48 | ED.RN ---
PER DR LOWERY, NO SITTER NEEDED
[2021-05-05 08:56] LABS: Absolute Neutrophil Count 3.4 X10^3/uL (2.0-7.7); Basophil# 0.06 X10^3/uL; Basophil% 0.8 % (0-1); Eosinophils% 2.7 % (0-5); Hematocrit 46.7 % (37-47); Hemoglobin 14.5 g/dL (12.0-15.0); Lymphocyte % 45.3 % (19-41); Mean Corpuscular Hgb 26.6 pg (27.0-32.0); Mean Corpuscular Volume 85.7 fL (81-99); Mean Platelet Vol. 9.4 fl (6.2-12.0); Monocyte# 0.47 X10^3/uL; Monocyte% 6.3 % (0-10); NRBC Flagged by Analyzer 0 % (0-5); Neutrophil # 3.36 X10^3/uL (2.7-7.7); Neutrophil % 44.8 % (47-70); Platelet Count 253 K/mm3 (150-450); RBC Distribution Width CV 14.6 % (11.6-14.6); RBC Distribution Width SD 45.4 fl (35.1-43.9); Red Blood Count 5.45 M/mm3 (4.2-5.4); White Blood Count 7.5 K/mm3 (4.4-11.0)
[2021-05-05 09:07] LABS: ALB/GLOB Ratio 0.8 RATIO (0.9-2.4); AST(SGOT) 21 U/L (15-37); Alanine Aminotransfer ALT/SGPT 33 U/L (13-56); Albumin, Serum 3.3 g/dL (3.2-5.0); Alkaline Phosphatase 87 U/L (45-117); Anion Gap 2 (5-15); BUN 7 mg/dL (7-18); BUN/Creat Ratio 9.2 RATIO (10-20); Calcium,Total 8.6 mg/dL (8.5-10.1); Chloride 109 mmol/L (98-107); Creatinine, Serum 0.76 mg/dL (0.55-1.02); EST Glomerular Filtration Rate 91 mL/min (>60); Est Glom Filt Rate - Afr Amer 110 mL/min (>60); Estimated Creatinine Clearance 83.84 ml/min; Glucose 99 mg/dL (74-106); Potassium 3.5 mmol/L (3.5-5.1); Protein, Total 7.3 g/dL (6.4-8.2); Sodium Level 139 mmol/L (136-145)
[2021-05-05 09:20] LABS: Amphetamine Urine VISTA POSITIVE (<1000 ng/mL); Barbiturate Urine VISTA NEGATIVE (< 200 ng/mL); Benzodiazepine Urine VISTA NEGATIVE (< 200 ng/mL); Cocaine Urine VISTA NEGATIVE (< 300 ng/mL); Ecstacy Urine VISTA NEGATIVE (< 500 ng/mL); Methadone Urine VISTA NEGATIVE (< 300 ng/mL); PCP Urine VISTA NEGATIVE (< 25 ng/mL); THC Urine VISTA POSITIVE (< 50 ng/mL); Vista UDS pH Range 7
[2021-05-05 09:21] LABS: Internal QC Validated? YES +Cl - CLEAR BKGD; Pregnancy, Serum, hCG Quali. NEGATIVE Negative
[2021-05-05 09:23] LABS: Alcohol, Blood (Medical)-Serum < 3.0 mg/dL
--- NOTE | 2021-05-05 10:45 | ED.RN ---
PT WAS TALKING ON THE PHONE TO HER MOTHER. PT BEGAN PACING AROUND THE ROOM AND YELLING. THIS NURSE AND UGO RN WENT INTO THE ROOM TO TRY TO TALK TO THE PATIENT. PT YELLING AND RAISING HER VOICE. PT REQUESTING TO GO OUTSIDE. PT INFORMED THAT SHE CANNOT GO OUTSIDE ALSO INFORMED THAT SHE IS PINK SLIPPED. PT BEGAN GETTING LOUDER AND YELLING. PT GOT UP AND CLOSE TO THE STAFF. PT ATTEMPTING TO WALK PAST THE STAFF. PT INSTRUCTED TO STAY IN THE ROOM. PT CONTINUES TO YELL AND SCREAM. PT STATES IT IS MY RIGHT TO KILL MYSELF. IT'S MY RIGHT A HUMAN TO KILL MYSELF. PT AGAIN INFORMED THAT SHE CAN NOT LEAVE. OFFICER VIJAY GURROLA, IN THE ROOM TRYING TO TALK WITH THE PATIENT
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
[2021-05-05] MEDS: LORazepam 0.5 MG Tablet PO (12:07)
--- NOTE | 2021-05-05 14:07 | NURSING ---
ACCEPTED AT [facility]. NOT TO ARRIVE BEFORE 1630 TO 1700
--- NOTE | 2021-05-05 14:11 | CM.ED ---
LOBO Note SW called [facility] and made referral. LOBO faxed referral information to [facility]. Patient's mother called and reported she was going to have someone bring a carton of cigarrettes for patient. LOBO received a call from Mayra at [facility]. Mayra said that Dr. Dent had accepted patient. She said that [facility] allows smoking. She reports RN to RN be called to [phone]. [facility] is requesting patient not be placed at their facility till after 4:30-5:00pm completed pink slip. signed transfer form. LOBO updated patient about the plan for her. SW asked if this insurance underwriter could call and update patient's mother regarding her placement. Patient said that staff is calling patient's mother for clothing. SW spoke to lithopone charger and she had called and left message for patient's mother. Plan: [facility] in [place] Gillian OLIVO
--- NOTE | 2021-05-05 14:24 | NURSING ---
CALLED [facility], TO ARRIVE ABOUT 1545.
--- NOTE | 2021-05-05 15:10 | ED.RN ---
Report given to Cleo at [facility], this RN asked if it was ok if patient departed out ED in 10-15 minutes and she said that was ok.
== END 2021-05-05 15:30 ==
PROVIDERS: Emergency Provider Emergency Medicine; PCP Family Medicine
DX: S51.812A Laceration without foreign body of left forearm, initial encounter (principal); R45.851 Suicidal ideations; F32.9 Major depressive disorder, single episode, unspecified; F43.10 Post-traumatic stress disorder, unspecified; Z59.0 Homelessness; F17.210 Nicotine dependence, cigarettes, uncomplicated; Z79.899 Other long term (current) drug therapy; W26.9XXA Contact with unspecified sharp object(s), initial encounter; Y93.89 Activity, other specified; Y92.89 Other specified places as the place of occurrence of the external cause; Y99.8 Other external cause status
CPT/HCPCS: 80053; 80307; 82077; 84703; 85025; 87426; 99285

== ENCOUNTER 2021-06-22 00:31 | Emergency (ER) | payer MEDICAID, SELFPAY ==
[2021-05-05 08:21] VITALS: BMI 34.7
[2021-06-22 00:38] VITALS: BP 135/86; PULSE 138; RESP 18; TEMP 37.1; O2SAT 96; BMI 33.5
[2021-06-22 00:42] VITALS: BP 135/86; PULSE 136; RESP 18; TEMP 37.1; O2SAT 96
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
--- NOTE | 2021-06-22 01:12 | EKG12_ITS ---
Test Reason : DYSRHYTHMIA Blood Pressure : / mmHG Vent. Rate : 126 BPM Atrial Rate : 126 BPM P-R Int : 122 ms QRS Dur : 084 ms QT Int : 300 ms P-R-T Axes : 033 031 065 degrees QTc Int : 434 ms Sinus tachycardia Otherwise normal ECG Confirmed by YESY HUDSON, TIMOTEO ([id number]), digital editor SKY VALENZUELA ([id number]) on 06/22/2021 1:54:28 PM Referred By: OTONIEL Confirmed By:TIMOTEO HAYWARD MD
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
--- NOTE | 2021-06-22 01:24 | CT_ITS ---
STUDY: CT CERVICAL SPINE WITHOUT CONTRAST REASON FOR EXAM: Female, 35 years old. TRAUMA RADIATION DOSAGE (If Supplied By Facility): CTDIvol = ( 25.67 ) mGy, DLP = ( 437.42 ) mGycm TECHNIQUE: High resolution transaxial imaging was performed without contrast material. Sagittal and coronal images were reconstructed. Individualized dose optimization techniques were used for this CT. COMPARISON: None FINDINGS: Best seen on the coronal sequence, there is a nondisplaced avulsion fracture of the right occipital condyle, best seen on image 12. In addition, there appears to be a very subtle nondisplaced fracture of the left lateral mass extending to the transverse process and vertebral foramen of C1. Best seen on image 20. Remainder of the cervical spine appears within normal limits. No evidence of dens fracture. CT/Spine Cervical without Contras IMPRESSION: 1. Nondisplaced avulsion fracture of the right occipital condyle 2. Very subtle nondisplaced fracture of the left lateral mass extending into the transverse process and vertebral foramen of C1. N.B. : The above Results were Read Back by Daniel Bloom DO to Panda Tripathi DO, and understanding confirmed on 06/22/2021 03:01:11 (ET). Electronically Signed: Daniel Bloom DO at 3:02 EDT Tel , Service support ,
[2021-06-22] MEDS: 0.9% Normal Saline 1,000 ML 999 ML IV (01:31)
[2021-06-22] MEDS: Ondansetron 4 MG/2 ML Vial IV (01:32)
[2021-06-22] MEDS: Morphine 4 MG/ML Syringe IV (01:33)
[2021-06-22 01:37] LABS: Absolute Lymphocyte Count 1.82 X10^3/uL (0.83-4.51); Absolute Neutrophil Count 5.3 X10^3/uL (2.0-7.7); Basophil# 0.02 X10^3/uL; Basophil% 0.3 % (0-1); Eosinophil# 0.01 X10^3/uL; Eosinophils% 0.1 % (0-5); Hematocrit 47.8 % (37-47); Hemoglobin 15.3 g/dL (12.0-15.0); Lymphocyte # 1.82 X10^3/ul (0.83-4.51); Lymphocyte % 24.1 % (19-41); Mean Corpuscular Hgb 27.3 pg (27.0-32.0); Mean Corpuscular Volume 85.4 fL (81-99); Mean Platelet Vol. 9.8 fl (6.2-12.0); Monocyte# 0.39 X10^3/uL; Monocyte% 5.2 % (0-10); NRBC Flagged by Analyzer 0 % (0-5); Neutrophil # 5.26 X10^3/uL (2.7-7.7); Neutrophil % 69.8 % (47-70); Platelet Count 279 K/mm3 (150-450); RBC Distribution Width CV 14.6 % (11.6-14.6); RBC Distribution Width SD 45.5 fl (35.1-43.9); White Blood Count 7.5 K/mm3 (4.4-11.0)
[2021-06-22 01:45] LABS: Prothrombin Time (Protime)PT. 12.9 SECONDS (11.7-14.9)
[2021-06-22 01:50] LABS: Internal QC Validated? YES +Cl - CLEAR BKGD; Pregnancy, Serum, hCG Quali. NEGATIVE Negative
[2021-06-22 01:51] LABS: Alcohol, Blood (Medical)-Serum < 3.0 mg/dL
[2021-06-22 01:56] LABS: AST(SGOT) 28 U/L (15-37); Alanine Aminotransfer ALT/SGPT 37 U/L (13-56); Albumin, Serum 3.4 g/dL (3.2-5.0); Alkaline Phosphatase 72 U/L (45-117); Anion Gap 2 (5-15); BUN 12 mg/dL (7-18); BUN/Creat Ratio 13.7 RATIO (10-20); Bilirubin, Direct < 0.05 mg/dL (0.00-0.30); Calcium,Total 9.3 mg/dL (8.5-10.1); Chloride 108 mmol/L (98-107); Creatinine, Serum 0.88 mg/dL (0.55-1.02); EST Glomerular Filtration Rate 77 mL/min (>60); Est Glom Filt Rate - Afr Amer 93 mL/min (>60); Estimated Creatinine Clearance 72.41 ml/min; Globulin 4.2 g/dL (2.2-4.2); Glucose 112 mg/dL (74-106); Potassium 4.5 mmol/L (3.5-5.1); Protein, Total 7.6 g/dL (6.4-8.2); Sodium Level 141 mmol/L (136-145)
--- NOTE | 2021-06-22 02:00 | RAD_ITS ---
STUDY: X-RAY - LEFT HAND REASON FOR EXAM: Female, 35 years old. PAIN TECHNIQUE: 3 view(s) of the hand. COMPARISON: None. FINDINGS: Normal radiocarpal articulation. Normal distal radioulnar joint. Normal visualized carpal bones. Normal carpal articulations Normal carpometacarpal articulation of the thumb. Normal second through fifth carpometacarpal joints. Normal metacarpi. Normal metacarpophalangeal joint of the thumb. Normal interphalangeal joint of the thumb. Normal proximal and distal phalanges of the thumb. Normal metacarpophalangeal joints of the second through fifth fingers. Normal proximal and distal interphalangeal joints of the second through fifth fingers. Normal phalanges of the second through fifth fingers. The soft tissue structures are unremarkable. RAD/Hand Min 3 Views IMPRESSION: Normal x-ray examination of the hand. Electronically Signed: Daniel Bloom DO at 3:06 EDT Tel , Service support ,
--- NOTE | 2021-06-22 02:00 | RAD_ITS ---
STUDY: X-RAY - RIGHT HAND REASON FOR EXAM: Female, 35 years old. hand pain TECHNIQUE: 3 view(s) of the hand. COMPARISON: None. FINDINGS: Mildly displaced oblique fracture through the base of the fourth metacarpal. RAD/Hand Min 3 Views IMPRESSION: As above Electronically Signed: Daniel Bloom DO at 3:03 EDT Tel , Service support ,
[2021-06-22 02:33] LABS: Mucous, Urine 0 SEEN /hpf (<or=2+); Red Blood Cells-Urine 0 SEEN /hpf (0-5)
[2021-06-22 02:35] LABS: Color, Urine Yellow (Yellow); Glucose, Dipstick Normal (Normal); Ketone-Dipstick Negative (Negative); Leukocyte Esterase-Dipstick 25 /ul (Negative); Nitrite-Dipstick Negative (Negative); Occult Blood-Urine Negative /ul (Negative); Protein-Dipstick 30 mg/dl (Negative); Specific Gravity, Urine 1.015 (1.002-1.030); Urine Bilirubin Dipstick Negative (Negative); Urine Clarity Clear (Clear); Urine Urobilinogen Normal (Normal)
[2021-06-22 02:38] VITALS: BP 137/98; PULSE 125; RESP 16; O2SAT 100
[2021-06-22 02:42] LABS: Bacteria 1+ /hpf (None Seen); Hyaline Cast 0-5 SEEN /lpf (0-5); Squamous Epithelial Cells - UA 0-5 SEEN /hpf (5-10); White Blood Cells 0-5 SEEN /hpf (0-5)
[2021-06-22 02:48] LABS: Amphetamine Urine VISTA POSITIVE (<1000 ng/mL); Barbiturate Urine VISTA NEGATIVE (< 200 ng/mL); Benzodiazepine Urine VISTA NEGATIVE (< 200 ng/mL); Cocaine Urine VISTA NEGATIVE (< 300 ng/mL); Ecstacy Urine VISTA POSITIVE (< 500 ng/mL); Methadone Urine VISTA NEGATIVE (< 300 ng/mL); PCP Urine VISTA NEGATIVE (< 25 ng/mL); THC Urine VISTA NEGATIVE (< 50 ng/mL); Vista UDS pH Range 4
[2021-06-22] MEDS: fentaNYL 100 MCG/2 ML Ampul 25 MCG IV (03:15)
--- NOTE | 2021-06-22 03:25 | ED.RN ---
ATTEMPTED TO CALL REPORT TO [facility], NO ANSWER
== END 2021-06-22 04:00 | disposition short-term general hospital (02) ==
LOC: ED 01:12
PROVIDERS: Emergency Provider Student in an Organized Health Care Education/Training Program; PCP Family Medicine
DX: S02.80XA Fracture of other specified skull and facial bones, unspecified side, initial encounter for closed fracture (principal); S00.83XA Contusion of other part of head, initial encounter; S12.000A Unspecified displaced fracture of first cervical vertebra, initial encounter for closed fracture; S36.031A Moderate laceration of spleen, initial encounter; K66.1 Hemoperitoneum; S60.221A Contusion of right hand, initial encounter; S60.222A Contusion of left hand, initial encounter; S02.113A Unspecified occipital condyle fracture, initial encounter for closed fracture; F17.210 Nicotine dependence, cigarettes, uncomplicated; V19.9XXA Pedal cyclist (driver) (passenger) injured in unspecified traffic accident, initial encounter; Z86.16 Personal history of COVID-19; Z59.0 Homelessness
CPT/HCPCS: 70450; 70486; 71260; 72125; 73130; 74177; 80048; 80076; 80307; 81001; 82077; 84703; 85025; 85610; 93005; 96361; 96374; 96375; 99285; J7030; Q9967; A4216; J2405

== ENCOUNTER 2021-07-05 01:46 | Emergency (ER) | payer MEDICAID, SELFPAY ==
[2021-07-05] VITALS (8 sets, daily range): BP systolic 125–156; BP diastolic 71–93; PULSE 62–92; RESP 14–18; TEMP 36.6; O2SAT 97–100; BMI 32.7
--- NOTE | 2021-07-05 02:43 | EKG12_ITS ---
Test Reason : [facility] Blood Pressure : / mmHG Vent. Rate : 080 BPM Atrial Rate : 080 BPM P-R Int : 138 ms QRS Dur : 086 ms QT Int : 410 ms P-R-T Axes : 017 061 043 degrees QTc Int : 472 ms Normal sinus rhythm Normal ECG Confirmed by ELEANOR HUDSON, LESLEY ([id number]), form tamping machine operator SKY VALENZUELA ([id number]) on 07/06/2021 9:51:36 AM Referred By: Confirmed By:LESLEY WEBSTER MD
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
[2021-07-05 02:54] LABS: Absolute Lymphocyte Count 2.32 X10^3/uL (0.83-4.51); Absolute Neutrophil Count 2.3 X10^3/uL (2.0-7.7); Basophil# 0.04 X10^3/uL; Basophil% 0.7 % (0-1); Eosinophil# 0.24 X10^3/uL; Eosinophils% 4.4 % (0-5); Hematocrit 41.1 % (37-47); Hemoglobin 12.8 g/dL (12.0-15.0); Lymphocyte # 2.32 X10^3/ul (0.83-4.51); Lymphocyte % 42.4 % (19-41); Mean Corp Hgb Conc 31.1 g/dL (32-36); Mean Corpuscular Hgb 27.4 pg (27.0-32.0); Mean Platelet Vol. 9.6 fl (6.2-12.0); Monocyte# 0.54 X10^3/uL; Monocyte% 9.9 % (0-10); NRBC Flagged by Analyzer 0 % (0-5); Neutrophil # 2.32 X10^3/uL (2.7-7.7); Neutrophil % 42.4 % (47-70); Platelet Count 382 K/mm3 (150-450); RBC Distribution Width CV 15.2 % (11.6-14.6); RBC Distribution Width SD 48.3 fl (35.1-43.9); Red Blood Count 4.67 M/mm3 (4.2-5.4); White Blood Count 5.5 K/mm3 (4.4-11.0)
[2021-07-05 03:02] LABS: Internal QC Validated? YES +Cl - CLEAR BKGD; Pregnancy, Serum, hCG Quali. NEGATIVE Negative
[2021-07-05 03:06] LABS: Alcohol, Blood (Medical)-Serum < 3.0 mg/dL
[2021-07-05 03:09] LABS: ALB/GLOB Ratio 0.8 RATIO (0.9-2.4); AST(SGOT) 18 U/L (15-37); Alanine Aminotransfer ALT/SGPT 32 U/L (13-56); Albumin, Serum 3.3 g/dL (3.2-5.0); Alkaline Phosphatase 87 U/L (45-117); Anion Gap 4 (5-15); BUN 13 mg/dL (7-18); BUN/Creat Ratio 17.6 RATIO (10-20); Calcium,Total 8.9 mg/dL (8.5-10.1); Chloride 111 mmol/L (98-107); Creatinine, Serum 0.74 mg/dL (0.55-1.02); EST Glomerular Filtration Rate 94 mL/min (>60); Est Glom Filt Rate - Afr Amer 113 mL/min (>60); Globulin 4.3 g/dL (2.2-4.2); Glucose 105 mg/dL (74-106); Potassium 3.4 mmol/L (3.5-5.1); Protein, Total 7.6 g/dL (6.4-8.2); Sodium Level 143 mmol/L (136-145)
[2021-07-05] MEDS: Acetaminophen 500 MG Tablet 1000 MG PO (03:17)
[2021-07-05 06:58] LABS: Amphetamine Urine VISTA POSITIVE (<1000 ng/mL); Barbiturate Urine VISTA NEGATIVE (< 200 ng/mL); Benzodiazepine Urine VISTA NEGATIVE (< 200 ng/mL); Cocaine Urine VISTA NEGATIVE (< 300 ng/mL); Ecstacy Urine VISTA POSITIVE (< 500 ng/mL); Methadone Urine VISTA NEGATIVE (< 300 ng/mL); PCP Urine VISTA NEGATIVE (< 25 ng/mL); THC Urine VISTA POSITIVE (< 50 ng/mL); Vista UDS pH Range 5
--- NOTE | 2021-07-05 07:57 | ED.RN ---
CRISIS AWARE PT NEEDS TO BE EVALUATED; FAXED CHART TO CRISIS FOR REVIEW; SPOKE WITH GAY ANSWERING SERVICE
[2021-07-05] MEDS: Magnesium Hydroxide 30 ML UDC PO (11:33)
--- NOTE | 2021-07-05 12:34 | CM.ED ---
LOBO Note LOBO [facility]. Patient is being referred to [facility] 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 Plan: inpatient psych Gillian OLIVO
--- NOTE | 2021-07-05 13:02 | ED.RN ---
ATTEMPTED TO CALL REPORT X 2.. WAS TRANSFERED TO THE WRONG DEPARTMENT THE FIRST TI,ME AFTER BEING ON HOLD FOR 9 MIN. THE SECOND TIME WAS PUT ON HOLD FOR 12 MIN.
[2021-07-07 20:52] LABS: Lamotrigine (Lamictal) Level 10.2 ug/mL (2.0-20.0)
== END 2021-07-05 13:18 ==
LOC: ED 04:03
PROVIDERS: Emergency Provider Emergency Medicine; PCP Family Medicine
DX: R45.851 Suicidal ideations (principal); F41.9 Anxiety disorder, unspecified; F32.9 Major depressive disorder, single episode, unspecified; F43.10 Post-traumatic stress disorder, unspecified; E11.9 Type 2 diabetes mellitus without complications; I10 Essential (primary) hypertension; Z59.0 Homelessness; F17.210 Nicotine dependence, cigarettes, uncomplicated; Z79.899 Other long term (current) drug therapy
CPT/HCPCS: 36415; 80053; 80307; 82077; 82542; 84703; 85025; 87426; 93005; 99284

== ENCOUNTER 2021-07-15 19:37 | Emergency (ER) | payer MEDICAID, SELFPAY ==
[2021-07-15 19:38] VITALS: BP 165/90; PULSE 118; RESP 16; TEMP 36.7; O2SAT 98; BMI 34.5
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
--- NOTE | 2021-07-15 21:17 | RAD_ITS ---
EXAM: XR Face Complete, 3 or More Views CLINICAL INDICATION: 35 years old, Female; Pain to palpation zygomatic arch left TECHNIQUE: Frontal, lateral and oblique views of the face. This report was created using [employer] report generation technology. COMPARISON: None. FINDINGS: Bones/joints: Unremarkable. No displaced fracture. No subluxation. No sclerotic or destructive changes observed. Sinuses: No acute findings. Soft tissues: Unremarkable. No soft tissue swelling or gas. No radiopaque foreign body. RAD/Facial Bones min 3 Views IMPRESSION: Negative facial bone series. ASSESSMENT: NEGATIVE report - No abnormal findings. Electronically Signed: Charles Denton MD at 21:34 EDT Tel , Service support ,
== END 2021-07-15 22:09 | disposition home or self-care (01) ==
PROVIDERS: Emergency Provider Emergency Medicine; PCP Family Medicine
DX: S00.83XA Contusion of other part of head, initial encounter (principal); E11.9 Type 2 diabetes mellitus without complications; I10 Essential (primary) hypertension; F17.210 Nicotine dependence, cigarettes, uncomplicated; E66.9 Obesity, unspecified; V18.0XXA Pedal cycle driver injured in noncollision transport accident in nontraffic accident, initial encounter; Y93.55 Activity, bike riding; Y92.89 Other specified places as the place of occurrence of the external cause; Y99.8 Other external cause status
CPT/HCPCS: 70150; 99282

== ENCOUNTER 2021-07-23 13:22 | Emergency (ER) | payer MEDICAID, SELFPAY ==
[2021-07-23 13:22] VITALS: BP 139/89; PULSE 99; RESP 20; TEMP 36.9; O2SAT 100; BMI 35.0
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
--- NOTE | 2021-07-23 15:05 | RAD_ITS ---
STUDY: X-RAY CHEST REASON FOR EXAM: Female, 35 years old. pleuritc L upper back pain TECHNIQUE: Frontal portable view of the chest COMPARISON: 18 December 2018 FINDINGS: The lungs are clear and expanded. There is no demonstrated pleural abnormality. Normal size heart. Normal mediastinum and jj. Normal visualized pulmonary arteries. Normal visualized aortic arch and descending thoracic aorta. Normal visualized thoracic spine. Normal visualized ribs, clavicles, and shoulders. There is no demonstrated abnormality of the visualized soft tissue structures of the upper abdomen. RAD/Chest 1 View (Portable) IMPRESSION: Normal x-ray examination of the chest. Electronically Signed: Roseline Thornton MD at 15:36 EDT Tel , Service support ,
[2021-07-23] MEDS: Ketorolac 60 MG/2 ML Vial IM (15:14)
[2021-07-23] MEDS: COVID-19 VACC, MRNA(PFIZER)/PF 30 MCG/0.3 ML SYRINGE IM (16:35)
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
== END 2021-07-23 17:05 | disposition home or self-care (01) ==
PROVIDERS: Emergency Provider Emergency Medicine; PCP Family Medicine
DX: S29.012A Strain of muscle and tendon of back wall of thorax, initial encounter (principal); F17.210 Nicotine dependence, cigarettes, uncomplicated; X58.XXXA Exposure to other specified factors, initial encounter; Z59.0 Homelessness; Z23 Encounter for immunization
CPT/HCPCS: 71045; 91300; 96372; 99282

== ENCOUNTER 2021-07-31 21:43 | Emergency (ER) | payer MEDICAID, SELFPAY ==
[2021-07-31 21:50] VITALS: BP 149/89; PULSE 104; RESP 19; TEMP 36.3; O2SAT 96; BMI 28.3
[2021-07-31 23:04] LABS: Absolute Lymphocyte Count 3.15 X10^3/uL (0.83-4.51); Absolute Neutrophil Count 4.2 X10^3/uL (2.0-7.7); Basophil# 0.05 X10^3/uL; Basophil% 0.6 % (0-1); Eosinophil# 0.23 X10^3/uL; Eosinophils% 2.8 % (0-5); Hematocrit 41.1 % (37-47); Hemoglobin 13.4 g/dL (12.0-15.0); Lymphocyte # 3.15 X10^3/ul (0.83-4.51); Lymphocyte % 38.4 % (19-41); Mean Corp Hgb Conc 32.6 g/dL (32-36); Mean Corpuscular Volume 85.8 fL (81-99); Mean Platelet Vol. 9.4 fl (6.2-12.0); Monocyte# 0.55 X10^3/uL; Monocyte% 6.7 % (0-10); NRBC Flagged by Analyzer 0 % (0-5); Neutrophil % 51.3 % (47-70); Platelet Count 342 K/mm3 (150-450); RBC Distribution Width CV 15.5 % (11.6-14.6); RBC Distribution Width SD 48.4 fl (35.1-43.9); Red Blood Count 4.79 M/mm3 (4.2-5.4); White Blood Count 8.2 K/mm3 (4.4-11.0)
[2021-07-31 23:13] LABS: Anion Gap 6 (5-15); BUN 10 mg/dL (7-18); BUN/Creat Ratio 17.6 RATIO (10-20); Chloride 107 mmol/L (98-107); Creatinine, Serum 0.57 mg/dL (0.55-1.02); EST Glomerular Filtration Rate 127 mL/min (>60); Est Glom Filt Rate - Afr Amer 153 mL/min (>60); Estimated Creatinine Clearance 111.78 ml/min; Glucose 124 mg/dL (74-106); Potassium 2.9 mmol/L (3.5-5.1); Sodium Level 140 mmol/L (136-145)
[2021-07-31] MEDS: Lidocaine 1% /Epi 1:100 (20ml) 20 ML Vial INFILT (23:31)
[2021-07-31 23:32] LABS: Internal QC Validated? YES +Cl - CLEAR BKGD; Pregnancy, Serum, hCG Quali. NEGATIVE Negative
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
[2021-08-01] MEDS: Potassium Chloride Oral Tablet 20 MEQ 60 MEQ PO (00:17)
[2021-08-01 01:55] VITALS: BP 123/89; PULSE 88; RESP 16; O2SAT 97
--- NOTE | 2021-08-01 02:00 | ED.RN ---
CRISIS PAGED TO EVALUATE PATIENT
[2021-08-01 02:07] LABS: Amphetamine Urine VISTA POSITIVE (<1000 ng/mL); Barbiturate Urine VISTA NEGATIVE (< 200 ng/mL); Benzodiazepine Urine VISTA NEGATIVE (< 200 ng/mL); Cocaine Urine VISTA NEGATIVE (< 300 ng/mL); Ecstacy Urine VISTA POSITIVE (< 500 ng/mL); Methadone Urine VISTA NEGATIVE (< 300 ng/mL); PCP Urine VISTA NEGATIVE (< 25 ng/mL); THC Urine VISTA NEGATIVE (< 50 ng/mL); Vista UDS pH Range 4
[2021-08-01 04:11] VITALS: BP 128/81; PULSE 87; RESP 18; O2SAT 99
== END 2021-08-01 05:27 | disposition home or self-care (01) ==
PROVIDERS: Emergency Provider Student in an Organized Health Care Education/Training Program; PCP Family Medicine
DX: S61.512A Laceration without foreign body of left wrist, initial encounter (principal); E11.9 Type 2 diabetes mellitus without complications; I10 Essential (primary) hypertension; F17.210 Nicotine dependence, cigarettes, uncomplicated; E66.9 Obesity, unspecified; X78.1XXA Intentional self-harm by knife, initial encounter; Y93.89 Activity, other specified; Y92.89 Other specified places as the place of occurrence of the external cause; Y99.8 Other external cause status
CPT/HCPCS: 12002; 36415; 80048; 80307; 82077; 84703; 85025; 99285

== ENCOUNTER 2022-02-12 21:22 | Emergency (ER) | payer MEDICAID, SELFPAY ==
[2022-02-12 21:23] VITALS: BP 158/80; PULSE 106; RESP 16; TEMP 36.4; O2SAT 96; BMI 37.2
[2022-02-12] MEDS: LORazepam 1 MG Tablet PO (22:05)
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
[2022-02-12 22:23] VITALS: RESP 18
[2022-02-12 23:00] VITALS: RESP 20
[2022-02-13] VITALS: RESP 20
[2022-02-13 01:00] VITALS: RESP 20
[2022-02-13 01:25] VITALS: BP 135/80; PULSE 89; RESP 18; O2SAT 97
== END 2022-02-13 01:35 | disposition home or self-care (01) ==
PROVIDERS: Emergency Provider Emergency Medicine; PCP Family Medicine; Visit Provider Emergency Medicine
DX: F41.9 Anxiety disorder, unspecified (principal); X78.9XXA Intentional self-harm by unspecified sharp object, initial encounter; E11.9 Type 2 diabetes mellitus without complications; F17.210 Nicotine dependence, cigarettes, uncomplicated; I10 Essential (primary) hypertension; F43.10 Post-traumatic stress disorder, unspecified; S61.512A Laceration without foreign body of left wrist, initial encounter; Y93.9 Activity, unspecified; Y99.9 Unspecified external cause status; Y92.9 Unspecified place or not applicable
CPT/HCPCS: 99283

== ENCOUNTER 2022-06-27 18:03 | Emergency (ER) | payer MEDICAID, SELFPAY ==
[2022-06-27 18:04] VITALS: BP 148/95; PULSE 97; RESP 16; TEMP 36.3; O2SAT 98; BMI 41.3
--- NOTE | 2022-06-27 19:30 | ED.RN ---
PT NOT IN ER WAITING ROOM WHEN CALLED X 2 ATTEMPTS. LWBS [id number]
== END 2022-06-27 19:15 | disposition left against medical advice (07) ==
LOC: ED 19:42
PROVIDERS: PCP Family Medicine
DX: Z53.21 Procedure and treatment not carried out due to patient leaving prior to being seen by health care provider (principal)

== ENCOUNTER 2022-07-15 12:51 | Emergency (ER) | payer MEDICAID, SELFPAY ==
[2022-07-15 12:52] VITALS: BP 165/99; PULSE 104; RESP 18; TEMP 36.7; O2SAT 96; BMI 45.9
--- NOTE | 2022-07-15 13:05 | RAD_ITS ---
STUDY: X-RAY - RIGHT HAND REASON FOR EXAM: Female, 36 years old. PAIN TECHNIQUE: 3 view(s) of the hand. COMPARISON: 06/22/2021 FINDINGS: Normal radiocarpal articulation. Normal distal radioulnar joint. Normal visualized carpal bones. Normal carpal articulations Normal carpometacarpal articulation of the thumb. Normal second through fifth carpometacarpal joints. Acute comminuted impacted fracture the base of the fifth metacarpal bone with extension into the carpometacarpal joint. Healed fracture the proximal shaft of the fourth metacarpal bone. Normal metacarpophalangeal joint of the thumb. Normal interphalangeal joint of the thumb. Normal proximal and distal phalanges of the thumb. Normal metacarpophalangeal joints of the second through fifth fingers. Normal proximal and distal interphalangeal joints of the second through fifth fingers. Normal phalanges of the second through fifth fingers. The soft tissue structures are unremarkable. RAD/Hand Min 3 Views IMPRESSION: Acute comminuted impacted fracture the base of the fifth metacarpal bone. Electronically Signed: Ozzy Allison MD at 13:18 EDT ,
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
[2022-07-15 14:26] LABS: Bedside Glucose 169 mg/dL (74-106)
[2022-07-15 14:35] VITALS: RESP 18
== END 2022-07-15 14:36 | disposition home or self-care (01) ==
LOC: ED 14:35
PROVIDERS: Emergency Provider Emergency Medicine; PCP Family Medicine; Visit Provider Emergency Medicine
DX: S62.316A Displaced fracture of base of fifth metacarpal bone, right hand, initial encounter for closed fracture (principal); E11.65 Type 2 diabetes mellitus with hyperglycemia; F17.210 Nicotine dependence, cigarettes, uncomplicated; I10 Essential (primary) hypertension; X58.XXXA Exposure to other specified factors, initial encounter
CPT/HCPCS: 73130; 82962; 99282

== ENCOUNTER 2022-09-25 02:11 | Emergency (ER) | payer MEDICAID, SELFPAY ==
[2022-09-25 02:13] VITALS: BP 183/118; PULSE 100; RESP 15; TEMP 36.4; O2SAT 97; BMI 38.4
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
[2022-09-25 03:23] VITALS: RESP 15
[2022-09-25 06:46] VITALS: BP 133/81; PULSE 89; RESP 15; O2SAT 98
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
== END 2022-09-25 07:35 | disposition home or self-care (01) ==
PROVIDERS: Emergency Provider Emergency Medicine; PCP Family Medicine; Visit Provider Emergency Medicine
DX: Z59.00 Homelessness unspecified (principal); E11.9 Type 2 diabetes mellitus without complications; I10 Essential (primary) hypertension; F17.210 Nicotine dependence, cigarettes, uncomplicated; F41.9 Anxiety disorder, unspecified
CPT/HCPCS: 99283

== ENCOUNTER 2022-09-30 10:03 | Emergency (ER) | payer MEDICAID, SELFPAY ==
[2022-09-30] VITALS (7 sets, daily range): BP systolic 131–177; BP diastolic 83–137; PULSE 16–108; RESP 16–28; TEMP 36.6; O2SAT 97–99; BMI 39.2
[2022-09-30] MEDS: Ziprasidone IM 20 MG/ML VIAL IM (10:12)
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
--- NOTE | 2022-09-30 10:31 | ED.RN ---
Patient irrational at time of arrival, denies wanting to self harm or homicidal thoughts. Patient screams help me, without any obvious signs of immediate danger.
[2022-09-30 12:20] LABS: Absolute Lymphocyte Count 2.22 X10^3/uL (0.83-4.51); Absolute Neutrophil Count 5.7 X10^3/uL (2.0-7.7); Basophil# 0.04 X10^3/uL; Basophil% 0.5 % (0-1); Eosinophil# 0.09 X10^3/uL; Hematocrit 45.4 % (37-47); Lymphocyte # 2.22 X10^3/ul (0.83-4.51); Lymphocyte % 25.5 % (19-41); Mean Corpuscular Hgb 29.4 pg (27.0-32.0); Mean Corpuscular Volume 88.8 fL (81-99); Mean Platelet Vol. 10.1 fl (6.2-12.0); Monocyte# 0.58 X10^3/uL; Monocyte% 6.7 % (0-10); NRBC Flagged by Analyzer 0 % (0-5); Neutrophil # 5.74 X10^3/uL (2.7-7.7); Platelet Count 285 K/mm3 (150-450); RBC Distribution Width CV 13.2 % (11.6-14.6); Red Blood Count 5.11 M/mm3 (4.2-5.4); White Blood Count 8.7 K/mm3 (4.4-11.0)
[2022-09-30 12:28] LABS: Internal QC Validated? YES +Cl - CLEAR BKGD; Pregnancy, Serum, hCG Quali. NEGATIVE Negative
[2022-09-30 12:36] LABS: ALB/GLOB Ratio 0.9 RATIO (0.9-2.4); AST(SGOT) 17 U/L (15-37); Alanine Aminotransfer ALT/SGPT 43 U/L (13-56); Albumin, Serum 3.2 g/dL (3.2-5.0); Alkaline Phosphatase 70 U/L (45-117); Anion Gap 6 (5-15); BUN 5 mg/dL (7-18); BUN/Creat Ratio 6.8 RATIO (10-20); Calcium,Total 8.8 mg/dL (8.5-10.1); Chloride 107 mmol/L (98-107); Creatinine, Serum 0.73 mg/dL (0.55-1.02); EST Glomerular Filtration Rate 94 mL/min (>60); Est Glom Filt Rate - Afr Amer 114 mL/min (>60); Estimated Creatinine Clearance 94.02 ml/min; Globulin 3.6 g/dL (2.2-4.2); Glucose 115 mg/dL (74-106); Potassium 3.1 mmol/L (3.5-5.1); Protein, Total 6.8 g/dL (6.4-8.2); Sodium Level 141 mmol/L (136-145)
[2022-09-30 12:40] LABS: Alcohol, Blood (Medical)-Serum < 3.0 mg/dL
--- NOTE | 2022-09-30 16:24 | ED.RN ---
Patient continues to sleep, arouses easily, denies toileting or food at time. notified of need for urine sample.
--- NOTE | 2022-09-30 19:40 | ED.RN ---
assisted pt up to restroom pt unable to provide urine sample. Water given.
--- NOTE | 2022-09-30 21:30 | CM.ED ---
SW Note SW contacted Rehana from [facility] to report patient had not had assessment completed and was not medically clear. Leeann Goodman PLANT MANAGER, SARAH
[2022-09-30 22:19] LABS: Amphetamine Urine VISTA POSITIVE (<1000 ng/mL); Barbiturate Urine VISTA NEGATIVE (< 200 ng/mL); Benzodiazepine Urine VISTA NEGATIVE (< 200 ng/mL); Cocaine Urine VISTA NEGATIVE (< 300 ng/mL); Ecstacy Urine VISTA POSITIVE (< 500 ng/mL); Methadone Urine VISTA NEGATIVE (< 300 ng/mL); PCP Urine VISTA NEGATIVE (< 25 ng/mL); THC Urine VISTA POSITIVE (< 50 ng/mL); Vista UDS pH Range 6
--- NOTE | 2022-09-30 22:26 | ED.RN ---
CALLED CRISIS FOR CONSULT AT [phone]
[2022-10-01 00:34] VITALS: BP 134/76; PULSE 92; RESP 18; O2SAT 97
--- NOTE | 2022-10-02 12:27 | CM.ED ---
Per Mia,patient discharged home on safety plan per Crisis. Gillian OLIVO
== END 2022-10-01 00:46 | disposition home or self-care (01) ==
PROVIDERS: Emergency Provider Emergency Medicine; PCP Family Medicine; Visit Provider Emergency Medicine
DX: F43.10 Post-traumatic stress disorder, unspecified (principal); F23 Brief psychotic disorder; E11.9 Type 2 diabetes mellitus without complications; F17.210 Nicotine dependence, cigarettes, uncomplicated; I10 Essential (primary) hypertension; E66.9 Obesity, unspecified; Z59.00 Homelessness unspecified; F15.90 Other stimulant use, unspecified, uncomplicated; Z79.899 Other long term (current) drug therapy
CPT/HCPCS: 80053; 80307; 82077; 84703; 85025; 96372; 99284; J3486

== ENCOUNTER 2022-11-23 03:57 | Emergency (ER) | payer MEDICAID, SELFPAY ==
[2022-11-23 03:59] VITALS: BP 141/102; PULSE 128; RESP 18; TEMP 35.9; O2SAT 98; BMI 40.1
--- NOTE | 2022-11-23 04:00 | EKG12_ITS ---
Test Reason : DYSRHYTHMIA Blood Pressure : / mmHG Vent. Rate : 120 BPM Atrial Rate : 120 BPM P-R Int : 122 ms QRS Dur : 076 ms QT Int : 330 ms P-R-T Axes : 035 054 048 degrees QTc Int : 466 ms Sinus tachycardia Otherwise normal ECG Confirmed by YESY HUDSON, TIMOTEO ([id number]), newspaper photo editor SKY VALENZUELA ([id number]) on 11/27/2022 10:29:27 AM Referred By: JERRY Confirmed By:TIMOTEO HAYWARD MD
[2022-11-23] MEDS: LORazepam 2 MG/ML Syringe IM (04:59)
[2022-11-23 05:00] VITALS: BP 132/98; PULSE 102; RESP 11; O2SAT 98
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
[2022-11-23 07:37] VITALS: BP 127/81; PULSE 64; RESP 15; O2SAT 98
== END 2022-11-23 07:38 | disposition home or self-care (01) ==
PROVIDERS: Emergency Provider Emergency Medicine; PCP Family Medicine; Visit Provider Emergency Medicine
DX: F41.9 Anxiety disorder, unspecified (principal); E11.9 Type 2 diabetes mellitus without complications; F15.90 Other stimulant use, unspecified, uncomplicated; I10 Essential (primary) hypertension; F17.210 Nicotine dependence, cigarettes, uncomplicated; R00.0 Tachycardia, unspecified; R07.9 Chest pain, unspecified; F32.A Depression, unspecified
CPT/HCPCS: 93005; 96372; 99285

== ENCOUNTER 2023-01-31 13:00 | Inpatient (IN) | payer MEDICAID, SELFPAY ==
[2023-01-31] VITALS (15 sets, daily range): BP systolic 124–175; BP diastolic 62–98; PULSE 56–94; RESP 12–22; TEMP 34.6–37.1; O2SAT 92–100; BMI 36.6; BMI 37.2
--- NOTE | 2023-01-31 13:05 | RAD_ITS ---
STUDY: X-RAY CHEST REASON FOR EXAM: Female, 37 years old. Overdose. TECHNIQUE: Single AP portable view of the chest. COMPARISON: Comparison is made with prior study dated July 23, 2021. FINDINGS: EKG electrodes are seen. The lungs are clear and expanded. There is no demonstrated pleural abnormality. Normal size heart. Normal mediastinum and jj. Normal visualized pulmonary arteries. Normal visualized aortic arch and descending thoracic aorta. Normal visualized thoracic spine. Normal visualized ribs, clavicles, and shoulders. There is no demonstrated abnormality of the visualized soft tissue structures of the upper abdomen. RAD/Chest 1 View (Portable) IMPRESSION: Normal x-ray examination of the chest. Electronically Signed: Heraclio Thibodeaux MD at 14:00 EDT ,
--- NOTE | 2023-01-31 13:08 | EKG12_ITS ---
Test Reason : OD Blood Pressure : / mmHG Vent. Rate : 052 BPM Atrial Rate : 052 BPM P-R Int : 144 ms QRS Dur : 096 ms QT Int : 472 ms P-R-T Axes : -02 060 052 degrees QTc Int : 438 ms Sinus bradycardia with marked sinus arrhythmia Minimal voltage criteria for LVH, may be normal variant ( Sokolow-Gomez ) Borderline ECG Confirmed by RAJ HUDSON, ZEKE ([id number]), commissioning editor BERNIE ROMANO ([id number]) on 02/05/2023 6:59:45 AM Referred By: Confirmed By:PACO ANTHONY MD
--- NOTE | 2023-01-31 13:15 | CM.ED ---
Addendum entered by Leeann Goodman 01/31/23 14:15: SW met with MD Sinclair to inquire about patient's symptoms and need for assessment. MD Sinclair reports patient will be admitted to ICU and will need evaluation, likely tomorrow, once medically cleared. Plan: mental health evaluation once medically cleared SARAH Samayoa Original Note: Social Work Note SW was contacted by patient's mother, Amber, to provide SW with information. Amber reports the patient posted on Facebook she was going to commit suicide and overdosed on her insulin in an attempt to hurt herself. Amber reports the patient has attempted suicide in the past and struggles with drug use. Amber explained she has had full custody of the patient's children for over four years and the patient isn't allowed at her home. Amber reports the patient has been associated with [employer]. Amber also explained she and the patient have a very strained relationship and Amber is currently receiving [facility]osp[facility]. Amber reports she would like information regarding patient's care; SW explained information could only be shared if patient permits. Amber reported an understanding. SARAH Samayoa
[2023-01-31] MEDS: Dextrose 10%-Water 250 ML 100 ML IV ×3 (13:20→19:48)
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
[2023-01-31] MEDS: Ondansetron 4 MG/2 ML Vial IV (13:24)
[2023-01-31 13:31] LABS: Absolute Lymphocyte Count 4.07 X10^3/uL (0.83-4.51); Absolute Neutrophil Count 7.4 X10^3/uL (2.0-7.7); Basophil# 0.06 X10^3/uL; Basophil% 0.5 % (0-1); Eosinophil# 0.14 X10^3/uL; Eosinophils% 1.2 % (0-5); Hematocrit 46.5 % (37-47); Hemoglobin 15.1 g/dL (12.0-15.0); Lymphocyte # 4.07 X10^3/ul (0.83-4.51); Mean Corp Hgb Conc 32.5 g/dL (32-36); Mean Corpuscular Hgb 28.5 pg (27.0-32.0); Mean Corpuscular Volume 87.9 fL (81-99); Mean Platelet Vol. 10.2 fl (6.2-12.0); Monocyte# 0.26 X10^3/uL; Monocyte% 2.2 % (0-10); NRBC Flagged by Analyzer 0 % (0-5); Neutrophil # 7.39 X10^3/uL (2.7-7.7); Neutrophil % 61.8 % (47-70); Platelet Count 357 K/mm3 (150-450); RBC Distribution Width CV 12.5 % (11.6-14.6); RBC Distribution Width SD 40.4 fl (35.1-43.9); Red Blood Count 5.29 M/mm3 (4.2-5.4)
[2023-01-31 13:41] LABS: Bedside Glucose 97 mg/dL (74-106)
[2023-01-31 13:41] LABS: Mucous, Urine 0 SEEN /hpf (<or=2+); Red Blood Cells-Urine 0 SEEN /hpf (0-5); Squamous Epithelial Cells - UA 0 SEEN /hpf (5-10); White Blood Cells 0 SEEN /hpf (0-5)
--- NOTE | 2023-01-31 13:51 | ED.RN ---
Sitter at bedside. Patient is medically unstable. Per charge nurse medical equipment left in patient room.
[2023-01-31 13:52] LABS: CPK Total, Creatine Kinase 66 U/L (26-192); Troponin-I HS 9 pg/mL (3.0-54.0)
[2023-01-31 13:53] LABS: Color, Urine Yellow (Yellow); Glucose, Dipstick 100 mg/dl (Normal); Ketone-Dipstick 5 mg/dl (Negative); Leukocyte Esterase-Dipstick 500 /ul (Negative); Nitrite-Dipstick Positive (Negative); Occult Blood-Urine 10 /ul (Negative); Protein-Dipstick 100 mg/dl (Negative); Urine Bilirubin Dipstick Negative (Negative); Urine Clarity Clear (Clear); Urine Urobilinogen Normal (Normal); Urine pH 6.5 (5.0 - 8.0)
[2023-01-31 13:55] LABS: ALB/GLOB Ratio 0.8 RATIO (0.9-2.4); AST(SGOT) 14 U/L (15-37); Alanine Aminotransfer ALT/SGPT 26 U/L (13-56); Albumin, Serum 3.1 g/dL (3.2-5.0); Alkaline Phosphatase 79 U/L (45-117); Anion Gap 4 (5-15); BUN 10 mg/dL (7-18); BUN/Creat Ratio 12.2 RATIO (10-20); Calcium,Total 8.7 mg/dL (8.5-10.1); Chloride 108 mmol/L (98-107); Creatinine, Serum 0.82 mg/dL (0.55-1.02); EST Glomerular Filtration Rate 82 mL/min (>60); Est Glom Filt Rate - Afr Amer 100 mL/min (>60); Estimated Creatinine Clearance 76.19 ml/min; Globulin 3.8 g/dL (2.2-4.2); Glucose 100 mg/dL (74-106); Protein, Total 6.9 g/dL (6.4-8.2); Sodium Level 137 mmol/L (136-145); Thyroid Stim Hormone (TSH) 0.42 uIU/mL (0.358-3.74)
[2023-01-31 13:58] LABS: Bacteria 2+ /hpf (None Seen)
[2023-01-31 14:11] LABS: Bedside Glucose 56 mg/dL (74-106)
[2023-01-31 14:13] LABS: Internal QC Validated? YES +Cl - CLEAR BKGD; Pregnancy, Serum, hCG Quali. NEGATIVE Negative
[2023-01-31 14:20] LABS: Alcohol, Blood (Medical)-Serum < 3.0 mg/dL
[2023-01-31 14:29] LABS: Carbamazepine (Tegretol) < 0.5 ug/mL (4.0-12.0)
[2023-01-31 14:31] LABS: Amphetamine Urine VISTA POSITIVE (<1000 ng/mL); Barbiturate Urine VISTA NEGATIVE (< 200 ng/mL); Benzodiazepine Urine VISTA NEGATIVE (< 200 ng/mL); Cocaine Urine VISTA NEGATIVE (< 300 ng/mL); Ecstacy Urine VISTA POSITIVE (< 500 ng/mL); Methadone Urine VISTA NEGATIVE (< 300 ng/mL); PCP Urine VISTA NEGATIVE (< 25 ng/mL); THC Urine VISTA POSITIVE (< 50 ng/mL); Vista UDS pH Range 6
[2023-01-31 14:34] LABS: Acetaminophen (Tylenol) Level < 2.0 ug/mL (10.0-30.0); Salicylate < 1.7 mg/dL (2.8-20.0)
[2023-01-31] MEDS: Dextrose 10%-Water 250 ML 200 ML IV ×2 (14:35→16:00)
[2023-01-31] MEDS: Potassium Chloride 40 MEQ in 0.9% Normal Saline 1,000 ML 250 MEQ IV (14:43)
[2023-01-31] MEDS: Ceftriaxone 1 GM/50 ML BAG IV (14:43)
[2023-01-31 15:00] LABS: Potassium 2.9 mmol/L (3.5-5.1)
--- NOTE | 2023-01-31 15:00 | ED.RN ---
POISON CONTROL CONSULTED PER REQUEST, ELLIOT STATES TO GIVE MUCH DEXTROSE NEEDED, ALSO ADVISED TO GIVE D50 AMP SUPPLEMENTS PRN. UPDATED
--- NOTE | 2023-01-31 15:05 | NURSING ---
DR JOESPH NIXON
[2023-01-31 15:10] LABS: Bedside Glucose 64 mg/dL (74-106)
--- NOTE | 2023-01-31 15:14 | NURSING ---
ICU TERELETSKY HYPOGLYCEMIA
--- NOTE | 2023-01-31 15:23 | NURSING ---
ICU 6
--- NOTE | 2023-01-31 15:24 | ED.RN ---
PER BILL AT PHARMACY, OK TO INFUSE PREMIXED BAG OF POTASSIUM 40 MEQ IN 1000 ML BAG THROUGH PERIPHERAL IV. HE STATES POTASSIUM IS MUCH MORE DILUTED, THAN 100 ML BAG WITH 40 MEQ
[2023-01-31] MEDS: Potassium Chloride Oral Soln 20 MEQ/15 ML UDC 60 MEQ PO (15:49)
[2023-01-31 16:51] LABS: Bedside Glucose 86 mg/dL (74-106)
[2023-01-31 17:25] LABS: Bedside Glucose 65 mg/dL (74-106)
[2023-01-31 17:55] LABS: Bedside Glucose 63 mg/dL (74-106)
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
[2023-01-31 18:30] LABS: Bedside Glucose 85 mg/dL (74-106)
[2023-01-31 19:51] LABS: Bedside Glucose 121 mg/dL (74-106)
[2023-01-31 20:35] LABS: Bedside Glucose 103 mg/dL (74-106)
[2023-01-31] MEDS: Dextrose 10%-Water 250 ML 50 ML IV (20:46)
[2023-01-31] MEDS: traZODone 100 MG Tablet PO (21:58)
[2023-01-31] MEDS: hydrOXYzine PAM 25 MG Capsule 50 MG PO (21:58)
[2023-02-01] VITALS (13 sets, daily range): BP systolic 109–165; BP diastolic 59–91; PULSE 78–96; RESP 14–21; TEMP 36.8–37.1; O2SAT 94–99; BMI 38.0
[2023-02-01 00:36] LABS: Bedside Glucose 121 mg/dL (74-106)
[2023-02-01] MEDS: Dextrose 10%-Water 250 ML 50 ML IV ×2 (00:42→05:56)
[2023-02-01 04:43] LABS: Absolute Lymphocyte Count 3.76 X10^3/uL (0.83-4.51); Absolute Neutrophil Count 5.5 X10^3/uL (2.0-7.7); Basophil# 0.06 X10^3/uL; Basophil% 0.6 % (0-1); Eosinophil# 0.26 X10^3/uL; Eosinophils% 2.6 % (0-5); Hematocrit 43.6 % (37-47); Hemoglobin 13.9 g/dL (12.0-15.0); Lymphocyte # 3.76 X10^3/ul (0.83-4.51); Lymphocyte % 37.3 % (19-41); Mean Corp Hgb Conc 31.9 g/dL (32-36); Mean Corpuscular Hgb 28.9 pg (27.0-32.0); Mean Corpuscular Volume 90.6 fL (81-99); Mean Platelet Vol. 9.9 fl (6.2-12.0); Monocyte# 0.49 X10^3/uL; Monocyte% 4.9 % (0-10); NRBC Flagged by Analyzer 0 % (0-5); Neutrophil # 5.49 X10^3/uL (2.7-7.7); Neutrophil % 54.3 % (47-70); Platelet Count 305 K/mm3 (150-450); RBC Distribution Width CV 12.7 % (11.6-14.6); RBC Distribution Width SD 42.2 fl (35.1-43.9); Red Blood Count 4.81 M/mm3 (4.2-5.4); White Blood Count 10.1 K/mm3 (4.4-11.0)
[2023-02-01 04:59] LABS: Anion Gap 7 (5-15); BUN 12 mg/dL (7-18); BUN/Creat Ratio 14.9 RATIO (10-20); Calcium,Total 8.6 mg/dL (8.5-10.1); Chloride 108 mmol/L (98-107); EST Glomerular Filtration Rate 84 mL/min (>60); Est Glom Filt Rate - Afr Amer 102 mL/min (>60); Glucose 150 mg/dL (74-106); Potassium 3.8 mmol/L (3.5-5.1); Sodium Level 140 mmol/L (136-145)
[2023-02-01] MEDS: hydrOXYzine PAM 25 MG Capsule 50 MG PO (05:54)
[2023-02-01 09:04] LABS: Bedside Glucose 73 mg/dL (74-106)
[2023-02-01 09:04] LABS: Bedside Glucose 79 mg/dL (74-106)
[2023-02-01 09:04] LABS: Bedside Glucose 86 mg/dL (74-106)
[2023-02-01 09:04] LABS: Bedside Glucose 82 mg/dL (74-106)
[2023-02-01 09:04] LABS: Bedside Glucose 52 mg/dL (74-106)
[2023-02-01 09:04] LABS: Bedside Glucose 56 mg/dL (74-106)
[2023-02-01 09:04] LABS: Bedside Glucose 72 mg/dL (74-106)
[2023-02-01 09:04] LABS: Bedside Glucose 70 mg/dL (74-106)
[2023-02-01 09:09] LABS: Bedside Glucose 55 mg/dL (74-106)
[2023-02-01] MEDS: carBAMazepine 200 MG Tablet 100 MG PO (11:02)
[2023-02-01] MEDS: FLUoxetine 20 MG Capsule PO (11:03)
[2023-02-01 11:25] LABS: Bedside Glucose 138 mg/dL (74-106)
[2023-02-01] MEDS: Cephalexin 500 MG Capsule PO ×2 (11:54→22:14)
--- NOTE | 2023-02-01 14:08 | PN.HOSP_ITS ---
Reason for Visit Reason for Visit: Diagnoses Suicide attempt, initial encounter (01/31/23) Subjective Subjective Patient was seen and examined, her blood sugars have normalized, I have stopped the D10 infusion, we are no longer doing any blood sugars. Patient is alert with a flat affect. Objective Data Objective Data Vital Signs: Vital Signs Temp Pulse Resp BP Pulse Ox O2 Del Method O2 Flow Rate 98.7 F 96 21 H 136/90 H 95 Room Air 2 02/01/23 10:00 02/01/23 10:00 02/01/23 10:00 02/01/23 10:00 02/01/23 10:00 02/01/23 10:00 01/31/23 15:37 Oxygen Flow Rate (L/min) 2 Oxygen Delivery Method Room Air Weight: 97.2 kg Body Mass Index (BMI) 38.0 Intake & Output: Intake and Output for Last 24 Hours 01/30/23 01/31/23 02/01/23 23:59 23:59 23:59 Intake Total 2415.00 / 2775.00 1420.00 / 1420.00 Output Total 750 / 1070 770 / 770 Balance 1665.00 / 1705.00 650.00 / 650.00 Lab / Micro Data Result Diagrams: 02/01/23 04:35 02/01/23 04:20 Labs: Laboratory Results - last 24 hr 01/31/23 13:01: POC Glucose 64 L 01/31/23 13:20: Ethyl Alcohol < 3.0 01/31/23 13:20: Serum , Qual NEGATIVE 01/31/23 13:20: Salicylates < 1.7 L, Acetaminophen < 2.0 L 01/31/23 13:20: Carbamazepine < 0.5 L 01/31/23 13:30: Urine Opiates Screen NEGATIVE, Urine Methadone Screen NEGATIVE, Ur Barbiturates Screen NEGATIVE, Ur Phencyclidine Scrn NEGATIVE, Ur Amphetamines Screen POSITIVE H, MDMA (Ecstasy) Screen POSITIVE H, U Benzodiazepines Scrn NEGATIVE, Urine Cocaine Screen NEGATIVE, U Cannabinoids Screen POSITIVE H 01/31/23 13:42: POC Glucose 56 L 01/31/23 14:01: POC Glucose 55 L 01/31/23 14:15: POC Glucose 52 L 01/31/23 14:30: Potassium 2.9 L 01/31/23 14:30: POC Glucose 73 L 01/31/23 14:45: POC Glucose 56 L 01/31/23 15:00: POC Glucose 79 01/31/23 15:18: POC Glucose 70 L 01/31/23 15:30: POC Glucose 72 L 01/31/23 15:47: POC Glucose 86 01/31/23 16:00: POC Glucose 82 01/31/23 16:31: POC Glucose 86 01/31/23 17:03: POC Glucose 65 L 01/31/23 17:37: POC Glucose 63 L 01/31/23 18:10: POC Glucose 85 01/31/23 19:20: POC Glucose 121 H 01/31/23 20:13: POC Glucose 103 02/01/23 00:07: POC Glucose 121 H 02/01/23 03:30: WBC Cancelled, Corrected WBC Cancelled, RBC Cancelled, Hgb Cancelled, Hct Cancelled, MCV Cancelled, MCH Cancelled, MCHC Cancelled, RDW Std Deviation Cancelled, RDW Coeff of Scarlet Cancelled, Plt Count Cancelled, MPV Cancelled, Immature Gran % (Auto) Cancelled, Neut % (Auto) Cancelled, Lymph % (Auto) Cancelled, [place] % (Auto) Cancelled, Eos % (Auto) Cancelled, Baso % (Auto) Cancelled, Absolute Neuts (auto) Cancelled, Absolute Lymphs (auto) Cancelled, Total Counted Cancelled, Neutrophils % (Manual) Cancelled, Band Neutrophils % Cancelled, Lymphocytes % (Manual) Cancelled, Monocytes % (Manual) Cancelled, Eosinophils % (Manual) Cancelled, Basophils % (Manual) Cancelled, Metamyelocytes % Cancelled, Myelocytes % Cancelled, Promyelocytes % Cancelled, Blast Cells % Cancelled, Plasma Cell % (Manual) Cancelled, Other Cells % Cancelled, Nucleated RBC % Cancelled, Nucleated RBCs/100 WBC Cancelled, Differential Comment Cancell ed, Diff Path Review Cancelled, Hypersegmented Neuts Cancelled, Atypical Lymphocytes Cancelled, Reactive Lymphocytes Cancelled, Smudge Cells Cancelled, Toxic Granulation Cancelled, Toxic Vacuolation Cancelled, Dohle Bodies Cancelled, Jd Rods Cancelled, Platelet Estimate Cancelled, Plt Morphology C omment Cancelled, RBC Morphology Cancelled, Polychromasia Cancelled, Hypochromasia Cancelled, Poikilocytosis Cancelled, Basophilic Stippling Cancelled, Anisocytosis Cancelled, Microcytosis Cancelled, Macrocytosis Cancelled, Spherocytes Cancelled, Sickle Cells Cancelled, Target Cells Cancelled, Tear Drop Cells Cancelled, Ovalocytes Cancelled, Stomatocytes Cancelled, [place] Bodies Cancelled, [place] Cells Cancelled, Bite Cells Cancelled, Crenated Cell Cancelled, Acanthocytes (Spur) Cancelled, Rouleaux Cancelled, Schistocytes Cancelled 02/01/23 03:30: Sodium Cancelled, Potassium Cancelled, Chloride Cancelled, Carbon Dioxide Cancelled, Anion Gap Cancelled, BUN Cancelled, Creatinine Cancelled, Estim Creat Clear Calc Cancelled, Est GFR (MDRD) Af Amer Cancelled, Est GFR (MDRD) Non-Af Cancelled, BUN/Creatinine Ratio Cancelled, Glucose Cancelled, Calcium Cancelled 02/01/23 04:20: Sodium 140, Potassium 3.8, Chloride 108 H, Carbon Dioxide 25.0, Anion Gap 7, BUN 12, Creatinine 0.80, Estim Creat Clear Calc 78.10, Est GFR (MDR D) Af Amer 102, Est GFR (MDRD) Non-Af 84, BUN/Creatinine Ratio 14.9, Glucose 150 H, Calcium 8.6 02/01/23 04:35: WBC 10.1, RBC 4.81, Hgb 13.9, Hct 43.6, MCV 90.6, MCH 28.9, MCHC 31.9 L, RDW Std Deviation 42.2, RDW Coeff of Scarlet 12.7, Plt Count 305, MPV 9.9, Immature Gran % (Auto) 0.300, Neut % (Auto) 54.3, Lymph % (Auto) 37.3, [place] % (Auto) 4.9, Eos % (Auto) 2.6, Baso % (Auto) 0.6, Absolute Neuts (auto) 5.5, Absolute Lymphs (auto) 3.76, Nucleated RBC % 0 02/01/23 11:00: POC Glucose 138 H Micro: Microbiology 01/31/23 13:20 Nasal Secretion SARS-CoV-2 Antigen (Rapid) - Final Physical Exam Const alert, oriented x3, no apparent distress and healthy appearing General Appearance: cooperative, well kempt and well developed Orientation / Consciousness: awake, oriented to person, oriented to place and o riented to time HEENT normocephalic and moist oral mucous membranes Eyes PERRL, EOMs intact bilaterally and conjunctivae normal Neck supple, no JVD, thyroid normal and no carotid bruits General: trachea midline Resp normal respiratory effort and clear to auscultation bilaterally Auscultation: Negative for rales, rhonchi or wheezes Cardio regular rate, regular rhythm, no murmurs, no rub and no gallops GI normal to inspection, nondistended, normoactive bowel sounds, soft to palpation, non-tender and non-distended Extremity no clubbing, cyanosis or edema Skin no rashes or lesions noted General Skin Exam: no breakdown Neuro oriented x3, CN's II-XII intact bilaterally, no focal motor deficits and no sensory deficits noted Sensorium / Orientation: awake and alert Speech: speech normal Psych Psych Narrative: Patient has a flat affect Assessment & Plan Assessment/Plan (1) Suicide attempt: PLAN: Plan 1. Lispro insulin overdose with suicidal ideation-blood sugars have normalized, I do not think the patient's blood sugars will drop any longer, I stopped her D10 and stopped her fingerstick blood sugars. Patient will need admission to psychiatric facility for further care. Patient is medically stable at this time. #2 bipolar disorder-patient will be seen by crisis intervention, she will need psychiatric placement, continue present psych meds #3 PTSD-complicates care, medical course, recovery, and prognosis, patient will see crisis #4 noncompliance with medical regimen-complicates care, medical course, recovery, and prognosis Total clinical time spent by myself addressing the patient's medical issues, reviewing all of the data, and collaborating with the patient's care team: 35 minutes Charges/Coding Visit Charges Inpatient E&M: 68677 Subs Hosp L2
--- NOTE | 2023-02-01 14:08 | DS.PCM_ITS ---
Providers Date of Admission: 01/31/23 Date of Discharge: 02/02/23 Primary Care Physician: Dr. Andrea Trent MD Reason For Visit: HYPOGLYCEMIA Diagnosis Discharge Diagnosis (1) Suicide attempt: Status: Acute Code(s): T14.91XA - Suicide attempt, initial encounter Plan 1. Lispro insulin overdose with suicidal ideation-blood sugars have normalized, I do not think the patient's blood sugars will drop any longer, I stopped her D10 and stopped her fingerstick blood sugars. Patient will need admission to psychiatric facility for further care. Patient is medically stable at this time. #2 bipolar disorder-patient will be seen by crisis intervention, she will need psychiatric placement, continue present psych meds #3 PTSD-complicates care, medical course, recovery, and prognosis, patient will see crisis #4 noncompliance with medical regimen-complicates care, medical course, recovery, and prognosis Total clinical time spent by myself addressing the patient's medical issues, reviewing all of the data, and collaborating with the patient's care team: 35 minutes Medications at Discharge Home Medications carbamazepine 100 mg tablet,extended release,12 hr 100 mg PO DAILY DEPRESSION 01/31/23 fluoxetine 10 mg capsule 20 mg PO DAILY DEPRESSION 01/31/23 hydroxyzine pamoate 50 mg capsule 50 mg PO TID ANXIETY 01/31/23 trazodone 50 mg tablet 50 - 100 mg PO QHS DEPRESSION/INSOMNIA 01/31/23 Hospital Course Operations None Procedures None Summary of Care Provided Minutes Spent on Discharge: 30 Hospital Course: This 37-year-old white female was seen in the emergency room at [facility] after being brought in by the police after she was found wa ndering around a motel. Patient admitted to taking a large amount of her ex- boyfriend's insulin, it was determined that the insulin was lispro insulin which is short acting. Patient's blood sugar was low and she was given D10 and D50 to control her blood sugar. Patient was admitted to ICU and kept on IV D10 and frequent blood sugars were monitored. There were no untoward events during her hospitalization, she was seen by crisis who recommended transfer to a psychiatric hospital for further care. On 02/01/2023, patient was seen and examined: On examination she appears her stated age, her affect was flat, she does not appear to be in any distress. Vital signs as documented. Skin warm and dry and without overt rashes. Neck without JVD, thyroid appears normal, trachea is midline, neck is supple. Lungs clear, normal air movement was noted. Heart exam notable for regular rhythm, normal sounds and absence of murmurs, rubs or gallops. Abdomen unremarkable and without evidence of organomegaly, masses, or abdominal aortic enlargement, bowel sounds are present in all 4 quadrants, no abdominal tenderness was noted. Extremities nonedematous, no cyanosis was noted, no clubbing was noted. Neuro: Cranial nerves II through XII are grossly intact, no focal motor deficits were noted, sensation to light touch and pinprick is intact, motor exam 5/5 throughout. Psych: Patient is alert and oriented x3, affect was flat Patient was discharged on 02/02/2023 to a psychiatric facility in stable co ndition. Weight / BMI Weight Weight: 97.2 kg Body Mass Index (BMI) 38.0 ABG / Lab / Microbiology Data Result Diagrams: 02/01/23 04:35 02/01/23 04:20 Microbiology: Microbiology 01/31/23 13:20 Nasal Secretion SARS-CoV-2 Antigen (Rapid) - Final Meaningful Use Info Meaningful Use Diagnoses (Choose all that apply): None applicable Discharge Plan Admission Admit Date/Time: 01/31/23 16:06 Attending Provider: Andrei Michaels Primary Care Provider: Andrea Trent Discharge Orders/Prescriptions Prescriptions: No Action trazodone 50 mg tablet 50 - 100 mg PO QHS Label Comments: take 1 to 2 tablets by mouth at bedtime carbamazepine 100 mg tablet extended release 12 hr 100 mg PO DAILY Label Comments: take 1 tablet by mouth three times a day hydroxyzine pamoate 50 mg capsule 50 mg PO TID Label Comments: take 1 capsule by mouth three times a day fluoxetine 10 mg capsule 20 mg PO DAILY Label Comments: take 1 capsule by mouth once daily for 6 days then INCREASE to 2 capsules daily Referrals / Follow Up: Andrea Trent MD [Primary Care Provider] - Disposition Disposition (needs filled in before D/C Order can be placed): Psychiatric Hospital or Unit Charges/Coding Visit Charges Inpatient E&M: 78192 Disch Hosp
[2023-02-01 17:50] LABS: Bedside Glucose 119 mg/dL (74-106)
[2023-02-01] MEDS: traZODone 100 MG Tablet PO (22:13)
[2023-02-01 22:40] LABS: Bedside Glucose 120 mg/dL (74-106)
--- NOTE | 2023-02-02 00:48 | NURSING ---
report called to uzma at [facility]. informed of her pending departure from [facility] @[id number]
--- NOTE | 2023-02-02 04:52 | NURSING ---
Report given [facility]
--- NOTE | 2023-02-02 19:37 | CASEMGMT ---
Social Work Received phone call from patient's mother Amber ([phone]) inquiring as to patient's whereabouts, concerned for the patient. Brief chart review and noted that Amber was aware of patient's presence at [facility]. For continuity of care, returned Amber's phone call and updated that patient has been transferred for further care and treatment though provided no other details, which Amber accepted. Amber voiced appreciation just knowing that patient is being cared for. -BEATRIS Dominguez, CH[employer] *This note was generated with [employer] dictation software. It may contain incorrect words, spelling, and punctuation that were not noted in review of the chart prior to signing*
== END 2023-02-02 04:50 | DRG 817 ==
LOC: ED 13:47 → ICU 16:26
PROVIDERS: Admitting Provider Internal Medicine; Emergency Provider Emergency Medicine; PCP Family Medicine; Visit Provider Internal Medicine
DX: T38.3X2A Poisoning by insulin and oral hypoglycemic [antidiabetic] drugs, intentional self-harm, initial encounter (principal); E11.649 Type 2 diabetes mellitus with hypoglycemia without coma; F31.9 Bipolar disorder, unspecified; F15.10 Other stimulant abuse, uncomplicated; E87.6 Hypokalemia; I10 Essential (primary) hypertension; F17.210 Nicotine dependence, cigarettes, uncomplicated; Z91.199 Patient's noncompliance with other medical treatment and regimen due to unspecified reason; F43.10 Post-traumatic stress disorder, unspecified; Z20.822 Contact with and (suspected) exposure to COVID-19; Z91.51 Personal history of suicidal behavior
CPT/HCPCS: 51702; 71045; 80048; 80053; 80156; 80307; 80329; 81001; 82077; 82550; 82962; 84132; 84443; 84484; 84703; 85025; 87811; 93005; 99285; 99406; J7030; A4216; G0480; J2405

== ENCOUNTER 2023-09-06 09:01 | Emergency (ER) | payer MEDICAID, SELFPAY ==
[2023-09-06 09:01] VITALS: BP 126/72; PULSE 95; RESP 18; TEMP 36.4; O2SAT 99
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
== END 2023-09-06 10:02 | disposition home or self-care (01) ==
PROVIDERS: Emergency Provider Emergency Medicine; PCP Family Medicine; Visit Provider Emergency Medicine
DX: S16.1XXA Strain of muscle, fascia and tendon at neck level, initial encounter (principal); E11.9 Type 2 diabetes mellitus without complications; M25.511 Pain in right shoulder; M54.9 Dorsalgia, unspecified; F17.210 Nicotine dependence, cigarettes, uncomplicated; S80.01XA Contusion of right knee, initial encounter; I10 Essential (primary) hypertension; V43.62XA Car passenger injured in collision with other type car in traffic accident, initial encounter
CPT/HCPCS: 99282